=== PATIENT | female | born 1935 | race Caucasian/White ===

== ENCOUNTER → 2017-03-18 | Outpatient (CLI) | payer MEDICARE | LOC: RAD 11:05 | PROVIDERS: ATTEND Orthopaedic Surgery Orthopaedic Surgery of the Spine | DX: M54.5 Low back pain (principal) | CPT/HCPCS: 78315; A9503; Q9969 ==

== ENCOUNTER → 2017-03-25 | Outpatient (CLI) | payer MEDICARE | LOC: RAD 12:18 | PROVIDERS: ATTEND Orthopaedic Surgery Orthopaedic Surgery of the Spine | DX: M54.5 Low back pain (principal); M47.896 Other spondylosis, lumbar region | CPT/HCPCS: 72131 ==

== ENCOUNTER → 2017-06-18 | Day surgery (SDC) | payer MEDICARE ==
[~2017-06-18] MED LIST: BUPIVACAINE HCL 0.5 % INJ/PF 30 ML SDV ONE; LIDOCAINE 1% INJ-PF (10 MG/ML) 30 ML SDV ONE; METHYLPREDNISOLONE ACETATE INJ 40 MG/1 ML ML ONE
--- NOTE | 2017-06-18 13:49 | RADIOLOGY REPORT (SQ) ---
EXAM DESCRIPTION: INJECT/ASPIR HIP/SHLDR/KNEE COMPLETE DATE/TIME: 06/18/2017 1:35 pm REASON FOR STUDY: PAIN IN LEFT HIP (M25.552) M25.552 PAIN IN LEFT HIP FINDINGS: Please see combined report for performance of procedure and radiologic supervision and int erpretation. IMPRESSION: Please see combined report for performance of procedure and radiologic supervision and i nterpretation.
--- NOTE | 2017-06-18 13:51 | RADIOLOGY REPORT (SQ) ---
EXAM DESCRIPTION: FLUORO/NEEDLE PLACEMENT COMPLETED DATE/TIME: 06/18/2017 1:35 pm REASON FOR STUDY: PAIN IN LEFT HIP (M25.552) M25.552 PAIN IN LEFT HIP COMPARISON: None. FLUOROSCOPY TIME: 33 seconds 3 images saved to PACS. LIMITATIONS: None. PROCEDURE: SITE OF INJECTION: Left hip LOCALIZING CONTRAST TYPE AND DOSE: 2 mL Isovue-300 MEDICATION TYPE AND DOSE: 80 mg Depo-Medrol 5 mL Sensorcaine and 7 mL lidocaine Using local anesthesia and sterile technique with fluoroscopic guidance, the needle was advanced into the joint. Iodinated contrast was injected to verify intraarticular placement. This was followed by therapeutic injection of the indicated medications. The needle was removed. There were no immediat e complications. Preprocedure pain level: 10/10. Postprocedure pain level: 2/10. IMPRESSION: THERAPEUTIC INJECTION OF THE left hip JOINT ABOVE. COMMENT: Patient medication list reviewed: Yes. Quality ID [id number]: Final reports for procedures using fluoroscopy that document radiation exposure rozina cecilia, or exposure time and number of fluorographic images (if radiation exposure indices are not avail able) TECHNICAL DOCUMENTATION: JOB ID: [id number] [employer]- All Rights Reserved
--- NOTE | 2017-06-18 13:52 | RADIOLOGY REPORT (SQ) ---
EXAM DESCRIPTION: HIP UNILATERAL-1 VIEW COMPLETE DATE/TIME: 06/18/2017 1:36 pm REASON FOR STUDY: PAIN IN LEFT HIP (M25.552) M25.552 PAIN IN LEFT HIP FINDINGS: Please see combined report for performance of procedure and radiologic supervision and int erpretation. IMPRESSION: Please see combined report for performance of procedure and radiologic supervision and i nterpretation.
== END ==
LOC: RAD 12:31
PROVIDERS: ATTEND Physician Assistant
PROC: 3E0U33Z Introduction of Anti-inflammatory into Joints, Percutaneous Approach (ICD-10-PCS; principal; 2017-06-18)
DX: M25.552 Pain in left hip (principal)
CPT/HCPCS: 73501; 20610; 77002; J3490; J1020

== ENCOUNTER 2017-08-24 07:04 | Emergency (ER) | payer MEDICARE ==
--- NOTE | 2017-08-24 07:33 | ER Document Report ---
ED Wound - General Mode of Arrival: Ambulatory Information source: Patient TRAVEL OUTSIDE OF THE [place] IN LAST 30 DAYS: No - HPI Patient complains to provider of: Other - see narrative Occurred: Other - x2 days Severity: None Sensations intact: Yes Distal pulses present: Yes - General Chief Complaint: Laceration Stated Complaint: LEFT ARM LACERATION Time Seen by Provider: 08/24/17 07:22 Notes: Patient is an 82-year-old female who presents to the emergency department today secondary to a "blood blister busting" 2 days ago with continued bleeding since onset. Patient is on Coumadin for atrial fibrillation. Patient's bleeding times were last checked last week. at bedside states these times are usually in the "2.5 range" but last week it was a "little high". states that he stopped her Coumadin last night. Patient denies any bony pain. Patient has full range of motion of left upper extremity. (MARC MAYA) - Related Data Allergies/Adverse Reactions: codeine [Codeine] Adverse Reaction (Severe, Verified 11/13/16 12:52) Hyperactivity Past Medical History - General Information source: Patient, [facility] Records - Social History Smoking Status: Current Every Day Smoker Cigarette use (# per day): Yes Frequency of alcohol use: None Drug Abuse: None Lives with: Spouse/Significant other Family History: Reviewed & Not Pertinent Patient has suicidal ideation: No Patient has homicidal ideation: No - Past Medical History Cardiac Medical History: Reports: Hx Atrial Fibrillation, Hx Coronary Artery Disease, Hx Heart Attack - Silent, Hx Hypercholesterolemia, Hx Hypertension Pulmonary Medical History: Reports: Hx Bronchitis, Hx COPD Neurological Medical History: Reports: Hx Cerebrovascular Accident - With open heart surgery. Endocrine Medical History: Reports: Hx Diabetes Mellitus Type 2 GI Medical History: Reports: Hx Diverticulitis, Hx Ulcer - Diverticulitis Musculoskeltal Medical History: Reports Hx Arthritis, Reports Hx Gout Psychiatric Medical History: Reports: Hx Anxiety, Hx Depression Past Surgical History: Reports: Hx Abdominal Surgery, Hx Cardiac Surgery - Bypass, pacer, Hx Colostomy - reversed, Hx Coronary Artery Bypass Graft, Hx Hysterectomy, Hx Open Heart Surgery, Hx Orthopedic Surgery - Colby rods in back, Hx Pacemaker - Medtronic - Immunizations Hx Diphtheria, Pertussis, Tetanus Vaccination: Yes Hx Pneumococcal Vaccination: 08/30/14 Review of Systems - Review of Systems Constitutional: No symptoms reported EENT: No symptoms reported Cardiovascular: No symptoms reported Respiratory: No symptoms reported Gastrointestinal: No symptoms reported Genitourinary: No symptoms reported Female Genitourinary: No symptoms reported Musculoskeletal: No symptoms reported Skin: See HPI, Other - wound to left forearm with bleeding Hematologic/Lymphatic: No symptoms reported Neurological/Psychological: No symptoms reported -: Yes All other systems reviewed and negative Physical Exam - Vital signs Vitals: Temp Pulse Resp BP Pulse Ox 97.9 F 71 16 101/66 99 08/24/17 07:10 08/24/17 07:10 08/24/17 07:10 08/24/17 07:10 08/24/17 07:10 - Notes Notes: PHYSICAL EXAM GENERAL: Alert, interacts well. No acute distress. HEAD: Normocephalic, atraumatic. EYES: Pupils equal, round, and reactive to light. Extraocular movements intact. ENT: Oral mucosa moist, tongue midline. NECK: Full range of motion. Supple. Trachea midline. LUNGS: No respiratory distress. ABDOMEN: Non-distended. EXTREMITIES: Moves all 4 extremities spontaneously. No cyanosis. See skin exam. Patient able to move left shoulder, elbow, and wrist without any pain or difficulty. No bony tenderness. NEUROLOGICAL: Alert and oriented x3. Normal speech. PSYCH: Normal affect, normal mood. SKIN: Warm, dry, normal turgor. No rashes. Skin tear over left forearm just distal to the elbow measuring 3.5 cm long. Small amount of venous oozing, no arterial hemorrhage. No sign of infection. Area is not tender with palpation. (MARC MAYA) Course - Re-evaluation Re-evalutation: 08/24/17 10:35 Skin care continued to ooze blood despite the application of cocaine and the injection of lidocaine with epinephrine, patient was then cauterized using silver nitrate sticks and pressure dressing was applied, Steri-Strips were also applied. INR was checked and found to be 7.67. We were unable to verify this with a repeat as the blood kept clotting surprisingly. Patient's clinical presentation is consistent with supratherapeutic INR. Patient is given vitamin K by mouth and asked to stop taking Coumadin, be rechecked by her primary care physician Adán Lester MD in 2 days. 08/24/17 14:23 (SHIRLEY HUTSON) - Vital Signs Vital signs: Temp Pulse Resp BP Pulse Ox 97.4 F 70 16 98/41 L 98 08/24/17 11:16 08/24/17 11:16 08/24/17 11:16 08/24/17 11:16 08/24/17 11:16 - Laboratory Laboratory results interpreted by me: 08/24/17 07:35 PT 67.4 H* INR 7.67 H* Discharge - Discharge Clinical Impression: Supratherapeutic INR, Skin hemorrhage Skin tear of left forearm without complication Qualifiers: Encounter type: initial encounter Qualified Code(s): S51.812A - Laceration without foreign body of left forearm, initial encounter Condition: Stable Disposition: HOME, SELF-CARE Additional Instructions: Please leave the pressure dressing on your arm for the next 24 hours unless you develop numbness in your hand or arm. Then you may remove it. Please leave the Steri-Strips (tape on your skin) in place until they fall off on their own. Your Coumadin level was too high today. It was 7.67, we have given you vitamin K 5 mg by mouth. Please stop taking your Coumadin and do not take it again until your Coumadin level has been rechecked by her primary care physician. Referrals: DIONI BOWIE, [Primary Care Provider] - Follow up in 3-5 days Scribe Attestation: 08/24/17 14:23 I personally performed the services described in the documentation, reviewed and edited the documentation which was dictated to the scribe in my presence, and it accurately records my words and actions. (SHIRLEY HUTSON) Scribe Documentation - Scribe Written by Jinny:: Jinny Redmond, 08/24/2017 0814 acting as scribe for :: Wendie
[2017-08-24] MEDS ORDERED: COCAINE HCL 4% TOPICAL SOLN 4 ML TP ONE (07:35)
[2017-08-24] MEDS ORDERED: LIDOCAINE 1.5%/EPINEPHRINE INJ-PF 30 ML SDV INJ ONE ×2 (08:43→09:00)
[2017-08-24] MEDS ORDERED: SILVER NITRATE APPLICATOR 1 APPLIC STICK..EA. 10/PACKAGE TOP ONE ×2 (09:51)
[2017-08-24] MEDS ORDERED: PHYTONADIONE 5 MG TABLET PO ONE (10:35)
[2017-08-24 10:43] LABS: PROTHROMBIN TIME 67.4 SEC (11.4-15.4)
[2017-08-24 11:18] VITALS: BP 98/41
== END 2017-08-24 11:18 | disposition home or self-care (01) ==
LOC: ER 07:04
DX: S51.812A Laceration without foreign body of left forearm, initial encounter (principal); R23.3 Spontaneous ecchymoses; Z79.01 Long term (current) use of anticoagulants; X58.XXXA Exposure to other specified factors, initial encounter; F17.210 Nicotine dependence, cigarettes, uncomplicated
CPT/HCPCS: 99283; 36415; 85610; J3490 ×2; A9270

== ENCOUNTER 2017-08-25 14:43 | Inpatient (IN) | payer MEDICARE ==
[2017-08-25] MEDS ORDERED: NORMAL SALINE 1000 ML 1,000 ML IV PRN (15:21)
[2017-08-25] MEDS ORDERED: OXYCODONE-ACETAMINOPHEN 5-325 MG TABLET PO PRN (15:30)
[2017-08-25 16:29] LABS: ABSOLUTE BASOPHILS # (AUTO) 0.1 10^3/uL (0.0-0.2); ABSOLUTE EOSINOPHILS # (AUTO) 0.1 10^3/uL (0.0-0.6); ABSOLUTE LYMPHOCYTES (AUTO) 1.1 10^3/uL (0.5-4.7); ABSOLUTE MONOCYTES (AUTO) 0.7 10^3/uL (0.1-1.4); ABSOLUTE NEUT (AUTO) 7.5 10^3/uL (1.7-8.2); BASOPHILS % (AUTO) 0.6 % (0-2); EOSINOPHILS % (AUTO) 0.8 % (0-6); HEMATOCRIT 27.4 % (36.0-47.0); HEMOGLOBIN 8.6 g/dL (12.0-15.5); HGB HCT DIFFERENCE -1.6; LYMPHOCYTES % (AUTO) 12.2 % (13-45); MEAN CORPUSCULAR HGB CONC 31.4 g/dL (32.0-36.0); MEAN CORPUSCULAR VOLUME 70 fl (80-97); RED BLOOD COUNT 3.91 10^6/uL (3.72-5.28); RED CELL DISTRIBUTION WIDTH 20.9 % (11.5-14.0); SEGMENTED NEUTROPHILS % (AUTO) 79.4 % (42-78); WHITE BLOOD COUNT 9.4 10^3/uL (4.0-10.5)
[2017-08-25 16:43] LABS: ALANINE AMINOTRANSFERASE 96 U/L (9-52); ALBUMIN 3.3 g/dL (3.5-5.0); ALKALINE PHOSPHATASE 121 U/L (38-126); ANION GAP 12 (5-19); ASPARTATE AMINO TRANSFERASE 164 U/L (14-36); BILIRUBIN,DIRECT 0.8 mg/dL (0.0-0.4); BILIRUBIN,TOTAL 1.9 mg/dL (0.2-1.3); BLOOD UREA NITROGEN 26 mg/dL (7-20); CARBON DIOXIDE 27 mmol/L (22-30); CHLORIDE 100 mmol/L (98-107); CREATINE KINASE 65 U/L (30-135); CREATININE RESULT 1.75 mg/dL (0.52-1.25); GLUCOSE 87 mg/dL (75-110); SODIUM 139.2 mmol/L (137-145); TOTAL PROTEIN 6.8 g/dL (6.3-8.2)
[2017-08-25 16:46] LABS: POTASSIUM 2.8 mmol/L (3.6-5.0)
[2017-08-25 16:55] LABS: CREATINE KINASE MB 0.72 ng/mL (<4.55); TROPONIN I 0.039 ng/mL
--- NOTE | 2017-08-25 16:56 | PDOC H&P ---
History of Present Illness Admission Date/PCP: 08/25/17 15:21 CANDY SANDY, Patient complains of: Nausea inability to eat tiredness dry mouth History of Present Illness: CHELLY HOLDEN is a 82 year old female Who comes into the office for a follow-up after the emergency room visit. Her PT/INR was elevated over 7. She has been given vitamin K. Over the past several weeks the patient was not feeling very well. She has been nauseous she has lost weight she has not been eating well. Lab results were reviewed with the patient from last week which showed elevation in her liver enzymes. Her kidney function has gotten progressively worse because she has not been eating with increase in creatinine. She is presently being followed by the cardiology because of her atrial fibrillation and coronary artery disease. She denies any palpitations or chest pain. Past Medical History Cardiac Medical History: Reports: Atrial Fibrillation, Coronary Artery Disease, Myocardial Infarction - Silent, Hyperlipidema, Hypertension Pulmonary Medical History: Reports: Bronchitis, Chronic Obstructive Pulmonary Disease (COPD) Denies: Asthma, Pneumonia Neurological Medical History: Denies: Seizures Endocrine Medical History: Reports: Diabetes Mellitus Type 2, Hypothyroidism GI Medical History: Reports: Diverticulitis Denies: Hepatitis, Hiatal Hernia Musculoskeltal Medical History: Reports: Arthritis, Gout Musculoskeletal History Note: Compression fracture with 2 kyphoplasty's Psychiatric Medical History: Reports: Depression Hematology: Denies: Anemia, Sickle Cell Disease Past Surgical History Past Surgical History: Reports: Colostomy - reversed, Coronary Artery Bypass Graft, Hysterectomy, Orthopedic Surgery - Colby rods in back, Pacemaker - Medtronic Denies: Amputation, Mastectomy Social History Smoking Status: Current Some Day Smoker Frequency of Alcohol Use: None Hx Recreational Drug Use: No Family History Family History: Reviewed & Not Pertinent Parental Family History Reviewed: Yes Children Family History Reviewed: Yes Sibling(s) Family History Reviewed.: Yes Medication/Allergy Allergies/Adverse Reactions: codeine [Codeine] Adverse Reaction (Severe, Verified 11/13/16 12:52) Hyperactivity Review of Systems All systems: as per PMH Constitutional: PRESENT: as per HPI Physical Exam Vital Signs: Temp Pulse Resp BP Pulse Ox 97.6 F 69 18 102/39 L 92 08/25/17 15:42 08/25/17 15:42 08/25/17 15:42 08/25/17 15:42 08/25/17 15:42 Intake & Output 08/24/17 08/25/17 08/26/17 06:59 06:59 06:59 Weight 69 kg General appearance: PRESENT: mild distress Head exam: PRESENT: normocephalic Eye exam: PRESENT: conjunctival injection Mouth exam: PRESENT: dry mucosa Neck exam: ABSENT: carotid bruit Respiratory exam: PRESENT: rhonchi Cardiovascular exam: PRESENT: irregular rhythm, +S1, +S2 Pulses: PRESENT: +1 pedal pulses bilateral GI/Abdominal exam: PRESENT: soft, tenderness. ABSENT: guarding, rebound Extremities exam: PRESENT: tenderness Musculoskeletal exam: PRESENT: tenderness Neurological exam: PRESENT: alert, awake Results Laboratory Results: 08/25/17 16:00 08/25/17 16:00 WBC 9.4 RBC 3.91 Hgb 8.6 L Hct 27.4 L MCV 70 L MCH 22.0 L MCHC 31.4 L RDW 20.9 H Plt Count 144 L Seg Neutrophils % 79.4 H Lymphocytes % 12.2 L Monocytes % 7.0 Eosinophils % 0.8 Basophils % 0.6 Absolute Neutrophils 7.5 Absolute Lymphocytes 1.1 Absolute Monocytes 0.7 Absolute Eosinophils 0.1 Absolute Basophils 0.1 Assessment & Plan - Diagnosis (1) Supratherapeutic INR Is this a current diagnosis for this admission?: Yes Plan: Hold Coumadin until PT/INR therapeutic (2) Dehydration Is this a current diagnosis for this admission?: Yes Plan: IV fluids (3) Hypokalemia Is this a current diagnosis for this admission?: Yes Plan: We will supplement with additional potassium IV (4) Acute renal failure superimposed on stage 3 chronic kidney disease Is this a current diagnosis for this admission?: Yes Plan: We will continue IV hydration and hold diuretics (5) COPD (chronic obstructive pulmonary disease) Is this a current diagnosis for this admission?: Yes Plan: Continue nebulization treatments and oxygen (6) CAD (coronary artery disease) Is this a current diagnosis for this admission?: Yes Plan: Continue current medications (7) Atrial fibrillation Is this a current diagnosis for this admission?: Yes Plan: Continue amiodarone
[2017-08-25] MEDS ORDERED: ISOSORBIDE MONONITRATE 20 MG TABLET PO SCH ×2 (18:00→22:00)
[2017-08-25] MEDS ORDERED: POTASSIUM CHLORIDE 20 MEQ/50 ML RTU IV ONE (18:00)
[2017-08-25] MEDS ORDERED: ONDANSETRON HCL INJ/PF 4 MG/2 ML SDV IV PRN (18:38)
[2017-08-25] MEDS ORDERED: ALPRAZOLAM 0.25 MG TABLET PO PRN ×2 (18:38→22:00)
--- NOTE | 2017-08-25 18:56 | PDOC CONSULTATION ---
Consultation Consult Date: 08/25/17 History of Present Illness Admission Date/PCP: 08/25/17 15:21 CANDY SANDY, History of Present Illness: This is an 82-year-old patient was admitted to the emergency room today with postprandial nausea that has been going on for the last few weeks. This happens after most meals without any abdominal pain or vomiting. She has not been on any new medications though she has been taking Zofran in the last few days. On admission her INR was 7 and her LFTs were slightly abnormal with a total bilirubin of 1.9, AST of 164 and ALT of 96. She has a history of CHF and has been following up with cardiology. She has been on a high dose of diuretics over the last 2 months. Her BNP was 1570 on admission. She had an abdominal ultrasound on 06/22/2016 that showed no gallstones and no hepatic pathology. She had an EGD by Dr. Pierce in September 2013 that was essentially normal and a colonoscopy in March 2015 that showed scattered diverticulosis and a 2 mm sigmoid polyp. Past Medical History Cardiac Medical History: Reports: Atrial Fibrillation, Coronary Artery Disease, Myocardial Infarction - Silent, Hyperlipidema, Hypertension Pulmonary Medical History: Reports: Bronchitis, Chronic Obstructive Pulmonary Disease (COPD) Denies: Asthma, Pneumonia Neurological Medical History: Denies: Seizures Endocrine Medical History: Reports: Diabetes Mellitus Type 2, Hypothyroidism GI Medical History: Reports: Diverticulitis Denies: Hepatitis, Hiatal Hernia Musculoskeltal Medical History: Reports: Arthritis, Gout Psychiatric Medical History: Reports: Depression Hematology: Denies: Anemia, Sickle Cell Disease Past Surgical History Past Surgical History: Reports: Colostomy - reversed, Coronary Artery Bypass Graft, Hysterectomy, Orthopedic Surgery - Colby rods in back, Pacemaker - Medtronic Denies: Amputation, Mastectomy Social History Smoking Status: Current Some Day Smoker Frequency of Alcohol Use: None Hx Recreational Drug Use: No Family History Family History: Reviewed & Not Pertinent Parental Family History Reviewed: No Children Family History Reviewed: NA Sibling(s) Family History Reviewed.: NA Medication/Allergy Home Medications: Alprazolam [Xanax 0.25 mg Tablet] 0.25 mg PO Q8HP PRN 08/25/17 Amiodarone HCl [Cordarone 200 mg Tablet] 200 mg PO BID 08/25/17 Aspirin [Aspirin 81 mg Chewable Tablet] 81 mg PO DAILY 08/25/17 Atorvastatin Calcium [Lipitor 40 mg Tablet] 40 mg PO QHS 08/25/17 Bumetanide [Bumex 1 mg Tablet] 3 mg PO BID 08/25/17 Gabapentin [Neurontin 100 mg Capsule] 300 mg PO TID 08/25/17 Isosorbide Mononitrate [Ismo 20 mg Tablet] 20 mg PO BID 08/25/17 Levothyroxine Sodium [Synthroid] 50 mcg PO QAM 08/25/17 Metoprolol Tartrate [Lopressor 100 mg Tablet] 100 mg PO Q12 08/25/17 Omeprazole 40 mg PO BID 08/25/17 Ondansetron [Zofran Odt 4 mg Tablet] 4 mg SL Q8 08/25/17 Spironolactone [Aldactone] 50 mg PO DAILY 08/25/17 Warfarin Sodium [Coumadin 5 mg Tablet] 2.5 mg PO DAILY 08/25/17 Allergies/Adverse Reactions: codeine [Codeine] Adverse Reaction (Severe, Verified 11/13/16 12:52) Hyperactivity Review of Systems All systems: reviewed and no additional remarkable complaints except as stated Physical Exam Vital Signs: Temp Pulse Resp BP Pulse Ox 97.6 F 69 18 102/39 L 92 08/25/17 15:42 08/25/17 15:42 08/25/17 15:42 08/25/17 15:42 08/25/17 15:42 Intake & Output 08/24/17 08/25/17 08/26/17 06:59 06:59 06:59 Intake Total 0 Balance 0 Weight 69 kg Exam: General: Patient is alert and looks well. HEENT: There is no pallor or jaundice. PERRLA. Oropharynx normal Respiratory: She has kyphosis. No respiratory distress. Chest wall palpitation was unremarkable. Breath sounds were normal Cardiovascular: Heart sounds 1 and 2 normal with no murmurs. Abdominal: Not distended. Soft and nontender. Liver and spleen not palpable. No ascites demonstrated. Bowel sounds active. Rectal examination was deferred. Extremities: Mild bilateral pitting edema Neurological: Alert and oriented x4. Grossly nonfocal. Normal speech Skin: No significant rash Psychological: Normal affect Results Laboratory Results: 08/25/17 16:00 08/25/17 16:00 08/25/17 08/25/17 08/25/17 16:00 16:00 16:00 WBC 9.4 RBC 3.91 Hgb 8.6 L Hct 27.4 L MCV 70 L MCH 22.0 L MCHC 31.4 L RDW 20.9 H Plt Count 144 L Seg Neutrophils % 79.4 H Lymphocytes % 12.2 L Monocytes % 7.0 Eosinophils % 0.8 Basophils % 0.6 Absolute Neutrophils 7.5 Absolute Lymphocytes 1.1 Absolute Monocytes 0.7 Absolute Eosinophils 0.1 Absolute Basophils 0.1 Sodium 139.2 Potassium 2.8 L* Chloride 100 Carbon Dioxide 27 Anion Gap 12 BUN 26 H Creatinine 1.75 H Est GFR ( Amer) 34 L Est GFR (Non-Af Amer) 28 L Glucose 87 Calcium 9.0 Total Bilirubin 1.9 H AST 164 H ALT 96 H Alkaline Phosphatase 121 Total Protein 6.8 Albumin 3.3 L TSH 7.37 H 08/25/17 08/25/17 16:00 16:00 Creatine Kinase 65 CK-MB (CK-2) 0.72 Troponin I 0.039 NT-Pro-B Natriuret Pep 1570 H Assessment & Plan - Diagnosis (1) Nausea Is this a current diagnosis for this admission?: Yes Plan: Differential diagnosis for her postprandial nausea include peptic ulcer disease , gallbladder disease, medication side effects, or CHF. Her ultrasound was unremarkable over a year ago but this will be repeated. I may consider an EGD (2) Abnormal liver enzymes Is this a current diagnosis for this admission?: Yes Plan: Her LFTs were normal in 2016. The current elevation may be from her CHF and hepatic congestion. We shall observe for now and repeat over the next few months. An ultrasound will be scheduled to rule out gallstones and choledocholithiasis (3) Anemia of chronic disease Is this a current diagnosis for this admission?: Yes
[2017-08-25] MEDS ORDERED: AMIODARONE HCL 200 MG TABLET PO SCH (22:00)
[2017-08-25] MEDS ORDERED: GABAPENTIN 100 MG CAPSULE PO SCH (22:00)
[2017-08-25] MEDS ORDERED: METOPROLOL TARTRATE 100 MG TABLET PO SCH ×2 (22:00)
[2017-08-25] MEDS: GABAPENTIN 300 MG CAPSULE PO SCH (22:07)
[2017-08-25] MEDS: ISOSORBIDE MONONITRATE 20 MG TABLET PO SCH (22:07)
[2017-08-26 04:50] LABS: ALANINE AMINOTRANSFERASE 77 U/L (9-52); ALBUMIN 2.5 g/dL (3.5-5.0); ALKALINE PHOSPHATASE 77 U/L (38-126); ANION GAP 6 (5-19); ASPARTATE AMINO TRANSFERASE 123 U/L (14-36); BILIRUBIN,DIRECT 0.7 mg/dL (0.0-0.4); BILIRUBIN,TOTAL 1.5 mg/dL (0.2-1.3); BLOOD UREA NITROGEN 25 mg/dL (7-20); CALCIUM 8.2 mg/dL (8.4-10.2); CARBON DIOXIDE 27 mmol/L (22-30); CHLORIDE 103 mmol/L (98-107); CREATININE RESULT 1.48 mg/dL (0.52-1.25); GLUCOSE 103 mg/dL (75-110); MAGNESIUM 1.8 mg/dL (1.6-2.3); SODIUM 135.8 mmol/L (137-145); TOTAL PROTEIN 5.6 g/dL (6.3-8.2)
[2017-08-26 04:57] LABS: POTASSIUM 2.9 mmol/L (3.6-5.0)
[2017-08-26] MEDS ORDERED: POTASSIUM CHLORIDE 20 MEQ/50 ML RTU IV SCH (05:45)
[2017-08-26] MEDS: MAGNESIUM SULFATE 1 GM/D5W 100 ML IV SCH ×2 (05:56→08:35)
[2017-08-26] MEDS: GABAPENTIN 300 MG CAPSULE PO SCH ×3 (05:58→21:23)
[2017-08-26] MEDS ORDERED: LANSOPRAZOLE 30 MG TAB.RAP.DR PO SCH (06:00)
[2017-08-26 06:34] LABS: ABSOLUTE EOSINOPHILS # (AUTO) 0.1 10^3/uL (0.0-0.6); ABSOLUTE MONOCYTES (AUTO) 0.7 10^3/uL (0.1-1.4); ABSOLUTE NEUT (AUTO) 5.1 10^3/uL (1.7-8.2); BASOPHILS % (AUTO) 0.6 % (0-2); EOSINOPHILS % (AUTO) 1.8 % (0-6); HEMATOCRIT 24.3 % (36.0-47.0); HGB HCT DIFFERENCE -0.3; MEAN CORPUSCULAR HEMOGLOBIN 22.9 pg (27.0-33.4); MEAN CORPUSCULAR HGB CONC 32.9 g/dL (32.0-36.0); MEAN CORPUSCULAR VOLUME 70 fl (80-97); MONOCYTES % (AUTO) 9.5 % (3-13); RED BLOOD COUNT 3.49 10^6/uL (3.72-5.28); RED CELL DISTRIBUTION WIDTH 20.2 % (11.5-14.0); SEGMENTED NEUTROPHILS % (AUTO) 73.1 % (42-78); WHITE BLOOD COUNT 6.9 10^3/uL (4.0-10.5)
[2017-08-26] MEDS ORDERED: LEVOTHYROXINE SODIUM 0.05 MG TABLET PO SCH (08:00)
[2017-08-26] MEDS ORDERED: NORMAL SALINE 1000 ML 500 ML IV ONE (08:30)
[2017-08-26] MEDS: LANSOPRAZOLE 30 MG TAB.RAP.DR PO SCH ×2 (08:31→17:42)
--- NOTE | 2017-08-26 09:14 | RADIOLOGY REPORT (SQ) ---
EXAM DESCRIPTION: U/S ABDOMEN LIMITED W/O DOP COMPLETED DATE/TIME: 08/26/2017 7:32 am REASON FOR STUDY: postprandial nausea COMPARISON: Abdominal ultrasound 06/22/2016 TECHNIQUE: Dynamic and static grayscale images acquired of the abdomen and recorded on PACS. Additio nal selected color Doppler and spectral images recorded. LIMITATIONS: None. FINDINGS: PANCREAS: Midline pancreas unremarkable LIVER: No masses. Echotexture normal. LIVER VASCULATURE: Echogenic material in the main portal vein, worrisome for incompletely occlusive t hrombus. GALLBLADDER: Minimal sludge or stones in the gallbladder. No definite gallbladder wall thickening or pericholecystic fluid. ULTRASOUND-DETECTED CAMPBELL'S SIGN: Negative. INTRAHEPATIC DUCTS AND COMMON DUCT: CBD and intrahepatic ducts normal caliber. No filling defects. INFERIOR VENA CAVA: Normal flow. AORTA: No aneurysm. RIGHT KIDNEY: Normal size. Normal echogenicity. No solid or suspicious masses. No hydronephrosis. No calcifications. PERITONEAL AND RIGHT PLEURAL SPACE: No ascites or effusions. OTHER: No other significant findings. IMPRESSION: Echogenic material in the main portal vein, worrisome for incompletely occlusive thrombu s TECHNICAL DOCUMENTATION: JOB ID: [id number] [employer]- All Rights Reserved
[2017-08-26] MEDS: ASPIRIN 81 MG TABLET, CHEWABLE PO SCH (09:24)
[2017-08-26] MEDS: LEVOTHYROXINE SODIUM 0.05 MG TABLET PO SCH (09:24)
[2017-08-26] MEDS ORDERED: GLUCAGON,HUMAN RECOMB 1 MG INJ SUBCUT PRN (09:33)
[2017-08-26] MEDS ORDERED: DEXTROSE 50%-WATER 25 GM/50 ML DISP.SYRIN IV PRN ×2 (09:33)
[2017-08-26] MEDS ORDERED: DEXTROSE 40% GEL 15 GM TUBE PO PRN ×2 (09:33)
[2017-08-26] MEDS: AMIODARONE HCL 200 MG TABLET PO SCH ×2 (09:37→21:23)
[2017-08-26] MEDS: ISOSORBIDE MONONITRATE 20 MG TABLET PO SCH ×2 (09:39→21:23)
[2017-08-26] MEDS ORDERED: ASPIRIN 81 MG TABLET, CHEWABLE PO SCH (10:00)
[2017-08-26] MEDS ORDERED: FEBUXOSTAT 40 MG TABLET PO SCH (10:00)
[2017-08-26] MEDS ORDERED: LEVOTHYROXINE SODIUM 0.025 MG TABLET PO SCH (10:00)
[2017-08-26] MEDS ORDERED: ISOSORBIDE MONONITRATE 20 MG TABLET PO SCH (10:00)
[2017-08-26] MEDS ORDERED: GABAPENTIN 100 MG CAPSULE PO SCH (10:00)
[2017-08-26] MEDS ORDERED: AMIODARONE HCL 200 MG TABLET PO SCH (10:00)
[2017-08-26 10:11] LABS: PROTHROMBIN TIME 22.4 SEC (11.4-15.4)
--- NOTE | 2017-08-26 10:31 | PDOC PROGRESS REPORT ---
Subjective Progress Note for:: 08/26/17 Subjective:: The patient is a very pleasant 82-year-old female he was sent to the hospital from her primary care physician's office with supra therapeutic INR as well as nausea and postprandial fullness and dyspepsia. She was admitted to the hospital and a consult was placed to the GI service. Yesterday she had an abdominal ultrasound performed which was read this morning. I have spoken to gastroenterology this morning and the tentative plan is for a possible upper endoscopy to be performed this afternoon. When I went to see the patient today she is resting comfortably in the bed. She states that she has had no fever or chills overnight. She has had no chest pain or heart palpitations that she is aware of. She states that when she eats she gets full quite quickly. She states then she just has nausea but does not vomit. She states this makes it quite difficult to eat. She states that she has had some discomfort in her upper abdomen. She states that she has had normal bowel movements. She has not noted any black stools or blood in her stools. She states that she was taking water pills at home a few times a day and used to be urinating quite a bit but recently she has not been urinating much at all. Physical Exam Vital Signs: Temp Pulse Resp BP Pulse Ox 97.9 F 75 18 97/42 L 96 08/26/17 07:29 08/26/17 08:00 08/26/17 08:00 08/26/17 07:29 08/26/17 08:00 Intake & Output 08/25/17 08/26/17 08/27/17 06:59 06:59 06:59 Intake Total 1350 Output Total 100 Balance 1250 Weight 69.1 kg General appearance: PRESENT: no acute distress, well-developed, well-nourished Head exam: PRESENT: atraumatic, normocephalic Mouth exam: PRESENT: dry mucosa, tongue midline Respiratory exam: PRESENT: clear to auscultation marisela. ABSENT: rales, rhonchi, wheezes Cardiovascular exam: PRESENT: RRR. ABSENT: diastolic murmur, rubs, systolic murmur Pulses: PRESENT: normal dorsalis pedis pul GI/Abdominal exam: PRESENT: distended, guarding, hypoactive bowel sounds, tenderness. ABSENT: organolmegaly, rebound, rigid Rectal exam: PRESENT: deferred Extremities exam: PRESENT: full ROM. ABSENT: calf tenderness, clubbing, pedal edema Neurological exam: PRESENT: alert, awake, oriented to person, oriented to place , oriented to time, oriented to situation, CN II-XII grossly intact. ABSENT: motor sensory deficit Psychiatric exam: PRESENT: appropriate affect, normal mood. ABSENT: homicidal ideation, suicidal ideation Skin exam: PRESENT: dry, intact, warm. ABSENT: cyanosis, rash Results Laboratory Results: 08/26/17 05:42 08/26/17 04:23 08/25/17 08/25/17 08/25/17 16:00 16:00 16:00 WBC 9.4 RBC 3.91 Hgb 8.6 L Hct 27.4 L MCV 70 L MCH 22.0 L MCHC 31.4 L RDW 20.9 H Plt Count 144 L Seg Neutrophils % 79.4 H Lymphocytes % 12.2 L Monocytes % 7.0 Eosinophils % 0.8 Basophils % 0.6 Absolute Neutrophils 7.5 Absolute Lymphocytes 1.1 Absolute Monocytes 0.7 Absolute Eosinophils 0.1 Absolute Basophils 0.1 Retic Count (auto) Absolute Retic Sodium 139.2 Potassium 2.8 L* Chloride 100 Carbon Dioxide 27 Anion Gap 12 BUN 26 H Creatinine 1.75 H Est GFR ( Amer) 34 L Est GFR (Non-Af Amer) 28 L Glucose 87 Calcium 9.0 Magnesium Total Bilirubin 1.9 H AST 164 H ALT 96 H Alkaline Phosphatase 121 Total Protein 6.8 Albumin 3.3 L TSH 7.37 H 08/26/17 08/26/17 08/26/17 04:23 04:23 05:42 WBC Cancelled 6.9 RBC Cancelled 3.49 L Hgb Cancelled 8.0 L Hct Cancelled 24.3 L MCV Cancelled 70 L MCH Cancelled 22.9 L MCHC Cancelled 32.9 RDW Cancelled 20.2 H Plt Count Cancelled 101 L Seg Neutrophils % Cancelled 73.1 Lymphocytes % Cancelled 15.0 Monocytes % Cancelled 9.5 Eosinophils % Cancelled 1.8 Basophils % Cancelled 0.6 Absolute Neutrophils Cancelled 5.1 Absolute Lymphocytes Cancelled 1.0 Absolute Monocytes Cancelled 0.7 Absolute Eosinophils Cancelled 0.1 Absolute Basophils Cancelled 0.0 Retic Count (auto) Absolute Retic Sodium 135.8 L Potassium 2.9 L* Chloride 103 Carbon Dioxide 27 Anion Gap 6 BUN 25 H Creatinine 1.48 H Est GFR ( Amer) 41 L Est GFR (Non-Af Amer) 34 L Glucose 103 Calcium 8.2 L Magnesium 1.8 Total Bilirubin 1.5 H AST 123 H ALT 77 H Alkaline Phosphatase 77 Total Protein 5.6 L Albumin 2.5 L [facility] 08/26/17 05:42 WBC RBC Hgb Hct MCV MCH MCHC RDW Plt Count Seg Neutrophils % Lymphocytes % Monocytes % Eosinophils % Basophils % Absolute Neutrophils Absolute Lymphocytes Absolute Monocytes Absolute Eosinophils Absolute Basophils Retic Count (auto) Cancelled Absolute Retic Cancelled Sodium Potassium Chloride Carbon Dioxide Anion Gap BUN Creatinine Est GFR ( Amer) Est GFR (Non-Af Amer) Glucose Calcium Magnesium Total Bilirubin AST ALT Alkaline Phosphatase Total Protein Albumin [facility] 08/25/17 08/25/17 08/25/17 16:00 16:00 21:35 Creatine Kinase 65 CK-MB (CK-2) 0.72 Troponin I 0.039 0.032 NT-Pro-B Natriuret Pep 1570 H 08/26/17 08/26/17 04:23 04:23 Creatine Kinase CK-MB (CK-2) Troponin I 0.031 NT-Pro-B Natriuret Pep 1160 H Impressions: Abdomen Ultrasound 08/26/17 00:00 IMPRESSION: Echogenic material in the main portal vein, worrisome for incompletely occlusive thrombus Assessment & Plan - Diagnosis (1) Acute on chronic renal failure Plan: Secondary to dehydration from poor p.o. intake as well as diuretics. Creatinine is improving with IV fluid hydration. Creatinine is down to 1.48 at this point. The patient actually needs to have a CT scan of the abdomen and pelvis performed with IV contrast. I am going to repeat a chemistry panel this afternoon and if her creatinine has improved enough we will consider getting this scan at that time. (2) Supratherapeutic INR Is this a current diagnosis for this admission?: Yes Plan: The patient had a supra therapeutic INR at the time of admission. No PT and INR was ordered for this morning and I have added this for the labs this afternoon. She takes Coumadin as an outpatient. (3) Portal vein thrombosis Plan: The patient's abdominal ultrasound reveals a partially occluding thrombus in the portal vein. I did speak to gastroenterology about this this morning. We would like to obtain a contrasted CT scan of the abdomen and pelvis for further evaluation. I am going to repeat a chemistry panel to see what her creatinine is this afternoon. This is interesting as the patient has a supratherapeutic INR and is on Coumadin. Will defer to the GI service on further management. (4) Elevated liver function tests Plan: Of undetermined significance at this point. Patient does have known congestive heart failure but does not seem to be decompensated so I do not believe this could be attributed to passive congestion of the liver. The patient actually remains quite dry. Hopefully we can get a CT scan of the abdomen and pelvis this afternoon for further evaluation. Fortunately the GI service is following and we certainly appreciate their input. (5) Hypokalemia Is this a current diagnosis for this admission?: Yes Plan: Her level is still quite low. She will receive potassium riders today and I am going to add potassium to her maintenance IV fluids for now. She will have a repeat chemistry panel this afternoon. (6) Dehydration Is this a current diagnosis for this admission?: Yes Plan: Resolving with IV fluid hydration (7) CAD (coronary artery disease) Is this a current diagnosis for this admission?: Yes Plan: No complaints of chest pain. She will continue aspirin and her beta-soraya. She takes metoprolol tartrate 100 mg twice daily. Patient's blood pressure is quite low today and she actually is received a fluid bolus. I am going to cut her metoprolol back to 25 mg twice daily in the short-term here. Her Lipitor has been held due to her increased liver function test. (8) COPD (chronic obstructive pulmonary disease) Is this a current diagnosis for this admission?: Yes Plan: Fortunately no evidence of exacerbation. (9) Atrial fibrillation Is this a current diagnosis for this admission?: Yes Plan: Continue amiodarone. She is on Coumadin for anticoagulation. She reportedly had a supratherapeutic INR at the time of admission. I am going to check a PT and INR this afternoon. Currently she is in a sinus rhythm and rate controlled. (10) Anemia Plan: The patient has a microcytic anemia. I am going to obtain an anemia panel for further evaluation. She may have an element of iron deficiency and certainly she has an element of chronic disease. There also may be an element of hemodilution that she has been receiving IV fluids as well. She will have a CBC drawn in the morning. (11) Thrombocytopenia Plan: Of undetermined significance but certainly concerning in light of her elevated liver function tests. Hopefully we can get a CT scan of her abdomen and pelvis this afternoon for further evaluation. (12) Hyponatremia Plan: This is quite mild. She will have a CBC drawn in the morning. - Time Time Spent with patient: 35 or more minutes - Inpatient Certification Medical Necessity: Need Close Monitoring Due to Risk of Patient Decompensation - Inpatient hospitalization remains necessary. The patient has acute renal failure requiring parenteral fluids. She has multiple electrolyte abnormalities that we are supplementing. She needs further evaluation from the GI service and we need to look into why she has developed a portal vein thrombus. Timing of disposition will be determined by her clinical course., Need For IV Fluids
[2017-08-26] MEDS: METOPROLOL TARTRATE 25 MG TABLET PO SCH ×2 (10:41→21:23)
[2017-08-26] MEDS: POTASSI CL 20 MEQ/50 ML RIDER 20 MEQ/50 ML RTUPB IV SCH ×2 (10:44→13:26)
--- NOTE | 2017-08-26 12:24 | EKG REPORT ---
SEVERITY:- ABNORMAL ECG - ATRIAL-PACED COMPLEXES RIGHT BUNDLE BRANCH BLOCK ST DEPRESSION, CONSIDER ISCHEMIA, ANT-LAT LDS : Confirmed by: Elina Ordaz MD 26-Aug-2017 12:23:22
[2017-08-26 12:27] LABS: FOLATE > 20.00 ng/mL (>2.76)
[2017-08-26] MEDS: POTASSI CL 20 MEQ/NS 1L 1,000 ML IV SCH (17:13)
[2017-08-26 20:06] LABS: ANION GAP 8 (5-19); BLOOD UREA NITROGEN 20 mg/dL (7-20); CARBON DIOXIDE 22 mmol/L (22-30); CHLORIDE 106 mmol/L (98-107); CREATININE RESULT 1.35 mg/dL (0.52-1.25); GLUCOSE 152 mg/dL (75-110); SODIUM 135.9 mmol/L (137-145)
[2017-08-26 20:18] LABS: POTASSIUM 3.9 mmol/L (3.6-5.0)
[2017-08-27] MEDS: POTASSI CL 20 MEQ/NS 1L 1,000 ML IV SCH (01:41)
[2017-08-27] MEDS: GABAPENTIN 300 MG CAPSULE PO SCH ×3 (05:16→21:13)
[2017-08-27 05:58] LABS: ABSOLUTE BASOPHILS # (AUTO) 0.1 10^3/uL (0.0-0.2); RED BLOOD COUNT 3.54 10^6/uL (3.72-5.28)
[2017-08-27 06:00] LABS: ABSOLUTE EOSINOPHILS # (AUTO) 0.2 10^3/uL (0.0-0.6); ABSOLUTE LYMPHOCYTES (AUTO) 1.4 10^3/uL (0.5-4.7); ABSOLUTE MONOCYTES (AUTO) 0.7 10^3/uL (0.1-1.4); ABSOLUTE NEUT (AUTO) 6.7 10^3/uL (1.7-8.2); BASOPHILS % (AUTO) 0.9 % (0-2); HEMATOCRIT 24.9 % (36.0-47.0); HGB HCT DIFFERENCE -0.9; LYMPHOCYTES % (AUTO) 15.6 % (13-45); MEAN CORPUSCULAR HEMOGLOBIN 22.6 pg (27.0-33.4); MEAN CORPUSCULAR VOLUME 71 fl (80-97); MONOCYTES % (AUTO) 8.1 % (3-13); RED CELL DISTRIBUTION WIDTH 20.6 % (11.5-14.0); SEGMENTED NEUTROPHILS % (AUTO) 73.4 % (42-78); WHITE BLOOD COUNT 9.1 10^3/uL (4.0-10.5)
[2017-08-27 06:21] LABS: ALANINE AMINOTRANSFERASE 79 U/L (9-52); ALBUMIN 2.8 g/dL (3.5-5.0); ALKALINE PHOSPHATASE 90 U/L (38-126); ANION GAP 8 (5-19); ASPARTATE AMINO TRANSFERASE 132 U/L (14-36); BILIRUBIN,DIRECT 0.7 mg/dL (0.0-0.4); BILIRUBIN,TOTAL 1.5 mg/dL (0.2-1.3); BLOOD UREA NITROGEN 20 mg/dL (7-20); CALCIUM 8.3 mg/dL (8.4-10.2); CARBON DIOXIDE 22 mmol/L (22-30); CHLORIDE 109 mmol/L (98-107); CREATININE RESULT 1.41 mg/dL (0.52-1.25); GLUCOSE 120 mg/dL (75-110); MAGNESIUM 2.5 mg/dL (1.6-2.3); POTASSIUM 4.5 mmol/L (3.6-5.0); SODIUM 139.1 mmol/L (137-145)
[2017-08-27] MEDS ORDERED: WARFARIN SODIUM 2.5 MG TABLET PO SCH (07:45)
[2017-08-27] MEDS: METOPROLOL TARTRATE 25 MG TABLET PO SCH ×2 (09:12→21:11)
[2017-08-27] MEDS: LEVOTHYROXINE SODIUM 0.05 MG TABLET PO SCH (09:13)
[2017-08-27] MEDS: ASPIRIN 81 MG TABLET, CHEWABLE PO SCH (09:13)
[2017-08-27] MEDS: ISOSORBIDE MONONITRATE 20 MG TABLET PO SCH ×2 (09:13→19:01)
[2017-08-27] MEDS: AMIODARONE HCL 200 MG TABLET PO SCH ×2 (09:14→21:13)
[2017-08-27] MEDS: LANSOPRAZOLE 30 MG TAB.RAP.DR PO SCH (09:14)
--- NOTE | 2017-08-27 10:11 | Physician Advisory Note ---
Physician Advisor ProgressNote .: [facility] I have reviewed the medical record for this patient. Physician Advisor Statement: Well, you definitely make me work to find stuff to ask for - you're gonna be such a great health coach! Please consider documentin. "chronic Afib" vs "paroxysmal Afib" - not on a blue note, but the coders need this specified, too. 2. "anemia of chronic kidney dz stage 3" (need to say type of chr dz) - "& of nutritional Fe defic [vs chronic blood loss Fe defic from ___} " 3. "acute hyponatremia, mild, likely due to intravascular volume depletion" Thanks! CK (no blue note on this one)
[2017-08-27] MEDS ORDERED: NORMAL SALINE 1000 ML 1,000 ML IV PRN (13:18)
--- NOTE | 2017-08-27 15:51 | RADIOLOGY REPORT (SQ) ---
EXAM DESCRIPTION: PICC INSERTION; U/S GUIDE FOR VASCULAR ACCESS; FLUORO/CV PLACEMENT COMPLETED DATE/TIME: 08/27/2017 3:30 pm REASON FOR STUDY: poor peripheral access, need for IV contrast/fluid; IV ACCESS COMPARISON: None. FLUOROSCOPY TIME: 1 minutes 50 seconds. 1 images saved to PACS. TECHNIQUE: Fluoroscopic and ultrasound guided PICC placement. LIMITATIONS: None. PROCEDURE: After written consent and assessment were obtained, the patient was brought into the fluo roscopy room and place supine on the table. Ultrasound was used on the patient's right arm for PICC access. The right arm was prepped and draped in a sterile fashion along with the ultrasound probe. Th e entry site was anesthetized with 1% lidocaine. A 21 gauge 7 cm needle was advanced through the skin and into the basilic vein under live ultrasound guidance. An ultrasound image was saved to PACS con firming access site. A .018 guide wire was then inserted through the needle and into the venous syst em. The needle was the removed and an 11 blade scalpel was used to make a 1cm skin incision. A 5 fr peel-away sheath was advanced over the wire and into the venous system. A measurement was then made u sing the existing wire and live fluoroscopic guidance. The wire was then removed and the trimmed. The PICC was advanced through the peel-away sheath and into the venous system. The peel-away sheath was removed and the catheter was adhered to the patients arm with a stat lock. The catheter was then aspi rated and flushed and a sterile bandage was placed over the access site. A fluoroscopic spot image w as saved to PACS confirming the catheter tip within the superior vena cava. IMPRESSION: SUCCESSFUL PLACEMENT OF A 5 FR SINGLE LUMEN 37 CM PICC IN THE RIGHT BASILIC VEIN. COMMENT: Patient medication list reviewed: Yes- Quality ID# 130:Eligible professional attests to doc umenting in the medical record they obtained, updated, or reviewed the patient's current medications. . Quality ID 145: Final reports for procedures using fluoroscopy that document radiation exposure rozina cecilia, or exposure time and number of fluorographic images (if radiation exposure indices are not avail able) Quality ID #76: The patient was prepped and draped using maximum sterile barrier technique including cap, mask, sterile gown, sterile gloves, a large sterile sheet, hand hygiene, and 2% Chlorhexidine fo r cutaneous antisepsis. When ultrasound is used, sterile ultrasound techniques are followed requiring sterile gel and sterile probes. TECHNICAL DOCUMENTATION: JOB ID: [id number] [employer]- All Rights Reserved
--- NOTE | 2017-08-27 16:01 | RADIOLOGY REPORT (SQ) ---
EXAM DESCRIPTION: CT ABD/PELVIS WITH IV ONLY COMPLETED DATE/TIME: 08/27/2017 3:47 pm REASON FOR STUDY: nausea, possible portal vein thrombus COMPARISON: None. TECHNIQUE: CT scan of the abdomen and pelvis performed using helical scanning technique with dynamic intravenous contrast injection. No oral contrast. Images reviewed with lung, soft tissue, and bone windows. Reconstructed coronal and sagittal MPR images reviewed. Delayed images for evaluation of the urinary system also acquired. All images stored on PACS. All CT scanners at this facility use dose modulation, iterative reconstruction, and/or weight based d osing when appropriate to reduce radiation dose to as low as reasonably achievable (ALARA). [facility]: Dose Right [facility]: CareDose [facility]: Dose Right [facility]: Teradose 4D [facility]: Kiwi Crate CONTRAST TYPE AND DOSE: contrast/concentration: Isovue 370.00 mg/ml; Total Contrast Delivered: 75.0 ml; Total Saline Delivered: 67.0 ml RENAL FUNCTION: BUN 20 creatinine 1.41. RADIATION DOSE: Up-to-date CT equipment and radiation dose reduction techniques were employed. CTDIv ol: 25.0 - 26.2 mGy. DLP: 2438 mGy-cm.. LIMITATIONS: None. FINDINGS: LOWER CHEST: Bilateral pleural effusions with basilar atelectasis. LIVER: Normal size. No masses. No dilated ducts. Contrast is present in the portal vein, splenic ve in, and superior mesenteric vein. No evidence of thrombosis. SPLEEN: Normal size. No focal lesions. PANCREAS: No masses. No significant calcifications. No adjacent inflammation or peripancreatic fluid collections. Pancreatic duct not dilated. GALLBLADDER: No identified stones by CT criteria. No inflammatory changes to suggest cholecystitis. ADRENAL GLANDS: No significant masses or asymmetry. RIGHT KIDNEY AND URETER: No solid masses. No significant calcifications. No hydronephrosis or hyd roureter. LEFT KIDNEY AND URETER: No solid masses. No significant calcifications. No hydronephrosis or hydr oureter. AORTA AND VESSELS: No aneurysm. No dissection. Extensive arterial calcifications. Renal arteries, S MA, celiac without stenosis. RETROPERITONEUM: No retroperitoneal adenopathy, hemorrhage or masses. BOWEL AND PERITONEAL CAVITY: No masses or inflammatory changes. Moderate ascites. No peritoneal mas ses. APPENDIX: Not visualized. PELVIS: No mass. No free fluid. Normal bladder. ABDOMINAL WALL: No masses. No hernias. BONES: Chronic changes in the spine with old compression deformities and kyphoplasty cement. Hardwar e in the lower thoracic and upper lumbar spine. OTHER: No other significant finding. IMPRESSION: 1. PATENT PORTAL VEIN, SPLENIC VEIN, AND SUPERIOR MESENTERIC VEIN. NO EVIDENCE OF THROMBOSIS. 2. MODERATE ASCITES. 3. BILATERAL PLEURAL EFFUSIONS WITH BASILAR ATELECTASIS. 4. CHRONIC CHANGES IN THE LUMBAR SPINE WITH PRIOR KYPHOPLASTY AND SURGICAL CHANGES WITH HARDWARE. 5. NO OTHER SIGNIFICANT FINDINGS. TECHNICAL DOCUMENTATION: JOB ID: [id number] Quality ID # [id number]: Final reports with documentation of one or more dose reduction techniques (e.g., Au tomated exposure control, adjustment of the mA and/or kV according to patient size, use of iterative reconstruction technique) 2010 [employer]- All Rights Reserved
--- NOTE | 2017-08-27 16:45 | PDOC PROGRESS REPORT ---
Subjective Progress Note for:: 08/27/17 Subjective:: The patient is resting in her bed with her at the bedside. She is going to have an upper endoscopy performed late this afternoon by the GI service. Currently she is n.p.o. but asking for ice chips. She has been having difficulty with her IV access and a PICC line consult has been placed. Overall she states that she has not had anything to eat today but when she does eat she gets quite nauseated and she continues to get full quite quickly. She has had no fever chills overnight. She has not had a bowel movement today. No abdominal pain. No dysuria, frequency or hematuria. Physical Exam Vital Signs: Temp Pulse Resp BP Pulse Ox 97.5 F 70 20 104/46 L 90 L 08/27/17 12:04 08/27/17 14:00 08/27/17 12:04 08/27/17 11:54 08/27/17 12:04 Intake & Output 08/26/17 08/27/17 08/28/17 06:59 06:59 06:59 Intake Total 1350 4073 237 Output Total 100 Balance 1250 4073 237 Weight 69.1 kg 73.3 kg General appearance: PRESENT: no acute distress, well-developed, well-nourished Head exam: PRESENT: atraumatic, normocephalic Mouth exam: PRESENT: moist, tongue midline Neck exam: ABSENT: carotid bruit, JVD, lymphadenopathy, thyromegaly Respiratory exam: PRESENT: clear to auscultation marisela. ABSENT: rales, rhonchi, wheezes Cardiovascular exam: PRESENT: RRR. ABSENT: diastolic murmur, rubs, systolic murmur GI/Abdominal exam: PRESENT: normal bowel sounds, soft, tenderness. ABSENT: distended, guarding, mass, organolmegaly, rebound Rectal exam: PRESENT: deferred Extremities exam: PRESENT: full ROM. ABSENT: calf tenderness, clubbing, pedal edema Neurological exam: PRESENT: alert, awake, oriented to person, oriented to place , oriented to time, oriented to situation, CN II-XII grossly intact. ABSENT: motor sensory deficit Psychiatric exam: PRESENT: appropriate affect, normal mood. ABSENT: homicidal ideation, suicidal ideation Skin exam: PRESENT: dry, intact, warm. ABSENT: cyanosis, rash Results Laboratory Results: 08/27/17 05:46 08/27/17 05:46 08/26/17 08/26/17 08/27/17 10:42 19:40 05:46 WBC 9.1 RBC 3.54 L Hgb 8.0 L Hct 24.9 L MCV 71 L MCH 22.6 L MCHC 32.0 RDW 20.6 H Plt Count 142 L Seg Neutrophils % 73.4 Lymphocytes % 15.6 Monocytes % 8.1 Eosinophils % 2.0 Basophils % 0.9 Absolute Neutrophils 6.7 Absolute Lymphocytes 1.4 Absolute Monocytes 0.7 Absolute Eosinophils 0.2 Absolute Basophils 0.1 Sodium 135.9 L Potassium 3.9 D Chloride 106 Carbon Dioxide 22 Anion Gap 8 BUN 20 Creatinine 1.35 H Est GFR ( Amer) 45 L Est GFR (Non-Af Amer) 37 L Glucose 152 H Calcium 8.0 L Magnesium Transferrin 276 Total Bilirubin AST ALT Alkaline Phosphatase Total Protein Albumin 08/27/17 05:46 WBC RBC Hgb Hct MCV MCH MCHC RDW Plt Count Seg Neutrophils % Lymphocytes % Monocytes % Eosinophils % Basophils % Absolute Neutrophils Absolute Lymphocytes Absolute Monocytes Absolute Eosinophils Absolute Basophils Sodium 139.1 Potassium 4.5 Chloride 109 H Carbon Dioxide 22 Anion Gap 8 BUN 20 Creatinine 1.41 H Est GFR ( Amer) 43 L Est GFR (Non-Af Amer) 36 L Glucose 120 H Calcium 8.3 L Magnesium 2.5 H Transferrin Total Bilirubin 1.5 H AST 132 H ALT 79 H Alkaline Phosphatase 90 Total Protein 6.0 L Albumin 2.8 L 08/25/17 08/25/17 08/25/17 16:00 16:00 21:35 Creatine Kinase 65 CK-MB (CK-2) 0.72 Troponin I 0.039 0.032 NT-Pro-B Natriuret Pep 1570 H 08/26/17 08/26/17 08/27/17 04:23 04:23 05:46 Creatine Kinase CK-MB (CK-2) Troponin I 0.031 NT-Pro-B Natriuret Pep 1160 H 2020 H Impressions: Abdomen Ultrasound 08/26/17 00:00 IMPRESSION: Echogenic material in the main portal vein, worrisome for incompletely occlusive thrombus Guidance Fluoroscopy 08/27/17 00:00 IMPRESSION: SUCCESSFUL PLACEMENT OF A 5 FR SINGLE LUMEN 37 CM PICC IN THE RIGHT BASILIC VEIN. Interventional Vascular Procedure 08/27/17 00:00 IMPRESSION: SUCCESSFUL PLACEMENT OF A 5 FR SINGLE LUMEN 37 CM PICC IN THE RIGHT BASILIC VEIN. PICC Line Insertion 08/27/17 00:00 IMPRESSION: SUCCESSFUL PLACEMENT OF A 5 FR SINGLE LUMEN 37 CM PICC IN THE RIGHT BASILIC VEIN. Abdomen/Pelvis CT 08/27/17 07:40 IMPRESSION: 1. PATENT PORTAL VEIN, SPLENIC VEIN, AND SUPERIOR MESENTERIC VEIN. NO EVIDENCE OF THROMBOSIS. 2. MODERATE ASCITES. 3. BILATERAL PLEURAL EFFUSIONS WITH BASILAR ATELECTASIS. 4. CHRONIC CHANGES IN THE LUMBAR SPINE WITH PRIOR KYPHOPLASTY AND SURGICAL CHANGES WITH HARDWARE. 5. NO OTHER SIGNIFICANT FINDINGS. Assessment & Plan - Diagnosis (1) Acute on chronic renal failure Plan: The patient has chronic renal failure stage III at baseline. Her acute renal failure was likely due to dehydration (2) Supratherapeutic INR Is this a current diagnosis for this admission?: Yes Plan: She will be started back on her Coumadin today. We will check daily PT INRs and adjust accordingly. (3) Portal vein thrombosis Plan: A CT scan has been ordered but not yet performed due to the lack of IV access. We really need a contrasted study and hopefully we can get this performed later on this afternoon for further evaluation. The GI service is following. (4) Elevated liver function tests Plan: Of undetermined significance at this point. I doubt this is due to passive congestion of the liver as the patient does not seem to be acutely volume overloaded. We will get a CT scan of the abdomen and pelvis hopefully late this afternoon. (5) Hypokalemia Is this a current diagnosis for this admission?: Yes Plan: Repleted and resolved (6) Dehydration Is this a current diagnosis for this admission?: Yes Plan: Resolved with IV fluid hydration (7) CAD (coronary artery disease) Is this a current diagnosis for this admission?: Yes Plan: No complaints of chest pain. She will continue aspirin and her beta-soraya. Her metoprolol was cut back yesterday due to her blood pressure being on the low side. Her Lipitor has been held in light of her elevated liver function test. (8) COPD (chronic obstructive pulmonary disease) Is this a current diagnosis for this admission?: Yes Plan: Fortunately no evidence of exacerbation. (9) Atrial fibrillation Is this a current diagnosis for this admission?: Yes Plan: The patient has chronic atrial fibrillation maintained on amiodarone. She has been started back on her Coumadin (10) Anemia Plan: The patient has a microcytic anemia. She has an element of iron deficiency as well as chronic disease. There also is an element of hemodilution. (11) Thrombocytopenia Plan: Of undetermined significance but certainly concerning in light of her elevated liver function tests. Hopefully we can get a CT scan of her abdomen and pelvis this afternoon for further evaluation. (12) Hyponatremia Plan: Likely due to dehydration. Resolved with IV fluids - Time Time Spent with patient: 25-34 minutes - Inpatient Certification Medical Necessity: Need For IV Fluids - Inpatient hospitalization remains necessary. The patient needs further GI workup. She is having an upper endoscopy performed today. She needs a CT scan to further evaluate the possible portal vein thrombosis that she has. Timing of disposition will be determined by her clinical course.
[2017-08-27] MEDS ORDERED: MIDAZOLAM 2 MG/2 ML INJ ONE (16:48)
[2017-08-27] MEDS ORDERED: NALOXONE HCL INJ/PF 0.4 MG/1 ML SDV ONE (16:48)
[2017-08-27] MEDS ORDERED: EPINEPHRINE INJ 1 MG/10 ML DISP.SYRIN ONE (16:49)
[2017-08-27] MEDS ORDERED: FENTANYL CITRATE INJ/PF 100 MCG/2 ML AMPUL ONE (16:49)
[2017-08-27] MEDS ORDERED: GLUCAGON,HUMAN RECOMB 1 MG INJ ONE (16:49)
[2017-08-27] MEDS ORDERED: FLUMAZENIL INJ 0.5 MG/5 ML VIAL ONE (16:49)
[2017-08-27] MEDS: NORMAL SALINE 1000 ML 1,000 ML IV PRN (17:18)
--- NOTE | 2017-08-27 18:48 | Operative Report ---
Operative Report DATE OF SURGERY: 08/27/17 Operative Report: Pre-op diagnosis: Nausea Post-op diagnosis: Mild antral gastritis Surgery: Esophagogastroduodenoscopy with biopsy Medications: Versed 1mg Fentanyl 25mcg IV push Tissue removed: Antral biopsy for pathology Procedure: After informed consent obtained from patient, the throat was sprayed with Hurricane and conscious sedation was achieved. The upper endoscope was inserted into the esophagus under direct vision and advanced into the stomach. The duodenum was entered and examined to the second part. Endoscope was then slowly pulled out of the patient as the mucosa was examined into details. Patient tolerated procedure well. Findings Esophagus: Normal Z-line at: 35 cm Antrum: Mild erythema Body: Mild erythema Fundus: Normal Duodenum first part: Normal Duodenum second part: Normal Plan: Await pathology. Prevacid daily for 6 weeks OPERATION: .
[2017-08-28] MEDS: NORMAL SALINE 1000 ML 1,000 ML IV PRN (02:12)
[2017-08-28] MEDS: LEVOTHYROXINE SODIUM 0.05 MG TABLET PO SCH (06:38)
[2017-08-28] MEDS: GABAPENTIN 300 MG CAPSULE PO SCH ×3 (06:38→21:44)
[2017-08-28 07:03] LABS: PROTHROMBIN TIME 20.6 SEC (11.4-15.4)
[2017-08-28 07:04] LABS: ABSOLUTE BASOPHILS # (AUTO) 0.1 10^3/uL (0.0-0.2); ABSOLUTE EOSINOPHILS # (AUTO) 0.1 10^3/uL (0.0-0.6); ABSOLUTE LYMPHOCYTES (AUTO) 1.7 10^3/uL (0.5-4.7); ABSOLUTE NEUT (AUTO) 8.6 10^3/uL (1.7-8.2); MEAN CORPUSCULAR HEMOGLOBIN 22.1 pg (27.0-33.4); RED BLOOD COUNT 3.22 10^6/uL (3.72-5.28)
[2017-08-28 07:07] LABS: ALANINE AMINOTRANSFERASE 72 U/L (9-52); ALBUMIN 2.4 g/dL (3.5-5.0); ALKALINE PHOSPHATASE 88 U/L (38-126); ANION GAP 6 (5-19); ASPARTATE AMINO TRANSFERASE 120 U/L (14-36); BILIRUBIN,DIRECT 0.7 mg/dL (0.0-0.4); BILIRUBIN,TOTAL 1.5 mg/dL (0.2-1.3); BLOOD UREA NITROGEN 18 mg/dL (7-20); CALCIUM 8.5 mg/dL (8.4-10.2); CARBON DIOXIDE 20 mmol/L (22-30); CHLORIDE 110 mmol/L (98-107); CREATININE RESULT 1.48 mg/dL (0.52-1.25); GLUCOSE 110 mg/dL (75-110); MAGNESIUM 2.3 mg/dL (1.6-2.3); POTASSIUM 4.7 mmol/L (3.6-5.0); SODIUM 135.9 mmol/L (137-145); TOTAL PROTEIN 5.5 g/dL (6.3-8.2)
[2017-08-28 07:13] LABS: BASOPHILS % (AUTO) 0.5 % (0-2); EOSINOPHILS % (AUTO) 0.9 % (0-6); HEMATOCRIT 22.9 % (36.0-47.0); HGB HCT DIFFERENCE -1.6; MEAN CORPUSCULAR HGB CONC 31.1 g/dL (32.0-36.0); MEAN CORPUSCULAR VOLUME 71 fl (80-97); MONOCYTES % (AUTO) 8.4 % (3-13); RED CELL DISTRIBUTION WIDTH 20.8 % (11.5-14.0); SEGMENTED NEUTROPHILS % (AUTO) 75.2 % (42-78); WHITE BLOOD COUNT 11.5 10^3/uL (4.0-10.5)
[2017-08-28 07:16] LABS: HEMOGLOBIN 7.1 g/dL (12.0-15.5)
[2017-08-28 08:27] LABS: HEMATOCRIT 21.5 % (36.0-47.0); HGB HCT DIFFERENCE -1.4; MEAN CORPUSCULAR HEMOGLOBIN 22.4 pg (27.0-33.4); MEAN CORPUSCULAR HGB CONC 31.4 g/dL (32.0-36.0); MEAN CORPUSCULAR VOLUME 71 fl (80-97); RED BLOOD COUNT 3.01 10^6/uL (3.72-5.28); RED CELL DISTRIBUTION WIDTH 21.1 % (11.5-14.0)
[2017-08-28 08:30] LABS: HEMOGLOBIN 6.7 g/dL (12.0-15.5)
[2017-08-28 08:37] LABS: ALANINE AMINOTRANSFERASE 76 U/L (9-52); ALBUMIN 2.3 g/dL (3.5-5.0); ALKALINE PHOSPHATASE 81 U/L (38-126); ANION GAP 6 (5-19); ASPARTATE AMINO TRANSFERASE 112 U/L (14-36); BILIRUBIN,DIRECT 0.7 mg/dL (0.0-0.4); BILIRUBIN,TOTAL 1.4 mg/dL (0.2-1.3); BLOOD UREA NITROGEN 17 mg/dL (7-20); CALCIUM 7.9 mg/dL (8.4-10.2); CARBON DIOXIDE 19 mmol/L (22-30); CHLORIDE 111 mmol/L (98-107); CREATININE RESULT 1.43 mg/dL (0.52-1.25); GLUCOSE 110 mg/dL (75-110); POTASSIUM 4.4 mmol/L (3.6-5.0); SODIUM 136.2 mmol/L (137-145); TOTAL PROTEIN 5.1 g/dL (6.3-8.2)
[2017-08-28] MEDS: ISOSORBIDE MONONITRATE 20 MG TABLET PO SCH ×2 (08:42→16:27)
[2017-08-28] MEDS: LANSOPRAZOLE 30 MG TAB.RAP.DR PO SCH (10:14)
[2017-08-28] MEDS: AMIODARONE HCL 200 MG TABLET PO SCH ×2 (10:14→21:44)
[2017-08-28] MEDS: METOPROLOL TARTRATE 25 MG TABLET PO SCH ×2 (10:14→21:52)
[2017-08-28] MEDS: ASPIRIN 81 MG TABLET, CHEWABLE PO SCH (10:14)
[2017-08-28] MEDS ORDERED: ACETAMINOPHEN 325 MG TABLET PO PRN (10:48)
[2017-08-28] MEDS ORDERED: NORMAL SALINE 250 ML IV PRN ×2 (10:48)
--- NOTE | 2017-08-28 11:21 | PDOC PROGRESS REPORT ---
Subjective Progress Note for:: 08/28/17 Subjective:: The patient is a very pleasant 82-year-old female who was sent to the hospital from her primary care physician's office with a supratherapeutic INR as well as nausea and postprandial fullness and dyspepsia. She was admitted to the hospital and a GI consult was placed. She had an abdominal ultrasound performed which was concerning for a partially occluding thrombus in the portal vein. Yesterday the patient had an upper endoscopy performed. This exam was unremarkable with only some mild gastritis noted. She had a CT scan of the abdomen and pelvis with IV contrast which revealed no evidence of thrombus in the portal vein. In fact the entire scan was unremarkable. This morning the patient has had a precipitous drop in her hemoglobin. A repeat CBC was obtained and her hemoglobin has now dropped down to 6.7. When I went in to see the patient she states she feels profoundly weak and dizzy. She continues to have a little bit of nausea and really has no appetite. She denies fever or chills overnight. She has had no chest pain, shortness of breath or heart palpitations. She really is not having any abdominal pain but continues to have issues with nausea. She has not yet had a bowel movement. She has no dysuria, frequency or hematuria. Physical Exam Vital Signs: Temp Pulse Resp BP Pulse Ox 97.6 F 97 20 95/48 L 96 08/28/17 07:46 08/28/17 07:46 08/28/17 07:46 08/28/17 07:46 08/28/17 07:46 Intake & Output 08/27/17 08/28/17 08/29/17 06:59 06:59 06:59 Intake Total 4073 1287 Output Total 80 Balance 4073 1207 Weight 73.3 kg 76.6 kg General appearance: PRESENT: thin, other - She is quite pale and looks as if she feels quite poorly Head exam: PRESENT: atraumatic, normocephalic Mouth exam: PRESENT: moist, tongue midline Respiratory exam: PRESENT: clear to auscultation marisela. ABSENT: rales, rhonchi, wheezes Cardiovascular exam: PRESENT: RRR. ABSENT: diastolic murmur, rubs, systolic murmur GI/Abdominal exam: PRESENT: hypoactive bowel sounds, soft, tenderness - She is tender in the right upper quadrant. No rebound guarding or rigidity. ABSENT: guarding, rebound Rectal exam: PRESENT: normal inspection, normal rectal tone, other - She had light brown stool in the rectal vault which was sent sampled and sent downstairs for occult blood.. ABSENT: tenderness Extremities exam: PRESENT: full ROM. ABSENT: calf tenderness, clubbing, pedal edema Neurological exam: PRESENT: alert, awake, oriented to person, oriented to place , oriented to time, oriented to situation, CN II-XII grossly intact. ABSENT: motor sensory deficit Psychiatric exam: PRESENT: appropriate affect, normal mood. ABSENT: homicidal ideation, suicidal ideation Skin exam: PRESENT: dry, intact, pallor, warm, other - She is quite pale. ABSENT: cyanosis, rash Results Laboratory Results: 08/28/17 07:58 08/28/17 07:58 08/28/17 08/28/17 08/28/17 06:32 06:32 07:58 WBC 11.5 H RBC 3.22 L Hgb 7.1 L Hct 22.9 L MCV 71 L MCH 22.1 L MCHC 31.1 L RDW 20.8 H Plt Count 157 Seg Neutrophils % 75.2 Lymphocytes % 15.0 Monocytes % 8.4 Eosinophils % 0.9 Basophils % 0.5 Absolute Neutrophils 8.6 H Absolute Lymphocytes 1.7 Absolute Monocytes 1.0 Absolute Eosinophils 0.1 Absolute Basophils 0.1 Sodium 135.9 L 136.2 L Potassium 4.7 4.4 Chloride 110 H 111 H Carbon Dioxide 20 L 19 L Anion Gap 6 6 BUN 18 17 Creatinine 1.48 H 1.43 H Est GFR ( Amer) 41 L 42 L Est GFR (Non-Af Amer) 34 L 35 L Glucose 110 110 Calcium 8.5 7.9 L Magnesium 2.3 Total Bilirubin 1.5 H 1.4 H AST 120 H 112 H ALT 72 H 76 H Alkaline Phosphatase 88 81 Total Protein 5.5 L 5.1 L Albumin 2.4 L 2.3 L 08/28/17 07:58 WBC 9.0 RBC 3.01 L Hgb 6.7 L Hct 21.5 L MCV 71 L MCH 22.4 L MCHC 31.4 L RDW 21.1 H Plt Count 137 L Seg Neutrophils % Lymphocytes % Monocytes % Eosinophils % Basophils % Absolute Neutrophils Absolute Lymphocytes Absolute Monocytes Absolute Eosinophils Absolute Basophils Sodium Potassium Chloride Carbon Dioxide Anion Gap BUN Creatinine Est GFR ( Amer) Est GFR (Non-Af Amer) Glucose Calcium Magnesium Total Bilirubin AST ALT Alkaline Phosphatase Total Protein Albumin 08/25/17 08/25/17 08/25/17 16:00 16:00 21:35 Creatine Kinase 65 CK-MB (CK-2) 0.72 Troponin I 0.039 0.032 NT-Pro-B Natriuret Pep 1570 H 08/26/17 08/26/17 08/27/17 04:23 04:23 05:46 Creatine Kinase CK-MB (CK-2) Troponin I 0.031 NT-Pro-B Natriuret Pep 1160 H 2020 H Impressions: Abdomen Ultrasound 08/26/17 00:00 IMPRESSION: Echogenic material in the main portal vein, worrisome for incompletely occlusive thrombus Guidance Fluoroscopy 08/27/17 00:00 IMPRESSION: SUCCESSFUL PLACEMENT OF A 5 FR SINGLE LUMEN 37 CM PICC IN THE RIGHT BASILIC VEIN. Interventional Vascular Procedure 08/27/17 00:00 IMPRESSION: SUCCESSFUL PLACEMENT OF A 5 FR SINGLE LUMEN 37 CM PICC IN THE RIGHT BASILIC VEIN. PICC Line Insertion 08/27/17 00:00 IMPRESSION: SUCCESSFUL PLACEMENT OF A 5 FR SINGLE LUMEN 37 CM PICC IN THE RIGHT BASILIC VEIN. Abdomen/Pelvis CT 08/27/17 07:40 IMPRESSION: 1. PATENT PORTAL VEIN, SPLENIC VEIN, AND SUPERIOR MESENTERIC VEIN. NO EVIDENCE OF THROMBOSIS. 2. MODERATE ASCITES. 3. BILATERAL PLEURAL EFFUSIONS WITH BASILAR ATELECTASIS. 4. CHRONIC CHANGES IN THE LUMBAR SPINE WITH PRIOR KYPHOPLASTY AND SURGICAL CHANGES WITH HARDWARE. 5. NO OTHER SIGNIFICANT FINDINGS. Assessment & Plan - Diagnosis (1) Acute on chronic renal failure Plan: The patient has chronic renal failure stage III at baseline. Her acute renal failure was likely due to dehydration. Her creatinine improved with IV fluid hydration and is now at its baseline. (2) Anemia Plan: This morning the patient has had a precipitous drop in her hemoglobin and is quite symptomatic. She has a microcytic anemia. Rectal exam and stool sample revealed light brown stool which was sent downstairs for occult blood. She does not appear to be having an active bleed and had a totally normal CT scan of the abdomen and pelvis yesterday. She has had multiple blood draws and is received quite a bit of IV fluids so there could be an element of hemodilution. She has been typed and crossed and she will receive 2 units of packed red blood cells since she is symptomatic and her hemoglobin has drifted down to 6.7. She will have a CBC drawn tomorrow morning. (3) Nausea Plan: The patient continues to have nausea. Portal vein thrombosis is now been ruled out. She does continue to have some mildly elevated liver function tests. CT scan of the abdomen and pelvis yesterday revealed a normal gallbladder with no evidence of stones or pericholecystic fluid. Her abdominal ultrasound obtained previously did show some possible gallbladder sludge or stones. I am going to order a HIDA scan to rule out biliary dyskinesia. (4) Supratherapeutic INR Is this a current diagnosis for this admission?: Yes Plan: She reportedly had a supratherapeutic INR in her physician's office. Her Coumadin was held at the time of admission. Yesterday evening her Coumadin was restarted. In light of her falling hemoglobin I am going to stop this. She had no longer has any evidence of portal vein thrombosis. (6) Hypokalemia Is this a current diagnosis for this admission?: Yes Plan: Repleted and resolved (7) Dehydration Is this a current diagnosis for this admission?: Yes Plan: Resolved with IV fluid hydration (8) CAD (coronary artery disease) Is this a current diagnosis for this admission?: Yes Plan: No complaints of chest pain. The patient's blood pressure is been on the low side. I have cut her beta-soraya back from 100 mg twice daily to 25 mg twice daily. Her Lipitor was held in light of her elevated liver function tests. I am stopping her aspirin today in light of her worsening hemoglobin. (9) COPD (chronic obstructive pulmonary disease) Is this a current diagnosis for this admission?: Yes Plan: Fortunately no evidence of exacerbation. (10) Atrial fibrillation Is this a current diagnosis for this admission?: Yes Plan: The patient has chronic atrial fibrillation maintained on amiodarone. She is in a sinus rhythm and rate controlled. I am stopping her Coumadin in light of her falling hemoglobin. At this point the risks outweigh the benefit (11) Thrombocytopenia Plan: Of undetermined significance. Overall her levels have improved throughout the course of this hospitalization but are still on the low side. (12) Hyponatremia Plan: Likely due to dehydration. Much improved. (13) Portal vein thrombosis Plan: There was concern for a possible portal vein thrombosis on her abdominal ultrasound. She had a CT scan of the abdomen and pelvis with IV contrast yesterday which did not reveal any evidence of thrombosis. This is been ruled out. - Time Time Spent with patient: 35 or more minutes - Inpatient Certification Medical Necessity: Need Close Monitoring Due to Risk of Patient Decompensation - Inpatient hospitalization remains necessary. The patient has a following hemoglobin and is symptomatic requiring transfusion today. She continues to have nausea and difficulty eating. She is going to get a HIDA scan today as well. Timing of disposition will be determined by her clinical course.
--- NOTE | 2017-08-28 15:43 | RADIOLOGY REPORT (SQ) ---
EXAM DESCRIPTION: NM HIDA SCAN WITH CCK COMPLETED DATE/TIME: 08/28/2017 3:34 pm REASON FOR STUDY: nausea, concrns for biliary dyskinesia COMPARISON: CT abdomen pelvis 08/27/2017 abdominal ultrasound 08/26/2017 RADIONUCLIDE AND DOSE: DOSAGE RADIONUCLIDE: 5.4 millicuries Tc99m Mebrofenin. DOSAGE CCK: 1.5 micrograms. DOSAGE MORPHINE: Not required. The route of agent administration: Intravenous TECHNIQUE: Serial imaging right upper quadrant up to 60 minutes following injection of radionuclide. CCK injected after gallbladder visualized. LIMITATIONS: None. FINDINGS: LIVER: Normal visualization INTRAHEPATIC BILE DUCTS: Normal visualization COMMON BILE DUCT: Normal visualization were GALLBLADDER: Normal visualization. Calculated ejection fraction of 23%. Normal range is greater th an 35%. PHYSICAL RESPONSE: Patients presenting complaint was not reproduced. OTHER: No other significant finding. IMPRESSION: No scintigraphic evidence of cystic duct or common duct obstruction Mildly depressed gallbladder ejection fraction. IV CCK did not reproduce the patient's symptoms TECHNICAL DOCUMENTATION: JOB ID: [id number] [employer]- All Rights Reserved
[2017-08-28] MEDS: FUROSEMIDE INJ/PF 20 MG/2 ML SDV IV PRN ×2 (17:05→20:09)
[2017-08-29 00:19] LABS: ABSOLUTE BASOPHILS # (AUTO) 0.1 10^3/uL (0.0-0.2); ABSOLUTE EOSINOPHILS # (AUTO) 0.1 10^3/uL (0.0-0.6); ABSOLUTE MONOCYTES (AUTO) 1.2 10^3/uL (0.1-1.4); ABSOLUTE NEUT (AUTO) 11.7 10^3/uL (1.7-8.2); BASOPHILS % (AUTO) 0.9 % (0-2); EOSINOPHILS % (AUTO) 0.8 % (0-6); HEMATOCRIT 31.3 % (36.0-47.0); LYMPHOCYTES % (AUTO) 6.9 % (13-45); MEAN CORPUSCULAR HEMOGLOBIN 24.4 pg (27.0-33.4); MEAN CORPUSCULAR HGB CONC 32.3 g/dL (32.0-36.0); MONOCYTES % (AUTO) 8.6 % (3-13); RED BLOOD COUNT 4.14 10^6/uL (3.72-5.28); RED CELL DISTRIBUTION WIDTH 22.4 % (11.5-14.0); SEGMENTED NEUTROPHILS % (AUTO) 82.8 % (42-78); WHITE BLOOD COUNT 14.1 10^3/uL (4.0-10.5)
[2017-08-29 00:20] LABS: HEMOGLOBIN 10.1 g/dL (12.0-15.5)
[2017-08-29 00:21] LABS: MEAN CORPUSCULAR VOLUME 76 fl (80-97)
[2017-08-29 04:58] LABS: PROTHROMBIN TIME 21.9 SEC (11.4-15.4)
[2017-08-29 05:10] LABS: ALANINE AMINOTRANSFERASE 80 U/L (9-52); ALBUMIN 2.5 g/dL (3.5-5.0); ALKALINE PHOSPHATASE 90 U/L (38-126); ANION GAP 10 (5-19); ASPARTATE AMINO TRANSFERASE 130 U/L (14-36); BILIRUBIN,DIRECT 1.4 mg/dL (0.0-0.4); BILIRUBIN,TOTAL 3.2 mg/dL (0.2-1.3); BLOOD UREA NITROGEN 20 mg/dL (7-20); CALCIUM 8.6 mg/dL (8.4-10.2); CARBON DIOXIDE 18 mmol/L (22-30); CHLORIDE 110 mmol/L (98-107); CREATININE RESULT 1.77 mg/dL (0.52-1.25); GLUCOSE 134 mg/dL (75-110); MAGNESIUM 2.2 mg/dL (1.6-2.3); POTASSIUM 4.6 mmol/L (3.6-5.0); SODIUM 137.6 mmol/L (137-145); TOTAL PROTEIN 5.6 g/dL (6.3-8.2)
[2017-08-29] MEDS: GABAPENTIN 300 MG CAPSULE PO SCH ×2 (05:36→13:23)
[2017-08-29] MEDS: LEVOTHYROXINE SODIUM 0.05 MG TABLET PO SCH (05:36)
[2017-08-29] MEDS: IPRATROPIUM/ALBUTEROL 0.5-2.5 MG/3 ML AMPUL NEB PRN ×3 (08:48→21:14)
[2017-08-29] MEDS: ISOSORBIDE MONONITRATE 20 MG TABLET PO SCH ×2 (09:34→15:28)
[2017-08-29] MEDS: AMIODARONE HCL 200 MG TABLET PO SCH (09:34)
[2017-08-29] MEDS: METOPROLOL TARTRATE 25 MG TABLET PO SCH (09:34)
[2017-08-29] MEDS: LANSOPRAZOLE 30 MG TAB.RAP.DR PO SCH (09:34)
[2017-08-29] MEDS ORDERED: BUMETANIDE INJ/PF 1 MG/4 ML SDV IV ONE (10:00)
[2017-08-29] MEDS ORDERED: VANCOMYCIN HCL 0 MG in DEXTROSE 5%-WATER 250 ML IV NR (10:00)
--- NOTE | 2017-08-29 10:16 | RADIOLOGY REPORT (SQ) ---
EXAM DESCRIPTION: CHEST SINGLE VIEW COMPLETED DATE/TIME: 08/29/2017 10:06 am REASON FOR STUDY: SOB, wheezing COMPARISON: Two-view chest 06/22/2016 EXAM PARAMETERS: NUMBER OF VIEWS: One view. TECHNIQUE: Single frontal radiographic view of the chest acquired. RADIATION DOSE: NA LIMITATIONS: Portable technique, large patient FINDINGS: LUNGS AND PLEURA: Small bilateral pleural effusions are present. No pneumothorax. There is bibasilar airspace disease likely atelectasis left greater than right. MEDIASTINUM AND HILAR STRUCTURES: No masses. Contour normal. HEART AND VASCULAR STRUCTURES: Stable cardiomegaly. BONES: Colby rods over the lower thoracic spine. HARDWARE: Left-sided dual lead pacemaker. Old sternotomy for CABG. Right PICC line tip superior kaur a cava. OTHER: No other significant finding. IMPRESSION: Small bilateral pleural effusions with bibasilar airspace disease left greater than righ t. TECHNICAL DOCUMENTATION: JOB ID: [id number]
[2017-08-29] MEDS ORDERED: VANCOMYCIN HCL 1,500 MG in DEXTROSE 5%-WATER 250 ML IV ONE (11:00)
[2017-08-29] MEDS ORDERED: PIPERACILLIN SODIUM/TAZOBACTAM 3.375 GM in NORMAL SALINE 100 ML IV SCH (12:00)
[2017-08-29] MEDS: PIPERACILLIN SODIUM/TAZOBACTAM 2.25 GM in NORMAL SALINE 50 ML IV SCH ×2 (12:16→17:31)
[2017-08-29 13:00] LABS: APPEARANCE,URINE CLOUDY; BILIRUBIN,URINE NEGATIVE (NEGATIVE); GLUCOSE, URINE NEGATIVE (NEGATIVE); KETONES,URINE NEGATIVE (NEGATIVE); LEUKOCYTE ESTERASE,URINE MODERATE (NEGATIVE); NITRITE,URINE NEGATIVE (NEGATIVE); PROTEIN,URINE NEGATIVE (NEGATIVE); URINE SPECIFIC GRAVITY 1.025
[2017-08-29] MEDS ORDERED: SUCCINYLCHOLINE CHLORIDE INJ 200 MG/10 ML VIAL ONE (13:25)
--- NOTE | 2017-08-29 13:34 | PDOC PROGRESS REPORT ---
Subjective Progress Note for:: 08/29/17 Subjective:: Patient seen on morning rounds. She is resting in bed sleeping. She awakens to verbal stimuli. She is quite confused. She is noted to have a temperature of 101 by nursing staff. CBC this morning shows a leukocytosis of 14,000. Her is at bedside. She is unaware of who he is. She appears to be slightly tachypneic with audible expiratory wheezing. She did have a low-grade fever overnight. Review of systems are presently unobtainable due to patient's mentation. Physical Exam Vital Signs: Temp Pulse Resp BP Pulse Ox 99.8 F 67 22 H 103/49 L 94 08/29/17 10:50 08/29/17 08:48 08/29/17 08:48 08/29/17 07:50 08/29/17 08:48 Intake & Output 08/28/17 08/29/17 08/30/17 06:59 06:59 06:59 Intake Total 1287 1545 Output Total 80 260 Balance 1207 1285 Weight 76.6 kg 77.9 kg General appearance: PRESENT: mild distress - secondary to confusion, fever and pulmonary congestion, obese, well-nourished Head exam: PRESENT: atraumatic, normocephalic Eye exam: PRESENT: conjunctiva pink, EOMI, PERRLA. ABSENT: scleral icterus Ear exam: PRESENT: normal external ear exam Mouth exam: PRESENT: moist, tongue midline Neck exam: ABSENT: carotid bruit, JVD, lymphadenopathy, thyromegaly Respiratory exam: PRESENT: decreased breath sounds - bilateral bases, tachypnea , wheezes Cardiovascular exam: PRESENT: +S1, +S2, systolic murmur Pulses: PRESENT: normal carotid pulses, normal radial pulses Vascular exam: PRESENT: normal capillary refill GI/Abdominal exam: PRESENT: normal bowel sounds, soft Rectal exam: PRESENT: deferred Extremities exam: PRESENT: full ROM. ABSENT: calf tenderness, clubbing, pedal edema Musculoskeletal exam: PRESENT: full ROM Neurological exam: PRESENT: alert, altered, reflexes normal, CN II-XII grossly intact Psychiatric exam: PRESENT: flat affect Skin exam: PRESENT: dry, intact, warm. ABSENT: cyanosis, rash Results Laboratory Results: 08/29/17 00:09 08/29/17 04:33 08/28/17 08/28/17 08/29/17 10:46 16:00 00:09 WBC 14.1 H RBC 4.14 Hgb 10.1 L D Hct 31.3 L MCV 76 L D MCH 24.4 L MCHC 32.3 RDW 22.4 H Plt Count 176 Seg Neutrophils % 82.8 H Lymphocytes % 6.9 L Monocytes % 8.6 Eosinophils % 0.8 Basophils % 0.9 Absolute Neutrophils 11.7 H Absolute Lymphocytes 1.0 Absolute Monocytes 1.2 Absolute Eosinophils 0.1 Absolute Basophils 0.1 Sodium Potassium Chloride Carbon Dioxide Anion Gap BUN Creatinine Est GFR ( Amer) Est GFR (Non-Af Amer) Glucose Lactic Acid 1.6 Calcium Magnesium Total Bilirubin AST ALT Alkaline Phosphatase Total Protein Albumin Blood Type B POSITIVE Antibody Screen TNP 08/29/17 04:33 WBC RBC Hgb Hct MCV MCH MCHC RDW Plt Count Seg Neutrophils % Lymphocytes % Monocytes % Eosinophils % Basophils % Absolute Neutrophils Absolute Lymphocytes Absolute Monocytes Absolute Eosinophils Absolute Basophils Sodium 137.6 Potassium 4.6 Chloride 110 H Carbon Dioxide 18 L Anion Gap 10 BUN 20 Creatinine 1.77 H Est GFR ( Amer) 33 L Est GFR (Non-Af Amer) 27 L Glucose 134 H Lactic Acid Calcium 8.6 Magnesium 2.2 Total Bilirubin 3.2 H AST 130 H ALT 80 H Alkaline Phosphatase 90 Total Protein 5.6 L Albumin 2.5 L Blood Type Antibody Screen 08/25/17 08/25/17 08/25/17 16:00 16:00 21:35 Creatine Kinase 65 CK-MB (CK-2) 0.72 Troponin I 0.039 0.032 NT-Pro-B Natriuret Pep 1570 H 08/26/17 08/26/17 08/27/17 04:23 04:23 05:46 Creatine Kinase CK-MB (CK-2) Troponin I 0.031 NT-Pro-B Natriuret Pep 1160 H 2020 H Impressions: Abdomen Ultrasound 08/26/17 00:00 IMPRESSION: Echogenic material in the main portal vein, worrisome for incompletely occlusive thrombus Guidance Fluoroscopy 08/27/17 00:00 IMPRESSION: SUCCESSFUL PLACEMENT OF A 5 FR SINGLE LUMEN 37 CM PICC IN THE RIGHT BASILIC VEIN. Interventional Vascular Procedure 08/27/17 00:00 IMPRESSION: SUCCESSFUL PLACEMENT OF A 5 FR SINGLE LUMEN 37 CM PICC IN THE RIGHT BASILIC VEIN. PICC Line Insertion 08/27/17 00:00 IMPRESSION: SUCCESSFUL PLACEMENT OF A 5 FR SINGLE LUMEN 37 CM PICC IN THE RIGHT BASILIC VEIN. Abdomen/Pelvis CT 08/27/17 07:40 IMPRESSION: 1. PATENT PORTAL VEIN, SPLENIC VEIN, AND SUPERIOR MESENTERIC VEIN. NO EVIDENCE OF THROMBOSIS. 2. MODERATE ASCITES. 3. BILATERAL PLEURAL EFFUSIONS WITH BASILAR ATELECTASIS. 4. CHRONIC CHANGES IN THE LUMBAR SPINE WITH PRIOR KYPHOPLASTY AND SURGICAL CHANGES WITH HARDWARE. 5. NO OTHER SIGNIFICANT FINDINGS. Hepatobiliary Scan Nuclear Medicine 08/28/17 00:00 IMPRESSION: No scintigraphic evidence of cystic duct or common duct obstruction Mildly depressed gallbladder ejection fraction. IV CCK did not reproduce the patient's symptoms Chest X-Ray 08/29/17 00:00 IMPRESSION: Small bilateral pleural effusions with bibasilar airspace disease left greater than right. Assessment & Plan - Diagnosis (1) Fever Qualifiers: Fever type: unspecified Qualified Code(s): R50.9 - Fever, unspecified Is this a current diagnosis for this admission?: Yes Plan: Will panculture patient, obtain chest xray and start on empiric antibiotics until source is identified. Lactate yesterday was negative. She is more acidotic today on morning chemistry with mildly worsening BUN/Cr (2) Abnormal liver enzymes Is this a current diagnosis for this admission?: Yes Plan: Most likely secondary to hepatic congestion and chronic combination systolic/ diastolic heart failure. CT shows mild to mod ascites. CTA abdomen and pelvis ruled out portal vein thrombus, ultrasound of abdomen showed no signs of biliary duct obstruction or cholecystitis . Hidascan unremarkable. GI, Dr Ling is consulted and following. (3) Acute renal failure superimposed on stage 3 chronic kidney disease Qualifiers: Acute renal failure type: unspecified Qualified Code(s): N17.9 - Acute kidney failure, unspecified; N18.3 - Chronic kidney disease, stage 3 (moderate) Is this a current diagnosis for this admission?: Yes Plan: Most likely secondary (4) Anemia of chronic disease Is this a current diagnosis for this admission?: Yes Plan: Anemia studies pending. Likely anemia of chronic disease related to kidney disease and may have iron deficiency anemia. She did drop hgb to 6.7 from 8.0 most likely some due to dilution with IV hydration. EGD did show mild gastritis in setting of supratherapeutic INR. Stool was guiac negative. On daily PPI (5) Atrial fibrillation Qualifiers: Atrial fibrillation type: paroxysmal Qualified Code(s): I48.0 - Paroxysmal atrial fibrillation Is this a current diagnosis for this admission?: Yes Plan: Presently atrial paced with underlying atrial fibrillation on amiodarone, metoprolol and coumadin restarted with INR 1.8 (6) COPD (chronic obstructive pulmonary disease) Qualifiers: Emphysema type: unspecified Is this a current diagnosis for this admission?: Yes Plan: Patient with acute worsening shortness of breath with wheezing and hypoxemia this morning. Did not improve with duoneb treatment. Given Bumex 1 mg IV x 1, supplemental oxgyen and continue nebulizer treatments. Stat chest xray showed no acute new findings. Continues to have bilateral pleural effusions, no infiltrates or edema. (7) Dehydration Is this a current diagnosis for this admission?: Yes (8) Metabolic acidosis Is this a current diagnosis for this admission?: Yes Plan: Somewhat worse today, with worsening qiana. She is sorto cultured. Antibiotics initiated due to fever, leucocytosis and confusion (9) Nausea Is this a current diagnosis for this admission?: Yes Plan: No physiologic cause identified. May need to rule out gastroparesis, or medications (10) Hypoxemia Is this a current diagnosis for this admission?: Yes Plan: She is very wheezy and congested this morning. Chest xray shows no infiltrates. Continue nebulizers, supplemental oxygen, (11) Supratherapeutic INR Is this a current diagnosis for this admission?: Yes Plan: INR now 1.8 low dose coumadin reinitiated (12) Anticoagulated on Coumadin Is this a current diagnosis for this admission?: Yes Plan: Low dose coumadin reinitiated for chronic atrial fibrillation (13) CAD (coronary artery disease) Qualifiers: Associated angina: angina presence unspecified Is this a current diagnosis for this admission?: Yes Plan: Continue home medications (14) Hyperlipidemia Qualifiers: Hyperlipidemia type: unspecified Qualified Code(s): E78.5 - Hyperlipidemia , unspecified Is this a current diagnosis for this admission?: Yes (15) Hypothyroid Qualifiers: Hypothyroidism type: unspecified Qualified Code(s): E03.9 - Hypothyroidism , unspecified Is this a current diagnosis for this admission?: Yes Plan: Continue thyroid replacement - Time Time Spent with patient: 25-34 minutes Critical Time spent with patient: 25-34 minutes Medications reviewed and adjusted accordingly: Yes Anticipated discharge: Home with Homehealth
[2017-08-29 15:20] LABS: ARTERIAL BLOOD BASE EXCESS -4.7 mmol/L; ARTERIAL BLOOD O2 SATURATION 92.9 % (94-98)
[2017-08-29] MEDS ORDERED: IPRATROPIUM/ALBUTEROL 0.5-2.5 MG/3 ML AMPUL NEB ONE (16:00)
[2017-08-29] MEDS ORDERED: NORMAL SALINE 10 ML SDV (AFTER EACH USE) IV PRN (17:34)
[2017-08-29] MEDS ORDERED: HALOPERIDOL LACTATE INJ 5 MG/1 ML VIAL IV PRN (18:14)
[2017-08-29] MEDS ORDERED: HALOPERIDOL LACTATE INJ 5 MG/1 ML VIAL ONE (18:15)
[2017-08-29] MEDS ORDERED: NORMAL SALINE 1000 ML 1,000 ML IV ONE (20:11)
[2017-08-29 20:28] LABS: ARTERIAL BLOOD BASE EXCESS -6.7 mmol/L; ARTERIAL BLOOD O2 SATURATION 77.7 % (94-98)
[2017-08-29 20:40] LABS: HEMATOCRIT 30.1 % (36.0-47.0); HEMOGLOBIN 10.1 g/dL (12.0-15.5); HGB HCT DIFFERENCE 0.2; MEAN CORPUSCULAR HGB CONC 33.6 g/dL (32.0-36.0); MEAN CORPUSCULAR VOLUME 75 fl (80-97); RED BLOOD COUNT 4.04 10^6/uL (3.72-5.28); RED CELL DISTRIBUTION WIDTH 23.3 % (11.5-14.0); WHITE BLOOD COUNT 16.3 10^3/uL (4.0-10.5)
[2017-08-29 20:56] LABS: ALANINE AMINOTRANSFERASE 91 U/L (9-52); ALBUMIN 2.5 g/dL (3.5-5.0); ALKALINE PHOSPHATASE 93 U/L (38-126); ANION GAP 11 (5-19); ASPARTATE AMINO TRANSFERASE 156 U/L (14-36); BILIRUBIN,DIRECT 1.2 mg/dL (0.0-0.4); BILIRUBIN,TOTAL 2.1 mg/dL (0.2-1.3); BLOOD UREA NITROGEN 24 mg/dL (7-20); CALCIUM 8.5 mg/dL (8.4-10.2); CARBON DIOXIDE 15 mmol/L (22-30); CHLORIDE 111 mmol/L (98-107); CREATININE RESULT 1.92 mg/dL (0.52-1.25); GLUCOSE 109 mg/dL (75-110); SODIUM 137.2 mmol/L (137-145); TOTAL PROTEIN 5.6 g/dL (6.3-8.2)
[2017-08-29] MEDS ORDERED: PROPOFOL 100 ML IV ONE (20:59)
[2017-08-29] MEDS ORDERED: PHARMACY COMMUNICATION ORDER MC NR (21:00)
[2017-08-29] MEDS ORDERED: ALPRAZOLAM 0.25 MG TABLET NG PRN (21:04)
[2017-08-29] MEDS ORDERED: DEXTROSE 40% GEL 15 GM TUBE NG PRN ×2 (21:05)
[2017-08-29] MEDS ORDERED: ACETAMINOPHEN 325 MG TABLET PO PRN (21:09)
[2017-08-29 21:10] LABS: CREATINE KINASE MB 1.13 ng/mL (<4.55); TROPONIN I 0.078 ng/mL
[2017-08-29] MEDS ORDERED: ACETAMINOPHEN 650 MG SUPP.RECT PR ONE (21:16)
[2017-08-29 21:22] LABS: BAND NEUTROPHILS % (MANUAL) 7 % (3-5); BASOPHILS % (MANUAL) 0 % (0-2); EOSINOPHILS % (MANUAL) 0 % (0-6); LYMPHOCYTES % (MANUAL) 2 % (13-45); TOTAL CELLS COUNTED 100; TOXIC VACUOLATION PRESENT
[2017-08-29] MEDS ORDERED: NOREPINEPHRINE BITARTRATE INJ/PF 4 MG/4 ML SDV IV ONE (21:23)
[2017-08-29 21:25] LABS: ANISOCYTOSIS 3+; BURR CELLS 2+; HYPOCHROMASIA 1+; MICROCYTOSIS 1+; OVALOCYTES 1+; POIKILOCYTOSIS 2+; POLYCHROMASIA 1+; TARGET CELLS 1+; TEAR DROP CELLS 1+
[2017-08-29 21:28] LABS: PLATELET CLUMPS PRESENT
[2017-08-29] MEDS ORDERED: CEFTRIAXONE 1 GM/D5W RTU 1 GM/50 ML RTUPB IV ONE (21:33)
[2017-08-29] MEDS: ALBUMIN HUMAN 50 ML IV SCH ×3 (21:45→23:18)
[2017-08-29] MEDS ORDERED: WARFARIN SODIUM 3 MG TABLET PO SCH (22:00)
[2017-08-29] MEDS ORDERED: WARFARIN SODIUM 3 MG TABLET NG SCH (22:00)
--- NOTE | 2017-08-29 22:01 | RADIOLOGY REPORT (SQ) ---
EXAM DESCRIPTION: CHEST SINGLE VIEW COMPLETED DATE/TIME: 08/29/2017 9:39 pm REASON FOR STUDY: intubation COMPARISON: 08/29/2017 EXAM PARAMETERS: NUMBER OF VIEWS: One view. TECHNIQUE: Single frontal radiographic view of the chest acquired. RADIATION DOSE: NA LIMITATIONS: None. FINDINGS: LUNGS AND PLEURA: Bibasilar airspace opacities are again noted. No pneumothorax. MEDIASTINUM AND HILAR STRUCTURES: No masses. Contour normal. HEART AND VASCULAR STRUCTURES: Stable cardiomegaly. The central pulmonary vasculature appears normal . BONES: No acute findings. HARDWARE: Interval placement of an endotracheal tube, which terminates 4 cm cranial to the deo. A n enteric tube is seen along the expected course of the esophagus, with the tip and proximal port pro jecting subdiaphragmatically. A right upper extremity PICC is stable in position and appearance. A cardiac pacer and mediastinal and spinal surgical changes are unchanged. OTHER: No other significant finding. IMPRESSION: 1. Stable pulmonary exam. 2. Interval placement of an enteric and an endotracheal tube without evidence of complication. Usha bettencourt right upper extremity PICC. TECHNICAL DOCUMENTATION: JOB ID: [id number]
[2017-08-29 22:54] LABS: ARTERIAL BLOOD BASE EXCESS -11.7 mmol/L; ARTERIAL BLOOD O2 SATURATION 88.1 % (94-98)
[2017-08-30] MEDS: GABAPENTIN 300 MG CAPSULE PO SCH ×4 (00:14→22:02)
[2017-08-30] MEDS: AMIODARONE HCL 200 MG TABLET NG SCH ×3 (00:14→22:02)
[2017-08-30] MEDS: NORMAL SALINE 10 ML SDV (SCHEDULED) IV SCH ×3 (00:15→22:04)
[2017-08-30] MEDS: HYDROCORTISONE SOD SUCCINATE INJ/PF 100 MG/2 ML SDV IV SCH ×4 (00:15→22:03)
[2017-08-30] MEDS: DEXTROSE 5%-WATER 250 ML with NOREPINEPHRINE BITARTRATE 4 MG IV PRN ×10 (00:18→18:32)
[2017-08-30] MEDS: METOPROLOL TARTRATE 25 MG TABLET NG SCH ×2 (00:22→10:08)
[2017-08-30] MEDS: ALBUMIN HUMAN 50 ML IV SCH (00:55)
[2017-08-30] MEDS: PIPERACILLIN SODIUM/TAZOBACTAM 2.25 GM in NORMAL SALINE 50 ML IV SCH ×4 (01:39→23:13)
[2017-08-30] MEDS ORDERED: AMPICILLIN SOD/SULBACTAM 1.5 GM VIAL IV PRN (01:49)
[2017-08-30] MEDS ORDERED: NORMAL SALINE 1000 ML 1,000 ML IV ONE ×2 (02:00→02:30)
[2017-08-30] MEDS ORDERED: NOREPINEPHRINE BITARTRATE INJ/PF 4 MG/4 ML SDV IV ONE ×2 (02:10→07:59)
[2017-08-30] MEDS ORDERED: PHENYLEPHRINE HCL INJ/PF 10 MG/1 ML SDV ONE (02:23)
[2017-08-30] MEDS: DEXTROSE 5%-WATER 250 ML with PHENYLEPHRINE HCL 40 MG IV PRN ×6 (03:05→16:26)
[2017-08-30 03:57] LABS: CREATINE KINASE MB 1.63 ng/mL (<4.55); TROPONIN I 0.1 ng/mL
[2017-08-30] MEDS: LEVOTHYROXINE SODIUM 0.05 MG TABLET NG SCH (05:08)
[2017-08-30] MEDS ORDERED: AMPICILLIN SOD/SULBACTAM 1.5 GM VIAL ONE (05:17)
[2017-08-30] MEDS ORDERED: AMPICILLIN SODIUM/SULBACTAM NA 1.5 GM in NORMAL SALINE 50 ML IV SCH (06:00)
[2017-08-30 07:05] LABS: ARTERIAL BLOOD BASE EXCESS -12.5 mmol/L; ARTERIAL BLOOD O2 SATURATION 93.2 % (94-98)
[2017-08-30] MEDS: PROPOFOL 100 ML IV PRN ×4 (07:23→23:12)
[2017-08-30] MEDS ORDERED: NORMAL SALINE 1000 ML 1,000 ML IV PRN (07:55)
[2017-08-30] MEDS ORDERED: ISOSORBIDE MONONITRATE 20 MG TABLET NG SCH (08:00)
[2017-08-30 10:04] LABS: HEMATOCRIT 30.6 % (36.0-47.0); HEMOGLOBIN 9.3 g/dL (12.0-15.5); HGB HCT DIFFERENCE -2.7; MEAN CORPUSCULAR HEMOGLOBIN 24.8 pg (27.0-33.4); MEAN CORPUSCULAR HGB CONC 30.5 g/dL (32.0-36.0); RED BLOOD COUNT 3.76 10^6/uL (3.72-5.28); RED CELL DISTRIBUTION WIDTH 23.2 % (11.5-14.0); WHITE BLOOD COUNT 25.7 10^3/uL (4.0-10.5)
[2017-08-30 10:06] LABS: PROTHROMBIN TIME 29.4 SEC (11.4-15.4)
[2017-08-30] MEDS: CEFTRIAXONE 1 GM/D5W RTU 1 GM/50 ML RTUPB IV SCH (10:09)
[2017-08-30] MEDS: LANSOPRAZOLE 30 MG TAB.RAP.DR NG SCH (10:09)
[2017-08-30] MEDS: VANCOMYCIN HCL 750 MG in DEXTROSE 5%-WATER 250 ML IV SCH (10:10)
[2017-08-30 10:12] LABS: ARTERIAL BLOOD BASE EXCESS -13.5 mmol/L
[2017-08-30 10:17] LABS: ALANINE AMINOTRANSFERASE 116 U/L (9-52); ALBUMIN 2.5 g/dL (3.5-5.0); ALKALINE PHOSPHATASE 68 U/L (38-126); ANION GAP 10 (5-19); ASPARTATE AMINO TRANSFERASE 245 U/L (14-36); BILIRUBIN,DIRECT 1.7 mg/dL (0.0-0.4); BILIRUBIN,TOTAL 2.2 mg/dL (0.2-1.3); BLOOD UREA NITROGEN 22 mg/dL (7-20); CALCIUM 7.6 mg/dL (8.4-10.2); CARBON DIOXIDE 13 mmol/L (22-30); CHLORIDE 103 mmol/L (98-107); CREATININE RESULT 1.61 mg/dL (0.52-1.25); MAGNESIUM 1.9 mg/dL (1.6-2.3); POTASSIUM 4.2 mmol/L (3.6-5.0); SODIUM 126.1 mmol/L (137-145); TOTAL PROTEIN 5.4 g/dL (6.3-8.2)
[2017-08-30 10:21] LABS: BASOPHILS % (MANUAL) 0 % (0-2); EOSINOPHILS % (MANUAL) 0 % (0-6); LYMPHOCYTES % (MANUAL) 5 % (13-45); NUCLEATED RED BLOOD CELLS 1 /100 WBC (0); TOTAL CELLS COUNTED 100
[2017-08-30 10:22] LABS: BAND NEUTROPHILS % (MANUAL) 15 % (3-5)
[2017-08-30 10:23] LABS: ANISOCYTOSIS 2+; POIKILOCYTOSIS 2+
[2017-08-30 10:24] LABS: BURR CELLS SLIGHT; HYPOCHROMASIA SLIGHT; OVALOCYTES 1+; POLYCHROMASIA SLIGHT; TEAR DROP CELLS SLIGHT
[2017-08-30 10:25] LABS: GLUCOSE 433 mg/dL (75-110); MEAN CORPUSCULAR VOLUME 81 fl (80-97)
[2017-08-30] MEDS ORDERED: GLUCAGON,HUMAN RECOMB 1 MG INJ IM PRN (10:26)
[2017-08-30] MEDS ORDERED: DEXTROSE 40% GEL 15 GM TUBE PO PRN ×2 (10:26)
[2017-08-30] MEDS ORDERED: DEXTROSE 50%-WATER 25 GM/50 ML DISP.SYRIN IV PRN ×2 (10:26)
[2017-08-30 10:28] LABS: CREATINE KINASE MB 2.22 ng/mL (<4.55); TROPONIN I 0.071 ng/mL
--- NOTE | 2017-08-30 10:32 | RADIOLOGY REPORT (SQ) ---
EXAM DESCRIPTION: CHEST SINGLE VIEW COMPLETED DATE/TIME: 08/30/2017 9:36 am REASON FOR STUDY: ETT and NG tube COMPARISON: 08/29/2017 NUMBER OF VIEWS: One view. TECHNIQUE: Single frontal radiographic image of the chest acquired. LIMITATIONS: None. FINDINGS: LUNGS AND PLEURA: Diffuse interstitial pattern. Increasing density over lateral to the [facility] heart border allowing for differences in technique. Small pleural effusions. No pneumothorax. MEDIASTINUM AND HEART: Stable heart size and mediastinal structures. SUPPORT DEVICES: Appropriate location without change. BONY STRUCTURES: No acute findings. HARDWARE: CABG. Spinal fusion. OTHER: No other significant finding. IMPRESSION: Edema or sepsis. Rehydration versus progression in the right lung. No pneumothorax.
[2017-08-30] MEDS: INSULIN LISPRO 100 UNIT/ML 3 ML VIAL SUBCUT PRN ×2 (10:53→18:05)
--- NOTE | 2017-08-30 11:18 | PDOC PROGRESS REPORT ---
Subjective Progress Note for:: 08/30/17 Subjective:: Patient deteriorated overnight, with worsening respiratory distress requiring intubation. She also became hypotensive requiring vasopressors to be added. She has 2 out of 2 positive blood cultures for gram-positive cocci. She had been started on antibiotic therapy in the morning because of fever, leukocytosis and confusion. Blood pressure has stabilized now on 10 mics of Levophed and 100 mcg of Elmer-Synephrine. She is presently sedated on propofol. Her daughter and significant other at bedside. Case was discussed with her who was in the waiting room. Review of systems cannot be obtained due to patient's current status. Physical Exam Vital Signs: Temp Pulse Resp BP Pulse Ox 98.2 F 70 24 H 116/45 L 97 08/30/17 06:00 08/29/17 21:39 08/30/17 08:00 08/30/17 05:58 08/30/17 10:41 Intake & Output 08/29/17 08/30/17 08/31/17 06:59 06:59 06:59 Intake Total 1545 4551 Output Total 260 230 40 Balance 1285 4321 -40 Weight 77.9 kg 77.6 kg General appearance: PRESENT: no acute distress, well-developed, well-nourished, other - orally intubated and sedated Head exam: PRESENT: atraumatic, normocephalic Eye exam: PRESENT: conjunctiva pale, PERRLA Ear exam: PRESENT: normal external ear exam Mouth exam: PRESENT: moist, tongue midline Neck exam: ABSENT: carotid bruit, JVD, lymphadenopathy, thyromegaly Respiratory exam: PRESENT: crackles, decreased breath sounds, symmetrical, unlabored, other - mechanically ventilated Cardiovascular exam: PRESENT: +S1, +S2 Pulses: PRESENT: normal carotid pulses, normal radial pulses Vascular exam: PRESENT: normal capillary refill GI/Abdominal exam: PRESENT: hypoactive bowel sounds, soft Rectal exam: PRESENT: deferred Extremities exam: PRESENT: other - edematous weeping arms and sacrum, Musculoskeletal exam: PRESENT: other - sedated and ventilated Neurological exam: PRESENT: other - sedated, intubated on propofol Psychiatric exam: PRESENT: other Skin exam: PRESENT: other - weeping edematous upper extremities Results Laboratory Results: 08/30/17 09:40 08/30/17 09:40 08/29/17 08/29/17 08/29/17 12:35 14:46 14:50 WBC RBC Hgb Hct MCV MCH MCHC RDW Plt Count Seg Neutrophils % Lymphocytes % Monocytes % Eosinophils % Basophils % Absolute Neutrophils Absolute Lymphocytes Absolute Monocytes Absolute Eosinophils Absolute Basophils Carbonic Acid 0.79 L HCO3/H2CO3 Ratio 22:1 ABG pH 7.46 H ABG pCO2 26.2 L ABG pO2 60.8 L ABG HCO3 18.0 L ABG O2 Saturation 92.9 L ABG Base Excess -4.7 FiO2 32% Sodium Potassium Chloride Carbon Dioxide Anion Gap BUN Creatinine Est GFR ( Amer) Est GFR (Non-Af Amer) Glucose Lactic Acid Calcium Magnesium Total Bilirubin AST ALT Alkaline Phosphatase Total Protein Albumin Prealbumin Urine Color ANNIE Urine Appearance CLOUDY Urine pH 5.0 Ur Specific [place] 1.025 Urine Protein NEGATIVE Urine Glucose (UA) NEGATIVE Urine Ketones NEGATIVE Urine Blood SMALL H Urine Nitrite NEGATIVE Ur Leukocyte Esterase MODERATE H Urine WBC (Auto) >182 Urine RBC (Auto) 12 Stool Occult Blood NEGATIVE 08/29/17 08/29/17 08/29/17 20:13 20:30 20:30 WBC 16.3 H RBC 4.04 Hgb 10.1 L Hct 30.1 L MCV 75 L MCH 25.0 L MCHC 33.6 RDW 23.3 H Plt Count 161 Seg Neutrophils % Not Reportable Lymphocytes % Not Reportable Monocytes % Not Reportable Eosinophils % Not Reportable Basophils % Not Reportable Absolute Neutrophils Not Reportable Absolute Lymphocytes Not Reportable Absolute Monocytes Not Reportable Absolute Eosinophils Not Reportable Absolute Basophils Not Reportable Carbonic Acid 0.69 L HCO3/H2CO3 Ratio 22:1 ABG pH 7.45 ABG pCO2 22.9 L ABG pO2 39.0 L* ABG HCO3 15.5 L ABG O2 Saturation 77.7 L ABG Base Excess -6.7 FiO2 40% Sodium 137.2 Potassium 5.0 Chloride 111 H Carbon Dioxide 15 L Anion Gap 11 BUN 24 H Creatinine 1.92 H Est GFR ( Amer) 30 L Est GFR (Non-Af Amer) 25 L Glucose 109 Lactic Acid Calcium 8.5 Magnesium Total Bilirubin 2.1 H AST 156 H ALT 91 H Alkaline Phosphatase 93 Total Protein 5.6 L Albumin 2.5 L Prealbumin Urine Color Urine Appearance Urine pH Ur Specific [place] Urine Protein Urine Glucose (UA) Urine Ketones Urine Blood Urine Nitrite Ur Leukocyte Esterase Urine WBC (Auto) Urine RBC (Auto) Stool Occult Blood 08/29/17 08/29/17 08/30/17 20:30 22:38 06:45 WBC RBC Hgb Hct MCV MCH MCHC RDW Plt Count Seg Neutrophils % Lymphocytes % Monocytes % Eosinophils % Basophils % Absolute Neutrophils Absolute Lymphocytes Absolute Monocytes Absolute Eosinophils Absolute Basophils Carbonic Acid 1.23 1.10 HCO3/H2CO3 Ratio 12:1 13:1 ABG pH 7.20 L* 7.21 L ABG pCO2 41.0 36.5 ABG pO2 65.0 L 78.5 L ABG HCO3 15.7 L 14.4 L ABG O2 Saturation 88.1 L 93.2 L ABG Base Excess -11.7 -12.5 FiO2 100% 95% Sodium Potassium Chloride Carbon Dioxide Anion Gap BUN Creatinine Est GFR ( Amer) Est GFR (Non-Af Amer) Glucose Lactic Acid Calcium Magnesium Total Bilirubin AST ALT Alkaline Phosphatase Total Protein Albumin Prealbumin 12.4 L Urine Color Urine Appearance Urine pH Ur Specific [place] Urine Protein Urine Glucose (UA) Urine Ketones Urine Blood Urine Nitrite Ur Leukocyte Esterase Urine WBC (Auto) Urine RBC (Auto) Stool Occult Blood 08/30/17 08/30/17 08/30/17 09:40 09:40 09:40 WBC 25.7 H RBC 3.76 Hgb 9.3 L Hct 30.6 L MCV 81 D MCH 24.8 L MCHC 30.5 L RDW 23.2 H Plt Count 224 Seg Neutrophils % Not Reportable Lymphocytes % Not Reportable Monocytes % Not Reportable Eosinophils % Not Reportable Basophils % Not Reportable Absolute Neutrophils Not Reportable Absolute Lymphocytes Not Reportable Absolute Monocytes Not Reportable Absolute Eosinophils Not Reportable Absolute Basophils Not Reportable Carbonic Acid HCO3/H2CO3 Ratio ABG pH ABG pCO2 ABG pO2 ABG HCO3 ABG O2 Saturation ABG Base Excess FiO2 Sodium 126.1 L Potassium 4.2 Chloride 103 Carbon Dioxide 13 L Anion Gap 10 BUN 22 H Creatinine 1.61 H Est GFR ( Amer) 37 L Est GFR (Non-Af Amer) 31 L Glucose 433 H* Lactic Acid 2.3 H Calcium 7.6 L Magnesium 1.9 Total Bilirubin 2.2 H AST 245 H ALT 116 H Alkaline Phosphatase 68 Total Protein 5.4 L Albumin 2.5 L Prealbumin Urine Color Urine Appearance Urine pH Ur Specific [place] Urine Protein Urine Glucose (UA) Urine Ketones Urine Blood Urine Nitrite Ur Leukocyte Esterase Urine WBC (Auto) Urine RBC (Auto) Stool Occult Blood 08/30/17 09:50 WBC RBC Hgb Hct MCV MCH MCHC RDW Plt Count Seg Neutrophils % Lymphocytes % Monocytes % Eosinophils % Basophils % Absolute Neutrophils Absolute Lymphocytes Absolute Monocytes Absolute Eosinophils Absolute Basophils Carbonic Acid 1.01 L HCO3/H2CO3 Ratio 13:1 ABG pH 7.21 L ABG pCO2 33.7 L ABG pO2 88.1 ABG HCO3 13.3 L ABG O2 Saturation 95.0 ABG Base Excess -13.5 FiO2 80% Sodium Potassium Chloride Carbon Dioxide Anion Gap BUN Creatinine Est GFR ( Amer) Est GFR (Non-Af Amer) Glucose Lactic Acid Calcium Magnesium Total Bilirubin AST ALT Alkaline Phosphatase Total Protein Albumin Prealbumin Urine Color Urine Appearance Urine pH Ur Specific [place] Urine Protein Urine Glucose (UA) Urine Ketones Urine Blood Urine Nitrite Ur Leukocyte Esterase Urine WBC (Auto) Urine RBC (Auto) Stool Occult Blood 08/25/17 08/25/17 08/25/17 16:00 16:00 21:35 Creatine Kinase 65 CK-MB (CK-2) 0.72 Troponin I 0.039 0.032 NT-Pro-B Natriuret Pep 1570 H 08/26/17 08/26/17 08/27/17 04:23 04:23 05:46 Creatine Kinase CK-MB (CK-2) Troponin I 0.031 NT-Pro-B Natriuret Pep 1160 H 2020 H 08/29/17 08/29/17 08/30/17 20:30 20:30 03:23 Creatine Kinase 94 217 H CK-MB (CK-2) 1.13 Troponin I 0.078 NT-Pro-B Natriuret Pep 08/30/17 08/30/17 08/30/17 03:23 09:40 09:40 Creatine Kinase 216 H CK-MB (CK-2) 1.63 2.22 Troponin I 0.100 0.071 NT-Pro-B Natriuret Pep Impressions: Abdomen Ultrasound 08/26/17 00:00 IMPRESSION: Echogenic material in the main portal vein, worrisome for incompletely occlusive thrombus Guidance Fluoroscopy 08/27/17 00:00 IMPRESSION: SUCCESSFUL PLACEMENT OF A 5 FR SINGLE LUMEN 37 CM PICC IN THE RIGHT BASILIC VEIN. Interventional Vascular Procedure 08/27/17 00:00 IMPRESSION: SUCCESSFUL PLACEMENT OF A 5 FR SINGLE LUMEN 37 CM PICC IN THE RIGHT BASILIC VEIN. PICC Line Insertion 08/27/17 00:00 IMPRESSION: SUCCESSFUL PLACEMENT OF A 5 FR SINGLE LUMEN 37 CM PICC IN THE RIGHT BASILIC VEIN. Abdomen/Pelvis CT 08/27/17 07:40 IMPRESSION: 1. PATENT PORTAL VEIN, SPLENIC VEIN, AND SUPERIOR MESENTERIC VEIN. NO EVIDENCE OF THROMBOSIS. 2. MODERATE ASCITES. 3. BILATERAL PLEURAL EFFUSIONS WITH BASILAR ATELECTASIS. 4. CHRONIC CHANGES IN THE LUMBAR SPINE WITH PRIOR KYPHOPLASTY AND SURGICAL CHANGES WITH HARDWARE. 5. NO OTHER SIGNIFICANT FINDINGS. Hepatobiliary Scan Nuclear Medicine 08/28/17 00:00 IMPRESSION: No scintigraphic evidence of cystic duct or common duct obstruction Mildly depressed gallbladder ejection fraction. IV CCK did not reproduce the patient's symptoms Chest X-Ray 08/30/17 09:15 IMPRESSION: Edema or sepsis. Rehydration versus progression in the right lung. No pneumothorax. Assessment & Plan - Diagnosis (1) Septic shock due to Gram positive bacteria Is this a current diagnosis for this admission?: Yes Plan: 2 out of 2 blood cultures positive for GM +cocci. Started on Zosyn and Vancomycin yesterday. PICC line will be d/c'd with tip cultured. Worsening bandemia on 2 pressors to maintain blood pressure. Discussed patient's critical status with patient's and daughter. Offered option of transfer to a higher level facility. They are declining to do so at this time. They would like to continue present course and maintain full code status for now. (2) Acute respiratory distress syndrome in adult Is this a current diagnosis for this admission?: Yes Plan: Presently intubated and sedated. ABG slighltly improved. Chest xray shows worsening edema of ARDS, with bilateral chronic effusions (3) Abnormal liver enzymes Is this a current diagnosis for this admission?: Yes Plan: Most likely secondary to hepatic congestion and chronic combination systolic/ diastolic heart failure. CT shows mild to mod ascites. CTA abdomen and pelvis ruled out portal vein thrombus, ultrasound of abdomen showed no signs of biliary duct obstruction or cholecystitis . Hidascan unremarkable. GI, Dr Ling is consulted and following. (4) Acute renal failure superimposed on stage 3 chronic kidney disease Qualifiers: Acute renal failure type: unspecified Qualified Code(s): N17.9 - Acute kidney failure, unspecified; N18.3 - Chronic kidney disease, stage 3 (moderate) Is this a current diagnosis for this admission?: Yes Plan: Most likely secondary (5) Anemia of chronic disease Is this a current diagnosis for this admission?: Yes Plan: Anemia studies pending. Likely anemia of chronic disease related to kidney disease and may have iron deficiency anemia. She did drop hgb to 6.7 from 8.0 most likely some due to dilution with IV hydration. EGD did show mild gastritis in setting of supratherapeutic INR. Stool was guiac negative. On daily PPI (6) Atrial fibrillation Qualifiers: Atrial fibrillation type: paroxysmal Qualified Code(s): I48.0 - Paroxysmal atrial fibrillation Is this a current diagnosis for this admission?: Yes Plan: Presently atrial paced with underlying atrial fibrillation on amiodarone, metoprolol and coumadin restarted with INR 1.8 (7) COPD (chronic obstructive pulmonary disease) Qualifiers: Emphysema type: unspecified Is this a current diagnosis for this admission?: Yes Plan: Patient with acute worsening shortness of breath with wheezing and hypoxemia this morning. Did not improve with duoneb treatment. Given Bumex 1 mg IV x 1, supplemental oxgyen and continue nebulizer treatments. Stat chest xray showed no acute new findings. Continues to have bilateral pleural effusions, no infiltrates or edema. (8) Metabolic acidosis Is this a current diagnosis for this admission?: Yes Plan: Secondary to sepsis (9) Nausea Is this a current diagnosis for this admission?: Yes (10) Supratherapeutic INR Is this a current diagnosis for this admission?: Yes (11) CAD (coronary artery disease) Qualifiers: Associated angina: angina presence unspecified Is this a current diagnosis for this admission?: Yes Plan: Continue home medications (12) Hyperlipidemia Qualifiers: Hyperlipidemia type: unspecified Qualified Code(s): E78.5 - Hyperlipidemia , unspecified Is this a current diagnosis for this admission?: Yes (13) Hypothyroid Qualifiers: Hypothyroidism type: unspecified Qualified Code(s): E03.9 - Hypothyroidism , unspecified Is this a current diagnosis for this admission?: Yes Plan: Continue thyroid replacement (14) Chronic combined systolic and diastolic CHF (congestive heart failure) Is this a current diagnosis for this admission?: Yes - Time Time Spent with patient: 35 or more minutes Critical Time spent with patient: 35 or more minutes Medications reviewed and adjusted accordingly: Yes
[2017-08-30 11:34] LABS: ARTERIAL BLOOD BASE EXCESS -11.6 mmol/L
--- NOTE | 2017-08-30 11:41 | RADIOLOGY REPORT (SQ) ---
EXAM DESCRIPTION: CHEST SINGLE VIEW COMPLETED DATE/TIME: 08/30/2017 11:33 am REASON FOR STUDY: Central Line Placement COMPARISON: Earlier the same day. NUMBER OF VIEWS: One view. TECHNIQUE: Single frontal radiographic image of the chest acquired. LIMITATIONS: None. FINDINGS: LUNGS AND PLEURA: Stable appearance. MEDIASTINUM AND HEART: Stable heart size and mediastinal structures. SUPPORT DEVICES: Interval placement of a 2nd right side central line with tip in the SVC. BONY STRUCTURES: No acute findings. HARDWARE: None. OTHER: No other significant finding. IMPRESSION: Good position of support apparatus. No pneumothorax.
[2017-08-30] MEDS ORDERED: NORMAL SALINE 500 ML with ROCURONIUM BROMIDE 500 MG IV PRN ×2 (13:06)
--- NOTE | 2017-08-30 13:20 | PDOC CONSULTATION ---
Consultation Consult Date: 08/30/17 Attending physician:: OLMAN LIND Consult reason:: septic shock History of Present Illness Admission Date/PCP: 08/25/17 15:21 CANDY SANDY, Past Medical History Cardiac Medical History: Reports: Atrial Fibrillation, Coronary Artery Disease, Myocardial Infarction - Silent, Hyperlipidema, Hypertension Pulmonary Medical History: Reports: Bronchitis, Chronic Obstructive Pulmonary Disease (COPD) Denies: Asthma, Pneumonia Neurological Medical History: Denies: Seizures Endocrine Medical History: Reports: Diabetes Mellitus Type 2, Hypothyroidism GI Medical History: Reports: Diverticulitis Denies: Hepatitis, Hiatal Hernia Musculoskeltal Medical History: Reports: Arthritis, Gout Psychiatric Medical History: Reports: Depression Hematology: Denies: Anemia, Sickle Cell Disease Past Surgical History Past Surgical History: Reports: Colostomy - reversed, Coronary Artery Bypass Graft, Hysterectomy, Orthopedic Surgery - Colby rods in back, Pacemaker - [employer] Denies: Amputation, Mastectomy Social History Information Source[facility] Smoking Status: Unknown if Ever Smoked Frequency of Alcohol Use: None Hx Recreational Drug Use: No - Advance Directive Resuscitation Status: Full Code Family History Family History: Reviewed & Not Pertinent Parental Family History Reviewed: No Children Family History Reviewed: No Sibling(s) Family History Reviewed.: No Medication/Allergy Home Medications: Alprazolam [Xanax 0.25 mg Tablet] 0.25 mg PO Q8HP PRN 08/25/17 Amiodarone HCl [Cordarone 200 mg Tablet] 200 mg PO BID 08/25/17 Aspirin [Aspirin 81 mg Chewable Tablet] 81 mg PO DAILY 08/25/17 Atorvastatin Calcium [Lipitor 40 mg Tablet] 40 mg PO QHS 08/25/17 Bumetanide [Bumex 1 mg Tablet] 3 mg PO BID 08/25/17 Gabapentin [Neurontin 100 mg Capsule] 300 mg PO TID 08/25/17 Isosorbide Mononitrate [Ismo 20 mg Tablet] 20 mg PO BID 08/25/17 Levothyroxine Sodium [Synthroid] 50 mcg PO QAM 08/25/17 Metoprolol Tartrate [Lopressor 100 mg Tablet] 100 mg PO Q12 08/25/17 Omeprazole 40 mg PO BID 08/25/17 Ondansetron [Zofran Odt 4 mg Tablet] 4 mg SL Q8 08/25/17 Spironolactone [Aldactone] 50 mg PO DAILY 08/25/17 Warfarin Sodium [Coumadin 5 mg Tablet] 2.5 mg PO DAILY 08/25/17 Allergies/Adverse Reactions: codeine [Codeine] Adverse Reaction (Severe, Verified 11/13/16 12:52) Hyperactivity Review of Systems ROS unobtainable: Due to endotracheal tube Physical Exam Vital Signs: Temp Pulse Resp BP Pulse Ox 98.2 F 70 24 H 116/45 L 97 08/30/17 06:00 08/29/17 21:39 08/30/17 08:00 08/30/17 05:58 08/30/17 10:41 Intake & Output 08/29/17 08/30/17 08/31/17 06:59 06:59 06:59 Intake Total 1545 4551 Output Total 260 230 40 Balance 1285 4321 -40 Weight 77.9 kg 77.6 kg General appearance: PRESENT: no acute distress, disheveled, obese, well- developed Head exam: PRESENT: atraumatic, normocephalic Eye exam: PRESENT: conjunctiva pale Mouth exam: PRESENT: dry mucosa, neck supple, tongue midline - ET 7.5 @22cm Neck exam: ABSENT: carotid bruit, JVD, lymphadenopathy, thyromegaly Respiratory exam: PRESENT: decreased breath sounds, prolonged expiratory phas, rhonchi, symmetrical, unlabored. ABSENT: chest wall tenderness, crackles, rales , retraction, stridor, tachypnea, wheezes Cardiovascular exam: PRESENT: RRR, +S1, +S2. ABSENT: irregular rhythm, tachycardia Pulses: PRESENT: normal radial pulses GI/Abdominal exam: PRESENT: ascites, distended, firm Rectal exam: PRESENT: deferred Gentrourinary exam: PRESENT: indwelling catheter Neurological exam: ABSENT: alert, awake Skin exam: PRESENT: dry, warm Results Laboratory Results: 08/30/17 09:40 08/30/17 09:40 08/29/17 08/29/17 08/29/17 14:46 14:50 20:13 WBC RBC Hgb Hct MCV MCH MCHC RDW Plt Count Seg Neutrophils % Lymphocytes % Monocytes % Eosinophils % Basophils % Absolute Neutrophils Absolute Lymphocytes Absolute Monocytes Absolute Eosinophils Absolute Basophils Carbonic Acid 0.79 L 0.69 L HCO3/H2CO3 Ratio 22:1 22:1 ABG pH 7.46 H 7.45 ABG pCO2 26.2 L 22.9 L ABG pO2 60.8 L 39.0 L* ABG HCO3 18.0 L 15.5 L ABG O2 Saturation 92.9 L 77.7 L ABG Base Excess -4.7 -6.7 FiO2 32% 40% Sodium Potassium Chloride Carbon Dioxide Anion Gap BUN Creatinine Est GFR ( Amer) Est GFR (Non-Af Amer) Glucose Lactic Acid Calcium Magnesium Total Bilirubin AST ALT Alkaline Phosphatase Total Protein Albumin Prealbumin Stool Occult Blood NEGATIVE 08/29/17 08/29/17 08/29/17 20:30 20:30 20:30 WBC 16.3 H RBC 4.04 Hgb 10.1 L Hct 30.1 L MCV 75 L MCH 25.0 L MCHC 33.6 RDW 23.3 H Plt Count 161 Seg Neutrophils % Not Reportable Lymphocytes % Not Reportable Monocytes % Not Reportable Eosinophils % Not Reportable Basophils % Not Reportable Absolute Neutrophils Not Reportable Absolute Lymphocytes Not Reportable Absolute Monocytes Not Reportable Absolute Eosinophils Not Reportable Absolute Basophils Not Reportable Carbonic Acid HCO3/H2CO3 Ratio ABG pH ABG pCO2 ABG pO2 ABG HCO3 ABG O2 Saturation ABG Base Excess FiO2 Sodium 137.2 Potassium 5.0 Chloride 111 H Carbon Dioxide 15 L Anion Gap 11 BUN 24 H Creatinine 1.92 H Est GFR ( Amer) 30 L Est GFR (Non-Af Amer) 25 L Glucose 109 Lactic Acid Calcium 8.5 Magnesium Total Bilirubin 2.1 H AST 156 H ALT 91 H Alkaline Phosphatase 93 Total Protein 5.6 L Albumin 2.5 L Prealbumin 12.4 L Stool Occult Blood 08/29/17 08/30/17 08/30/17 22:38 06:45 09:40 WBC 25.7 H RBC 3.76 Hgb 9.3 L Hct 30.6 L MCV 81 D MCH 24.8 L MCHC 30.5 L RDW 23.2 H Plt Count 224 Seg Neutrophils % Not Reportable Lymphocytes % Not Reportable Monocytes % Not Reportable Eosinophils % Not Reportable Basophils % Not Reportable Absolute Neutrophils Not Reportable Absolute Lymphocytes Not Reportable Absolute Monocytes Not Reportable Absolute Eosinophils Not Reportable Absolute Basophils Not Reportable Carbonic Acid 1.23 1.10 HCO3/H2CO3 Ratio 12:1 13:1 ABG pH 7.20 L* 7.21 L ABG pCO2 41.0 36.5 ABG pO2 65.0 L 78.5 L ABG HCO3 15.7 L 14.4 L ABG O2 Saturation 88.1 L 93.2 L ABG Base Excess -11.7 -12.5 FiO2 100% 95% Sodium Potassium Chloride Carbon Dioxide Anion Gap BUN Creatinine Est GFR ( Amer) Est GFR (Non-Af Amer) Glucose Lactic Acid Calcium Magnesium Total Bilirubin AST ALT Alkaline Phosphatase Total Protein Albumin Prealbumin Stool Occult Blood 08/30/17 08/30/17 08/30/17 09:40 09:40 09:50 WBC RBC Hgb Hct MCV MCH MCHC RDW Plt Count Seg Neutrophils % Lymphocytes % Monocytes % Eosinophils % Basophils % Absolute Neutrophils Absolute Lymphocytes Absolute Monocytes Absolute Eosinophils Absolute Basophils Carbonic Acid 1.01 L HCO3/H2CO3 Ratio 13:1 ABG pH 7.21 L ABG pCO2 33.7 L ABG pO2 88.1 ABG HCO3 13.3 L ABG O2 Saturation 95.0 ABG Base Excess -13.5 FiO2 80% Sodium 126.1 L Potassium 4.2 Chloride 103 Carbon Dioxide 13 L Anion Gap 10 BUN 22 H Creatinine 1.61 H Est GFR ( Amer) 37 L Est GFR (Non-Af Amer) 31 L Glucose 433 H* Lactic Acid 2.3 H Calcium 7.6 L Magnesium 1.9 Total Bilirubin 2.2 H AST 245 H ALT 116 H Alkaline Phosphatase 68 Total Protein 5.4 L Albumin 2.5 L Prealbumin Stool Occult Blood 08/30/17 11:20 WBC RBC Hgb Hct MCV MCH MCHC RDW Plt Count Seg Neutrophils % Lymphocytes % Monocytes % Eosinophils % Basophils % Absolute Neutrophils Absolute Lymphocytes Absolute Monocytes Absolute Eosinophils Absolute Basophils Carbonic Acid 0.93 L HCO3/H2CO3 Ratio 15:1 ABG pH 7.27 L ABG pCO2 31.0 L ABG pO2 101.3 H ABG HCO3 14.0 L ABG O2 Saturation 97.0 ABG Base Excess -11.6 FiO2 100% Sodium Potassium Chloride Carbon Dioxide Anion Gap BUN Creatinine Est GFR ( Amer) Est GFR (Non-Af Amer) Glucose Lactic Acid Calcium Magnesium Total Bilirubin AST ALT Alkaline Phosphatase Total Protein Albumin Prealbumin Stool Occult Blood 08/25/17 08/25/17 08/25/17 16:00 16:00 21:35 Creatine Kinase 65 CK-MB (CK-2) 0.72 Troponin I 0.039 0.032 NT-Pro-B Natriuret Pep 1570 H 08/26/17 08/26/17 08/27/17 04:23 04:23 05:46 Creatine Kinase CK-MB (CK-2) Troponin I 0.031 NT-Pro-B Natriuret Pep 1160 H 2020 H 08/29/17 08/29/17 08/30/17 20:30 20:30 03:23 Creatine Kinase 94 217 H CK-MB (CK-2) 1.13 Troponin I 0.078 NT-Pro-B Natriuret Pep 08/30/17 08/30/17 08/30/17 03:23 09:40 09:40 Creatine Kinase 216 H CK-MB (CK-2) 1.63 2.22 Troponin I 0.100 0.071 NT-Pro-B Natriuret Pep Impressions: Abdomen Ultrasound 08/26/17 00:00 IMPRESSION: Echogenic material in the main portal vein, worrisome for incompletely occlusive thrombus Guidance Fluoroscopy 08/27/17 00:00 IMPRESSION: SUCCESSFUL PLACEMENT OF A 5 FR SINGLE LUMEN 37 CM PICC IN THE RIGHT BASILIC VEIN. Interventional Vascular Procedure 08/27/17 00:00 IMPRESSION: SUCCESSFUL PLACEMENT OF A 5 FR SINGLE LUMEN 37 CM PICC IN THE RIGHT BASILIC VEIN. PICC Line Insertion 08/27/17 00:00 IMPRESSION: SUCCESSFUL PLACEMENT OF A 5 FR SINGLE LUMEN 37 CM PICC IN THE RIGHT BASILIC VEIN. Abdomen/Pelvis CT 08/27/17 07:40 IMPRESSION: 1. PATENT PORTAL VEIN, SPLENIC VEIN, AND SUPERIOR MESENTERIC VEIN. NO EVIDENCE OF THROMBOSIS. 2. MODERATE ASCITES. 3. BILATERAL PLEURAL EFFUSIONS WITH BASILAR ATELECTASIS. 4. CHRONIC CHANGES IN THE LUMBAR SPINE WITH PRIOR KYPHOPLASTY AND SURGICAL CHANGES WITH HARDWARE. 5. NO OTHER SIGNIFICANT FINDINGS. Hepatobiliary Scan Nuclear Medicine 08/28/17 00:00 IMPRESSION: No scintigraphic evidence of cystic duct or common duct obstruction Mildly depressed gallbladder ejection fraction. IV CCK did not reproduce the patient's symptoms Chest X-Ray 08/30/17 11:17 IMPRESSION: Good position of support apparatus. No pneumothorax. Assessment & Plan - Diagnosis (1) Acute respiratory distress syndrome in adult Is this a current diagnosis for this admission?: Yes Plan: 5 different modes time and flow manipulation patient remains very asyncronous with ventilator will initiate NMB anitha (2) COPD (chronic obstructive pulmonary disease) Qualifiers: Emphysema type: unspecified Is this a current diagnosis for this admission?: Yes (3) Full code status Is this a current diagnosis for this admission?: Yes (4) Metabolic acidosis Is this a current diagnosis for this admission?: Yes Plan: trying to compensate with hyperventilation - Time Critical Time spent with patient: 35 or more minutes - 80 min
[2017-08-30] MEDS: IPRATROPIUM/ALBUTEROL 0.5-2.5 MG/3 ML AMPUL NEB PRN (13:42)
[2017-08-30] MEDS ORDERED: INFLUENZA ADLT QUAD (36MOS+) 2017-18 VAC 0.5 ML SYR IM PRN (14:34)
--- NOTE | 2017-08-30 14:52 | OPERATIVE REPORT E ---
Operative Report NAME: CHELLY HOLDEN : 1935 AGE: 82Y DATE OF SURGERY: 08/30/2017 ROOM: [facility] PREOPERATIVE DIAGNOSIS: Poor veins for IV access and also PICC possibly infected and due for removal and culture of the tip. POSTOPERATIVE DIAGNOSIS: Poor veins for IV access and also PICC possibly infected and due for removal and culture of the tip. OPERATION: Placement of right subclavian triple-lumen catheter. SURGEON: RICHARD VANG M.D. ANESTHESIA: Local INDICATION: This is an 82-year-old female who was intubated and with elevated LFTs and noted to be septic and now had a PICC line needed to be removed and the tip to be cultured. Patient needed IV access for poor veins. PROCEDURE: After adequate IV, patient on a respiratory, and the bed placed in Trendelenburg position. The right upper chest and neck prepped and draped in the usual sterile fashion. The patient was given extra sedation and local anesthesia infiltrated in right infraclavicular area and the right subclavian vein punctured and guidewire passed through the needle into the projected superior vena cava and the needle pulled out. Insertion site was then dilated and a triple-lumen catheter inserted through the guidewire up to a distance of 15 cm. The guidewire was removed and the catheter anchored to the skin with 3-0 Silk. All the 3 ports aspirated blood easily and injected saline easily. Sterile Biopatch was placed at the insertion site and a sterile dressing placed. Patient tolerated the procedure well. DICTATING PHYSICIAN: RICHARD VANG M.D. [id number] PHY#: [id number] ID: [id number] JOB#: [id number] ACCT: [id number] cc:RICHARD VANG M.D. >
[2017-08-30 14:57] LABS: ARTERIAL BLOOD BASE EXCESS -12.2 mmol/L
[2017-08-31] MEDS: DEXTROSE 5%-WATER 250 ML with NOREPINEPHRINE BITARTRATE 4 MG IV PRN ×8 (00:31→17:40)
[2017-08-31] MEDS: DEXTROSE 5%-WATER 250 ML with PHENYLEPHRINE HCL 40 MG IV PRN ×2 (00:31)
[2017-08-31] MEDS: PROPOFOL 100 ML IV PRN ×4 (02:25→17:40)
[2017-08-31 05:47] LABS: ARTERIAL BLOOD BASE EXCESS -7.3 mmol/L; ARTERIAL BLOOD O2 SATURATION 93.5 % (94-98)
[2017-08-31 05:49] LABS: HEMATOCRIT 30.9 % (36.0-47.0); HGB HCT DIFFERENCE -0.9; MEAN CORPUSCULAR HEMOGLOBIN 24.3 pg (27.0-33.4); MEAN CORPUSCULAR HGB CONC 32.3 g/dL (32.0-36.0); RED BLOOD COUNT 4.12 10^6/uL (3.72-5.28); RED CELL DISTRIBUTION WIDTH 23.4 % (11.5-14.0); WHITE BLOOD COUNT 20.6 10^3/uL (4.0-10.5)
[2017-08-31] MEDS: HYDROCORTISONE SOD SUCCINATE INJ/PF 100 MG/2 ML SDV IV SCH ×3 (05:59→21:32)
[2017-08-31] MEDS: GABAPENTIN 300 MG CAPSULE PO SCH ×3 (05:59→21:33)
[2017-08-31] MEDS: LEVOTHYROXINE SODIUM 0.05 MG TABLET NG SCH (05:59)
[2017-08-31] MEDS: PIPERACILLIN SODIUM/TAZOBACTAM 2.25 GM in NORMAL SALINE 50 ML IV SCH ×3 (06:00→17:39)
[2017-08-31 06:04] LABS: PROTHROMBIN TIME 37.4 SEC (11.4-15.4)
[2017-08-31 06:05] LABS: PARTIAL THROMBOPLASTIN TIME 54.9 SEC (23.5-35.8)
[2017-08-31 06:17] LABS: ALANINE AMINOTRANSFERASE 150 U/L (9-52); ALBUMIN 2.5 g/dL (3.5-5.0); ALKALINE PHOSPHATASE 73 U/L (38-126); ANION GAP 12 (5-19); ASPARTATE AMINO TRANSFERASE 260 U/L (14-36); BILIRUBIN,DIRECT 1.7 mg/dL (0.0-0.4); BILIRUBIN,TOTAL 2.1 mg/dL (0.2-1.3); BLOOD UREA NITROGEN 23 mg/dL (7-20); CALCIUM 8.7 mg/dL (8.4-10.2); CARBON DIOXIDE 15 mmol/L (22-30); CHLORIDE 107 mmol/L (98-107); CREATININE RESULT 1.39 mg/dL (0.52-1.25); GLUCOSE 153 mg/dL (75-110); POTASSIUM 4.1 mmol/L (3.6-5.0); SODIUM 133.9 mmol/L (137-145); TOTAL PROTEIN 5.4 g/dL (6.3-8.2)
[2017-08-31 06:19] LABS: MEAN CORPUSCULAR VOLUME 75 fl (80-97)
[2017-08-31 06:24] LABS: BAND NEUTROPHILS % (MANUAL) 6 % (3-5); BASOPHILS % (MANUAL) 0 % (0-2); EOSINOPHILS % (MANUAL) 0 % (0-6); LYMPHOCYTES % (MANUAL) 1 % (13-45); NUCLEATED RED BLOOD CELLS 1 /100 WBC (0); TOTAL CELLS COUNTED 100
[2017-08-31 06:26] LABS: TOXIC GRANULATION SLIGHT; TOXIC VACUOLATION PRESENT
[2017-08-31 06:28] LABS: ANISOCYTOSIS 3+; BURR CELLS 2+; MICROCYTOSIS 1+; OVALOCYTES SLIGHT; POIKILOCYTOSIS 2+; POLYCHROMASIA SLIGHT
[2017-08-31 06:29] LABS: PLATELET CLUMPS PRESENT
[2017-08-31 06:30] LABS: HYPOCHROMASIA 1+
--- NOTE | 2017-08-31 06:58 | RADIOLOGY REPORT (SQ) ---
EXAM DESCRIPTION: CHEST SINGLE VIEW COMPLETED DATE/TIME: 08/31/2017 6:43 am REASON FOR STUDY: ETT and NG tube COMPARISON: Chest x-ray 08/30/2017. EXAM PARAMETERS: NUMBER OF VIEWS: One view TECHNIQUE: Single frontal radiograph of the chest. RADIATION DOSE: N/A LIMITATIONS: Patient positioning. FINDINGS: TEMPORARY SUPPORT DEVICES:ETT in expected location. NG tube courses below the left beryl-d iaphragm in to the stomach. Central venous access catheter tip is in expected location. LUNGS AND PLEURA: The patient is rotated. There are small bilateral pleural effusions and bibasilar airspace opacities. No pneumothorax. MEDIASTINUM AND HILAR STRUCTURES: No masses. Contour normal. HEART AND VASCULAR STRUCTURES: The heart is enlarged. There is central vascular congestion. BONES: Orthopedic hardware transfixing the thoracolumbar spine. OTHER: There is a left-sided pacemaker. Sternotomy wires are present. IMPRESSION: Cardiomegaly and central vascular congestion. Small bilateral pleural effusions and bib asilar airspace opacities, may represent atelectasis or pneumonia. TECHNICAL DOCUMENTATION: JOB ID: [id number] [employer]- All Rights Reserved
[2017-08-31 09:22] LABS: AMORPHOUS SEDIMENT,URINE TRACE /HPF; APPEARANCE,URINE SLIGHTLY-CLOUDY; BILIRUBIN,URINE NEGATIVE (NEGATIVE); GLUCOSE, URINE NEGATIVE (NEGATIVE); KETONES,URINE NEGATIVE (NEGATIVE); LEUKOCYTE ESTERASE,URINE NEGATIVE (NEGATIVE); NITRITE,URINE NEGATIVE (NEGATIVE); PROTEIN,URINE NEGATIVE (NEGATIVE); URINE SPECIFIC GRAVITY 1.014; UROBILINOGEN,URINE NEGATIVE mg/dL (<2.0)
[2017-08-31] MEDS: CEFTRIAXONE 1 GM/D5W RTU 1 GM/50 ML RTUPB IV SCH (09:58)
[2017-08-31] MEDS: AMIODARONE HCL 200 MG TABLET NG SCH ×2 (10:02→21:33)
[2017-08-31] MEDS: VANCOMYCIN HCL 750 MG in DEXTROSE 5%-WATER 250 ML IV SCH (10:03)
[2017-08-31] MEDS: LANSOPRAZOLE 30 MG TAB.RAP.DR NG SCH (10:03)
[2017-08-31] MEDS: NORMAL SALINE 10 ML SDV (SCHEDULED) IV SCH ×2 (10:03→21:33)
--- NOTE | 2017-08-31 11:53 | PDOC PROGRESS REPORT ---
Subjective Progress Note for:: 08/31/17 Subjective:: Patient is intubated and sedated. Physical Exam Vital Signs: Temp Pulse Resp BP Pulse Ox 98.1 F 79 24 H 113/39 L 98 08/31/17 10:23 08/31/17 08:57 08/31/17 10:00 08/31/17 10:23 08/31/17 10:23 Intake & Output 08/30/17 08/31/17 09/01/17 06:59 06:59 06:59 Intake Total 4551 3271 Output Total 230 1755 205 Balance 4321 1516 -205 Weight 77.6 kg 81.5 kg General appearance: PRESENT: no acute distress Eye exam: PRESENT: conjunctiva pink. ABSENT: scleral icterus Ear exam: PRESENT: normal external ear exam Mouth exam: PRESENT: moist, tongue midline Neck exam: PRESENT: JVD. ABSENT: tracheal deviation Respiratory exam: PRESENT: rhonchi - Coarse rhonchi bilaterally.. ABSENT: rales , wheezes Cardiovascular exam: PRESENT: RRR, systolic murmur - 3/6 systolic murmur. ABSENT: diastolic murmur, rubs GI/Abdominal exam: PRESENT: normal bowel sounds, soft. ABSENT: distended, guarding, mass, organolmegaly, rebound, tenderness Extremities exam: PRESENT: pedal edema - Trace edema. ABSENT: calf tenderness, clubbing Neurological exam: PRESENT: other - Intubated and sedated. Psychiatric exam: PRESENT: appropriate affect Skin exam: PRESENT: dry, intact, warm. ABSENT: cyanosis, rash Results Laboratory Results: 08/31/17 05:30 08/31/17 05:30 08/30/17 08/30/17 08/31/17 11:20 14:35 05:30 WBC RBC Hgb Hct MCV MCH MCHC RDW Plt Count Seg Neutrophils % Lymphocytes % Monocytes % Eosinophils % Basophils % Absolute Neutrophils Absolute Lymphocytes Absolute Monocytes Absolute Eosinophils Absolute Basophils Carbonic Acid 0.93 L 0.75 L HCO3/H2CO3 Ratio 15:1 16:1 ABG pH 7.27 L 7.32 L ABG pCO2 31.0 L 24.8 L ABG pO2 101.3 H 69.4 L ABG HCO3 14.0 L 12.4 L ABG O2 Saturation 97.0 93.0 L ABG Base Excess -11.6 -12.2 FiO2 100% 65% Sodium 133.9 L Potassium 4.1 Chloride 107 Carbon Dioxide 15 L Anion Gap 12 BUN 23 H Creatinine 1.39 H Est GFR ( Amer) 44 L Est GFR (Non-Af Amer) 36 L Glucose 153 H Calcium 8.7 Magnesium 2.0 Total Bilirubin 2.1 H AST 260 H ALT 150 H Alkaline Phosphatase 73 Total Protein 5.4 L Albumin 2.5 L Urine Color Urine Appearance Urine pH Ur Specific Bern Urine Protein Urine Glucose (UA) Urine Ketones Urine Blood Urine Nitrite Ur Leukocyte Esterase Urine WBC (Auto) Urine RBC (Auto) 08/31/17 08/31/17 08/31/17 05:30 05:30 08:05 WBC 20.6 H RBC 4.12 Hgb 10.0 L Hct 30.9 L MCV 75 L D MCH 24.3 L MCHC 32.3 RDW 23.4 H Plt Count 204 Seg Neutrophils % Not Reportable Lymphocytes % Not Reportable Monocytes % Not Reportable Eosinophils % Not Reportable Basophils % Not Reportable Absolute Neutrophils Not Reportable Absolute Lymphocytes Not Reportable Absolute Monocytes Not Reportable Absolute Eosinophils Not Reportable Absolute Basophils Not Reportable Carbonic Acid 0.90 L HCO3/H2CO3 Ratio 18:1 ABG pH 7.37 ABG pCO2 29.9 L ABG pO2 68.3 L ABG HCO3 16.8 L ABG O2 Saturation 93.5 L ABG Base Excess -7.3 FiO2 65% Sodium Potassium Chloride Carbon Dioxide Anion Gap BUN Creatinine Est GFR ( Amer) Est GFR (Non-Af Amer) Glucose Calcium Magnesium Total Bilirubin AST ALT Alkaline Phosphatase Total Protein Albumin Urine Color YELLOW Urine Appearance SLIGHTLY-CLOUDY Urine pH 5.0 Ur Specific Bern 1.014 Urine Protein NEGATIVE Urine Glucose (UA) NEGATIVE Urine Ketones NEGATIVE Urine Blood SMALL H Urine Nitrite NEGATIVE Ur Leukocyte Esterase NEGATIVE Urine WBC (Auto) 8 Urine RBC (Auto) 6 08/25/17 08/25/17 08/25/17 16:00 16:00 21:35 Creatine Kinase 65 CK-MB (CK-2) 0.72 Troponin I 0.039 0.032 NT-Pro-B Natriuret Pep 1570 H 08/26/17 08/26/17 08/27/17 04:23 04:23 05:46 Creatine Kinase CK-MB (CK-2) Troponin I 0.031 NT-Pro-B Natriuret Pep 1160 H 2020 H 08/29/17 08/29/17 08/30/17 20:30 20:30 03:23 Creatine Kinase 94 217 H CK-MB (CK-2) 1.13 Troponin I 0.078 NT-Pro-B Natriuret Pep 08/30/17 08/30/17 08/30/17 03:23 09:40 09:40 Creatine Kinase 216 H CK-MB (CK-2) 1.63 2.22 Troponin I 0.100 0.071 NT-Pro-B Natriuret Pep 08/31/17 05:30 Creatine Kinase CK-MB (CK-2) Troponin I NT-Pro-B Natriuret Pep 06917 H Impressions: Abdomen Ultrasound 08/26/17 00:00 IMPRESSION: Echogenic material in the main portal vein, worrisome for incompletely occlusive thrombus Guidance Fluoroscopy 08/27/17 00:00 IMPRESSION: SUCCESSFUL PLACEMENT OF A 5 FR SINGLE LUMEN 37 CM PICC IN THE RIGHT BASILIC VEIN. Interventional Vascular Procedure 08/27/17 00:00 IMPRESSION: SUCCESSFUL PLACEMENT OF A 5 FR SINGLE LUMEN 37 CM PICC IN THE RIGHT BASILIC VEIN. PICC Line Insertion 08/27/17 00:00 IMPRESSION: SUCCESSFUL PLACEMENT OF A 5 FR SINGLE LUMEN 37 CM PICC IN THE RIGHT BASILIC VEIN. Abdomen/Pelvis CT 08/27/17 07:40 IMPRESSION: 1. PATENT PORTAL VEIN, SPLENIC VEIN, AND SUPERIOR MESENTERIC VEIN. NO EVIDENCE OF THROMBOSIS. 2. MODERATE ASCITES. 3. BILATERAL PLEURAL EFFUSIONS WITH BASILAR ATELECTASIS. 4. CHRONIC CHANGES IN THE LUMBAR SPINE WITH PRIOR KYPHOPLASTY AND SURGICAL CHANGES WITH HARDWARE. 5. NO OTHER SIGNIFICANT FINDINGS. Hepatobiliary Scan Nuclear Medicine 08/28/17 00:00 IMPRESSION: No scintigraphic evidence of cystic duct or common duct obstruction Mildly depressed gallbladder ejection fraction. IV CCK did not reproduce the patient's symptoms Chest X-Ray 08/31/17 06:10 IMPRESSION: Cardiomegaly and central vascular congestion. Small bilateral pleural effusions and bibasilar airspace opacities, may represent atelectasis or pneumonia. Assessment & Plan - Diagnosis (1) Septic shock due to Gram positive bacteria Is this a current diagnosis for this admission?: Yes Plan: Patient is growing gram-positive cocci from 2 blood cultures. Currently on vancomycin, Rocephin and Zosyn. The PICC line was removed. It is possible that that is the source for the infection. She also does have some questionable pneumonia on chest x-ray. Given her ascites that is also a possible source. Will do a paracentesis today to evaluate for possible bacterial peritonitis. (2) Acute respiratory distress syndrome in adult Is this a current diagnosis for this admission?: Yes Plan: Patient currently is on the ventilator. Pulmonary medicine is following. (3) Acute on chronic renal failure Is this a current diagnosis for this admission?: Yes Plan: The patient's CVP was 23 yesterday. It has decreased down to 20 and she is making some urine. We will continue to hold fluids for now. (4) Anemia Is this a current diagnosis for this admission?: Yes (5) Chronic combined systolic and diastolic CHF (congestive heart failure) Is this a current diagnosis for this admission?: Yes Plan: Patient is slightly volume overloaded with the CVP elevated. We will run at a higher CVP given her hypotension and sepsis. Will hold off giving any more IV fluids until her CVP drops lower. (6) Atrial fibrillation Qualifiers: Atrial fibrillation type: paroxysmal Qualified Code(s): I48.0 - Paroxysmal atrial fibrillation Is this a current diagnosis for this admission?: Yes Plan: Patient is rate controlled currently. (7) COPD (chronic obstructive pulmonary disease) Qualifiers: Emphysema type: unspecified Is this a current diagnosis for this admission?: Yes Plan: Continue with albuterol as needed. (8) Metabolic acidosis Is this a current diagnosis for this admission?: Yes Plan: Secondary to renal failure. (9) Thrombocytopenia Is this a current diagnosis for this admission?: Yes Plan: Resolved (10) Supratherapeutic INR Is this a current diagnosis for this admission?: Yes Plan: Patient had been on Coumadin. Will continue to monitor. (11) CAD (coronary artery disease) Qualifiers: Associated angina: angina presence unspecified Is this a current diagnosis for this admission?: Yes (12) Hyperlipidemia Qualifiers: Hyperlipidemia type: unspecified Qualified Code(s): E78.5 - Hyperlipidemia , unspecified Is this a current diagnosis for this admission?: Yes (13) Hypothyroid Qualifiers: Hypothyroidism type: unspecified Qualified Code(s): E03.9 - Hypothyroidism , unspecified Is this a current diagnosis for this admission?: Yes - Time Time Spent with patient: 25-34 minutes - Inpatient Certification Medical Necessity: Need Close Monitoring Due to Risk of Patient Decompensation, Need for IV Antibiotics
--- NOTE | 2017-08-31 13:48 | PDOC PROGRESS REPORT ---
Subjective Progress Note for:: 08/31/17 Subjective:: Intubated and sedated Physical Exam Vital Signs: Temp Pulse Resp BP Pulse Ox 97.0 F 70 24 H 105/40 L 97 08/31/17 06:23 08/30/17 20:40 08/30/17 18:00 08/31/17 06:23 08/31/17 06:23 Intake & Output 08/30/17 08/31/17 09/01/17 06:59 06:59 06:59 Intake Total 4551 3271 Output Total 230 1755 Balance 4321 1516 Weight 77.6 kg 81.5 kg General appearance: PRESENT: no acute distress, disheveled, obese, well- developed Head exam: PRESENT: atraumatic, normocephalic Eye exam: PRESENT: conjunctiva pale Mouth exam: PRESENT: dry mucosa, neck supple, tongue midline, other - Endotracheal tube in place Neck exam: ABSENT: carotid bruit, JVD, lymphadenopathy, thyromegaly Respiratory exam: PRESENT: decreased breath sounds, prolonged expiratory phas, rhonchi, symmetrical, unlabored. ABSENT: crackles, rales, retraction, stridor, tachypnea, wheezes Cardiovascular exam: PRESENT: RRR, +S1, +S2 Pulses: PRESENT: normal radial pulses GI/Abdominal exam: PRESENT: ascites, distended, firm. ABSENT: tenderness Rectal exam: PRESENT: deferred Gentrourinary exam: PRESENT: indwelling catheter Extremities exam: PRESENT: +1 edema Neurological exam: ABSENT: alert, awake Skin exam: PRESENT: dry, warm Results Laboratory Results: 08/31/17 05:30 08/31/17 05:30 08/30/17 08/30/17 08/30/17 09:40 09:40 09:40 WBC 25.7 H RBC 3.76 Hgb 9.3 L Hct 30.6 L MCV 81 D MCH 24.8 L MCHC 30.5 L RDW 23.2 H Plt Count 224 Seg Neutrophils % Not Reportable Lymphocytes % Not Reportable Monocytes % Not Reportable Eosinophils % Not Reportable Basophils % Not Reportable Absolute Neutrophils Not Reportable Absolute Lymphocytes Not Reportable Absolute Monocytes Not Reportable Absolute Eosinophils Not Reportable Absolute Basophils Not Reportable Carbonic Acid HCO3/H2CO3 Ratio ABG pH ABG pCO2 ABG pO2 ABG HCO3 ABG O2 Saturation ABG Base Excess FiO2 Sodium 126.1 L Potassium 4.2 Chloride 103 Carbon Dioxide 13 L Anion Gap 10 BUN 22 H Creatinine 1.61 H Est GFR ( Amer) 37 L Est GFR (Non-Af Amer) 31 L Glucose 433 H* Lactic Acid 2.3 H Calcium 7.6 L Magnesium 1.9 Total Bilirubin 2.2 H AST 245 H ALT 116 H Alkaline Phosphatase 68 Total Protein 5.4 L Albumin 2.5 L 08/30/17 08/30/17 08/30/17 09:50 11:20 14:35 WBC RBC Hgb Hct MCV MCH MCHC RDW Plt Count Seg Neutrophils % Lymphocytes % Monocytes % Eosinophils % Basophils % Absolute Neutrophils Absolute Lymphocytes Absolute Monocytes Absolute Eosinophils Absolute Basophils Carbonic Acid 1.01 L 0.93 L 0.75 L HCO3/H2CO3 Ratio 13:1 15:1 16:1 ABG pH 7.21 L 7.27 L 7.32 L ABG pCO2 33.7 L 31.0 L 24.8 L ABG pO2 88.1 101.3 H 69.4 L ABG HCO3 13.3 L 14.0 L 12.4 L ABG O2 Saturation 95.0 97.0 93.0 L ABG Base Excess -13.5 -11.6 -12.2 FiO2 80% 100% 65% Sodium Potassium Chloride Carbon Dioxide Anion Gap BUN Creatinine Est GFR ( Amer) Est GFR (Non-Af Amer) Glucose Lactic Acid Calcium Magnesium Total Bilirubin AST ALT Alkaline Phosphatase Total Protein Albumin 08/31/17 08/31/17 08/31/17 05:30 05:30 05:30 WBC 20.6 H RBC 4.12 Hgb 10.0 L Hct 30.9 L MCV 75 L D MCH 24.3 L MCHC 32.3 RDW 23.4 H Plt Count 204 Seg Neutrophils % Not Reportable Lymphocytes % Not Reportable Monocytes % Not Reportable Eosinophils % Not Reportable Basophils % Not Reportable Absolute Neutrophils Not Reportable Absolute Lymphocytes Not Reportable Absolute Monocytes Not Reportable Absolute Eosinophils Not Reportable Absolute Basophils Not Reportable Carbonic Acid 0.90 L HCO3/H2CO3 Ratio 18:1 ABG pH 7.37 ABG pCO2 29.9 L ABG pO2 68.3 L ABG HCO3 16.8 L ABG O2 Saturation 93.5 L ABG Base Excess -7.3 FiO2 65% Sodium 133.9 L Potassium 4.1 Chloride 107 Carbon Dioxide 15 L Anion Gap 12 BUN 23 H Creatinine 1.39 H Est GFR ( Amer) 44 L Est GFR (Non-Af Amer) 36 L Glucose 153 H Lactic Acid Calcium 8.7 Magnesium 2.0 Total Bilirubin 2.1 H AST 260 H ALT 150 H Alkaline Phosphatase 73 Total Protein 5.4 L Albumin 2.5 L 08/25/17 08/25/17 08/25/17 16:00 16:00 21:35 Creatine Kinase 65 CK-MB (CK-2) 0.72 Troponin I 0.039 0.032 NT-Pro-B Natriuret Pep 1570 H 08/26/17 08/26/17 08/27/17 04:23 04:23 05:46 Creatine Kinase CK-MB (CK-2) Troponin I 0.031 NT-Pro-B Natriuret Pep 1160 H 2020 H 08/29/17 08/29/17 08/30/17 20:30 20:30 03:23 Creatine Kinase 94 217 H CK-MB (CK-2) 1.13 Troponin I 0.078 NT-Pro-B Natriuret Pep 08/30/17 08/30/17 08/30/17 03:23 09:40 09:40 Creatine Kinase 216 H CK-MB (CK-2) 1.63 2.22 Troponin I 0.100 0.071 NT-Pro-B Natriuret Pep 08/31/17 05:30 Creatine Kinase CK-MB (CK-2) Troponin I NT-Pro-B Natriuret Pep 89681 H Impressions: Abdomen Ultrasound 08/26/17 00:00 IMPRESSION: Echogenic material in the main portal vein, worrisome for incompletely occlusive thrombus Guidance Fluoroscopy 08/27/17 00:00 IMPRESSION: SUCCESSFUL PLACEMENT OF A 5 FR SINGLE LUMEN 37 CM PICC IN THE RIGHT BASILIC VEIN. Interventional Vascular Procedure 08/27/17 00:00 IMPRESSION: SUCCESSFUL PLACEMENT OF A 5 FR SINGLE LUMEN 37 CM PICC IN THE RIGHT BASILIC VEIN. PICC Line Insertion 08/27/17 00:00 IMPRESSION: SUCCESSFUL PLACEMENT OF A 5 FR SINGLE LUMEN 37 CM PICC IN THE RIGHT BASILIC VEIN. Abdomen/Pelvis CT 08/27/17 07:40 IMPRESSION: 1. PATENT PORTAL VEIN, SPLENIC VEIN, AND SUPERIOR MESENTERIC VEIN. NO EVIDENCE OF THROMBOSIS. 2. MODERATE ASCITES. 3. BILATERAL PLEURAL EFFUSIONS WITH BASILAR ATELECTASIS. 4. CHRONIC CHANGES IN THE LUMBAR SPINE WITH PRIOR KYPHOPLASTY AND SURGICAL CHANGES WITH HARDWARE. 5. NO OTHER SIGNIFICANT FINDINGS. Hepatobiliary Scan Nuclear Medicine 08/28/17 00:00 IMPRESSION: No scintigraphic evidence of cystic duct or common duct obstruction Mildly depressed gallbladder ejection fraction. IV CCK did not reproduce the patient's symptoms Chest X-Ray 08/31/17 06:10 IMPRESSION: Cardiomegaly and central vascular congestion. Small bilateral pleural effusions and bibasilar airspace opacities, may represent atelectasis or pneumonia. Assessment & Plan - Diagnosis (1) Acute respiratory distress syndrome in adult Is this a current diagnosis for this admission?: Yes Plan: No loss of ground possible small improvement (2) COPD (chronic obstructive pulmonary disease) Qualifiers: Emphysema type: unspecified Is this a current diagnosis for this admission?: Yes (3) Full code status Is this a current diagnosis for this admission?: Yes (4) Metabolic acidosis Is this a current diagnosis for this admission?: Yes Plan: Minimally improved (5) Septic shock due to Gram positive bacteria Is this a current diagnosis for this admission?: Yes Plan: 2/2 blood cultures gram-positive cocci appropriate antibiotics appear to be on board - Time Critical Time spent with patient: 35 or more minutes - 40 minutes
--- NOTE | 2017-08-31 14:13 | XCELERA REPORT ---
[address] [address] Transthoracic Echocardiogram Report Name: CHELLY HOLDEN Age: 82 yrs Gender: Female : 1935 Patient Status: Inpatient Patient Location: ICU^610^A Study Date: 08/31/2017 09:37 AM Height: 63 in Weight: 179 lb BSA: 1.8 m2 Procedure: A two-dimensional transthoracic echocardiogram with color flow and Doppler was performed. Study Quality: Technically suboptimal. Reason For Study: CHF History: CHF. Ordering Physician: MAGGI WOMACK Performed By: Lynda Hudson Interpretation Summary The left ventricle is normal in size. There is normal left ventricular wall thickness. LV EF is Greater than 60% Left ventricular systolic function is normal. Doppler measurements suggest normal left ventricular diastolic function The left ventricular wall motion is normal. The right ventricle is mild to moderately dilated. The right ventricular systolic function is normal. The right atrium is mildly dilated. The left atrium is mildly dilated. There is no evidence of mitral valve prolapse. There is no vegetation seen on the mitral valve. There is no mitral valve stenosis. There is a mild amount of mitral regurgitation There is no aortic valvular vegetation. There is severe aortic stenosis There is a peak gradient of 64 mm of Hg. There is no tricuspid stenosis. There is a moderate to severe amount of tricuspid regurgitation RVSP is 59 to 64 mm of Hg, hence moderate to sevvere pulmonary hypertension. There is no pericardial effusion. Moderate size left pleural effusion. MMode/2D Measurements & Calculations RVDd: 3.8 cm LVIDd: 4.3 cm FS: 33.1 % Ao root diam: 2.5 cm IVSd: 0.95 cm LVIDs: 2.9 cm EDV(Teich): 82.6 ml LVPWd: 0.98 cmESV(Teich): 31.4 ml Ao root area: 4.8 cm2 EF(Teich): 62.0 % LVOT diam: 2.0 cm LVOT area: 3.0 cm2 Doppler Measurements & Calculations MV E max cory: MV dec slope: Ao V2 max: LV V1 max P.9 cm/sec 634.4 cm/sec2 392.4 cm/sec 6.8 mmHg MV A max cory: MV dec time: Ao max PG: LV V1 mean P.6 cm/sec 0.21 sec 62.0 mmHg 3.8 mmHg MV E/A: 3.1 Ao V2 mean: LV V1 max: 269.5 cm/sec 130.2 cm/sec Ao mean PG: LV V1 mean: 34.3 mmHg 89.2 cm/sec Ao V2 VTI: LV V1 VTI: 29.0 cm 71.4 cm TAWANNA(I,D): 1.2 cm2 TAWANNA(V,D): 1.0 cm2 MR max cory: SV(LVOT): 87.9 ml PA V2 max: PI end-d cory: 533.8 cm/sec 100.3 cm/sec 118.2 cm/sec MR max PG: PA max P.0 mmHg 4.0 mmHg TR max ocry: 328.8 cm/sec TR max P.3 mmHg Left Ventricle The left ventricle is normal in size. There is normal left ventricular wall thickness. LV EF is Greater than 60%. Left ventricular systolic function is normal. Doppler measurements suggest normal left ventricular diastolic function. The left ventricular wall motion is normal. There is no thrombus. Right Ventricle The right ventricle is mild to moderately dilated. The right ventricular systolic function is normal. Atria The right atrium is mildly dilated. The left atrium is mildly dilated. Mitral Valve There is no evidence of mitral valve prolapse. There is no vegetation seen on the mitral valve. There is no mitral valve stenosis. There is a mild amount of mitral regurgitation. Aortic Valve There is no aortic valvular vegetation. There is severe aortic stenosis. There is a peak gradient of 64 mm of Hg. There is a trace amount of aortic regurgitation. Tricuspid Valve There is no tricuspid stenosis. There is a moderate to severe amount of tricuspid regurgitation. RVSP is 59 to 64 mm of Hg, hence moderate to sevvere pulmonary hypertension. Pulmonic Valve There is no pulmonic valvular stenosis. There is a trace amount of pulmonic regurgitation. Great Vessels The aortic root is normal size. The inferior vena cava appeared dilated and decreased < 50% with respiration (RAP 15-20 mmHg). Effusions There is no pericardial effusion. Moderate size left pleural effusion. : MAGGI WOMACK > Elina Ordaz
[2017-08-31 16:42] LABS: PATH REVIEW PATHOLOGIST REVIEWED
[2017-09-01] MEDS: INSULIN LISPRO 100 UNIT/ML 3 ML VIAL SUBCUT PRN ×2 (00:01→14:20)
[2017-09-01] MEDS: PIPERACILLIN SODIUM/TAZOBACTAM 2.25 GM in NORMAL SALINE 50 ML IV SCH ×3 (00:01→11:57)
[2017-09-01] MEDS: PROPOFOL 100 ML IV PRN ×6 (03:17→23:17)
[2017-09-01] MEDS: GABAPENTIN 300 MG CAPSULE PO SCH ×3 (05:29→22:26)
[2017-09-01] MEDS: LEVOTHYROXINE SODIUM 0.05 MG TABLET NG SCH (05:29)
[2017-09-01] MEDS: HYDROCORTISONE SOD SUCCINATE INJ/PF 100 MG/2 ML SDV IV SCH ×3 (05:29→22:26)
[2017-09-01] MEDS: DEXTROSE 5%-WATER 250 ML with NOREPINEPHRINE BITARTRATE 4 MG IV PRN ×10 (05:30→23:16)
[2017-09-01 05:50] LABS: ARTERIAL BLOOD BASE EXCESS -5.6 mmol/L; ARTERIAL BLOOD O2 SATURATION 93.4 % (94-98)
[2017-09-01 05:52] LABS: HEMATOCRIT 30.1 % (36.0-47.0); HEMOGLOBIN 9.8 g/dL (12.0-15.5); HGB HCT DIFFERENCE -0.7; MEAN CORPUSCULAR HEMOGLOBIN 24.5 pg (27.0-33.4); MEAN CORPUSCULAR HGB CONC 32.4 g/dL (32.0-36.0); MEAN CORPUSCULAR VOLUME 76 fl (80-97); RED BLOOD COUNT 3.98 10^6/uL (3.72-5.28); WHITE BLOOD COUNT 18.9 10^3/uL (4.0-10.5)
[2017-09-01 06:07] LABS: ALANINE AMINOTRANSFERASE 132 U/L (9-52); ALBUMIN 2.6 g/dL (3.5-5.0); ALKALINE PHOSPHATASE 81 U/L (38-126); ANION GAP 10 (5-19); ASPARTATE AMINO TRANSFERASE 152 U/L (14-36); BILIRUBIN,DIRECT 1.6 mg/dL (0.0-0.4); BILIRUBIN,TOTAL 1.9 mg/dL (0.2-1.3); BLOOD UREA NITROGEN 27 mg/dL (7-20); CALCIUM 8.9 mg/dL (8.4-10.2); CARBON DIOXIDE 16 mmol/L (22-30); CHLORIDE 104 mmol/L (98-107); GLUCOSE 155 mg/dL (75-110); MAGNESIUM 2.1 mg/dL (1.6-2.3); POTASSIUM 4.2 mmol/L (3.6-5.0); SODIUM 129.5 mmol/L (137-145); TOTAL PROTEIN 5.5 g/dL (6.3-8.2)
[2017-09-01 06:19] LABS: PROTHROMBIN TIME 25.6 SEC (11.4-15.4)
[2017-09-01 06:32] LABS: BAND NEUTROPHILS % (MANUAL) 5 % (3-5); BASOPHILS % (MANUAL) 0 % (0-2); EOSINOPHILS % (MANUAL) 0 % (0-6); LYMPHOCYTES % (MANUAL) 3 % (13-45); NUCLEATED RED BLOOD CELLS 1 /100 WBC (0); TOTAL CELLS COUNTED 100
[2017-09-01 06:36] LABS: ANISOCYTOSIS 3+; BURR CELLS 1+; HYPOCHROMASIA 1+; MICROCYTOSIS 1+; OVALOCYTES 1+; POIKILOCYTOSIS 2+; POLYCHROMASIA SLIGHT; TARGET CELLS SLIGHT; TEAR DROP CELLS SLIGHT; TOXIC VACUOLATION PRESENT
[2017-09-01 06:37] LABS: PLATELET CLUMPS PRESENT
[2017-09-01 06:39] LABS: TOXIC GRANULATION SLIGHT
--- NOTE | 2017-09-01 08:25 | PDOC PROGRESS REPORT ---
Subjective Progress Note for:: 09/01/17 Subjective:: Intubated and sedated Physical Exam Vital Signs: Temp Pulse Resp BP Pulse Ox 98.6 F 70 24 H 125/44 L 94 09/01/17 06:25 08/31/17 19:00 08/31/17 18:12 09/01/17 06:25 09/01/17 06:25 Intake & Output 08/31/17 09/01/17 09/02/17 06:59 06:59 06:59 Intake Total 3271 5883 Output Total 1755 1315 Balance 1516 1358 Weight 81.5 kg 84.2 kg General appearance: PRESENT: no acute distress, disheveled, obese Head exam: PRESENT: atraumatic, normocephalic Eye exam: PRESENT: conjunctiva pale Mouth exam: PRESENT: dry mucosa, neck supple, tongue midline, other - ET tube Neck exam: ABSENT: carotid bruit, JVD, lymphadenopathy, thyromegaly Respiratory exam: PRESENT: crackles, decreased breath sounds, prolonged expiratory phas, rhonchi, symmetrical, unlabored. ABSENT: retraction, stridor, tachypnea, wheezes, other Cardiovascular exam: PRESENT: RRR, +S1, +S2 Pulses: PRESENT: normal radial pulses GI/Abdominal exam: PRESENT: normal bowel sounds, soft. ABSENT: distended, guarding, mass, organolmegaly, rebound, tenderness Rectal exam: PRESENT: deferred Gentrourinary exam: PRESENT: indwelling catheter Neurological exam: ABSENT: alert, altered, awake Skin exam: PRESENT: dry, warm Results Laboratory Results: 09/01/17 05:35 09/01/17 05:35 08/31/17 08/31/17 09/01/17 08:05 13:05 05:35 WBC 18.9 H RBC 3.98 Hgb 9.8 L Hct 30.1 L MCV 76 L MCH 24.5 L MCHC 32.4 RDW 24.0 H Plt Count 221 Seg Neutrophils % Not Reportable Lymphocytes % Not Reportable Monocytes % Not Reportable Eosinophils % Not Reportable Basophils % Not Reportable Absolute Neutrophils Not Reportable Absolute Lymphocytes Not Reportable Absolute Monocytes Not Reportable Absolute Eosinophils Not Reportable Absolute Basophils Not Reportable Carbonic Acid HCO3/H2CO3 Ratio ABG pH ABG pCO2 ABG pO2 ABG HCO3 ABG O2 Saturation ABG Base Excess FiO2 Sodium Potassium Chloride Carbon Dioxide Anion Gap BUN Creatinine Est GFR ( Amer) Est GFR (Non-Af Amer) Glucose Calcium Magnesium Total Bilirubin AST ALT Alkaline Phosphatase Total Protein Albumin Urine Color YELLOW Urine Appearance SLIGHTLY-CLOUDY Urine pH 5.0 Ur Specific [place] 1.014 Urine Protein NEGATIVE Urine Glucose (UA) NEGATIVE Urine Ketones NEGATIVE Urine Blood SMALL H Urine Nitrite NEGATIVE Ur Leukocyte Esterase NEGATIVE Urine WBC (Auto) 8 Urine RBC (Auto) 6 Blood Type B POSITIVE 09/01/17 09/01/17 05:35 05:35 WBC RBC Hgb Hct MCV MCH MCHC RDW Plt Count Seg Neutrophils % Lymphocytes % Monocytes % Eosinophils % Basophils % Absolute Neutrophils Absolute Lymphocytes Absolute Monocytes Absolute Eosinophils Absolute Basophils Carbonic Acid 0.95 L HCO3/H2CO3 Ratio 19:1 ABG pH 7.39 ABG pCO2 31.7 L ABG pO2 67.2 L ABG HCO3 18.5 L ABG O2 Saturation 93.4 L ABG Base Excess -5.6 FiO2 50% Sodium 129.5 L Potassium 4.2 Chloride 104 Carbon Dioxide 16 L Anion Gap 10 BUN 27 H Creatinine 1.20 Est GFR ( Amer) 52 L Est GFR (Non-Af Amer) 43 L Glucose 155 H Calcium 8.9 Magnesium 2.1 Total Bilirubin 1.9 H AST 152 H ALT 132 H Alkaline Phosphatase 81 Total Protein 5.5 L Albumin 2.6 L Urine Color Urine Appearance Urine pH Ur Specific [place] Urine Protein Urine Glucose (UA) Urine Ketones Urine Blood Urine Nitrite Ur Leukocyte Esterase Urine WBC (Auto) Urine RBC (Auto) Blood Type 08/29/17 12:35 Catheterized Urine Urine Culture - Final Escherichia Coli 08/25/17 08/25/17 08/25/17 16:00 16:00 21:35 Creatine Kinase 65 CK-MB (CK-2) 0.72 Troponin I 0.039 0.032 NT-Pro-B Natriuret Pep 1570 H 08/26/17 08/26/17 08/27/17 04:23 04:23 05:46 Creatine Kinase CK-MB (CK-2) Troponin I 0.031 NT-Pro-B Natriuret Pep 1160 H 2020 H 08/29/17 08/29/17 08/30/17 20:30 20:30 03:23 Creatine Kinase 94 217 H CK-MB (CK-2) 1.13 Troponin I 0.078 NT-Pro-B Natriuret Pep 08/30/17 08/30/17 08/30/17 03:23 09:40 09:40 Creatine Kinase 216 H CK-MB (CK-2) 1.63 2.22 Troponin I 0.100 0.071 NT-Pro-B Natriuret Pep 08/31/17 05:30 Creatine Kinase CK-MB (CK-2) Troponin I NT-Pro-B Natriuret Pep 23842 H Impressions: Abdomen Ultrasound 08/26/17 00:00 IMPRESSION: Echogenic material in the main portal vein, worrisome for incompletely occlusive thrombus Guidance Fluoroscopy 08/27/17 00:00 IMPRESSION: SUCCESSFUL PLACEMENT OF A 5 FR SINGLE LUMEN 37 CM PICC IN THE RIGHT BASILIC VEIN. Interventional Vascular Procedure 08/27/17 00:00 IMPRESSION: SUCCESSFUL PLACEMENT OF A 5 FR SINGLE LUMEN 37 CM PICC IN THE RIGHT BASILIC VEIN. PICC Line Insertion 08/27/17 00:00 IMPRESSION: SUCCESSFUL PLACEMENT OF A 5 FR SINGLE LUMEN 37 CM PICC IN THE RIGHT BASILIC VEIN. Abdomen/Pelvis CT 08/27/17 07:40 IMPRESSION: 1. PATENT PORTAL VEIN, SPLENIC VEIN, AND SUPERIOR MESENTERIC VEIN. NO EVIDENCE OF THROMBOSIS. 2. MODERATE ASCITES. 3. BILATERAL PLEURAL EFFUSIONS WITH BASILAR ATELECTASIS. 4. CHRONIC CHANGES IN THE LUMBAR SPINE WITH PRIOR KYPHOPLASTY AND SURGICAL CHANGES WITH HARDWARE. 5. NO OTHER SIGNIFICANT FINDINGS. Hepatobiliary Scan Nuclear Medicine 08/28/17 00:00 IMPRESSION: No scintigraphic evidence of cystic duct or common duct obstruction Mildly depressed gallbladder ejection fraction. IV CCK did not reproduce the patient's symptoms Assessment & Plan - Diagnosis (1) Acute respiratory distress syndrome in adult Is this a current diagnosis for this admission?: Yes Plan: No loss of ground possible small improvement (2) COPD (chronic obstructive pulmonary disease) Qualifiers: Emphysema type: unspecified Is this a current diagnosis for this admission?: Yes (3) Full code status Is this a current diagnosis for this admission?: Yes (4) Metabolic acidosis Is this a current diagnosis for this admission?: Yes Plan: Minimally improved (5) Septic shock due to Gram positive bacteria Is this a current diagnosis for this admission?: Yes Plan: 2/2 blood cultures gram-positive cocci appropriate antibiotics appear to be on board - Time Critical Time spent with patient: 25-34 minutes
[2017-09-01] MEDS: IPRATROPIUM/ALBUTEROL 0.5-2.5 MG/3 ML AMPUL NEB PRN ×3 (08:35→23:37)
--- NOTE | 2017-09-01 08:38 | RADIOLOGY REPORT (SQ) ---
EXAM DESCRIPTION: CHEST SINGLE VIEW COMPLETED DATE/TIME: 09/01/2017 6:34 am REASON FOR STUDY: ETT and NG tube COMPARISON: 08/31/2017, 08/30/2017, 08/29/2017, 11/29/2014 chest films EXAM PARAMETERS: NUMBER OF VIEWS: One view. TECHNIQUE: Single frontal radiographic view of the chest acquired. RADIATION DOSE: NA LIMITATIONS: None. FINDINGS: LUNGS AND PLEURA: Pulmonary vascular congestion is present with mild alveolar and intersti tial infiltrates worrisome for edema. Pneumonia or ARDS are also possible. No gross pleural effusions or pneumothorax. Left retrocardiac dense consolidation is present atelectasis versus pneumonia. MEDIASTINUM AND HILAR STRUCTURES: No masses. Contour normal. HEART AND VASCULAR STRUCTURES: Stable moderate to marked cardiomegaly. Post sternotomy. BONES: No acute findings. HARDWARE: Endotracheal tube tip 4.5 cm above the deo. Nasogastric tube tip and side port in the s tomach. Right PICC catheter tip superior vena cava. Left-sided dual lead pacemaker. Colby marla s lower thoracic spine. OTHER: No other significant finding. IMPRESSION: Endotracheal tube tip in good positioning. No change in diffuse bilateral alveolar and interstitial opacities compared to 08/31/2017 0618 hours TECHNICAL DOCUMENTATION: JOB ID: [id number]
--- NOTE | 2017-09-01 08:55 | PDOC PROGRESS REPORT ---
Subjective Progress Note for:: 09/01/17 Subjective:: The patient is seen in the ICU. She is still intubated and sedated Physical Exam Vital Signs: Temp Pulse Resp BP Pulse Ox 97.9 F 91 14 120/45 L 99 09/01/17 08:40 09/01/17 08:35 09/01/17 08:35 09/01/17 08:40 09/01/17 08:40 Intake & Output 08/31/17 09/01/17 09/02/17 06:59 06:59 06:59 Intake Total 3271 2673 Output Total 1755 1315 150 Balance 1516 1358 -150 Weight 81.5 kg 84.2 kg General appearance: PRESENT: severe distress Eye exam: PRESENT: conjunctival injection Respiratory exam: PRESENT: rales, rhonchi Cardiovascular exam: PRESENT: irregular rhythm, +S1, +S2 Murmur grade: 3 Pulses: PRESENT: +1 pedal pulses bilateral GI/Abdominal exam: PRESENT: normal bowel sounds, soft Results Laboratory Results: 09/01/17 05:35 09/01/17 05:35 08/31/17 08/31/17 09/01/17 08:05 13:05 05:35 WBC 18.9 H RBC 3.98 Hgb 9.8 L Hct 30.1 L MCV 76 L MCH 24.5 L MCHC 32.4 RDW 24.0 H Plt Count 221 Seg Neutrophils % Not Reportable Lymphocytes % Not Reportable Monocytes % Not Reportable Eosinophils % Not Reportable Basophils % Not Reportable Absolute Neutrophils Not Reportable Absolute Lymphocytes Not Reportable Absolute Monocytes Not Reportable Absolute Eosinophils Not Reportable Absolute Basophils Not Reportable Carbonic Acid HCO3/H2CO3 Ratio ABG pH ABG pCO2 ABG pO2 ABG HCO3 ABG O2 Saturation ABG Base Excess FiO2 Sodium Potassium Chloride Carbon Dioxide Anion Gap BUN Creatinine Est GFR ( Amer) Est GFR (Non-Af Amer) Glucose Calcium Magnesium Total Bilirubin AST ALT Alkaline Phosphatase Total Protein Albumin Urine Color YELLOW Urine Appearance SLIGHTLY-CLOUDY Urine pH 5.0 Ur Specific [place] 1.014 Urine Protein NEGATIVE Urine Glucose (UA) NEGATIVE Urine Ketones NEGATIVE Urine Blood SMALL H Urine Nitrite NEGATIVE Ur Leukocyte Esterase NEGATIVE Urine WBC (Auto) 8 Urine RBC (Auto) 6 Blood Type B POSITIVE 09/01/17 09/01/17 05:35 05:35 WBC RBC Hgb Hct MCV MCH MCHC RDW Plt Count Seg Neutrophils % Lymphocytes % Monocytes % Eosinophils % Basophils % Absolute Neutrophils Absolute Lymphocytes Absolute Monocytes Absolute Eosinophils Absolute Basophils Carbonic Acid 0.95 L HCO3/H2CO3 Ratio 19:1 ABG pH 7.39 ABG pCO2 31.7 L ABG pO2 67.2 L ABG HCO3 18.5 L ABG O2 Saturation 93.4 L ABG Base Excess -5.6 FiO2 50% Sodium 129.5 L Potassium 4.2 Chloride 104 Carbon Dioxide 16 L Anion Gap 10 BUN 27 H Creatinine 1.20 Est GFR ( Amer) 52 L Est GFR (Non-Af Amer) 43 L Glucose 155 H Calcium 8.9 Magnesium 2.1 Total Bilirubin 1.9 H AST 152 H ALT 132 H Alkaline Phosphatase 81 Total Protein 5.5 L Albumin 2.6 L Urine Color Urine Appearance Urine pH Ur Specific [place] Urine Protein Urine Glucose (UA) Urine Ketones Urine Blood Urine Nitrite Ur Leukocyte Esterase Urine WBC (Auto) Urine RBC (Auto) Blood Type 08/29/17 11:45 Blood Blood Culture - Final Mrsa (Meth Resis Staph Aureus) 08/29/17 10:35 Blood Blood Culture - Final Mrsa (Meth Resis Staph Aureus) 08/29/17 12:35 Catheterized Urine Urine Culture - Final Escherichia Coli 08/25/17 08/25/17 08/25/17 16:00 16:00 21:35 Creatine Kinase 65 CK-MB (CK-2) 0.72 Troponin I 0.039 0.032 NT-Pro-B Natriuret Pep 1570 H 08/26/17 08/26/17 08/27/17 04:23 04:23 05:46 Creatine Kinase CK-MB (CK-2) Troponin I 0.031 NT-Pro-B Natriuret Pep 1160 H 2020 H 08/29/17 08/29/17 08/30/17 20:30 20:30 03:23 Creatine Kinase 94 217 H CK-MB (CK-2) 1.13 Troponin I 0.078 NT-Pro-B Natriuret Pep 08/30/17 08/30/17 08/30/17 03:23 09:40 09:40 Creatine Kinase 216 H CK-MB (CK-2) 1.63 2.22 Troponin I 0.100 0.071 NT-Pro-B Natriuret Pep 08/31/17 05:30 Creatine Kinase CK-MB (CK-2) Troponin I NT-Pro-B Natriuret Pep 13684 H Impressions: Abdomen Ultrasound 08/26/17 00:00 IMPRESSION: Echogenic material in the main portal vein, worrisome for incompletely occlusive thrombus Guidance Fluoroscopy 08/27/17 00:00 IMPRESSION: SUCCESSFUL PLACEMENT OF A 5 FR SINGLE LUMEN 37 CM PICC IN THE RIGHT BASILIC VEIN. Interventional Vascular Procedure 08/27/17 00:00 IMPRESSION: SUCCESSFUL PLACEMENT OF A 5 FR SINGLE LUMEN 37 CM PICC IN THE RIGHT BASILIC VEIN. PICC Line Insertion 08/27/17 00:00 IMPRESSION: SUCCESSFUL PLACEMENT OF A 5 FR SINGLE LUMEN 37 CM PICC IN THE RIGHT BASILIC VEIN. Abdomen/Pelvis CT 08/27/17 07:40 IMPRESSION: 1. PATENT PORTAL VEIN, SPLENIC VEIN, AND SUPERIOR MESENTERIC VEIN. NO EVIDENCE OF THROMBOSIS. 2. MODERATE ASCITES. 3. BILATERAL PLEURAL EFFUSIONS WITH BASILAR ATELECTASIS. 4. CHRONIC CHANGES IN THE LUMBAR SPINE WITH PRIOR KYPHOPLASTY AND SURGICAL CHANGES WITH HARDWARE. 5. NO OTHER SIGNIFICANT FINDINGS. Hepatobiliary Scan Nuclear Medicine 08/28/17 00:00 IMPRESSION: No scintigraphic evidence of cystic duct or common duct obstruction Mildly depressed gallbladder ejection fraction. IV CCK did not reproduce the patient's symptoms Chest X-Ray 09/01/17 09:15 IMPRESSION: Endotracheal tube tip in good positioning. No change in diffuse bilateral alveolar and interstitial opacities compared to 08/31/2017 0618 hours Assessment & Plan - Diagnosis (1) Supratherapeutic INR Is this a current diagnosis for this admission?: Yes (2) Dehydration Is this a current diagnosis for this admission?: Yes (3) Hypokalemia Is this a current diagnosis for this admission?: Yes (4) Acute renal failure superimposed on stage 3 chronic kidney disease Qualifiers: Acute renal failure type: unspecified Qualified Code(s): N17.9 - Acute kidney failure, unspecified; N18.3 - Chronic kidney disease, stage 3 (moderate) Is this a current diagnosis for this admission?: Yes (5) COPD (chronic obstructive pulmonary disease) Qualifiers: Emphysema type: unspecified Is this a current diagnosis for this admission?: Yes Plan: Continue nebulization treatments and oxygen (6) CAD (coronary artery disease) Qualifiers: Associated angina: angina presence unspecified Is this a current diagnosis for this admission?: Yes Plan: Continue current medications (7) Atrial fibrillation Qualifiers: Atrial fibrillation type: paroxysmal Qualified Code(s): I48.0 - Paroxysmal atrial fibrillation Is this a current diagnosis for this admission?: Yes Plan: Continue amiodarone (8) Chronic combined systolic and diastolic CHF (congestive heart failure) Is this a current diagnosis for this admission?: Yes Plan: Continue current medications. Will consult cardiology (9) Septic shock due to Gram positive bacteria Is this a current diagnosis for this admission?: Yes Plan: Continue current antibiotics (10) Sepsis due to methicillin resistant Staphylococcus aureus (MRSA) Is this a current diagnosis for this admission?: Yes Plan: Continue current antibiotics
[2017-09-01] MEDS: CEFTRIAXONE 1 GM/D5W RTU 1 GM/50 ML RTUPB IV SCH (10:07)
[2017-09-01] MEDS: DEXTROSE 5%-WATER 250 ML with PHENYLEPHRINE HCL 40 MG IV PRN ×2 (10:07)
[2017-09-01] MEDS: AMIODARONE HCL 200 MG TABLET NG SCH ×2 (10:08→22:26)
[2017-09-01] MEDS: LANSOPRAZOLE 30 MG TAB.RAP.DR NG SCH (10:08)
[2017-09-01] MEDS: NORMAL SALINE 10 ML SDV (SCHEDULED) IV SCH ×2 (10:09→22:27)
[2017-09-01 11:02] LABS: CREATININE RESULT 1.21 mg/dL (0.52-1.25)
[2017-09-01] MEDS: VANCOMYCIN HCL 750 MG in DEXTROSE 5%-WATER 250 ML IV SCH (11:53)
--- NOTE | 2017-09-01 13:10 | PDOC CONSULTATION ---
Consultation Consult Date: 09/01/17 Attending physician:: CANDY SANDY Consult reason:: Atrial fibrillation History of Present Illness Admission Date/PCP: 08/25/17 15:21 CANDY SANDY, Patient complains of: Intubated and sedated History of Present Illness: This is an 82-year-old patient was admitted through the emergency room, currently intubated and sedated in the unit. Patient noted to be in A. fib. Patient in respiratory failure. 2D echo reviewed had shown moderate to severe aortic stenosis. Patient has gram-positive bacteremia and possibly gram positive sepsis. Currently patient is on 2 vasopressors which include levophed and Elmer-Synephrine. Patient noted to have some inappropriate pacemaker spikes yesterday. Pacemaker was interrogated remotely and was noted to be functioning adequately. I believe patient has MVP pacing function on. Past Medical History Cardiac Medical History: Reports: Atrial Fibrillation, Coronary Artery Disease, Myocardial Infarction - Silent, Hyperlipidema, Hypertension Pulmonary Medical History: Reports: Bronchitis, Chronic Obstructive Pulmonary Disease (COPD) Denies: Asthma, Pneumonia Neurological Medical History: Denies: Seizures Endocrine Medical History: Reports: Diabetes Mellitus Type 2, Hypothyroidism GI Medical History: Reports: Diverticulitis Denies: Hepatitis, Hiatal Hernia Musculoskeltal Medical History: Reports: Arthritis, Gout Psychiatric Medical History: Reports: Depression Hematology: Denies: Anemia, Sickle Cell Disease Past Surgical History Past Surgical History: Reports: Colostomy - reversed, Coronary Artery Bypass Graft, Hysterectomy, Orthopedic Surgery - Colby rods in back, Pacemaker - [employer] Denies: Amputation, Mastectomy Social History Information Source: [facility], [facility] Records Smoking Status: Unknown if Ever Smoked Frequency of Alcohol Use: None Hx Recreational Drug Use: No - Advance Directive Resuscitation Status: Full Code Surrogate healthcare decision maker:: Not identified yet Family History Family History: Reviewed & Not Pertinent Parental Family History Reviewed: No Children Family History Reviewed: No Sibling(s) Family History Reviewed.: No - Not able to review due to patient being intubated and no family members present. Medication/Allergy Home Medications: Alprazolam [Xanax 0.25 mg Tablet] 0.25 mg PO Q8HP PRN 08/25/17 Amiodarone HCl [Cordarone 200 mg Tablet] 200 mg PO BID 08/25/17 Aspirin [Aspirin 81 mg Chewable Tablet] 81 mg PO DAILY 08/25/17 Atorvastatin Calcium [Lipitor 40 mg Tablet] 40 mg PO QHS 08/25/17 Bumetanide [Bumex 1 mg Tablet] 3 mg PO BID 08/25/17 Gabapentin [Neurontin 100 mg Capsule] 300 mg PO TID 08/25/17 Isosorbide Mononitrate [Ismo 20 mg Tablet] 20 mg PO BID 08/25/17 Levothyroxine Sodium [Synthroid] 50 mcg PO QAM 08/25/17 Metoprolol Tartrate [Lopressor 100 mg Tablet] 100 mg PO Q12 08/25/17 Omeprazole 40 mg PO BID 08/25/17 Ondansetron [Zofran Odt 4 mg Tablet] 4 mg SL Q8 08/25/17 Spironolactone [Aldactone] 50 mg PO DAILY 08/25/17 Warfarin Sodium [Coumadin 5 mg Tablet] 2.5 mg PO DAILY 08/25/17 Allergies/Adverse Reactions: codeine [Codeine] Adverse Reaction (Severe, Verified 11/13/16 12:52) Hyperactivity Review of Systems ROS unobtainable: Due to endotracheal tube Physical Exam Vital Signs: Temp Pulse Resp BP Pulse Ox 97.7 F 91 14 116/44 L 99 09/01/17 10:25 09/01/17 08:35 09/01/17 08:35 09/01/17 10:25 09/01/17 10:25 Intake & Output 08/31/17 09/01/17 09/02/17 06:59 06:59 06:59 Intake Total 3271 2673 Output Total 1755 1315 225 Balance 1516 1358 -225 Weight 81.5 kg 84.2 kg Exam: GENERAL: well-nourished and in no acute distress. Patient is intubated and sedated. Orientation cannot be checked HEAD: Atraumatic, normocephalic. EYES: Pupils equal round and reactive to light, extraocular movements could not be checked, sclera anicteric, conjunctiva are normal. ENT: TMs normal, nares patent, oropharynx clear without exudates. Moist mucous membranes. No oral ulcerations or bleeding gums noted NECK: supple without lymphadenopathy or JVD. Trachea is central. No cervical or axillary lymphadenopathy noted. Carotids are 2+ LUNGS: Breath sounds mostly clear to auscultation patient is noted to have bibasal crackles at the extreme bases CHEST: Palpation of the chest wall shows no significant chest wall tenderness or abnormalities. 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 ABDOMEN: Soft, no significant tenderness appreciated, normoactive bowel sounds. No guarding, no rebound. No rigidity noted . No masses appreciated. Ascitis noted. EXTREMITIES: Pedal pulses are 1-2+, no calf tenderness noted, 1+ pedal edema noted. No clubbing or cyanosis. NEUROLOGICAL: The patient cannot participate in the neurological exam but no facial asymmetry noted. Extremities slightly hypotonic PSYCH: This cannot be evaluated. Patient cannot participate. SKIN: No significant ecchymosis, rash, or signs of pruritus noted. MUSCULOSKELETAL EXAM: No significant joint swelling noted. Patient cannot participate in musculoskeletal exam Results Laboratory Results: 09/01/17 05:35 09/01/17 09:45 08/31/17 09/01/17 09/01/17 13:05 05:35 05:35 WBC 18.9 H RBC 3.98 Hgb 9.8 L Hct 30.1 L MCV 76 L MCH 24.5 L MCHC 32.4 RDW 24.0 H Plt Count 221 Seg Neutrophils % Not Reportable Lymphocytes % Not Reportable Monocytes % Not Reportable Eosinophils % Not Reportable Basophils % Not Reportable Absolute Neutrophils Not Reportable Absolute Lymphocytes Not Reportable Absolute Monocytes Not Reportable Absolute Eosinophils Not Reportable Absolute Basophils Not Reportable Carbonic Acid HCO3/H2CO3 Ratio ABG pH ABG pCO2 ABG pO2 ABG HCO3 ABG O2 Saturation ABG Base Excess FiO2 Sodium 129.5 L Potassium 4.2 Chloride 104 Carbon Dioxide 16 L Anion Gap 10 BUN 27 H Creatinine 1.20 Est GFR ( Amer) 52 L Est GFR (Non-Af Amer) 43 L Glucose 155 H Calcium 8.9 Magnesium 2.1 Total Bilirubin 1.9 H AST 152 H ALT 132 H Alkaline Phosphatase 81 Total Protein 5.5 L Albumin 2.6 L Blood Type B POSITIVE 09/01/17 09/01/17 05:35 09:45 WBC RBC Hgb Hct MCV MCH MCHC RDW Plt Count Seg Neutrophils % Lymphocytes % Monocytes % Eosinophils % Basophils % Absolute Neutrophils Absolute Lymphocytes Absolute Monocytes Absolute Eosinophils Absolute Basophils Carbonic Acid 0.95 L HCO3/H2CO3 Ratio 19:1 ABG pH 7.39 ABG pCO2 31.7 L ABG pO2 67.2 L ABG HCO3 18.5 L ABG O2 Saturation 93.4 L ABG Base Excess -5.6 FiO2 50% Sodium Potassium Chloride Carbon Dioxide Anion Gap BUN Creatinine 1.21 Est GFR ( Amer) 51 L Est GFR (Non-Af Amer) 42 L Glucose Calcium Magnesium Total Bilirubin AST ALT Alkaline Phosphatase Total Protein Albumin Blood Type 08/29/17 11:45 Blood Blood Culture - Final Mrsa (Meth Resis Staph Aureus) 08/29/17 10:35 Blood Blood Culture - Final Mrsa (Meth Resis Staph Aureus) 08/29/17 12:35 Catheterized Urine Urine Culture - Final Escherichia Coli 08/25/17 08/25/17 08/25/17 16:00 16:00 21:35 Creatine Kinase 65 CK-MB (CK-2) 0.72 Troponin I 0.039 0.032 NT-Pro-B Natriuret Pep 1570 H 08/26/17 08/26/17 08/27/17 04:23 04:23 05:46 Creatine Kinase CK-MB (CK-2) Troponin I 0.031 NT-Pro-B Natriuret Pep 1160 H 2020 H 08/29/17 08/29/17 08/30/17 20:30 20:30 03:23 Creatine Kinase 94 217 H CK-MB (CK-2) 1.13 Troponin I 0.078 NT-Pro-B Natriuret Pep 08/30/17 08/30/17 08/30/17 03:23 09:40 09:40 Creatine Kinase 216 H CK-MB (CK-2) 1.63 2.22 Troponin I 0.100 0.071 NT-Pro-B Natriuret Pep 08/31/17 05:30 Creatine Kinase CK-MB (CK-2) Troponin I NT-Pro-B Natriuret Pep 00166 H EKG Comments: Atrial paced complexes with right bundle branch block pattern Impressions: Abdomen Ultrasound 08/26/17 00:00 IMPRESSION: Echogenic material in the main portal vein, worrisome for incompletely occlusive thrombus Guidance Fluoroscopy 08/27/17 00:00 IMPRESSION: SUCCESSFUL PLACEMENT OF A 5 FR SINGLE LUMEN 37 CM PICC IN THE RIGHT BASILIC VEIN. Interventional Vascular Procedure 08/27/17 00:00 IMPRESSION: SUCCESSFUL PLACEMENT OF A 5 FR SINGLE LUMEN 37 CM PICC IN THE RIGHT BASILIC VEIN. PICC Line Insertion 08/27/17 00:00 IMPRESSION: SUCCESSFUL PLACEMENT OF A 5 FR SINGLE LUMEN 37 CM PICC IN THE RIGHT BASILIC VEIN. Abdomen/Pelvis CT 08/27/17 07:40 IMPRESSION: 1. PATENT PORTAL VEIN, SPLENIC VEIN, AND SUPERIOR MESENTERIC VEIN. NO EVIDENCE OF THROMBOSIS. 2. MODERATE ASCITES. 3. BILATERAL PLEURAL EFFUSIONS WITH BASILAR ATELECTASIS. 4. CHRONIC CHANGES IN THE LUMBAR SPINE WITH PRIOR KYPHOPLASTY AND SURGICAL CHANGES WITH HARDWARE. 5. NO OTHER SIGNIFICANT FINDINGS. Hepatobiliary Scan Nuclear Medicine 08/28/17 00:00 IMPRESSION: No scintigraphic evidence of cystic duct or common duct obstruction Mildly depressed gallbladder ejection fraction. IV CCK did not reproduce the patient's symptoms Chest X-Ray 09/01/17 09:15 IMPRESSION: Endotracheal tube tip in good positioning. No change in diffuse bilateral alveolar and interstitial opacities compared to 08/31/2017 0618 hours Assessment & Plan - Diagnosis (1) Atrial fibrillation Qualifiers: Atrial fibrillation type: paroxysmal Qualified Code(s): I48.0 - Paroxysmal atrial fibrillation Is this a current diagnosis for this admission?: Yes (2) COPD (chronic obstructive pulmonary disease) Qualifiers: Emphysema type: unspecified Is this a current diagnosis for this admission?: Yes (3) Hypotension Qualifiers: Hypotension type: other hypotension type Qualified Code(s): I95.89 - Other hypotension Is this a current diagnosis for this admission?: Yes (4) CAD (coronary artery disease) Qualifiers: Coronary Disease-Associated Artery/Lesion type: unspecified vessel or lesion type Associated angina: angina presence unspecified Is this a current diagnosis for this admission?: Yes (5) Respiratory failure Qualifiers: Chronicity: unspecified Respiratory failure complication: unspecified whether with hypoxia or hypercapnia Qualified Code(s): J96.90 - Respiratory failure, unspecified, unspecified whether with hypoxia or hypercapnia Is this a current diagnosis for this admission?: Yes (6) CHF (congestive heart failure) Qualifiers: Congestive heart failure type: diastolic Is this a current diagnosis for this admission?: Yes (7) Aortic stenosis Qualifiers: Cardiac valve disease etiology: nonrheumatic Qualified Code(s): I35.0 - Nonrheumatic aortic (valve) stenosis Is this a current diagnosis for this admission?: Yes - Notes Notes: Atrial fibrillation: Paroxysmal. Continue maintenance amiodarone, continue chronic anticoagulation. Telemetry strips reviewed shows adequately controlled heart rate response. COPD: This is being expertly managed by flame degreaser. Hypotension: Possibly related to sepsis. Continue broad-spectrum antibiotic therapy. May consider starting Midodrin therapy in order to wean IV vasopressors. Coronary artery disease: Currently is stable. Recommend medical management at this point. Respiratory failure: Continue with oxygen supplementation and ventilatory support. Regional Construction Manager managing. CHF: Currently stable. No significant volume overload noted at this point. Continue to follow with I&O measurements and daily weighing. Aortic stenosis: My review of echocardiogram shows that it is moderate. May need further evaluation at tertiary care once patient stabilized and if patient considered a candidate for it. Aortic valve area calculated by technologist was 1.2 cm. Peak gradient was 64 but mean gradient was 31 mmHg. - Time Time Spent: 50 to 70 Minutes - CODE STATUS was discussed, patient remains full code. Surrogate decision-maker not identified. Multiple medical problems were addressed. More than 50% of the time spent coordinating care, discussing management plans with involved caregivers. Management plans discussed with involved personnels. Medical decision making was of moderate to high complexity , patient's has multiple comorbidities. Medications reviewed and adjusted accordingly: Yes
--- NOTE | 2017-09-01 14:35 | PDOC PROGRESS REPORT ---
Subjective Progress Note for:: 09/01/17 Subjective:: Intubated and sedated Physical Exam Vital Signs: Temp Pulse Resp BP Pulse Ox 97.7 F 91 14 116/44 L 100 09/01/17 10:25 09/01/17 08:35 09/01/17 08:35 09/01/17 10:25 09/01/17 12:58 Intake & Output 08/31/17 09/01/17 09/02/17 06:59 06:59 06:59 Intake Total 3271 2673 Output Total 1755 1315 225 Balance 1516 1358 -225 Weight 81.5 kg 84.2 kg General appearance: PRESENT: no acute distress, disheveled, well-developed Head exam: PRESENT: atraumatic, normocephalic Eye exam: PRESENT: conjunctiva pale Mouth exam: PRESENT: dry mucosa, neck supple, tongue midline, other - ET tube in place Neck exam: ABSENT: carotid bruit, JVD, lymphadenopathy, thyromegaly Respiratory exam: PRESENT: decreased breath sounds, prolonged expiratory phas, rhonchi, symmetrical, unlabored. ABSENT: retraction, stridor, tachypnea, wheezes Cardiovascular exam: PRESENT: RRR, +S1, +S2. ABSENT: tachycardia Rectal exam: PRESENT: deferred Gentrourinary exam: PRESENT: indwelling catheter Extremities exam: PRESENT: +1 edema Neurological exam: ABSENT: alert, awake Skin exam: PRESENT: dry, warm Results Laboratory Results: 09/01/17 05:35 09/01/17 09:45 08/31/17 09/01/17 09/01/17 13:05 05:35 05:35 WBC 18.9 H RBC 3.98 Hgb 9.8 L Hct 30.1 L MCV 76 L MCH 24.5 L MCHC 32.4 RDW 24.0 H Plt Count 221 Seg Neutrophils % Not Reportable Lymphocytes % Not Reportable Monocytes % Not Reportable Eosinophils % Not Reportable Basophils % Not Reportable Absolute Neutrophils Not Reportable Absolute Lymphocytes Not Reportable Absolute Monocytes Not Reportable Absolute Eosinophils Not Reportable Absolute Basophils Not Reportable Carbonic Acid HCO3/H2CO3 Ratio ABG pH ABG pCO2 ABG pO2 ABG HCO3 ABG O2 Saturation ABG Base Excess FiO2 Sodium 129.5 L Potassium 4.2 Chloride 104 Carbon Dioxide 16 L Anion Gap 10 BUN 27 H Creatinine 1.20 Est GFR ( Amer) 52 L Est GFR (Non-Af Amer) 43 L Glucose 155 H Calcium 8.9 Magnesium 2.1 Total Bilirubin 1.9 H AST 152 H ALT 132 H Alkaline Phosphatase 81 Total Protein 5.5 L Albumin 2.6 L Blood Type B POSITIVE 09/01/17 09/01/17 05:35 09:45 WBC RBC Hgb Hct MCV MCH MCHC RDW Plt Count Seg Neutrophils % Lymphocytes % Monocytes % Eosinophils % Basophils % Absolute Neutrophils Absolute Lymphocytes Absolute Monocytes Absolute Eosinophils Absolute Basophils Carbonic Acid 0.95 L HCO3/H2CO3 Ratio 19:1 ABG pH 7.39 ABG pCO2 31.7 L ABG pO2 67.2 L ABG HCO3 18.5 L ABG O2 Saturation 93.4 L ABG Base Excess -5.6 FiO2 50% Sodium Potassium Chloride Carbon Dioxide Anion Gap BUN Creatinine 1.21 Est GFR ( Amer) 51 L Est GFR (Non-Af Amer) 42 L Glucose Calcium Magnesium Total Bilirubin AST ALT Alkaline Phosphatase Total Protein Albumin Blood Type 08/29/17 11:45 Blood Blood Culture - Final Mrsa (Meth Resis Staph Aureus) 08/29/17 10:35 Blood Blood Culture - Final Mrsa (Meth Resis Staph Aureus) 08/29/17 12:35 Catheterized Urine Urine Culture - Final Escherichia Coli 08/25/17 08/25/17 08/25/17 16:00 16:00 21:35 Creatine Kinase 65 CK-MB (CK-2) 0.72 Troponin I 0.039 0.032 NT-Pro-B Natriuret Pep 1570 H 08/26/17 08/26/17 08/27/17 04:23 04:23 05:46 Creatine Kinase CK-MB (CK-2) Troponin I 0.031 NT-Pro-B Natriuret Pep 1160 H 2020 H 08/29/17 08/29/17 08/30/17 20:30 20:30 03:23 Creatine Kinase 94 217 H CK-MB (CK-2) 1.13 Troponin I 0.078 NT-Pro-B Natriuret Pep 08/30/17 08/30/17 08/30/17 03:23 09:40 09:40 Creatine Kinase 216 H CK-MB (CK-2) 1.63 2.22 Troponin I 0.100 0.071 NT-Pro-B Natriuret Pep 08/31/17 05:30 Creatine Kinase CK-MB (CK-2) Troponin I NT-Pro-B Natriuret Pep 92235 H Impressions: Abdomen Ultrasound 08/26/17 00:00 IMPRESSION: Echogenic material in the main portal vein, worrisome for incompletely occlusive thrombus Guidance Fluoroscopy 08/27/17 00:00 IMPRESSION: SUCCESSFUL PLACEMENT OF A 5 FR SINGLE LUMEN 37 CM PICC IN THE RIGHT BASILIC VEIN. Interventional Vascular Procedure 08/27/17 00:00 IMPRESSION: SUCCESSFUL PLACEMENT OF A 5 FR SINGLE LUMEN 37 CM PICC IN THE RIGHT BASILIC VEIN. PICC Line Insertion 08/27/17 00:00 IMPRESSION: SUCCESSFUL PLACEMENT OF A 5 FR SINGLE LUMEN 37 CM PICC IN THE RIGHT BASILIC VEIN. Abdomen/Pelvis CT 08/27/17 07:40 IMPRESSION: 1. PATENT PORTAL VEIN, SPLENIC VEIN, AND SUPERIOR MESENTERIC VEIN. NO EVIDENCE OF THROMBOSIS. 2. MODERATE ASCITES. 3. BILATERAL PLEURAL EFFUSIONS WITH BASILAR ATELECTASIS. 4. CHRONIC CHANGES IN THE LUMBAR SPINE WITH PRIOR KYPHOPLASTY AND SURGICAL CHANGES WITH HARDWARE. 5. NO OTHER SIGNIFICANT FINDINGS. Hepatobiliary Scan Nuclear Medicine 08/28/17 00:00 IMPRESSION: No scintigraphic evidence of cystic duct or common duct obstruction Mildly depressed gallbladder ejection fraction. IV CCK did not reproduce the patient's symptoms Chest X-Ray 09/01/17 09:15 IMPRESSION: Endotracheal tube tip in good positioning. No change in diffuse bilateral alveolar and interstitial opacities compared to 08/31/2017 0618 hours Assessment & Plan - Diagnosis (1) Acute respiratory distress syndrome in adult Is this a current diagnosis for this admission?: Yes Plan: Improving slight decrease in FiO2 will compensated metabolic acidosis (2) COPD (chronic obstructive pulmonary disease) Qualifiers: Emphysema type: unspecified Is this a current diagnosis for this admission?: Yes Plan: Continue current bronchodilator therapy (3) Full code status Is this a current diagnosis for this admission?: Yes (4) Metabolic acidosis Is this a current diagnosis for this admission?: Yes Plan: persistent but decreasing (5) Septic shock due to Gram positive bacteria Is this a current diagnosis for this admission?: Yes Plan: 08/29/17 12:35 Urine Culture - Final Catheterized Urine Escherichia Coli 08/29/17 11:45 Blood Culture - Final Blood Mrsa (Meth Resis Staph Aureus) 08/29/17 10:35 Blood Culture - Final Blood Mrsa (Meth Resis Staph Aureus) Patient still requiring 2 vasopressor agents CVP 15 - Time Critical Time spent with patient: 35 or more minutes - 50 minutes
[2017-09-01] MEDS: PIPERACILLIN SODIUM/TAZOBACTAM 2.25 GM in NORMAL SALINE 100 ML IV SCH ×2 (17:47→23:17)
[2017-09-02] MEDS: DEXTROSE 5%-WATER 250 ML with NOREPINEPHRINE BITARTRATE 4 MG IV PRN ×8 (03:22→23:46)
[2017-09-02] MEDS: PROPOFOL 100 ML IV PRN (03:22)
[2017-09-02 05:13] LABS: ARTERIAL BLOOD BASE EXCESS -8.9 mmol/L; ARTERIAL BLOOD O2 SATURATION 95.4 % (94-98)
[2017-09-02 05:15] LABS: APPEARANCE,URINE TURBID; BILIRUBIN,URINE NEGATIVE (NEGATIVE); GLUCOSE, URINE NEGATIVE (NEGATIVE); KETONES,URINE NEGATIVE (NEGATIVE); LEUKOCYTE ESTERASE,URINE LARGE (NEGATIVE); NITRITE,URINE NEGATIVE (NEGATIVE); PROTEIN,URINE 30 mg/dL (NEGATIVE); URINE SPECIFIC GRAVITY 1.017; UROBILINOGEN,URINE NEGATIVE mg/dL (<2.0)
[2017-09-02 05:16] LABS: PARTIAL THROMBOPLASTIN TIME 39.9 SEC (23.5-35.8)
[2017-09-02] MEDS: HYDROCORTISONE SOD SUCCINATE INJ/PF 100 MG/2 ML SDV IV SCH (05:17)
[2017-09-02] MEDS: LEVOTHYROXINE SODIUM 0.05 MG TABLET NG SCH (05:17)
[2017-09-02] MEDS: GABAPENTIN 300 MG CAPSULE PO SCH ×3 (05:17→21:46)
[2017-09-02] MEDS: PIPERACILLIN SODIUM/TAZOBACTAM 2.25 GM in NORMAL SALINE 100 ML IV SCH ×2 (05:18→11:15)
[2017-09-02 05:22] LABS: HEMATOCRIT 31.4 % (36.0-47.0); HEMOGLOBIN 10.1 g/dL (12.0-15.5); HGB HCT DIFFERENCE -1.1; MEAN CORPUSCULAR HEMOGLOBIN 24.4 pg (27.0-33.4); MEAN CORPUSCULAR HGB CONC 32.2 g/dL (32.0-36.0); MEAN CORPUSCULAR VOLUME 76 fl (80-97); RED BLOOD COUNT 4.15 10^6/uL (3.72-5.28); RED CELL DISTRIBUTION WIDTH 24.7 % (11.5-14.0); WHITE BLOOD COUNT 21.2 10^3/uL (4.0-10.5)
[2017-09-02 05:24] LABS: ALANINE AMINOTRANSFERASE 112 U/L (9-52); ALBUMIN 2.4 g/dL (3.5-5.0); ALKALINE PHOSPHATASE 76 U/L (38-126); ANION GAP 9 (5-19); ASPARTATE AMINO TRANSFERASE 92 U/L (14-36); BILIRUBIN,DIRECT 1.5 mg/dL (0.0-0.4); BILIRUBIN,TOTAL 1.8 mg/dL (0.2-1.3); BLOOD UREA NITROGEN 30 mg/dL (7-20); CALCIUM 8.8 mg/dL (8.4-10.2); CARBON DIOXIDE 16 mmol/L (22-30); CHLORIDE 102 mmol/L (98-107); CREATININE RESULT 1.17 mg/dL (0.52-1.25); GLUCOSE 174 mg/dL (75-110); MAGNESIUM 2.1 mg/dL (1.6-2.3); PHOSPHORUS 3.7 mg/dL (2.5-4.5); SODIUM 127.4 mmol/L (137-145); TOTAL PROTEIN 5.5 g/dL (6.3-8.2)
[2017-09-02 06:17] LABS: BAND NEUTROPHILS % (MANUAL) 9 % (3-5); BASOPHILS % (MANUAL) 0 % (0-2); EOSINOPHILS % (MANUAL) 1 % (0-6); LYMPHOCYTES % (MANUAL) 1 % (13-45); NUCLEATED RED BLOOD CELLS 1 /100 WBC (0); TOTAL CELLS COUNTED 100
[2017-09-02 06:21] LABS: ANISOCYTOSIS 3+; BURR CELLS 1+; HYPOCHROMASIA SLIGHT; MICROCYTOSIS 1+; OVALOCYTES SLIGHT; POIKILOCYTOSIS 2+; POLYCHROMASIA SLIGHT; TEAR DROP CELLS SLIGHT; TOXIC GRANULATION SLIGHT; TOXIC VACUOLATION PRESENT
--- NOTE | 2017-09-02 07:45 | PDOC PROGRESS REPORT ---
Subjective Progress Note for:: 09/02/17 Subjective:: The patient is intubated and sedated. The blood pressure seemed to be holding relatively well. She has good urine output. Physical Exam Vital Signs: Temp Pulse Resp BP Pulse Ox 97.7 F 80 24 H 125/51 L 98 09/02/17 06:40 09/01/17 23:35 09/01/17 23:35 09/02/17 06:40 09/02/17 06:40 Intake & Output 09/01/17 09/02/17 09/03/17 06:59 06:59 06:59 Intake Total 2673 2457 Output Total 1315 1280 Balance 1358 1177 Weight 84.2 kg 84.9 kg General appearance: PRESENT: severe distress Eye exam: PRESENT: conjunctival injection Neck exam: ABSENT: carotid bruit Respiratory exam: PRESENT: rales, rhonchi Cardiovascular exam: PRESENT: irregular rhythm, +S1, +S2 Murmur grade: 3 Pulses: PRESENT: +1 pedal pulses bilateral GI/Abdominal exam: PRESENT: soft Extremities exam: PRESENT: pedal edema Results Laboratory Results: 09/02/17 04:50 09/02/17 04:50 09/01/17 09/02/17 09/02/17 09:45 04:50 04:50 WBC 21.2 H RBC 4.15 Hgb 10.1 L Hct 31.4 L MCV 76 L MCH 24.4 L MCHC 32.2 RDW 24.7 H Plt Count 221 Seg Neutrophils % Not Reportable Lymphocytes % Not Reportable Monocytes % Not Reportable Eosinophils % Not Reportable Basophils % Not Reportable Absolute Neutrophils Not Reportable Absolute Lymphocytes Not Reportable Absolute Monocytes Not Reportable Absolute Eosinophils Not Reportable Absolute Basophils Not Reportable Carbonic Acid HCO3/H2CO3 Ratio ABG pH ABG pCO2 ABG pO2 ABG HCO3 ABG O2 Saturation ABG Base Excess FiO2 Sodium 127.4 L Potassium 4.0 Chloride 102 Carbon Dioxide 16 L Anion Gap 9 BUN 30 H Creatinine 1.21 1.17 Est GFR ( Amer) 51 L 53 L Est GFR (Non-Af Amer) 42 L 44 L Glucose 174 H Calcium 8.8 Phosphorus 3.7 Magnesium 2.1 Total Bilirubin 1.8 H AST 92 H ALT 112 H Alkaline Phosphatase 76 Total Protein 5.5 L Albumin 2.4 L Urine Color Urine Appearance Urine pH Ur Specific [place] Urine Protein Urine Glucose (UA) Urine Ketones Urine Blood Urine Nitrite Ur Leukocyte Esterase Urine WBC (Auto) Urine RBC (Auto) 09/02/17 09/02/17 04:50 04:55 WBC RBC Hgb Hct MCV MCH MCHC RDW Plt Count Seg Neutrophils % Lymphocytes % Monocytes % Eosinophils % Basophils % Absolute Neutrophils Absolute Lymphocytes Absolute Monocytes Absolute Eosinophils Absolute Basophils Carbonic Acid 0.85 L HCO3/H2CO3 Ratio 18:1 ABG pH 7.35 ABG pCO2 28.2 L ABG pO2 78.7 L ABG HCO3 15.4 L ABG O2 Saturation 95.4 ABG Base Excess -8.9 FiO2 50% Sodium Potassium Chloride Carbon Dioxide Anion Gap BUN Creatinine Est GFR ( Amer) Est GFR (Non-Af Amer) Glucose Calcium Phosphorus Magnesium Total Bilirubin AST ALT Alkaline Phosphatase Total Protein Albumin Urine Color ANNIE Urine Appearance TURBID Urine pH 5.0 Ur Specific [place] 1.017 Urine Protein 30 H Urine Glucose (UA) NEGATIVE Urine Ketones NEGATIVE Urine Blood SMALL H Urine Nitrite NEGATIVE Ur Leukocyte Esterase LARGE H Urine WBC (Auto) >182 Urine RBC (Auto) 14 08/30/17 14:35 Catheter Tip - Picc Line Catheter Tip Culture - Final NO GROWTH 3 DAYS 08/31/17 08:05 Tracheal Aspirate Gram Stain - Final 08/31/17 08:05 Tracheal Aspirate Sputum Culture - Final C.albicans/C.dubliniensis Normal Juliet Absent 08/29/17 11:45 Blood Blood Culture - Final Mrsa (Meth Resis Staph Aureus) 08/29/17 10:35 Blood Blood Culture - Final Mrsa (Meth Resis Staph Aureus) 08/25/17 08/25/17 08/25/17 16:00 16:00 21:35 Creatine Kinase 65 CK-MB (CK-2) 0.72 Troponin I 0.039 0.032 NT-Pro-B Natriuret Pep 1570 H 08/26/17 08/26/17 08/27/17 04:23 04:23 05:46 Creatine Kinase CK-MB (CK-2) Troponin I 0.031 NT-Pro-B Natriuret Pep 1160 H 2020 H 08/29/17 08/29/17 08/30/17 20:30 20:30 03:23 Creatine Kinase 94 217 H CK-MB (CK-2) 1.13 Troponin I 0.078 NT-Pro-B Natriuret Pep 08/30/17 08/30/17 08/30/17 03:23 09:40 09:40 Creatine Kinase 216 H CK-MB (CK-2) 1.63 2.22 Troponin I 0.100 0.071 NT-Pro-B Natriuret Pep 08/31/17 09/02/17 05:30 05:00 Creatine Kinase CK-MB (CK-2) Troponin I NT-Pro-B Natriuret Pep 76624 H 8050 H Impressions: Abdomen Ultrasound 08/26/17 00:00 IMPRESSION: Echogenic material in the main portal vein, worrisome for incompletely occlusive thrombus Guidance Fluoroscopy 08/27/17 00:00 IMPRESSION: SUCCESSFUL PLACEMENT OF A 5 FR SINGLE LUMEN 37 CM PICC IN THE RIGHT BASILIC VEIN. Interventional Vascular Procedure 08/27/17 00:00 IMPRESSION: SUCCESSFUL PLACEMENT OF A 5 FR SINGLE LUMEN 37 CM PICC IN THE RIGHT BASILIC VEIN. PICC Line Insertion 08/27/17 00:00 IMPRESSION: SUCCESSFUL PLACEMENT OF A 5 FR SINGLE LUMEN 37 CM PICC IN THE RIGHT BASILIC VEIN. Abdomen/Pelvis CT 08/27/17 07:40 IMPRESSION: 1. PATENT PORTAL VEIN, SPLENIC VEIN, AND SUPERIOR MESENTERIC VEIN. NO EVIDENCE OF THROMBOSIS. 2. MODERATE ASCITES. 3. BILATERAL PLEURAL EFFUSIONS WITH BASILAR ATELECTASIS. 4. CHRONIC CHANGES IN THE LUMBAR SPINE WITH PRIOR KYPHOPLASTY AND SURGICAL CHANGES WITH HARDWARE. 5. NO OTHER SIGNIFICANT FINDINGS. Hepatobiliary Scan Nuclear Medicine 08/28/17 00:00 IMPRESSION: No scintigraphic evidence of cystic duct or common duct obstruction Mildly depressed gallbladder ejection fraction. IV CCK did not reproduce the patient's symptoms Assessment & Plan - Diagnosis (1) Supratherapeutic INR Is this a current diagnosis for this admission?: Yes (2) Dehydration Is this a current diagnosis for this admission?: Yes (3) Hypokalemia Is this a current diagnosis for this admission?: Yes (4) Acute renal failure superimposed on stage 3 chronic kidney disease Qualifiers: Acute renal failure type: unspecified Qualified Code(s): N17.9 - Acute kidney failure, unspecified; N18.3 - Chronic kidney disease, stage 3 (moderate) Is this a current diagnosis for this admission?: Yes (5) COPD (chronic obstructive pulmonary disease) Qualifiers: Emphysema type: unspecified Is this a current diagnosis for this admission?: Yes Plan: Continue nebulization treatments and oxygen (6) CAD (coronary artery disease) Qualifiers: Coronary Disease-Associated Artery/Lesion type: unspecified vessel or lesion type Associated angina: angina presence unspecified Is this a current diagnosis for this admission?: Yes Plan: Continue current medications (7) Atrial fibrillation Qualifiers: Atrial fibrillation type: paroxysmal Qualified Code(s): I48.0 - Paroxysmal atrial fibrillation Is this a current diagnosis for this admission?: Yes Plan: Continue amiodarone (8) Chronic combined systolic and diastolic CHF (congestive heart failure) Is this a current diagnosis for this admission?: Yes (9) Septic shock due to Gram positive bacteria Is this a current diagnosis for this admission?: Yes Plan: We will attempt to wean off pressors (10) Sepsis due to methicillin resistant Staphylococcus aureus (MRSA) Is this a current diagnosis for this admission?: Yes Plan: Continue current antibiotics
[2017-09-02] MEDS: IPRATROPIUM/ALBUTEROL 0.5-2.5 MG/3 ML AMPUL NEB PRN (08:40)
--- NOTE | 2017-09-02 08:52 | RADIOLOGY REPORT (SQ) ---
EXAM DESCRIPTION: CHEST SINGLE VIEW COMPLETED DATE/TIME: 09/02/2017 6:24 am REASON FOR STUDY: ETT and NG tube COMPARISON: 09/01/2017. NUMBER OF VIEWS: One view. TECHNIQUE: Single frontal radiographic view of the chest acquired. LIMITATIONS: None. FINDINGS: LUNGS AND PLEURA: Slight improvement in interstitial pattern throughout the lungs. Slight worsening in basilar aeration on the right, likely shifting edema or subsegmental atelectasis. Slig ht improvement in aeration may be present in the left lung base. MEDIASTINUM AND HILAR STRUCTURES: Stable contours. HEART AND VASCULAR STRUCTURES: Stable heart size, enlarged. BONES: Osteopenic, limited assessment. No gross fracture. HARDWARE: Endotracheal and nasogastric tubes look appropriate. Pacer in place. Right subclavian lito e with tip to the superior vena cava. No pneumothorax. Lines and tubes look relatively stable braulio red to prior. OTHER: No other significant finding. IMPRESSION: 1. Slightly improved interstitial edema. Shifting basilar infiltrates/ edema. 2. Appro priate lines and tubes. TECHNICAL DOCUMENTATION: JOB ID: [id number]- All Rights Reserved
[2017-09-02] MEDS: VANCOMYCIN HCL 1,000 MG in DEXTROSE 5%-WATER 250 ML IV SCH (09:10)
[2017-09-02] MEDS: AMIODARONE HCL 200 MG TABLET NG SCH ×2 (09:13→21:46)
[2017-09-02] MEDS: LANSOPRAZOLE 30 MG TAB.RAP.DR NG SCH (09:14)
[2017-09-02] MEDS: NORMAL SALINE 10 ML SDV (SCHEDULED) IV SCH ×2 (09:15→21:47)
[2017-09-02] MEDS ORDERED: FUROSEMIDE INJ/PF 20 MG/2 ML SDV IV ONE (09:30)
--- NOTE | 2017-09-02 12:22 | PDOC PROGRESS REPORT ---
Subjective Progress Note for:: 09/02/17 Subjective:: Patient about the same and has made some progress. Patient today taken off Elmer- Synephrine drip. Urine output seems improving. Patient seems to be maintaining sinus with ventricular paced rhythm. Chest x-ray from today reviewed. Patient remains intubated, sedated, patient however looks comfortable and in acute distress. Medications reviewed. Physical Exam Vital Signs: Temp Pulse Resp BP Pulse Ox 97.9 F 84 22 H 118/48 L 97 09/02/17 11:41 09/02/17 09:40 09/02/17 08:40 09/02/17 11:41 09/02/17 11:41 Intake & Output 09/01/17 09/02/17 09/03/17 06:59 06:59 06:59 Intake Total 2673 2457 Output Total 1315 1280 225 Balance 1358 1177 -225 Weight 84.2 kg 84.9 kg Exam: GENERAL: well-nourished and in no acute distress. Patient is intubated and sedated. Orientation cannot be checked HEAD: Atraumatic, normocephalic. EYES: Pupils equal round and reactive to light, extraocular movements could not be checked, sclera anicteric, conjunctiva are normal. ENT: TMs normal, nares patent, oropharynx clear without exudates. Moist mucous membranes. No oral ulcerations or bleeding gums noted NECK: supple without lymphadenopathy or JVD. Trachea is central. No cervical or axillary lymphadenopathy noted. Carotids are 2+ LUNGS: Breath sounds mostly clear to auscultation patient is noted to have bibasal crackles at the extreme bases CHEST: Palpation of the chest wall shows no significant chest wall tenderness or abnormalities. 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 ABDOMEN: Soft, no significant tenderness appreciated, normoactive bowel sounds. No guarding, no rebound. No rigidity noted . No masses appreciated. Ascitis noted. EXTREMITIES: Pedal pulses are 1-2+, no calf tenderness noted, 1+ pedal edema noted. No clubbing or cyanosis. NEUROLOGICAL: The patient cannot participate in the neurological exam but no facial asymmetry noted. Extremities slightly hypotonic PSYCH: This cannot be evaluated. Patient cannot participate. SKIN: No significant ecchymosis, rash, or signs of pruritus noted. MUSCULOSKELETAL EXAM: No significant joint swelling noted. Patient cannot participate in musculoskeletal exam Results Laboratory Results: 09/02/17 04:50 09/02/17 04:50 09/02/17 09/02/17 09/02/17 04:50 04:50 04:50 WBC 21.2 H RBC 4.15 Hgb 10.1 L Hct 31.4 L MCV 76 L MCH 24.4 L MCHC 32.2 RDW 24.7 H Plt Count 221 Seg Neutrophils % Not Reportable Lymphocytes % Not Reportable Monocytes % Not Reportable Eosinophils % Not Reportable Basophils % Not Reportable Absolute Neutrophils Not Reportable Absolute Lymphocytes Not Reportable Absolute Monocytes Not Reportable Absolute Eosinophils Not Reportable Absolute Basophils Not Reportable Carbonic Acid HCO3/H2CO3 Ratio ABG pH ABG pCO2 ABG pO2 ABG HCO3 ABG O2 Saturation ABG Base Excess FiO2 Sodium 127.4 L Potassium 4.0 Chloride 102 Carbon Dioxide 16 L Anion Gap 9 BUN 30 H Creatinine 1.17 Est GFR ( Amer) 53 L Est GFR (Non-Af Amer) 44 L Glucose 174 H Calcium 8.8 Phosphorus 3.7 Magnesium 2.1 Total Bilirubin 1.8 H AST 92 H ALT 112 H Alkaline Phosphatase 76 Total Protein 5.5 L Albumin 2.4 L Urine Color ANNIE Urine Appearance TURBID Urine pH 5.0 Ur Specific [place] 1.017 Urine Protein 30 H Urine Glucose (UA) NEGATIVE Urine Ketones NEGATIVE Urine Blood SMALL H Urine Nitrite NEGATIVE Ur Leukocyte Esterase LARGE H Urine WBC (Auto) >182 Urine RBC (Auto) 14 09/02/17 04:55 WBC RBC Hgb Hct MCV MCH MCHC RDW Plt Count Seg Neutrophils % Lymphocytes % Monocytes % Eosinophils % Basophils % Absolute Neutrophils Absolute Lymphocytes Absolute Monocytes Absolute Eosinophils Absolute Basophils Carbonic Acid 0.85 L HCO3/H2CO3 Ratio 18:1 ABG pH 7.35 ABG pCO2 28.2 L ABG pO2 78.7 L ABG HCO3 15.4 L ABG O2 Saturation 95.4 ABG Base Excess -8.9 FiO2 50% Sodium Potassium Chloride Carbon Dioxide Anion Gap BUN Creatinine Est GFR ( Amer) Est GFR (Non-Af Amer) Glucose Calcium Phosphorus Magnesium Total Bilirubin AST ALT Alkaline Phosphatase Total Protein Albumin Urine Color Urine Appearance Urine pH Ur Specific [place] Urine Protein Urine Glucose (UA) Urine Ketones Urine Blood Urine Nitrite Ur Leukocyte Esterase Urine WBC (Auto) Urine RBC (Auto) 08/29/17 10:35 Blood Blood Culture - Final Mrsa (Meth Resis Staph Aureus) 08/29/17 11:45 Blood Blood Culture - Final Mrsa (Meth Resis Staph Aureus) 08/30/17 14:35 Catheter Tip - Picc Line Catheter Tip Culture - Final NO GROWTH 3 DAYS 08/31/17 08:05 Tracheal Aspirate Gram Stain - Final 08/31/17 08:05 Tracheal Aspirate Sputum Culture - Final C.albicans/C.dubliniensis Normal Juliet Absent 08/25/17 08/25/17 08/25/17 16:00 16:00 21:35 Creatine Kinase 65 CK-MB (CK-2) 0.72 Troponin I 0.039 0.032 NT-Pro-B Natriuret Pep 1570 H 08/26/17 08/26/17 08/27/17 04:23 04:23 05:46 Creatine Kinase CK-MB (CK-2) Troponin I 0.031 NT-Pro-B Natriuret Pep 1160 H 2020 H 08/29/17 08/29/17 08/30/17 20:30 20:30 03:23 Creatine Kinase 94 217 H CK-MB (CK-2) 1.13 Troponin I 0.078 NT-Pro-B Natriuret Pep 08/30/17 08/30/17 08/30/17 03:23 09:40 09:40 Creatine Kinase 216 H CK-MB (CK-2) 1.63 2.22 Troponin I 0.100 0.071 NT-Pro-B Natriuret Pep 08/31/17 09/02/17 05:30 05:00 Creatine Kinase CK-MB (CK-2) Troponin I NT-Pro-B Natriuret Pep 01474 H 8050 H EKG Comments: Sinus with ventricular paced rhythm and intermittent AV paced rhythm Impressions: Abdomen Ultrasound 08/26/17 00:00 IMPRESSION: Echogenic material in the main portal vein, worrisome for incompletely occlusive thrombus Guidance Fluoroscopy 08/27/17 00:00 IMPRESSION: SUCCESSFUL PLACEMENT OF A 5 FR SINGLE LUMEN 37 CM PICC IN THE RIGHT BASILIC VEIN. Interventional Vascular Procedure 08/27/17 00:00 IMPRESSION: SUCCESSFUL PLACEMENT OF A 5 FR SINGLE LUMEN 37 CM PICC IN THE RIGHT BASILIC VEIN. PICC Line Insertion 08/27/17 00:00 IMPRESSION: SUCCESSFUL PLACEMENT OF A 5 FR SINGLE LUMEN 37 CM PICC IN THE RIGHT BASILIC VEIN. Abdomen/Pelvis CT 08/27/17 07:40 IMPRESSION: 1. PATENT PORTAL VEIN, SPLENIC VEIN, AND SUPERIOR MESENTERIC VEIN. NO EVIDENCE OF THROMBOSIS. 2. MODERATE ASCITES. 3. BILATERAL PLEURAL EFFUSIONS WITH BASILAR ATELECTASIS. 4. CHRONIC CHANGES IN THE LUMBAR SPINE WITH PRIOR KYPHOPLASTY AND SURGICAL CHANGES WITH HARDWARE. 5. NO OTHER SIGNIFICANT FINDINGS. Hepatobiliary Scan Nuclear Medicine 08/28/17 00:00 IMPRESSION: No scintigraphic evidence of cystic duct or common duct obstruction Mildly depressed gallbladder ejection fraction. IV CCK did not reproduce the patient's symptoms Chest X-Ray 09/02/17 00:00 IMPRESSION: 1. Slightly improved interstitial edema. Shifting basilar infiltrates/ edema. 2. Appropriate lines and tubes. Assessment & Plan - Diagnosis (1) Atrial fibrillation Qualifiers: Atrial fibrillation type: paroxysmal Qualified Code(s): I48.0 - Paroxysmal atrial fibrillation Is this a current diagnosis for this admission?: Yes (2) COPD (chronic obstructive pulmonary disease) Qualifiers: Emphysema type: unspecified Is this a current diagnosis for this admission?: Yes (3) Hypotension Qualifiers: Hypotension type: other hypotension type Qualified Code(s): I95.89 - Other hypotension Is this a current diagnosis for this admission?: Yes (4) CAD (coronary artery disease) Qualifiers: Coronary Disease-Associated Artery/Lesion type: unspecified vessel or lesion type Associated angina: angina presence unspecified Is this a current diagnosis for this admission?: Yes (5) Respiratory failure Qualifiers: Chronicity: unspecified Respiratory failure complication: unspecified whether with hypoxia or hypercapnia Qualified Code(s): J96.90 - Respiratory failure, unspecified, unspecified whether with hypoxia or hypercapnia Is this a current diagnosis for this admission?: Yes (6) CHF (congestive heart failure) Qualifiers: Congestive heart failure type: diastolic Is this a current diagnosis for this admission?: Yes (7) Aortic stenosis Qualifiers: Cardiac valve disease etiology: nonrheumatic Qualified Code(s): I35.0 - Nonrheumatic aortic (valve) stenosis Is this a current diagnosis for this admission?: Yes - Notes Notes: Atrial fibrillation: Paroxysmal. Continue maintenance amiodarone, continue chronic anticoagulation. Telemetry strips reviewed shows adequately controlled heart rate response. COPD: This is being expertly managed by hammerer helper. Hypotension: Possibly related to sepsis. Continue broad-spectrum antibiotic therapy. May consider starting Midodrin therapy in order to wean IV vasopressors. Currently off Elmer-Synephrine. Patient on Levophed. Coronary artery disease: Currently is stable. Recommend medical management at this point. Respiratory failure: Continue with oxygen supplementation and ventilatory support. Leather Dresser managing. CHF: Currently stable. No significant volume overload noted at this point. Continue to follow with I&O measurements and daily weighing. Aortic stenosis: My review of echocardiogram shows that it is moderate. May need further evaluation as an outpatient once patient stabilized and if patient considered a candidate for it. Aortic valve area calculated by technologist was 1.2 cm. Peak gradient was 64 but mean gradient was 31 mmHg. - Time Time with patient: Greater than 35 minutes - CODE STATUS was discussed, patient remains full code. Surrogate decision-maker unchanged. Multiple medical problems were addressed. More than 50% of the time spent coordinating care, discussing management plans with involved caregivers. Management plans discussed with involved personnels. Medical decision making was of moderate to high complexity, patient's has multiple comorbidities. Medications reviewed and adjusted accordingly: Yes
--- NOTE | 2017-09-02 13:19 | PDOC PROGRESS REPORT ---
Subjective Progress Note for:: 09/02/17 Subjective:: Intubated and sedated but maintaining ventilation on CPAP and pressure support Physical Exam Vital Signs: Temp Pulse Resp BP Pulse Ox 97.9 F 84 22 H 118/48 L 97 09/02/17 11:41 09/02/17 09:40 09/02/17 08:40 09/02/17 11:41 09/02/17 11:41 Intake & Output 09/01/17 09/02/17 09/03/17 06:59 06:59 06:59 Intake Total 2673 2457 Output Total 1315 1280 225 Balance 1358 1177 -225 Weight 84.2 kg 84.9 kg General appearance: PRESENT: no acute distress, disheveled, obese, well- developed Head exam: PRESENT: atraumatic, normocephalic Eye exam: PRESENT: conjunctiva pale Mouth exam: PRESENT: dry mucosa, neck supple, tongue midline, other - ET tube in place Neck exam: ABSENT: carotid bruit, JVD, lymphadenopathy, thyromegaly Respiratory exam: PRESENT: decreased breath sounds, prolonged expiratory phas, rales, rhonchi, symmetrical, unlabored. ABSENT: crackles, retraction, stridor, tachypnea, wheezes Cardiovascular exam: PRESENT: RRR, +S1, +S2 Pulses: PRESENT: normal radial pulses GI/Abdominal exam: PRESENT: normal bowel sounds, soft. ABSENT: distended, guarding, mass, organolmegaly, rebound, tenderness Rectal exam: PRESENT: deferred Gentrourinary exam: PRESENT: indwelling catheter Extremities exam: PRESENT: +2 edema Skin exam: PRESENT: dry, warm Results Laboratory Results: 09/02/17 04:50 09/02/17 04:50 09/02/17 09/02/17 09/02/17 04:50 04:50 04:50 WBC 21.2 H RBC 4.15 Hgb 10.1 L Hct 31.4 L MCV 76 L MCH 24.4 L MCHC 32.2 RDW 24.7 H Plt Count 221 Seg Neutrophils % Not Reportable Lymphocytes % Not Reportable Monocytes % Not Reportable Eosinophils % Not Reportable Basophils % Not Reportable Absolute Neutrophils Not Reportable Absolute Lymphocytes Not Reportable Absolute Monocytes Not Reportable Absolute Eosinophils Not Reportable Absolute Basophils Not Reportable Carbonic Acid HCO3/H2CO3 Ratio ABG pH ABG pCO2 ABG pO2 ABG HCO3 ABG O2 Saturation ABG Base Excess FiO2 Sodium 127.4 L Potassium 4.0 Chloride 102 Carbon Dioxide 16 L Anion Gap 9 BUN 30 H Creatinine 1.17 Est GFR ( Amer) 53 L Est GFR (Non-Af Amer) 44 L Glucose 174 H Calcium 8.8 Phosphorus 3.7 Magnesium 2.1 Total Bilirubin 1.8 H AST 92 H ALT 112 H Alkaline Phosphatase 76 Total Protein 5.5 L Albumin 2.4 L Urine Color ANNIE Urine Appearance TURBID Urine pH 5.0 Ur Specific [place] 1.017 Urine Protein 30 H Urine Glucose (UA) NEGATIVE Urine Ketones NEGATIVE Urine Blood SMALL H Urine Nitrite NEGATIVE Ur Leukocyte Esterase LARGE H Urine WBC (Auto) >182 Urine RBC (Auto) 14 09/02/17 04:55 WBC RBC Hgb Hct MCV MCH MCHC RDW Plt Count Seg Neutrophils % Lymphocytes % Monocytes % Eosinophils % Basophils % Absolute Neutrophils Absolute Lymphocytes Absolute Monocytes Absolute Eosinophils Absolute Basophils Carbonic Acid 0.85 L HCO3/H2CO3 Ratio 18:1 ABG pH 7.35 ABG pCO2 28.2 L ABG pO2 78.7 L ABG HCO3 15.4 L ABG O2 Saturation 95.4 ABG Base Excess -8.9 FiO2 50% Sodium Potassium Chloride Carbon Dioxide Anion Gap BUN Creatinine Est GFR ( Amer) Est GFR (Non-Af Amer) Glucose Calcium Phosphorus Magnesium Total Bilirubin AST ALT Alkaline Phosphatase Total Protein Albumin Urine Color Urine Appearance Urine pH Ur Specific [place] Urine Protein Urine Glucose (UA) Urine Ketones Urine Blood Urine Nitrite Ur Leukocyte Esterase Urine WBC (Auto) Urine RBC (Auto) 08/29/17 10:35 Blood Blood Culture - Final Mrsa (Meth Resis Staph Aureus) 08/29/17 11:45 Blood Blood Culture - Final Mrsa (Meth Resis Staph Aureus) 08/30/17 14:35 Catheter Tip - Picc Line Catheter Tip Culture - Final NO GROWTH 3 DAYS 08/31/17 08:05 Tracheal Aspirate Gram Stain - Final 08/31/17 08:05 Tracheal Aspirate Sputum Culture - Final C.albicans/C.dubliniensis Normal Juliet Absent 08/25/17 08/25/17 08/25/17 16:00 16:00 21:35 Creatine Kinase 65 CK-MB (CK-2) 0.72 Troponin I 0.039 0.032 NT-Pro-B Natriuret Pep 1570 H 08/26/17 08/26/17 08/27/17 04:23 04:23 05:46 Creatine Kinase CK-MB (CK-2) Troponin I 0.031 NT-Pro-B Natriuret Pep 1160 H 2020 H 08/29/17 08/29/17 08/30/17 20:30 20:30 03:23 Creatine Kinase 94 217 H CK-MB (CK-2) 1.13 Troponin I 0.078 NT-Pro-B Natriuret Pep 08/30/17 08/30/17 08/30/17 03:23 09:40 09:40 Creatine Kinase 216 H CK-MB (CK-2) 1.63 2.22 Troponin I 0.100 0.071 NT-Pro-B Natriuret Pep 08/31/17 09/02/17 05:30 05:00 Creatine Kinase CK-MB (CK-2) Troponin I NT-Pro-B Natriuret Pep 64272 H 8050 H Impressions: Abdomen Ultrasound 08/26/17 00:00 IMPRESSION: Echogenic material in the main portal vein, worrisome for incompletely occlusive thrombus Guidance Fluoroscopy 08/27/17 00:00 IMPRESSION: SUCCESSFUL PLACEMENT OF A 5 FR SINGLE LUMEN 37 CM PICC IN THE RIGHT BASILIC VEIN. Interventional Vascular Procedure 08/27/17 00:00 IMPRESSION: SUCCESSFUL PLACEMENT OF A 5 FR SINGLE LUMEN 37 CM PICC IN THE RIGHT BASILIC VEIN. PICC Line Insertion 08/27/17 00:00 IMPRESSION: SUCCESSFUL PLACEMENT OF A 5 FR SINGLE LUMEN 37 CM PICC IN THE RIGHT BASILIC VEIN. Abdomen/Pelvis CT 08/27/17 07:40 IMPRESSION: 1. PATENT PORTAL VEIN, SPLENIC VEIN, AND SUPERIOR MESENTERIC VEIN. NO EVIDENCE OF THROMBOSIS. 2. MODERATE ASCITES. 3. BILATERAL PLEURAL EFFUSIONS WITH BASILAR ATELECTASIS. 4. CHRONIC CHANGES IN THE LUMBAR SPINE WITH PRIOR KYPHOPLASTY AND SURGICAL CHANGES WITH HARDWARE. 5. NO OTHER SIGNIFICANT FINDINGS. Hepatobiliary Scan Nuclear Medicine 08/28/17 00:00 IMPRESSION: No scintigraphic evidence of cystic duct or common duct obstruction Mildly depressed gallbladder ejection fraction. IV CCK did not reproduce the patient's symptoms Chest X-Ray 09/02/17 00:00 IMPRESSION: 1. Slightly improved interstitial edema. Shifting basilar infiltrates/ edema. 2. Appropriate lines and tubes. Assessment & Plan - Diagnosis (1) Acute respiratory distress syndrome in adult Is this a current diagnosis for this admission?: Yes Plan: IPAO2/FIO2 = 160 (2) COPD (chronic obstructive pulmonary disease) Qualifiers: Emphysema type: unspecified Is this a current diagnosis for this admission?: Yes (3) Full code status Is this a current diagnosis for this admission?: Yes (4) Metabolic acidosis Is this a current diagnosis for this admission?: Yes (5) Septic shock due to Gram positive bacteria Is this a current diagnosis for this admission?: Yes - Time Critical Time spent with patient: 35 or more minutes - 45 minutes
[2017-09-02] MEDS: PIPERACILLIN SODIUM/TAZOBACTAM 2.25 GM in NORMAL SALINE 50 ML IV SCH ×2 (18:04→23:45)
[2017-09-02] MEDS: INSULIN LISPRO 100 UNIT/ML 3 ML VIAL SUBCUT PRN (23:46)
[2017-09-03 05:00] LABS: HEMATOCRIT 31.2 % (36.0-47.0); HEMOGLOBIN 9.9 g/dL (12.0-15.5); HGB HCT DIFFERENCE -1.5; MEAN CORPUSCULAR HGB CONC 31.9 g/dL (32.0-36.0); MEAN CORPUSCULAR VOLUME 75 fl (80-97); RED BLOOD COUNT 4.15 10^6/uL (3.72-5.28); RED CELL DISTRIBUTION WIDTH 24.9 % (11.5-14.0); WHITE BLOOD COUNT 21.2 10^3/uL (4.0-10.5)
[2017-09-03 05:03] LABS: ARTERIAL BLOOD BASE EXCESS -5.3 mmol/L; ARTERIAL BLOOD O2 SATURATION 97.3 % (94-98)
[2017-09-03 05:07] LABS: PROTHROMBIN TIME 24.4 SEC (11.4-15.4)
[2017-09-03 05:28] LABS: ALANINE AMINOTRANSFERASE 94 U/L (9-52); ALBUMIN 2.3 g/dL (3.5-5.0); ALKALINE PHOSPHATASE 69 U/L (38-126); ANION GAP 10 (5-19); ASPARTATE AMINO TRANSFERASE 77 U/L (14-36); BILIRUBIN,DIRECT 1.8 mg/dL (0.0-0.4); BILIRUBIN,TOTAL 2.3 mg/dL (0.2-1.3); BLOOD UREA NITROGEN 34 mg/dL (7-20); CALCIUM 8.5 mg/dL (8.4-10.2); CARBON DIOXIDE 16 mmol/L (22-30); CHLORIDE 100 mmol/L (98-107); GLUCOSE 139 mg/dL (75-110); MAGNESIUM 2.2 mg/dL (1.6-2.3); PHOSPHORUS 3.4 mg/dL (2.5-4.5); POTASSIUM 3.6 mmol/L (3.6-5.0); SODIUM 125.6 mmol/L (137-145)
[2017-09-03] MEDS: PIPERACILLIN SODIUM/TAZOBACTAM 2.25 GM in NORMAL SALINE 50 ML IV SCH ×4 (05:30→23:12)
[2017-09-03] MEDS: LEVOTHYROXINE SODIUM 0.05 MG TABLET NG SCH (05:31)
[2017-09-03] MEDS: DEXTROSE 5%-WATER 250 ML with NOREPINEPHRINE BITARTRATE 4 MG IV PRN ×6 (05:31→23:25)
[2017-09-03] MEDS: GABAPENTIN 300 MG CAPSULE PO SCH (05:31)
[2017-09-03 05:42] LABS: BAND NEUTROPHILS % (MANUAL) 2 % (3-5); BASOPHILS % (MANUAL) 0 % (0-2); EOSINOPHILS % (MANUAL) 1 % (0-6); LYMPHOCYTES % (MANUAL) 5 % (13-45); NUCLEATED RED BLOOD CELLS 2 /100 WBC (0); TOTAL CELLS COUNTED 100
[2017-09-03 05:43] LABS: ANISOCYTOSIS 3+; BURR CELLS 2+; MICROCYTOSIS 1+; POIKILOCYTOSIS 2+; SCHISTOCYTES 1+; TOXIC GRANULATION 2+; TOXIC VACUOLATION PRESENT
[2017-09-03] MEDS: PROPOFOL 100 ML IV PRN ×2 (06:07→17:35)
--- NOTE | 2017-09-03 07:00 | RADIOLOGY REPORT (SQ) ---
EXAM DESCRIPTION: CHEST SINGLE VIEW CLINICAL HISTORY: 82 years, Female, sepsis/resp failure COMPARISON: Yesterday's chest radiograph at 0618 hours. NUMBER OF VIEWS: 1 TECHNIQUE: Routine portable AP chest radiograph technique. LIMITATIONS: None. FINDINGS: Lines and tubes remain in unchanged appropriate position. Increasing pulmonary congestion. Small bilateral pleural effusions. No pneumothorax. IMPRESSION: 1. Increasing pulmonary congestion. 2. Lines and tubes remain in appropriate position. 3. No pneumothorax. 2011 [employer]- All Rights Reserved
--- NOTE | 2017-09-03 07:57 | PDOC PROGRESS REPORT ---
Subjective Progress Note for:: 09/03/17 Subjective:: Intubated and sedated Physical Exam Vital Signs: Temp Pulse Resp BP Pulse Ox 97.7 F 83 22 H 113/43 L 100 09/03/17 06:07 09/02/17 22:00 09/02/17 08:40 09/03/17 06:07 09/03/17 06:07 Intake & Output 09/02/17 09/03/17 09/04/17 06:59 06:59 06:59 Intake Total 2457 2168 Output Total 1280 1350 Balance 1177 818 Weight 84.9 kg 86.9 kg General appearance: PRESENT: no acute distress, disheveled, obese, well- developed Head exam: PRESENT: atraumatic, normocephalic Eye exam: PRESENT: conjunctiva pale Mouth exam: PRESENT: dry mucosa, neck supple, tongue midline, other - ET tube Neck exam: PRESENT: carotid bruit Respiratory exam: PRESENT: decreased breath sounds, prolonged expiratory phas, rhonchi, symmetrical, unlabored. ABSENT: crackles, retraction, stridor, tachypnea Cardiovascular exam: PRESENT: RRR, +S1, +S2 Pulses: PRESENT: normal radial pulses GI/Abdominal exam: PRESENT: normal bowel sounds, soft. ABSENT: distended, guarding, mass, organolmegaly, rebound, tenderness Rectal exam: PRESENT: deferred Gentrourinary exam: PRESENT: indwelling catheter Extremities exam: PRESENT: +1 edema Skin exam: PRESENT: dry, warm Results Laboratory Results: 09/03/17 04:40 09/03/17 04:40 09/03/17 09/03/17 09/03/17 04:40 04:40 04:40 WBC 21.2 H RBC 4.15 Hgb 9.9 L Hct 31.2 L MCV 75 L MCH 24.0 L MCHC 31.9 L RDW 24.9 H Plt Count 215 Seg Neutrophils % Not Reportable Lymphocytes % Not Reportable Monocytes % Not Reportable Eosinophils % Not Reportable Basophils % Not Reportable Absolute Neutrophils Not Reportable Absolute Lymphocytes Not Reportable Absolute Monocytes Not Reportable Absolute Eosinophils Not Reportable Absolute Basophils Not Reportable Carbonic Acid HCO3/H2CO3 Ratio ABG pH ABG pCO2 ABG pO2 ABG HCO3 ABG O2 Saturation ABG Base Excess FiO2 Sodium 125.6 L Potassium 3.6 Chloride 100 Carbon Dioxide 16 L Anion Gap 10 BUN 34 H Creatinine 1.30 H Est GFR ( Amer) 47 L Est GFR (Non-Af Amer) 39 L Glucose 139 H Calcium 8.5 Phosphorus 3.4 Magnesium 2.2 Total Bilirubin 2.3 H AST 77 H ALT 94 H Alkaline Phosphatase 69 Total Protein 5.0 L Albumin 2.3 L TSH 0.45 L 09/03/17 04:40 WBC RBC Hgb Hct MCV MCH MCHC RDW Plt Count Seg Neutrophils % Lymphocytes % Monocytes % Eosinophils % Basophils % Absolute Neutrophils Absolute Lymphocytes Absolute Monocytes Absolute Eosinophils Absolute Basophils Carbonic Acid 0.90 L HCO3/H2CO3 Ratio 20:1 ABG pH 7.40 ABG pCO2 29.8 L ABG pO2 93.9 ABG HCO3 18.2 L ABG O2 Saturation 97.3 ABG Base Excess -5.3 FiO2 50% Sodium Potassium Chloride Carbon Dioxide Anion Gap BUN Creatinine Est GFR ( Amer) Est GFR (Non-Af Amer) Glucose Calcium Phosphorus Magnesium Total Bilirubin AST ALT Alkaline Phosphatase Total Protein Albumin TSH 08/29/17 10:35 Blood Blood Culture - Final Mrsa (Meth Resis Staph Aureus) 08/29/17 11:45 Blood Blood Culture - Final Mrsa (Meth Resis Staph Aureus) 08/30/17 14:35 Catheter Tip - Picc Line Catheter Tip Culture - Final NO GROWTH 3 DAYS 08/25/17 08/25/17 08/25/17 16:00 16:00 21:35 Creatine Kinase 65 CK-MB (CK-2) 0.72 Troponin I 0.039 0.032 NT-Pro-B Natriuret Pep 1570 H 08/26/17 08/26/17 08/27/17 04:23 04:23 05:46 Creatine Kinase CK-MB (CK-2) Troponin I 0.031 NT-Pro-B Natriuret Pep 1160 H 2020 H 08/29/17 08/29/17 08/30/17 20:30 20:30 03:23 Creatine Kinase 94 217 H CK-MB (CK-2) 1.13 Troponin I 0.078 NT-Pro-B Natriuret Pep 08/30/17 08/30/17 08/30/17 03:23 09:40 09:40 Creatine Kinase 216 H CK-MB (CK-2) 1.63 2.22 Troponin I 0.100 0.071 NT-Pro-B Natriuret Pep 08/31/17 09/02/17 09/03/17 05:30 05:00 04:40 Creatine Kinase CK-MB (CK-2) Troponin I NT-Pro-B Natriuret Pep 77321 H 8050 H 6870 H Impressions: Abdomen Ultrasound 08/26/17 00:00 IMPRESSION: Echogenic material in the main portal vein, worrisome for incompletely occlusive thrombus Guidance Fluoroscopy 08/27/17 00:00 IMPRESSION: SUCCESSFUL PLACEMENT OF A 5 FR SINGLE LUMEN 37 CM PICC IN THE RIGHT BASILIC VEIN. Interventional Vascular Procedure 08/27/17 00:00 IMPRESSION: SUCCESSFUL PLACEMENT OF A 5 FR SINGLE LUMEN 37 CM PICC IN THE RIGHT BASILIC VEIN. PICC Line Insertion 08/27/17 00:00 IMPRESSION: SUCCESSFUL PLACEMENT OF A 5 FR SINGLE LUMEN 37 CM PICC IN THE RIGHT BASILIC VEIN. Abdomen/Pelvis CT 08/27/17 07:40 IMPRESSION: 1. PATENT PORTAL VEIN, SPLENIC VEIN, AND SUPERIOR MESENTERIC VEIN. NO EVIDENCE OF THROMBOSIS. 2. MODERATE ASCITES. 3. BILATERAL PLEURAL EFFUSIONS WITH BASILAR ATELECTASIS. 4. CHRONIC CHANGES IN THE LUMBAR SPINE WITH PRIOR KYPHOPLASTY AND SURGICAL CHANGES WITH HARDWARE. 5. NO OTHER SIGNIFICANT FINDINGS. Hepatobiliary Scan Nuclear Medicine 08/28/17 00:00 IMPRESSION: No scintigraphic evidence of cystic duct or common duct obstruction Mildly depressed gallbladder ejection fraction. IV CCK did not reproduce the patient's symptoms Chest X-Ray 09/03/17 06:00 IMPRESSION: 1. Increasing pulmonary congestion. 2. Lines and tubes remain in appropriate position. 3. No pneumothorax. 2010 [employer]- All Rights Reserved Assessment & Plan - Diagnosis (1) Acute respiratory distress syndrome in adult Is this a current diagnosis for this admission?: Yes Plan: PAO2/FIO2 = 190 A.L.I. (2) COPD (chronic obstructive pulmonary disease) Qualifiers: Emphysema type: unspecified Is this a current diagnosis for this admission?: Yes Plan: LABA+LAMA+systemic steroids (3) Full code status Is this a current diagnosis for this admission?: Yes (4) Metabolic acidosis Is this a current diagnosis for this admission?: Yes Plan: persistant with good resp comp (5) Septic shock due to Gram positive bacteria Is this a current diagnosis for this admission?: Yes Plan: 08/31/17 08:05 Gram Stain - Final Tracheal Aspirate Sputum Culture - Final C.albicans/C.dubliniensis Normal Juliet Absent 08/29/17 12:35 Urine Culture - Final Catheterized Urine Escherichia Coli 08/29/17 11:45 Blood Culture - Final Blood Mrsa (Meth Resis Staph Aureus) 08/29/17 10:35 Blood Culture - Final Blood Mrsa (Meth Resis Staph Aureus) vasopresor - Time Critical Time spent with patient: 35 or more minutes - 45 min
[2017-09-03] MEDS: IPRATROPIUM/ALBUTEROL 0.5-2.5 MG/3 ML AMPUL NEB PRN (08:09)
[2017-09-03] MEDS ORDERED: NORMAL SALINE 1000 ML 1,000 ML IV PRN (08:26)
--- NOTE | 2017-09-03 08:34 | PDOC PROGRESS REPORT ---
Subjective Progress Note for:: 09/03/17 Subjective:: The patient is still intubated and sedated. Her blood pressure is slightly better controlled. She did not have a tap because of elevated INR. Her I& O's are positive. Physical Exam Vital Signs: Temp Pulse Resp BP Pulse Ox 97.7 F 83 22 H 113/43 L 100 09/03/17 06:07 09/02/17 22:00 09/02/17 08:40 09/03/17 06:07 09/03/17 06:07 Intake & Output 09/02/17 09/03/17 09/04/17 06:59 06:59 06:59 Intake Total 2457 2168 Output Total 1280 1350 100 Balance 1177 818 -100 Weight 84.9 kg 86.9 kg General appearance: PRESENT: mild distress Eye exam: PRESENT: conjunctival injection Neck exam: ABSENT: carotid bruit Respiratory exam: PRESENT: crackles, rales Cardiovascular exam: PRESENT: irregular rhythm, +S1, +S2 Murmur grade: 3 Pulses: PRESENT: +1 pedal pulses bilateral GI/Abdominal exam: PRESENT: normal bowel sounds, soft Extremities exam: PRESENT: pedal edema Results Laboratory Results: 09/03/17 04:40 09/03/17 04:40 09/03/17 09/03/17 09/03/17 04:40 04:40 04:40 WBC 21.2 H RBC 4.15 Hgb 9.9 L Hct 31.2 L MCV 75 L MCH 24.0 L MCHC 31.9 L RDW 24.9 H Plt Count 215 Seg Neutrophils % Not Reportable Lymphocytes % Not Reportable Monocytes % Not Reportable Eosinophils % Not Reportable Basophils % Not Reportable Absolute Neutrophils Not Reportable Absolute Lymphocytes Not Reportable Absolute Monocytes Not Reportable Absolute Eosinophils Not Reportable Absolute Basophils Not Reportable Carbonic Acid HCO3/H2CO3 Ratio ABG pH ABG pCO2 ABG pO2 ABG HCO3 ABG O2 Saturation ABG Base Excess FiO2 Sodium 125.6 L Potassium 3.6 Chloride 100 Carbon Dioxide 16 L Anion Gap 10 BUN 34 H Creatinine 1.30 H Est GFR ( Amer) 47 L Est GFR (Non-Af Amer) 39 L Glucose 139 H Calcium 8.5 Phosphorus 3.4 Magnesium 2.2 Total Bilirubin 2.3 H AST 77 H ALT 94 H Alkaline Phosphatase 69 Total Protein 5.0 L Albumin 2.3 L TSH 0.45 L 09/03/17 04:40 WBC RBC Hgb Hct MCV MCH MCHC RDW Plt Count Seg Neutrophils % Lymphocytes % Monocytes % Eosinophils % Basophils % Absolute Neutrophils Absolute Lymphocytes Absolute Monocytes Absolute Eosinophils Absolute Basophils Carbonic Acid 0.90 L HCO3/H2CO3 Ratio 20:1 ABG pH 7.40 ABG pCO2 29.8 L ABG pO2 93.9 ABG HCO3 18.2 L ABG O2 Saturation 97.3 ABG Base Excess -5.3 FiO2 50% Sodium Potassium Chloride Carbon Dioxide Anion Gap BUN Creatinine Est GFR ( Amer) Est GFR (Non-Af Amer) Glucose Calcium Phosphorus Magnesium Total Bilirubin AST ALT Alkaline Phosphatase Total Protein Albumin TSH 08/29/17 10:35 Blood Blood Culture - Final Mrsa (Meth Resis Staph Aureus) 08/29/17 11:45 Blood Blood Culture - Final Mrsa (Meth Resis Staph Aureus) 08/30/17 14:35 Catheter Tip - Picc Line Catheter Tip Culture - Final NO GROWTH 3 DAYS 08/25/17 08/25/17 08/25/17 16:00 16:00 21:35 Creatine Kinase 65 CK-MB (CK-2) 0.72 Troponin I 0.039 0.032 NT-Pro-B Natriuret Pep 1570 H 08/26/17 08/26/17 08/27/17 04:23 04:23 05:46 Creatine Kinase CK-MB (CK-2) Troponin I 0.031 NT-Pro-B Natriuret Pep 1160 H 2020 H 08/29/17 08/29/17 08/30/17 20:30 20:30 03:23 Creatine Kinase 94 217 H CK-MB (CK-2) 1.13 Troponin I 0.078 NT-Pro-B Natriuret Pep 08/30/17 08/30/17 08/30/17 03:23 09:40 09:40 Creatine Kinase 216 H CK-MB (CK-2) 1.63 2.22 Troponin I 0.100 0.071 NT-Pro-B Natriuret Pep 08/31/17 09/02/17 09/03/17 05:30 05:00 04:40 Creatine Kinase CK-MB (CK-2) Troponin I NT-Pro-B Natriuret Pep 70510 H 8050 H 6870 H Impressions: Abdomen Ultrasound 08/26/17 00:00 IMPRESSION: Echogenic material in the main portal vein, worrisome for incompletely occlusive thrombus Guidance Fluoroscopy 08/27/17 00:00 IMPRESSION: SUCCESSFUL PLACEMENT OF A 5 FR SINGLE LUMEN 37 CM PICC IN THE RIGHT BASILIC VEIN. Interventional Vascular Procedure 08/27/17 00:00 IMPRESSION: SUCCESSFUL PLACEMENT OF A 5 FR SINGLE LUMEN 37 CM PICC IN THE RIGHT BASILIC VEIN. PICC Line Insertion 08/27/17 00:00 IMPRESSION: SUCCESSFUL PLACEMENT OF A 5 FR SINGLE LUMEN 37 CM PICC IN THE RIGHT BASILIC VEIN. Abdomen/Pelvis CT 08/27/17 07:40 IMPRESSION: 1. PATENT PORTAL VEIN, SPLENIC VEIN, AND SUPERIOR MESENTERIC VEIN. NO EVIDENCE OF THROMBOSIS. 2. MODERATE ASCITES. 3. BILATERAL PLEURAL EFFUSIONS WITH BASILAR ATELECTASIS. 4. CHRONIC CHANGES IN THE LUMBAR SPINE WITH PRIOR KYPHOPLASTY AND SURGICAL CHANGES WITH HARDWARE. 5. NO OTHER SIGNIFICANT FINDINGS. Hepatobiliary Scan Nuclear Medicine 08/28/17 00:00 IMPRESSION: No scintigraphic evidence of cystic duct or common duct obstruction Mildly depressed gallbladder ejection fraction. IV CCK did not reproduce the patient's symptoms Chest X-Ray 09/03/17 06:00 IMPRESSION: 1. Increasing pulmonary congestion. 2. Lines and tubes remain in appropriate position. 3. No pneumothorax. 2010 [employer]- All Rights Reserved Assessment & Plan - Diagnosis (1) Dehydration Is this a current diagnosis for this admission?: Yes (2) Hypokalemia Is this a current diagnosis for this admission?: Yes Plan: Improved with supplementation (3) Acute renal failure superimposed on stage 3 chronic kidney disease Qualifiers: Acute renal failure type: unspecified Qualified Code(s): N17.9 - Acute kidney failure, unspecified; N18.3 - Chronic kidney disease, stage 3 (moderate) Is this a current diagnosis for this admission?: Yes (4) COPD (chronic obstructive pulmonary disease) Qualifiers: Emphysema type: unspecified Is this a current diagnosis for this admission?: Yes (5) CAD (coronary artery disease) Qualifiers: Coronary Disease-Associated Artery/Lesion type: unspecified vessel or lesion type Associated angina: angina presence unspecified Is this a current diagnosis for this admission?: Yes (6) Atrial fibrillation Qualifiers: Atrial fibrillation type: paroxysmal Qualified Code(s): I48.0 - Paroxysmal atrial fibrillation Is this a current diagnosis for this admission?: Yes Plan: Continue amiodarone (7) Chronic combined systolic and diastolic CHF (congestive heart failure) Is this a current diagnosis for this admission?: Yes Plan: Continue current medications. Will consult cardiology (8) Septic shock due to Gram positive bacteria Is this a current diagnosis for this admission?: Yes Plan: We will attempt to wean off pressors (9) Sepsis due to methicillin resistant Staphylococcus aureus (MRSA) Is this a current diagnosis for this admission?: Yes Plan: Continue current antibiotics (10) Hyponatremia Is this a current diagnosis for this admission?: Yes Plan: We will restart with normal saline. (11) COPD with acute exacerbation Is this a current diagnosis for this admission?: Yes Plan: Improved with steroids. The steroids have been stopped. We continue with nebulization treatments (12) Acute respiratory failure Is this a current diagnosis for this admission?: Yes Plan: Continue weaning slowly off the ventilator
--- NOTE | 2017-09-03 09:11 | EKG REPORT ---
SEVERITY:- ABNORMAL ECG - ATRIAL FIBRILLATION RBBB AND LAFB : Confirmed by: Elina Ordaz MD 03-Sep-2017 09:11:01
[2017-09-03] MEDS ORDERED: ACETAMINOPHEN SOLN 325 MG/10.15 ML UDCUP NG PRN (10:00)
[2017-09-03] MEDS ORDERED: DEXTROSE 40% GEL 15 GM TUBE NG PRN ×2 (10:00)
[2017-09-03] MEDS ORDERED: DEXTROSE 5% IV ONE (11:00)
[2017-09-03] MEDS ORDERED: WATER IV ONE (11:00)
[2017-09-03] MEDS ORDERED: AMIODARONE HCL IV ONE (11:00)
[2017-09-03] MEDS: VANCOMYCIN HCL 1,000 MG in DEXTROSE 5%-WATER 250 ML IV SCH (11:29)
[2017-09-03] MEDS: FUROSEMIDE INJ/PF 40 MG/4 ML SDV IV SCH (11:30)
[2017-09-03] MEDS: PANTOPRAZOLE SODIUM 40 MG VIAL IV SCH ×2 (11:30→21:07)
[2017-09-03] MEDS: NORMAL SALINE 10 ML SDV (SCHEDULED) IV SCH ×2 (11:44→21:08)
[2017-09-03] MEDS: DEXTROSE 5%-WATER 250 ML with PHENYLEPHRINE HCL 40 MG IV PRN ×2 (12:58)
[2017-09-03] MEDS: ALBUMIN HUMAN 50 ML IV SCH ×2 (15:47→21:06)
[2017-09-03] MEDS: GABAPENTIN 300 MG CAPSULE NG SCH ×2 (15:48→21:07)
--- NOTE | 2017-09-03 16:35 | RADIOLOGY REPORT (SQ) ---
EXAM DESCRIPTION: CHEST SINGLE VIEW COMPLETED DATE/TIME: 09/03/2017 3:42 pm REASON FOR STUDY: verify TLC and ETT placement COMPARISON: 09/03/2017 NUMBER OF VIEWS: One view. TECHNIQUE: Single frontal radiographic image of the chest acquired. LIMITATIONS: None. FINDINGS: LUNGS AND PLEURA: Small pleural effusions and associated airspace disease not significantl y changed. No pneumothorax. MEDIASTINUM AND HEART: Stable heart size and mediastinal structures. SUPPORT DEVICES: Appropriate location without change. BONY STRUCTURES: No acute findings. HARDWARE: None. OTHER: No other significant finding. IMPRESSION: Asymmetric edema or pneumonia. Good position of support apparatus. No pneumothorax.
--- NOTE | 2017-09-03 20:32 | PDOC PROGRESS REPORT ---
Subjective Progress Note for:: 09/03/17 Subjective:: Patient about the same and has made some progress. Patient today off Elmer- Synephrine drip. Currently still on Levophed drip. Urine output seems improving. Patient seems to be maintaining sinus with ventricular paced rhythm. Chest x-ray from today reviewed. Patient remains intubated, sedated, patient however looks comfortable and in acute distress. Patient has moderate abdominal distention. Patient to have paracentesis later on today. Agree with albumin infusion in view of low albumin. Medications reviewed. Physical Exam Vital Signs: Temp Pulse Resp BP Pulse Ox 98.4 F 75 24 H 99/41 L 100 09/03/17 18:31 09/03/17 18:00 09/03/17 18:00 09/03/17 18:31 09/03/17 20:13 Intake & Output 09/02/17 09/03/17 09/04/17 06:59 06:59 06:59 Intake Total 2457 2168 1136 Output Total 1280 1350 455 Balance 1177 818 681 Weight 84.9 kg 86.9 kg Exam: GENERAL: well-nourished and in no acute distress. Patient is intubated and sedated. Orientation cannot be checked HEAD: Atraumatic, normocephalic. EYES: Pupils equal round and reactive to light, extraocular movements could not be checked, sclera anicteric, conjunctiva are normal. ENT: TMs normal, nares patent, oropharynx clear without exudates. Moist mucous membranes. No oral ulcerations or bleeding gums noted NECK: supple without lymphadenopathy or JVD. Trachea is central. No cervical or axillary lymphadenopathy noted. Carotids are 2+ LUNGS: Breath sounds mostly clear to auscultation patient is noted to have bibasal crackles at the extreme bases CHEST: Palpation of the chest wall shows no significant chest wall tenderness or abnormalities. HEART: [place] [employer], No PSH, 2/6 JUAN aortic area, 1/6 sorto systolic murmur mitral area , no rubs or gallops. ABDOMEN: Soft, no significant tenderness appreciated, normoactive bowel sounds. No guarding, no rebound. No rigidity noted . No masses appreciated. Mild abdominal distention secondary to ascites noted. EXTREMITIES: Pedal pulses are 1-2+, no calf tenderness noted, 1+ pedal edema noted. No clubbing or cyanosis. NEUROLOGICAL: The patient cannot participate in the neurological exam but no facial asymmetry noted. Extremities slightly hypotonic PSYCH: This cannot be evaluated. Patient cannot participate. SKIN: No significant ecchymosis, rash, or signs of pruritus noted. MUSCULOSKELETAL EXAM: No significant joint swelling noted. Patient cannot participate in musculoskeletal exam Results Laboratory Results: 09/03/17 04:40 09/03/17 04:40 09/03/17 09/03/17 09/03/17 04:40 04:40 04:40 WBC 21.2 H RBC 4.15 Hgb 9.9 L Hct 31.2 L MCV 75 L MCH 24.0 L MCHC 31.9 L RDW 24.9 H Plt Count 215 Seg Neutrophils % Not Reportable Lymphocytes % Not Reportable Monocytes % Not Reportable Eosinophils % Not Reportable Basophils % Not Reportable Absolute Neutrophils Not Reportable Absolute Lymphocytes Not Reportable Absolute Monocytes Not Reportable Absolute Eosinophils Not Reportable Absolute Basophils Not Reportable Carbonic Acid HCO3/H2CO3 Ratio ABG pH ABG pCO2 ABG pO2 ABG HCO3 ABG O2 Saturation ABG Base Excess FiO2 Sodium 125.6 L Potassium 3.6 Chloride 100 Carbon Dioxide 16 L Anion Gap 10 BUN 34 H Creatinine 1.30 H Est GFR ( Amer) 47 L Est GFR (Non-Af Amer) 39 L Glucose 139 H Calcium 8.5 Phosphorus 3.4 Magnesium 2.2 Total Bilirubin 2.3 H AST 77 H ALT 94 H Alkaline Phosphatase 69 Total Protein 5.0 L Albumin 2.3 L TSH 0.45 L 09/03/17 04:40 WBC RBC Hgb Hct MCV MCH MCHC RDW Plt Count Seg Neutrophils % Lymphocytes % Monocytes % Eosinophils % Basophils % Absolute Neutrophils Absolute Lymphocytes Absolute Monocytes Absolute Eosinophils Absolute Basophils Carbonic Acid 0.90 L HCO3/H2CO3 Ratio 20:1 ABG pH 7.40 ABG pCO2 29.8 L ABG pO2 93.9 ABG HCO3 18.2 L ABG O2 Saturation 97.3 ABG Base Excess -5.3 FiO2 50% Sodium Potassium Chloride Carbon Dioxide Anion Gap BUN Creatinine Est GFR ( Amer) Est GFR (Non-Af Amer) Glucose Calcium Phosphorus Magnesium Total Bilirubin AST ALT Alkaline Phosphatase Total Protein Albumin TSH 08/25/17 08/25/17 08/25/17 16:00 16:00 21:35 Creatine Kinase 65 CK-MB (CK-2) 0.72 Troponin I 0.039 0.032 NT-Pro-B Natriuret Pep 1570 H 08/26/17 08/26/17 08/27/17 04:23 04:23 05:46 Creatine Kinase CK-MB (CK-2) Troponin I 0.031 NT-Pro-B Natriuret Pep 1160 H 2020 H 08/29/17 08/29/17 08/30/17 20:30 20:30 03:23 Creatine Kinase 94 217 H CK-MB (CK-2) 1.13 Troponin I 0.078 NT-Pro-B Natriuret Pep 08/30/17 08/30/17 08/30/17 03:23 09:40 09:40 Creatine Kinase 216 H CK-MB (CK-2) 1.63 2.22 Troponin I 0.100 0.071 NT-Pro-B Natriuret Pep 08/31/17 09/02/17 09/03/17 05:30 05:00 04:40 Creatine Kinase CK-MB (CK-2) Troponin I NT-Pro-B Natriuret Pep 62845 H 8050 H 6870 H EKG Comments: No sustained tachycardia or bradycardia arrhythmias. Impressions: Abdomen Ultrasound 08/26/17 00:00 IMPRESSION: Echogenic material in the main portal vein, worrisome for incompletely occlusive thrombus Guidance Fluoroscopy 08/27/17 00:00 IMPRESSION: SUCCESSFUL PLACEMENT OF A 5 FR SINGLE LUMEN 37 CM PICC IN THE RIGHT BASILIC VEIN. Interventional Vascular Procedure 08/27/17 00:00 IMPRESSION: SUCCESSFUL PLACEMENT OF A 5 FR SINGLE LUMEN 37 CM PICC IN THE RIGHT BASILIC VEIN. PICC Line Insertion 08/27/17 00:00 IMPRESSION: SUCCESSFUL PLACEMENT OF A 5 FR SINGLE LUMEN 37 CM PICC IN THE RIGHT BASILIC VEIN. Abdomen/Pelvis CT 08/27/17 07:40 IMPRESSION: 1. PATENT PORTAL VEIN, SPLENIC VEIN, AND SUPERIOR MESENTERIC VEIN. NO EVIDENCE OF THROMBOSIS. 2. MODERATE ASCITES. 3. BILATERAL PLEURAL EFFUSIONS WITH BASILAR ATELECTASIS. 4. CHRONIC CHANGES IN THE LUMBAR SPINE WITH PRIOR KYPHOPLASTY AND SURGICAL CHANGES WITH HARDWARE. 5. NO OTHER SIGNIFICANT FINDINGS. Hepatobiliary Scan Nuclear Medicine 08/28/17 00:00 IMPRESSION: No scintigraphic evidence of cystic duct or common duct obstruction Mildly depressed gallbladder ejection fraction. IV CCK did not reproduce the patient's symptoms Chest X-Ray 09/03/17 06:00 IMPRESSION: 1. Increasing pulmonary congestion. 2. Lines and tubes remain in appropriate position. 3. No pneumothorax. 2010 [employer]- All Rights Reserved Assessment & Plan - Diagnosis (1) Atrial fibrillation Qualifiers: Atrial fibrillation type: paroxysmal Qualified Code(s): I48.0 - Paroxysmal atrial fibrillation Is this a current diagnosis for this admission?: Yes (2) COPD (chronic obstructive pulmonary disease) Qualifiers: Emphysema type: unspecified Is this a current diagnosis for this admission?: Yes (3) Hypotension Qualifiers: Hypotension type: other hypotension type Qualified Code(s): I95.89 - Other hypotension Is this a current diagnosis for this admission?: Yes (4) CAD (coronary artery disease) Qualifiers: Coronary Disease-Associated Artery/Lesion type: unspecified vessel or lesion type Associated angina: angina presence unspecified Is this a current diagnosis for this admission?: Yes (5) Respiratory failure Qualifiers: Chronicity: unspecified Respiratory failure complication: unspecified whether with hypoxia or hypercapnia Qualified Code(s): J96.90 - Respiratory failure, unspecified, unspecified whether with hypoxia or hypercapnia Is this a current diagnosis for this admission?: Yes (6) CHF (congestive heart failure) Qualifiers: Congestive heart failure type: diastolic Is this a current diagnosis for this admission?: Yes (7) Aortic stenosis Qualifiers: Cardiac valve disease etiology: nonrheumatic Qualified Code(s): I35.0 - Nonrheumatic aortic (valve) stenosis Is this a current diagnosis for this admission?: Yes - Notes Notes: Patient generally stable but has multiple ongoing acute and chronic problems. Patient is felt to have small bowel ileus and currently not being fed by NG tube. Therefore oral medication are not being started. Have replaced p.o. amiodarone with IV amiodarone 100 mg daily to be given over an hour to avoid thrombophlebitis. Will continue to follow patient. Patient remains critically ill. - Time Time with patient: Greater than 35 minutes Medications reviewed and adjusted accordingly: Yes
[2017-09-04 05:27] LABS: ARTERIAL BLOOD BASE EXCESS -6.7 mmol/L; ARTERIAL BLOOD O2 SATURATION 93.3 % (94-98)
[2017-09-04 05:28] LABS: HEMATOCRIT 28.4 % (36.0-47.0); HEMOGLOBIN 9.2 g/dL (12.0-15.5); HGB HCT DIFFERENCE -0.8; MEAN CORPUSCULAR HEMOGLOBIN 24.4 pg (27.0-33.4); MEAN CORPUSCULAR HGB CONC 32.5 g/dL (32.0-36.0); MEAN CORPUSCULAR VOLUME 75 fl (80-97); RED BLOOD COUNT 3.78 10^6/uL (3.72-5.28); RED CELL DISTRIBUTION WIDTH 25.2 % (11.5-14.0); WHITE BLOOD COUNT 18.1 10^3/uL (4.0-10.5)
[2017-09-04 05:33] LABS: PROTHROMBIN TIME 24.8 SEC (11.4-15.4)
[2017-09-04 05:42] LABS: ALANINE AMINOTRANSFERASE 78 U/L (9-52); ALBUMIN 2.3 g/dL (3.5-5.0); ALKALINE PHOSPHATASE 55 U/L (38-126); ANION GAP 11 (5-19); ASPARTATE AMINO TRANSFERASE 70 U/L (14-36); BILIRUBIN,DIRECT 2.5 mg/dL (0.0-0.4); BILIRUBIN,TOTAL 3.2 mg/dL (0.2-1.3); BLOOD UREA NITROGEN 38 mg/dL (7-20); CALCIUM 7.8 mg/dL (8.4-10.2); CARBON DIOXIDE 15 mmol/L (22-30); CHLORIDE 100 mmol/L (98-107); CREATININE RESULT 1.28 mg/dL (0.52-1.25); GLUCOSE 113 mg/dL (75-110); POTASSIUM 3.7 mmol/L (3.6-5.0); SODIUM 125.8 mmol/L (137-145); TOTAL PROTEIN 4.7 g/dL (6.3-8.2)
[2017-09-04 06:03] LABS: BAND NEUTROPHILS % (MANUAL) 2 % (3-5); BASOPHILS % (MANUAL) 0 % (0-2); EOSINOPHILS % (MANUAL) 2 % (0-6); LYMPHOCYTES % (MANUAL) 3 % (13-45); TOTAL CELLS COUNTED 100
[2017-09-04 06:04] LABS: ANISOCYTOSIS 3+; BURR CELLS 1+; MICROCYTOSIS 1+; OVALOCYTES SLIGHT; POIKILOCYTOSIS 1+; POLYCHROMASIA SLIGHT; TOXIC GRANULATION SLIGHT; TOXIC VACUOLATION PRESENT
[2017-09-04] MEDS: DEXTROSE 5%-WATER 250 ML with NOREPINEPHRINE BITARTRATE 4 MG IV PRN ×4 (06:15→22:09)
[2017-09-04] MEDS: LEVOTHYROXINE SODIUM 0.05 MG TABLET NG SCH (06:34)
[2017-09-04] MEDS: PIPERACILLIN SODIUM/TAZOBACTAM 2.25 GM in NORMAL SALINE 50 ML IV SCH ×3 (06:35→17:22)
[2017-09-04] MEDS: GABAPENTIN 300 MG CAPSULE NG SCH ×3 (06:35→22:47)
[2017-09-04] MEDS: PROPOFOL 100 ML IV PRN ×3 (06:36→13:49)
[2017-09-04] MEDS ORDERED: MAGNESIUM CITRATE 296 ML BOTTLE PO ONE (07:13)
[2017-09-04] MEDS ORDERED: DEXTROSE 5%-WATER 1000 ML 1,000 ML with SODIUM BICARBONATE 100 MEQ IV PRN ×2 (07:20)
--- NOTE | 2017-09-04 07:20 | PDOC PROGRESS REPORT ---
Subjective Progress Note for:: 09/04/17 Subjective:: The patient is intubated and sedated. They had to restart the Elmer-Synephrine during the night because of a low blood pressure. She is scheduled for a procedure today and the feeding has been held because of high residuals. Physical Exam Vital Signs: Temp Pulse Resp BP Pulse Ox 99.1 F 81 24 H 127/48 H 95 09/04/17 06:32 09/03/17 21:36 09/03/17 18:00 09/04/17 06:32 09/04/17 06:32 Intake & Output 09/03/17 09/04/17 09/05/17 06:59 06:59 06:59 Intake Total 2168 3243 Output Total 1350 1015 Balance 818 2228 Weight 86.9 kg 88.9 kg General appearance: PRESENT: severe distress Eye exam: PRESENT: conjunctival injection Neck exam: ABSENT: carotid bruit Respiratory exam: PRESENT: crackles, rhonchi Cardiovascular exam: PRESENT: irregular rhythm, +S1, +S2 Murmur grade: 3 GI/Abdominal exam: PRESENT: soft Results Laboratory Results: 09/04/17 05:10 09/04/17 05:10 09/04/17 09/04/17 09/04/17 05:10 05:10 05:10 WBC 18.1 H RBC 3.78 Hgb 9.2 L Hct 28.4 L MCV 75 L MCH 24.4 L MCHC 32.5 RDW 25.2 H Plt Count 165 Seg Neutrophils % Not Reportable Lymphocytes % Not Reportable Monocytes % Not Reportable Eosinophils % Not Reportable Basophils % Not Reportable Absolute Neutrophils Not Reportable Absolute Lymphocytes Not Reportable Absolute Monocytes Not Reportable Absolute Eosinophils Not Reportable Absolute Basophils Not Reportable Carbonic Acid 0.82 L HCO3/H2CO3 Ratio 20:1 ABG pH 7.41 ABG pCO2 27.3 L ABG pO2 65.1 L ABG HCO3 16.8 L ABG O2 Saturation 93.3 L ABG Base Excess -6.7 FiO2 35% Sodium 125.8 L Potassium 3.7 Chloride 100 Carbon Dioxide 15 L Anion Gap 11 BUN 38 H Creatinine 1.28 H Est GFR ( Amer) 48 L Est GFR (Non-Af Amer) 40 L Glucose 113 H Calcium 7.8 L Magnesium 2.0 Total Bilirubin 3.2 H AST 70 H ALT 78 H Alkaline Phosphatase 55 Total Protein 4.7 L Albumin 2.3 L 08/25/17 08/25/17 08/25/17 16:00 16:00 21:35 Creatine Kinase 65 CK-MB (CK-2) 0.72 Troponin I 0.039 0.032 NT-Pro-B Natriuret Pep 1570 H 08/26/17 08/26/17 08/27/17 04:23 04:23 05:46 Creatine Kinase CK-MB (CK-2) Troponin I 0.031 NT-Pro-B Natriuret Pep 1160 H 2020 H 08/29/17 08/29/17 08/30/17 20:30 20:30 03:23 Creatine Kinase 94 217 H CK-MB (CK-2) 1.13 Troponin I 0.078 NT-Pro-B Natriuret Pep 08/30/17 08/30/17 08/30/17 03:23 09:40 09:40 Creatine Kinase 216 H CK-MB (CK-2) 1.63 2.22 Troponin I 0.100 0.071 NT-Pro-B Natriuret Pep 08/31/17 09/02/17 09/03/17 05:30 05:00 04:40 Creatine Kinase CK-MB (CK-2) Troponin I NT-Pro-B Natriuret Pep 41520 H 8050 H 6870 H Impressions: Abdomen Ultrasound 08/26/17 00:00 IMPRESSION: Echogenic material in the main portal vein, worrisome for incompletely occlusive thrombus Guidance Fluoroscopy 08/27/17 00:00 IMPRESSION: SUCCESSFUL PLACEMENT OF A 5 FR SINGLE LUMEN 37 CM PICC IN THE RIGHT BASILIC VEIN. Interventional Vascular Procedure 08/27/17 00:00 IMPRESSION: SUCCESSFUL PLACEMENT OF A 5 FR SINGLE LUMEN 37 CM PICC IN THE RIGHT BASILIC VEIN. PICC Line Insertion 08/27/17 00:00 IMPRESSION: SUCCESSFUL PLACEMENT OF A 5 FR SINGLE LUMEN 37 CM PICC IN THE RIGHT BASILIC VEIN. Abdomen/Pelvis CT 08/27/17 07:40 IMPRESSION: 1. PATENT PORTAL VEIN, SPLENIC VEIN, AND SUPERIOR MESENTERIC VEIN. NO EVIDENCE OF THROMBOSIS. 2. MODERATE ASCITES. 3. BILATERAL PLEURAL EFFUSIONS WITH BASILAR ATELECTASIS. 4. CHRONIC CHANGES IN THE LUMBAR SPINE WITH PRIOR KYPHOPLASTY AND SURGICAL CHANGES WITH HARDWARE. 5. NO OTHER SIGNIFICANT FINDINGS. Hepatobiliary Scan Nuclear Medicine 08/28/17 00:00 IMPRESSION: No scintigraphic evidence of cystic duct or common duct obstruction Mildly depressed gallbladder ejection fraction. IV CCK did not reproduce the patient's symptoms Assessment & Plan - Diagnosis (1) Dehydration Is this a current diagnosis for this admission?: Yes (2) Hypokalemia Is this a current diagnosis for this admission?: Yes (3) Acute renal failure superimposed on stage 3 chronic kidney disease Qualifiers: Acute renal failure type: unspecified Qualified Code(s): N17.9 - Acute kidney failure, unspecified; N18.3 - Chronic kidney disease, stage 3 (moderate) Is this a current diagnosis for this admission?: Yes Plan: Slight improvement in BUN and creatinine but still in metabolic acidosis (4) COPD (chronic obstructive pulmonary disease) Qualifiers: Emphysema type: unspecified Is this a current diagnosis for this admission?: Yes (5) CAD (coronary artery disease) Qualifiers: Coronary Disease-Associated Artery/Lesion type: unspecified vessel or lesion type Associated angina: angina presence unspecified Is this a current diagnosis for this admission?: Yes (6) Atrial fibrillation Qualifiers: Atrial fibrillation type: paroxysmal Qualified Code(s): I48.0 - Paroxysmal atrial fibrillation Is this a current diagnosis for this admission?: Yes Plan: Continue amiodarone (7) Chronic combined systolic and diastolic CHF (congestive heart failure) Is this a current diagnosis for this admission?: Yes (8) Septic shock due to Gram positive bacteria Is this a current diagnosis for this admission?: Yes Plan: We will discuss with cardiology about possibly changing the pressors (9) Sepsis due to methicillin resistant Staphylococcus aureus (MRSA) Is this a current diagnosis for this admission?: Yes Plan: Continue current antibiotics (10) Hyponatremia Is this a current diagnosis for this admission?: Yes Plan: We will continue with IV fluids (11) COPD with acute exacerbation Is this a current diagnosis for this admission?: Yes Plan: Improved with steroids. The steroids have been stopped. We continue with nebulization treatments (12) Acute respiratory failure Is this a current diagnosis for this admission?: Yes Plan: Continue weaning slowly off the ventilator
--- NOTE | 2017-09-04 09:18 | RADIOLOGY REPORT (SQ) ---
EXAM DESCRIPTION: CHEST SINGLE VIEW COMPLETED DATE/TIME: 09/04/2017 6:23 am REASON FOR STUDY: septic shock COMPARISON: 08/30/2017, 09/01/2017, 09/03/2017 chest films EXAM PARAMETERS: NUMBER OF VIEWS: One view. TECHNIQUE: Single frontal radiographic view of the chest acquired. RADIATION DOSE: NA LIMITATIONS: None. FINDINGS: LUNGS AND PLEURA: Continued clearing of the alveolar and interstitial infiltrates compared to 08/30/2017. There is still mild increase in interstitial markings at both bases, likely minimal r esidual interstitial edema. The left trace pleural fluid in the lateral costophrenic sulci. No pneumothorax MEDIASTINUM AND HILAR STRUCTURES: No masses. Contour normal. HEART AND VASCULAR STRUCTURES: Stable moderate cardiomegaly. 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 Left-sided du al lead pacemaker. BONES: Colby rods lower chest upper lumbar spine. Bones osteoporotic HARDWARE: And right central line, endotracheal tube, nasogastric tube in good positioning. OTHER: No other significant finding. IMPRESSION: Tubes and lines in good positioning. Continued clearing of alveolar and interstitial infiltrates compared to 08/30/2017 TECHNICAL DOCUMENTATION: JOB ID: [id number]
[2017-09-04] MEDS: ALBUMIN HUMAN 50 ML IV SCH ×2 (09:23→14:29)
[2017-09-04] MEDS: VANCOMYCIN HCL 1,000 MG in DEXTROSE 5%-WATER 250 ML IV SCH (09:24)
[2017-09-04] MEDS: FUROSEMIDE INJ/PF 40 MG/4 ML SDV IV SCH (09:24)
[2017-09-04] MEDS: AMIODARONE HCL IV SCH (09:26)
[2017-09-04] MEDS: METOCLOPRAMIDE HCL INJ/PF 10 MG/2 ML SDV IV SCH ×2 (09:26→17:22)
[2017-09-04] MEDS: WATER IV SCH (09:26)
[2017-09-04] MEDS: DEXTROSE 5% IV SCH (09:26)
[2017-09-04] MEDS: NORMAL SALINE 10 ML SDV (SCHEDULED) IV SCH ×2 (09:27→22:48)
--- NOTE | 2017-09-04 11:24 | PDOC PROGRESS REPORT ---
Subjective Progress Note for:: 09/04/17 Subjective:: Patient started back on Elmer-Synephrine drip. Currently still on Levophed drip. Urine output seems improving. Chest x-ray from today reviewed. Patient noted to have high gastric residual on NG tube suction. Patient remains intubated, sedated, patient however looks comfortable and in acute distress. Medications reviewed. Physical Exam Vital Signs: Temp Pulse Resp BP Pulse Ox 99.1 F 72 14 127/48 H 99 09/04/17 06:32 09/04/17 08:00 09/04/17 08:00 09/04/17 06:32 09/04/17 08:00 Intake & Output 09/03/17 09/04/17 09/05/17 06:59 06:59 06:59 Intake Total 2168 3243 Output Total 1350 1015 200 Balance 818 2228 -200 Weight 86.9 kg 88.9 kg Exam: GENERAL: well-nourished and in no acute distress. Patient is intubated and sedated. Orientation cannot be checked HEAD: Atraumatic, normocephalic. EYES: Pupils equal round and reactive to light, extraocular movements could not be checked, sclera anicteric, conjunctiva are normal. ENT: TMs normal, nares patent, oropharynx clear without exudates. Moist mucous membranes. No oral ulcerations or bleeding gums noted NECK: supple without lymphadenopathy or JVD. Trachea is central. No cervical or axillary lymphadenopathy noted. Carotids are 2+ LUNGS: Breath sounds mostly clear to auscultation patient is noted to have bibasal crackles at the extreme bases CHEST: Palpation of the chest wall shows no significant chest wall tenderness or abnormalities. HEART: [place] [employer], No PSH, 2/6 JUAN aortic area, 1/6 sorto systolic murmur mitral area , no rubs or gallops. ABDOMEN: Soft, no significant tenderness appreciated, normoactive bowel sounds. No guarding, no rebound. No rigidity noted . No masses appreciated. Ascites noted. EXTREMITIES: Pedal pulses are 1-2+, no calf tenderness noted, 2+ pedal edema noted. No clubbing or cyanosis. Patient also noted to have generalized edema. NEUROLOGICAL: The patient cannot participate in the neurological exam but no facial asymmetry noted. Extremities slightly hypotonic PSYCH: This cannot be evaluated. Patient cannot participate. SKIN: No significant ecchymosis, rash, or signs of pruritus noted. MUSCULOSKELETAL EXAM: No significant joint swelling noted. Patient cannot participate in musculoskeletal exam Results Laboratory Results: 09/04/17 05:10 09/04/17 05:10 09/04/17 09/04/17 09/04/17 05:10 05:10 05:10 WBC 18.1 H RBC 3.78 Hgb 9.2 L Hct 28.4 L MCV 75 L MCH 24.4 L MCHC 32.5 RDW 25.2 H Plt Count 165 Seg Neutrophils % Not Reportable Lymphocytes % Not Reportable Monocytes % Not Reportable Eosinophils % Not Reportable Basophils % Not Reportable Absolute Neutrophils Not Reportable Absolute Lymphocytes Not Reportable Absolute Monocytes Not Reportable Absolute Eosinophils Not Reportable Absolute Basophils Not Reportable Carbonic Acid 0.82 L HCO3/H2CO3 Ratio 20:1 ABG pH 7.41 ABG pCO2 27.3 L ABG pO2 65.1 L ABG HCO3 16.8 L ABG O2 Saturation 93.3 L ABG Base Excess -6.7 FiO2 35% Sodium 125.8 L Potassium 3.7 Chloride 100 Carbon Dioxide 15 L Anion Gap 11 BUN 38 H Creatinine 1.28 H Est GFR ( Amer) 48 L Est GFR (Non-Af Amer) 40 L Glucose 113 H Calcium 7.8 L Magnesium 2.0 Total Bilirubin 3.2 H AST 70 H ALT 78 H Alkaline Phosphatase 55 Total Protein 4.7 L Albumin 2.3 L 08/25/17 08/25/17 08/25/17 16:00 16:00 21:35 Creatine Kinase 65 CK-MB (CK-2) 0.72 Troponin I 0.039 0.032 NT-Pro-B Natriuret Pep 1570 H 08/26/17 08/26/17 08/27/17 04:23 04:23 05:46 Creatine Kinase CK-MB (CK-2) Troponin I 0.031 NT-Pro-B Natriuret Pep 1160 H 2020 H 08/29/17 08/29/17 08/30/17 20:30 20:30 03:23 Creatine Kinase 94 217 H CK-MB (CK-2) 1.13 Troponin I 0.078 NT-Pro-B Natriuret Pep 08/30/17 08/30/17 08/30/17 03:23 09:40 09:40 Creatine Kinase 216 H CK-MB (CK-2) 1.63 2.22 Troponin I 0.100 0.071 NT-Pro-B Natriuret Pep 08/31/17 09/02/17 09/03/17 05:30 05:00 04:40 Creatine Kinase CK-MB (CK-2) Troponin I NT-Pro-B Natriuret Pep 48472 H 8050 H 6870 H Impressions: Abdomen Ultrasound 08/26/17 00:00 IMPRESSION: Echogenic material in the main portal vein, worrisome for incompletely occlusive thrombus Guidance Fluoroscopy 08/27/17 00:00 IMPRESSION: SUCCESSFUL PLACEMENT OF A 5 FR SINGLE LUMEN 37 CM PICC IN THE RIGHT BASILIC VEIN. Interventional Vascular Procedure 08/27/17 00:00 IMPRESSION: SUCCESSFUL PLACEMENT OF A 5 FR SINGLE LUMEN 37 CM PICC IN THE RIGHT BASILIC VEIN. PICC Line Insertion 08/27/17 00:00 IMPRESSION: SUCCESSFUL PLACEMENT OF A 5 FR SINGLE LUMEN 37 CM PICC IN THE RIGHT BASILIC VEIN. Abdomen/Pelvis CT 08/27/17 07:40 IMPRESSION: 1. PATENT PORTAL VEIN, SPLENIC VEIN, AND SUPERIOR MESENTERIC VEIN. NO EVIDENCE OF THROMBOSIS. 2. MODERATE ASCITES. 3. BILATERAL PLEURAL EFFUSIONS WITH BASILAR ATELECTASIS. 4. CHRONIC CHANGES IN THE LUMBAR SPINE WITH PRIOR KYPHOPLASTY AND SURGICAL CHANGES WITH HARDWARE. 5. NO OTHER SIGNIFICANT FINDINGS. Hepatobiliary Scan Nuclear Medicine 08/28/17 00:00 IMPRESSION: No scintigraphic evidence of cystic duct or common duct obstruction Mildly depressed gallbladder ejection fraction. IV CCK did not reproduce the patient's symptoms Chest X-Ray 09/04/17 06:00 IMPRESSION: Tubes and lines in good positioning. Continued clearing of alveolar and interstitial infiltrates compared to 2016 Assessment & Plan - Diagnosis (1) Atrial fibrillation Qualifiers: Atrial fibrillation type: paroxysmal Qualified Code(s): I48.0 - Paroxysmal atrial fibrillation Is this a current diagnosis for this admission?: Yes (2) COPD (chronic obstructive pulmonary disease) Qualifiers: Emphysema type: unspecified Is this a current diagnosis for this admission?: Yes (3) Hypotension Qualifiers: Hypotension type: other hypotension type Qualified Code(s): I95.89 - Other hypotension Is this a current diagnosis for this admission?: Yes (4) CAD (coronary artery disease) Qualifiers: Coronary Disease-Associated Artery/Lesion type: unspecified vessel or lesion type Associated angina: angina presence unspecified Is this a current diagnosis for this admission?: Yes (5) Respiratory failure Qualifiers: Chronicity: unspecified Respiratory failure complication: unspecified whether with hypoxia or hypercapnia Qualified Code(s): J96.90 - Respiratory failure, unspecified, unspecified whether with hypoxia or hypercapnia Is this a current diagnosis for this admission?: Yes (6) CHF (congestive heart failure) Qualifiers: Congestive heart failure type: diastolic Is this a current diagnosis for this admission?: Yes (7) Aortic stenosis Qualifiers: Cardiac valve disease etiology: nonrheumatic Qualified Code(s): I35.0 - Nonrheumatic aortic (valve) stenosis Is this a current diagnosis for this admission?: Yes - Notes Notes: There has been no significant progress. Patient has multiple ongoing medical problems. Patient noted to have worsening liver functions. Patient continues on vasopressor. Have started patient on Midodrin to see if vasopressors can be tapered. Continue other supportive care. Overall prognosis is poor. - Time Time with patient: 15-25 minutes - CODE STATUS was discussed, patient remains full code. Surrogate decision-maker unchanged. Multiple medical problems were addressed. More than 50% of the time spent coordinating care, discussing management plans with involved caregivers. Management plans discussed with involved personnels. Medical decision making was of moderate to high complexity , patient's has multiple comorbidities.
[2017-09-04] MEDS: PANTOPRAZOLE SODIUM 40 MG VIAL IV SCH ×2 (11:38→22:47)
[2017-09-04] MEDS: MIDODRINE HCL 5 MG TABLET NG SCH ×2 (13:49→17:24)
[2017-09-04] MEDS: DEXTROSE 5%-WATER 250 ML with PHENYLEPHRINE HCL 40 MG IV PRN ×2 (13:50)
[2017-09-04] MEDS ORDERED: MIDODRINE HCL 5 MG TABLET NG SCH (14:00)
[2017-09-04] MEDS ORDERED: LIDOCAINE 1% INJ-PF (10 MG/ML) 30 ML SDV ONE (14:27)
--- NOTE | 2017-09-04 15:50 | RADIOLOGY REPORT (SQ) ---
EXAM DESCRIPTION: U/S ABD PARACENTESIS COMPLETED DATE/TIME: 09/04/2017 3:16 pm REASON FOR STUDY: ascites, sepsis COMPARISON None. LIMITATIONS: None. PROCEDURE: After obtaining informed consent, the patient was brought to the ultrasound suite. The p rocedure was performed with the patient on a gurney. Ultrasound was used to identify a prominent poc ket of ascites in the right lower quadrant. An appropriate access site was selected. The patient wa s prepped and draped in usual sterile fashion. The access site was anesthetized with 3.5 mL 1% lido enrique. A [id number] needle was advanced into the fluid. After aspiration of fluid the needle, the catheter was advanced off the needle into the fluid. A total of 1,600 mL of clear straw-colored fluid was removed. The patient tolerated the procedure well left the department in satisfactory condi tion. The fluid was submitted for testing. IMPRESSION: Successful ultrasound-guided diagnostic and therapeutic paracentesis COMMENT: Patient medication list reviewed: Yes- Quality ID# [id number]:Eligible professional attests to doc umenting in the medical record they obtained, updated, or reviewed the patient's current medications. Quality ID #[id number]: The patient was prepped and draped using maximum sterile barrier technique including cap, mask, sterile gown, sterile gloves, a large sterile sheet, hand hygiene, and 2% Chlorhexidine fo r cutaneous antisepsis. When ultrasound is used, sterile ultrasound techniques are followed requiring sterile gel and sterile probes. Quality ID #[id number]: Final reports for procedures using fluoroscopy that document radiation exposure rozina cecilia, or exposure time and number of fluorographic images (if radiation exposure indices are not avail able) TECHNICAL DOCUMENTATION: JOB ID: [id number] [employer]- All Rights Reserved
[2017-09-04 15:59] LABS: FLUID TYPE PERITONEAL
[2017-09-04 16:03] LABS: FLUID APPEARANCE CLEAR
[2017-09-04 16:04] LABS: FLUID RBC SIDE 1 26; FLUID RBC SIDE 2 28
[2017-09-04 16:05] LABS: FLUID RBC DILUENT USED NONE USED; FLUID RBC DILUTION FACTOR 1; TOTAL RBC SQUARES COUNTED FLD 225
[2017-09-04 17:20] LABS: PARTIAL THROMBOPLASTIN TIME 38.8 SEC (23.5-35.8)
[2017-09-04 17:27] LABS: HEMOGLOBIN 9.4 g/dL (12.0-15.5); HGB HCT DIFFERENCE -0.8; MEAN CORPUSCULAR HEMOGLOBIN 24.5 pg (27.0-33.4); MEAN CORPUSCULAR HGB CONC 32.4 g/dL (32.0-36.0); MEAN CORPUSCULAR VOLUME 76 fl (80-97); RED BLOOD COUNT 3.84 10^6/uL (3.72-5.28); RED CELL DISTRIBUTION WIDTH 24.3 % (11.5-14.0); WHITE BLOOD COUNT 19.9 10^3/uL (4.0-10.5)
[2017-09-04 17:51] LABS: BASOPHILS % (MANUAL) 0 % (0-2); EOSINOPHILS % (MANUAL) 0 % (0-6); LYMPHOCYTES % (MANUAL) 2 % (13-45); TOTAL CELLS COUNTED 100
[2017-09-04 17:53] LABS: ANISOCYTOSIS 3+; HYPOCHROMASIA 2+; POIKILOCYTOSIS 1+; TOXIC GRANULATION 2+
[2017-09-04 17:54] LABS: MICROCYTOSIS SLIGHT
[2017-09-04 18:00] LABS: BURR CELLS 1+; OVALOCYTES SLIGHT
[2017-09-04 18:01] LABS: TOXIC VACUOLATION PRESENT
[2017-09-04] MEDS ORDERED: PHYTONADIONE INJ 10 MG/1 ML AMPULE SUBCUT ONE (19:30)
[2017-09-05] MEDS: PIPERACILLIN SODIUM/TAZOBACTAM 2.25 GM in NORMAL SALINE 50 ML IV SCH ×4 (00:28→17:29)
[2017-09-05] MEDS: METOCLOPRAMIDE HCL INJ/PF 10 MG/2 ML SDV IV SCH ×4 (00:29→17:30)
[2017-09-05] MEDS: DEXTROSE 5%-WATER 250 ML with PHENYLEPHRINE HCL 40 MG IV PRN ×4 (03:44→20:27)
[2017-09-05] MEDS: DEXTROSE 5%-WATER 250 ML with NOREPINEPHRINE BITARTRATE 4 MG IV PRN ×6 (03:45→21:52)
[2017-09-05 05:17] LABS: ARTERIAL BLOOD BASE EXCESS -4.6 mmol/L; ARTERIAL BLOOD O2 SATURATION 93.9 % (94-98)
[2017-09-05 05:31] LABS: HEMATOCRIT 26.5 % (36.0-47.0); HEMOGLOBIN 8.5 g/dL (12.0-15.5); MEAN CORPUSCULAR HEMOGLOBIN 24.2 pg (27.0-33.4); MEAN CORPUSCULAR HGB CONC 31.9 g/dL (32.0-36.0); MEAN CORPUSCULAR VOLUME 76 fl (80-97); RED BLOOD COUNT 3.49 10^6/uL (3.72-5.28); RED CELL DISTRIBUTION WIDTH 24.9 % (11.5-14.0); WHITE BLOOD COUNT 16.1 10^3/uL (4.0-10.5)
[2017-09-05 05:37] LABS: ALANINE AMINOTRANSFERASE 76 U/L (9-52); ALBUMIN 2.7 g/dL (3.5-5.0); ALKALINE PHOSPHATASE 73 U/L (38-126); ANION GAP 11 (5-19); ASPARTATE AMINO TRANSFERASE 106 U/L (14-36); BILIRUBIN,DIRECT 3.1 mg/dL (0.0-0.4); BILIRUBIN,TOTAL 4.1 mg/dL (0.2-1.3); BLOOD UREA NITROGEN 34 mg/dL (7-20); CALCIUM 8.3 mg/dL (8.4-10.2); CARBON DIOXIDE 19 mmol/L (22-30); CHLORIDE 98 mmol/L (98-107); CREATININE RESULT 1.28 mg/dL (0.52-1.25); GLUCOSE 124 mg/dL (75-110); MAGNESIUM 2.1 mg/dL (1.6-2.3); PHOSPHORUS 3.6 mg/dL (2.5-4.5); POTASSIUM 3.7 mmol/L (3.6-5.0); SODIUM 127.9 mmol/L (137-145); TOTAL PROTEIN 5.3 g/dL (6.3-8.2)
[2017-09-05 05:44] LABS: PREALBUMIN 13.7 mg/dL (17.6-36.0)
[2017-09-05] MEDS: GABAPENTIN 300 MG CAPSULE NG SCH ×3 (05:57→21:51)
[2017-09-05] MEDS: LEVOTHYROXINE SODIUM 0.05 MG TABLET NG SCH (05:58)
[2017-09-05] MEDS: MIDODRINE HCL 5 MG TABLET NG SCH ×3 (05:58→17:30)
[2017-09-05 06:00] LABS: BAND NEUTROPHILS % (MANUAL) 2 % (3-5); BASOPHILS % (MANUAL) 0 % (0-2); EOSINOPHILS % (MANUAL) 3 % (0-6); LYMPHOCYTES % (MANUAL) 3 % (13-45); TOTAL CELLS COUNTED 100
[2017-09-05 06:02] LABS: HYPOCHROMASIA 2+; MICROCYTOSIS SLIGHT; POLYCHROMASIA SLIGHT; TOXIC GRANULATION SLIGHT
[2017-09-05 06:03] LABS: ANISOCYTOSIS 3+; BURR CELLS 1+; OVALOCYTES 1+; PLATELET CLUMPS PRESENT; POIKILOCYTOSIS 2+; TARGET CELLS SLIGHT
[2017-09-05] MEDS: PROPOFOL 100 ML IV PRN ×2 (06:10→21:52)
--- NOTE | 2017-09-05 07:33 | RADIOLOGY REPORT (SQ) ---
EXAM DESCRIPTION: CHEST SINGLE VIEW CLINICAL HISTORY: 82 years, Female, sepsis COMPARISON: Yesterday's chest radiograph at 0615 hours. NUMBER OF VIEWS: 1 TECHNIQUE: Routine radiographic technique. LIMITATIONS: None. FINDINGS: Lines and tubes remain in unchanged appropriate position. Increasing chamber cardiac enlargement. Increasing pulmonary edema and small bilateral pleural effusions. No pneumothorax. The graft IMPRESSION: Increasing pulmonary edema. Lines and tubes remain in appropriate position. 2011 [employer]- All Rights Reserved
[2017-09-05] MEDS ORDERED: FUROSEMIDE INJ/PF 40 MG/4 ML SDV IV ONE (08:00)
--- NOTE | 2017-09-05 08:06 | PDOC PROGRESS REPORT ---
Subjective Progress Note for:: 09/05/17 Subjective:: Had paracentesis yesterday and 1.6 L of fluid was taken. Patient received 2 units of FFP. Reported coffee-ground material but recent upper endoscopy showed findings of gastritis. Nasogastric tube feeding was held. Residuals were low, however has 2+ L of positive balance. Chest x-ray shows pulmonary edema. Patient remains on vasopressors on levofed and Elmer-Synephrine. Physical Exam Vital Signs: Temp Pulse Resp BP Pulse Ox 99.5 F 71 20 130/42 H 94 09/05/17 06:32 09/05/17 04:40 09/04/17 18:00 09/05/17 06:32 09/05/17 06:32 Intake & Output 09/04/17 09/05/17 09/06/17 06:59 06:59 06:59 Intake Total 3243 3950 Output Total 1015 1880 Balance 2228 2070 Weight 88.9 kg 88.7 kg General appearance: PRESENT: no acute distress, other - Intubated and sedated Head exam: PRESENT: normocephalic Eye exam: PRESENT: conjunctiva pale Mouth exam: PRESENT: moist, neck supple Respiratory exam: PRESENT: crackles - Bilateral, unlabored Cardiovascular exam: PRESENT: irregular rhythm, +S1, +S2, systolic murmur - Left sternal border GI/Abdominal exam: PRESENT: distended - Mildly, hypoactive bowel sounds, soft Extremities exam: PRESENT: +1 edema Neurological exam: PRESENT: altered Skin exam: PRESENT: dry, warm - [id number] Results Laboratory Results: 09/05/17 05:05 09/05/17 05:05 09/04/17 09/04/17 09/04/17 14:44 16:00 17:00 WBC 19.9 H RBC 3.84 Hgb 9.4 L Hct 29.0 L MCV 76 L MCH 24.5 L MCHC 32.4 RDW 24.3 H Plt Count 169 Seg Neutrophils % Not Reportable Lymphocytes % Not Reportable Monocytes % Not Reportable Eosinophils % Not Reportable Basophils % Not Reportable Absolute Neutrophils Not Reportable Absolute Lymphocytes Not Reportable Absolute Monocytes Not Reportable Absolute Eosinophils Not Reportable Absolute Basophils Not Reportable Carbonic Acid HCO3/H2CO3 Ratio ABG pH ABG pCO2 ABG pO2 ABG HCO3 ABG O2 Saturation ABG Base Excess FiO2 Sodium Potassium Chloride Carbon Dioxide Anion Gap BUN Creatinine Est GFR ( Amer) Est GFR (Non-Af Amer) Glucose Calcium Phosphorus Magnesium Total Bilirubin AST ALT Alkaline Phosphatase Total Protein Albumin Prealbumin Fluid Type PERITONEAL Fluid Source ASCITES Fluid Color YELLOW Fluid Appearance CLEAR Fluid Viscosity LIQUID Fluid WBC 33 Fluid RBC 30 Stool Occult Blood POSITIVE Blood Type Antibody Screen 09/04/17 09/05/17 09/05/17 19:16 05:05 05:05 WBC 16.1 H RBC 3.49 L Hgb 8.5 L Hct 26.5 L MCV 76 L MCH 24.2 L MCHC 31.9 L RDW 24.9 H Plt Count 144 L Seg Neutrophils % Not Reportable Lymphocytes % Not Reportable Monocytes % Not Reportable Eosinophils % Not Reportable Basophils % Not Reportable Absolute Neutrophils Not Reportable Absolute Lymphocytes Not Reportable Absolute Monocytes Not Reportable Absolute Eosinophils Not Reportable Absolute Basophils Not Reportable Carbonic Acid 1.04 L HCO3/H2CO3 Ratio 19:1 ABG pH 7.38 ABG pCO2 34.5 L ABG pO2 69.7 L ABG HCO3 20.0 ABG O2 Saturation 93.9 L ABG Base Excess -4.6 FiO2 50% Sodium Potassium Chloride Carbon Dioxide Anion Gap BUN Creatinine Est GFR ( Amer) Est GFR (Non-Af Amer) Glucose Calcium Phosphorus Magnesium Total Bilirubin AST ALT Alkaline Phosphatase Total Protein Albumin Prealbumin Fluid Type Fluid Source Fluid Color Fluid Appearance Fluid Viscosity Fluid WBC Fluid RBC Stool Occult Blood Blood Type B POSITIVE Antibody Screen TNP 09/05/17 05:05 WBC RBC Hgb Hct MCV MCH MCHC RDW Plt Count Seg Neutrophils % Lymphocytes % Monocytes % Eosinophils % Basophils % Absolute Neutrophils Absolute Lymphocytes Absolute Monocytes Absolute Eosinophils Absolute Basophils Carbonic Acid HCO3/H2CO3 Ratio ABG pH ABG pCO2 ABG pO2 ABG HCO3 ABG O2 Saturation ABG Base Excess FiO2 Sodium 127.9 L Potassium 3.7 Chloride 98 Carbon Dioxide 19 L Anion Gap 11 BUN 34 H Creatinine 1.28 H Est GFR ( Amer) 48 L Est GFR (Non-Af Amer) 40 L Glucose 124 H Calcium 8.3 L Phosphorus 3.6 Magnesium 2.1 Total Bilirubin 4.1 H AST 106 H ALT 76 H Alkaline Phosphatase 73 Total Protein 5.3 L Albumin 2.7 L Prealbumin 13.7 L Fluid Type Fluid Source Fluid Color Fluid Appearance Fluid Viscosity Fluid WBC Fluid RBC Stool Occult Blood Blood Type Antibody Screen 09/04/17 14:44 Ascities Fluid Mycobacterium DNA Probe (TORI) - Final Not Reportable 09/04/17 14:44 Ascities Fluid - Final Not Reportable 09/04/17 14:44 Ascities Fluid Specimen Comment (TORI) - Final CREDIT OPERATIONS SPECIALIST 09/04/17 14:44 Ascities Fluid - Final Not Reportable 09/04/17 14:44 Ascities Fluid Nocardia Susceptibility - Final Not Reportable 09/04/17 14:44 Ascities Fluid Nocardia Susceptibility - Final Not Reportable 09/04/17 14:44 Ascities Fluid Nocardia Susceptibility - Final Not Reportable 09/04/17 14:44 Ascities Fluid Nocardia Susceptibility - Final Not Reportable 09/04/17 14:44 Ascities Fluid Microbiology Comment - Final Not Reportable 08/25/17 08/25/17 08/25/17 16:00 16:00 21:35 Creatine Kinase 65 CK-MB (CK-2) 0.72 Troponin I 0.039 0.032 NT-Pro-B Natriuret Pep 1570 H 08/26/17 08/26/17 08/27/17 04:23 04:23 05:46 Creatine Kinase CK-MB (CK-2) Troponin I 0.031 NT-Pro-B Natriuret Pep 1160 H 2020 H 08/29/17 08/29/17 08/30/17 20:30 20:30 03:23 Creatine Kinase 94 217 H CK-MB (CK-2) 1.13 Troponin I 0.078 NT-Pro-B Natriuret Pep 08/30/17 08/30/17 08/30/17 03:23 09:40 09:40 Creatine Kinase 216 H CK-MB (CK-2) 1.63 2.22 Troponin I 0.100 0.071 NT-Pro-B Natriuret Pep 08/31/17 09/02/17 09/03/17 05:30 05:00 04:40 Creatine Kinase CK-MB (CK-2) Troponin I NT-Pro-B Natriuret Pep 07456 H 8050 H 6870 H Impressions: Abdomen Ultrasound 08/26/17 00:00 IMPRESSION: Echogenic material in the main portal vein, worrisome for incompletely occlusive thrombus Guidance Fluoroscopy 08/27/17 00:00 IMPRESSION: SUCCESSFUL PLACEMENT OF A 5 FR SINGLE LUMEN 37 CM PICC IN THE RIGHT BASILIC VEIN. Interventional Vascular Procedure 08/27/17 00:00 IMPRESSION: SUCCESSFUL PLACEMENT OF A 5 FR SINGLE LUMEN 37 CM PICC IN THE RIGHT BASILIC VEIN. PICC Line Insertion 08/27/17 00:00 IMPRESSION: SUCCESSFUL PLACEMENT OF A 5 FR SINGLE LUMEN 37 CM PICC IN THE RIGHT BASILIC VEIN. Abdomen/Pelvis CT 08/27/17 07:40 IMPRESSION: 1. PATENT PORTAL VEIN, SPLENIC VEIN, AND SUPERIOR MESENTERIC VEIN. NO EVIDENCE OF THROMBOSIS. 2. MODERATE ASCITES. 3. BILATERAL PLEURAL EFFUSIONS WITH BASILAR ATELECTASIS. 4. CHRONIC CHANGES IN THE LUMBAR SPINE WITH PRIOR KYPHOPLASTY AND SURGICAL CHANGES WITH HARDWARE. 5. NO OTHER SIGNIFICANT FINDINGS. Hepatobiliary Scan Nuclear Medicine 08/28/17 00:00 IMPRESSION: No scintigraphic evidence of cystic duct or common duct obstruction Mildly depressed gallbladder ejection fraction. IV CCK did not reproduce the patient's symptoms Paracentesis Ultrasound 09/04/17 10:32 IMPRESSION: Successful ultrasound-guided diagnostic and therapeutic paracentesis Chest X-Ray 09/05/17 06:00 IMPRESSION: Increasing pulmonary edema. Lines and tubes remain in appropriate position. 2010 [employer]- All Rights Reserved Assessment & Plan - Diagnosis (1) Acute respiratory failure Qualifiers: Respiratory failure complication: hypoxia Qualified Code(s): J96.01 - Acute respiratory failure with hypoxia Is this a current diagnosis for this admission?: Yes (2) COPD with acute exacerbation Is this a current diagnosis for this admission?: Yes (3) CHF exacerbation Qualifiers: Congestive heart failure type: combined Qualified Code(s): I50.43 - Acute on chronic combined systolic (congestive) and diastolic (congestive) heart failure Is this a current diagnosis for this admission?: Yes (4) Sepsis due to methicillin resistant Staphylococcus aureus (MRSA) Is this a current diagnosis for this admission?: Yes (5) GI bleeding Qualifiers: GI bleed type/associated pathology: unspecified gastrointestinal hemorrhage type Qualified Code(s): K92.2 - Gastrointestinal hemorrhage, unspecified Is this a current diagnosis for this admission?: Yes (6) Coagulopathy Is this a current diagnosis for this admission?: Yes (7) Acute renal failure superimposed on stage 3 chronic kidney disease Qualifiers: Acute renal failure type: unspecified Qualified Code(s): N17.9 - Acute kidney failure, unspecified; N18.3 - Chronic kidney disease, stage 3 (moderate) Is this a current diagnosis for this admission?: Yes (8) Anemia Qualifiers: Anemia type: unspecified type Qualified Code(s): D64.9 - Anemia, unspecified Is this a current diagnosis for this admission?: Yes (9) Dehydration Is this a current diagnosis for this admission?: Yes (10) CAD (coronary artery disease) Qualifiers: Coronary Disease-Associated Artery/Lesion type: unspecified vessel or lesion type Associated angina: angina presence unspecified Is this a current diagnosis for this admission?: Yes (11) Atrial fibrillation Qualifiers: Atrial fibrillation type: paroxysmal Qualified Code(s): I48.0 - Paroxysmal atrial fibrillation Is this a current diagnosis for this admission?: Yes - Time Time Spent with patient: 25-34 minutes - Plan Summary Plan Summary: We will continue proton pump inhibitor. Recheck hematocrit and if it falls below 8 transfuse 2 units of packed RBC. Increase Lasix to every 8 hours. Discontinue sodium bicarbonate drip and continue normal saline at the lower rate. Follow-up chest x-ray in the morning. Continue antibiotics. We will try to resume tube feedings gently.
[2017-09-05] MEDS: NORMAL SALINE 1000 ML 1,000 ML IV PRN (08:42)
[2017-09-05] MEDS: AMIODARONE HCL IV SCH (10:24)
[2017-09-05] MEDS: WATER IV SCH (10:24)
[2017-09-05] MEDS: DEXTROSE 5% IV SCH (10:24)
[2017-09-05] MEDS: VANCOMYCIN HCL 1,000 MG in DEXTROSE 5%-WATER 250 ML IV SCH (10:25)
[2017-09-05] MEDS: NORMAL SALINE 10 ML SDV (SCHEDULED) IV SCH ×2 (10:26→21:51)
[2017-09-05] MEDS: PANTOPRAZOLE SODIUM 40 MG VIAL IV SCH ×2 (10:26→21:51)
[2017-09-05 12:08] LABS: CREATININE RESULT 1.19 mg/dL (0.52-1.25)
--- NOTE | 2017-09-05 12:26 | PDOC PROGRESS REPORT ---
Subjective Progress Note for:: 09/05/17 Subjective:: Patient started back on Elmer-Synephrine drip. Currently still on Levophed drip. Urine output seems improving. Chest x-ray from today reviewed. Patient noted to have high gastric residual on NG tube suction. Patient remains intubated, sedated, patient however looks comfortable and in acute distress. Medications reviewed. Physical Exam Vital Signs: Temp Pulse Resp BP Pulse Ox 99.3 F 82 20 98/38 L 91 L 09/05/17 11:02 09/05/17 10:00 09/05/17 08:00 09/05/17 11:02 09/05/17 11:48 Intake & Output 09/04/17 09/05/17 09/06/17 06:59 06:59 06:59 Intake Total 3243 3950 Output Total 1015 1880 345 Balance 2228 0 -345 Weight 88.9 kg 88.7 kg Exam: GENERAL: well-nourished and in no acute distress. Patient is intubated and sedated. Orientation cannot be checked HEAD: Atraumatic, normocephalic. EYES: Pupils equal round and reactive to light, extraocular movements could not be checked, sclera anicteric, conjunctiva are normal. ENT: TMs normal, nares patent, oropharynx clear without exudates. Moist mucous membranes. No oral ulcerations or bleeding gums noted NECK: supple without lymphadenopathy or JVD. Trachea is central. No cervical or axillary lymphadenopathy noted. Carotids are 2+ LUNGS: Breath sounds mostly clear to auscultation patient is noted to have bibasal crackles at the extreme bases CHEST: Palpation of the chest wall shows no significant chest wall tenderness or abnormalities. HEART: [place] [employer], No PSH, 2/6 JUAN aortic area, 1/6 sorto systolic murmur mitral area , no rubs or gallops. ABDOMEN: Soft, no significant tenderness appreciated, normoactive bowel sounds. No guarding, no rebound. No rigidity noted . No masses appreciated. EXTREMITIES: Pedal pulses are 1-2+, no calf tenderness noted, 1+ pedal edema noted. No clubbing or cyanosis. NEUROLOGICAL: The patient cannot participate in the neurological exam but no facial asymmetry noted. Extremities slightly hypotonic PSYCH: This cannot be evaluated. Patient cannot participate. SKIN: No significant ecchymosis, rash, or signs of pruritus noted. MUSCULOSKELETAL EXAM: No significant joint swelling noted. Patient cannot participate in musculoskeletal exam Results Laboratory Results: 09/05/17 05:05 09/05/17 11:15 09/04/17 09/04/17 09/04/17 14:44 16:00 17:00 WBC 19.9 H RBC 3.84 Hgb 9.4 L Hct 29.0 L MCV 76 L MCH 24.5 L MCHC 32.4 RDW 24.3 H Plt Count 169 Seg Neutrophils % Not Reportable Lymphocytes % Not Reportable Monocytes % Not Reportable Eosinophils % Not Reportable Basophils % Not Reportable Absolute Neutrophils Not Reportable Absolute Lymphocytes Not Reportable Absolute Monocytes Not Reportable Absolute Eosinophils Not Reportable Absolute Basophils Not Reportable Carbonic Acid HCO3/H2CO3 Ratio ABG pH ABG pCO2 ABG pO2 ABG HCO3 ABG O2 Saturation ABG Base Excess FiO2 Sodium Potassium Chloride Carbon Dioxide Anion Gap BUN Creatinine Est GFR ( Amer) Est GFR (Non-Af Amer) Glucose Calcium Phosphorus Magnesium Total Bilirubin AST ALT Alkaline Phosphatase Total Protein Albumin Prealbumin Fluid Type PERITONEAL Fluid Source ASCITES Fluid Color YELLOW Fluid Appearance CLEAR Fluid Viscosity LIQUID Fluid WBC 33 Fluid RBC 30 Stool Occult Blood POSITIVE Blood Type Antibody Screen 09/04/17 09/05/17 09/05/17 19:16 05:05 05:05 WBC 16.1 H RBC 3.49 L Hgb 8.5 L Hct 26.5 L MCV 76 L MCH 24.2 L MCHC 31.9 L RDW 24.9 H Plt Count 144 L Seg Neutrophils % Not Reportable Lymphocytes % Not Reportable Monocytes % Not Reportable Eosinophils % Not Reportable Basophils % Not Reportable Absolute Neutrophils Not Reportable Absolute Lymphocytes Not Reportable Absolute Monocytes Not Reportable Absolute Eosinophils Not Reportable Absolute Basophils Not Reportable Carbonic Acid 1.04 L HCO3/H2CO3 Ratio 19:1 ABG pH 7.38 ABG pCO2 34.5 L ABG pO2 69.7 L ABG HCO3 20.0 ABG O2 Saturation 93.9 L ABG Base Excess -4.6 FiO2 50% Sodium Potassium Chloride Carbon Dioxide Anion Gap BUN Creatinine Est GFR ( Amer) Est GFR (Non-Af Amer) Glucose Calcium Phosphorus Magnesium Total Bilirubin AST ALT Alkaline Phosphatase Total Protein Albumin Prealbumin Fluid Type Fluid Source Fluid Color Fluid Appearance Fluid Viscosity Fluid WBC Fluid RBC Stool Occult Blood Blood Type B POSITIVE Antibody Screen TNP 09/05/17 09/05/17 05:05 11:15 WBC RBC Hgb Hct MCV MCH MCHC RDW Plt Count Seg Neutrophils % Lymphocytes % Monocytes % Eosinophils % Basophils % Absolute Neutrophils Absolute Lymphocytes Absolute Monocytes Absolute Eosinophils Absolute Basophils Carbonic Acid HCO3/H2CO3 Ratio ABG pH ABG pCO2 ABG pO2 ABG HCO3 ABG O2 Saturation ABG Base Excess FiO2 Sodium 127.9 L Potassium 3.7 Chloride 98 Carbon Dioxide 19 L Anion Gap 11 BUN 34 H Creatinine 1.28 H 1.19 Est GFR ( Amer) 48 L 52 L Est GFR (Non-Af Amer) 40 L 43 L Glucose 124 H Calcium 8.3 L Phosphorus 3.6 Magnesium 2.1 Total Bilirubin 4.1 H AST 106 H ALT 76 H Alkaline Phosphatase 73 Total Protein 5.3 L Albumin 2.7 L Prealbumin 13.7 L Fluid Type Fluid Source Fluid Color Fluid Appearance Fluid Viscosity Fluid WBC Fluid RBC Stool Occult Blood Blood Type Antibody Screen 09/04/17 14:44 Ascities Fluid Mycobacterium DNA Probe (TORI) - Final Not Reportable 09/04/17 14:44 Ascities Fluid - Final Not Reportable 09/04/17 14:44 Ascities Fluid Specimen Comment (TORI) - Final [employer] 09/04/17 14:44 Ascities Fluid - Final Not Reportable 09/04/17 14:44 Ascities Fluid Nocardia Susceptibility - Final Not Reportable 09/04/17 14:44 Ascities Fluid Nocardia Susceptibility - Final Not Reportable 09/04/17 14:44 Ascities Fluid Nocardia Susceptibility - Final Not Reportable 09/04/17 14:44 Ascities Fluid Nocardia Susceptibility - Final Not Reportable 09/04/17 14:44 Ascities Fluid Microbiology Comment - Final Not Reportable 08/25/17 08/25/17 08/25/17 16:00 16:00 21:35 Creatine Kinase 65 CK-MB (CK-2) 0.72 Troponin I 0.039 0.032 NT-Pro-B Natriuret Pep 1570 H 08/26/17 08/26/17 08/27/17 04:23 04:23 05:46 Creatine Kinase CK-MB (CK-2) Troponin I 0.031 NT-Pro-B Natriuret Pep 1160 H 2020 H 08/29/17 08/29/17 08/30/17 20:30 20:30 03:23 Creatine Kinase 94 217 H CK-MB (CK-2) 1.13 Troponin I 0.078 NT-Pro-B Natriuret Pep 08/30/17 08/30/17 08/30/17 03:23 09:40 09:40 Creatine Kinase 216 H CK-MB (CK-2) 1.63 2.22 Troponin I 0.100 0.071 NT-Pro-B Natriuret Pep 08/31/17 09/02/17 09/03/17 05:30 05:00 04:40 Creatine Kinase CK-MB (CK-2) Troponin I NT-Pro-B Natriuret Pep 61276 H 8050 H 6870 H EKG Comments: Telemetry strips shows intermittent atrial fibrillation, intermittent paced ventricular beats and intermittent sinus rhythm. Impressions: Abdomen Ultrasound 08/26/17 00:00 IMPRESSION: Echogenic material in the main portal vein, worrisome for incompletely occlusive thrombus Guidance Fluoroscopy 08/27/17 00:00 IMPRESSION: SUCCESSFUL PLACEMENT OF A 5 FR SINGLE LUMEN 37 CM PICC IN THE RIGHT BASILIC VEIN. Interventional Vascular Procedure 08/27/17 00:00 IMPRESSION: SUCCESSFUL PLACEMENT OF A 5 FR SINGLE LUMEN 37 CM PICC IN THE RIGHT BASILIC VEIN. PICC Line Insertion 08/27/17 00:00 IMPRESSION: SUCCESSFUL PLACEMENT OF A 5 FR SINGLE LUMEN 37 CM PICC IN THE RIGHT BASILIC VEIN. Abdomen/Pelvis CT 08/27/17 07:40 IMPRESSION: 1. PATENT PORTAL VEIN, SPLENIC VEIN, AND SUPERIOR MESENTERIC VEIN. NO EVIDENCE OF THROMBOSIS. 2. MODERATE ASCITES. 3. BILATERAL PLEURAL EFFUSIONS WITH BASILAR ATELECTASIS. 4. CHRONIC CHANGES IN THE LUMBAR SPINE WITH PRIOR KYPHOPLASTY AND SURGICAL CHANGES WITH HARDWARE. 5. NO OTHER SIGNIFICANT FINDINGS. Hepatobiliary Scan Nuclear Medicine 08/28/17 00:00 IMPRESSION: No scintigraphic evidence of cystic duct or common duct obstruction Mildly depressed gallbladder ejection fraction. IV CCK did not reproduce the patient's symptoms Paracentesis Ultrasound 09/04/17 10:32 IMPRESSION: Successful ultrasound-guided diagnostic and therapeutic paracentesis Chest X-Ray 09/05/17 06:00 IMPRESSION: Increasing pulmonary edema. Lines and tubes remain in appropriate position. 2010 [employer]- All Rights Reserved Assessment & Plan - Diagnosis (1) Atrial fibrillation Qualifiers: Atrial fibrillation type: paroxysmal Qualified Code(s): I48.0 - Paroxysmal atrial fibrillation Is this a current diagnosis for this admission?: Yes (2) COPD (chronic obstructive pulmonary disease) Qualifiers: Emphysema type: unspecified Is this a current diagnosis for this admission?: Yes (3) Hypotension Qualifiers: Hypotension type: other hypotension type Qualified Code(s): I95.89 - Other hypotension Is this a current diagnosis for this admission?: Yes (4) CAD (coronary artery disease) Qualifiers: Coronary Disease-Associated Artery/Lesion type: unspecified vessel or lesion type Associated angina: angina presence unspecified Is this a current diagnosis for this admission?: Yes (5) Respiratory failure Qualifiers: Chronicity: unspecified Respiratory failure complication: unspecified whether with hypoxia or hypercapnia Qualified Code(s): J96.90 - Respiratory failure, unspecified, unspecified whether with hypoxia or hypercapnia Is this a current diagnosis for this admission?: Yes (6) CHF (congestive heart failure) Qualifiers: Congestive heart failure type: diastolic Is this a current diagnosis for this admission?: Yes (7) Aortic stenosis Qualifiers: Cardiac valve disease etiology: nonrheumatic Qualified Code(s): I35.0 - Nonrheumatic aortic (valve) stenosis Is this a current diagnosis for this admission?: Yes - Notes Notes: Atrial fibrillation: Paroxysmal. Continue maintenance amiodarone, continue chronic anticoagulation. Telemetry strips reviewed shows adequately controlled heart rate response. Intermittent paced rhythm noted. COPD: This is being expertly managed by tank welder. Hypotension: Possibly related to sepsis. Continue broad-spectrum antibiotic therapy. Patient currently on Midodrin therapy in order to wean IV vasopressors. Currently still Elmer-Synephrine. Patient on Levophed. Coronary artery disease: Currently is stable. Recommend medical management at this point. Respiratory failure: Continue with oxygen supplementation and ventilatory support. Separator Inserter managing. CHF: Currently stable. No significant volume overload noted at this point. Continue to follow with I&O measurements and daily weighing. Aortic stenosis: My review of echocardiogram shows that it is moderate. May need further evaluation as an outpatient once patient stabilized and if patient considered a candidate for it. Aortic valve area calculated by technologist was 1.2 cm. Peak gradient was 64 but mean gradient was 31 mmHg. Will continue to follow patient. - Time Time with patient: Greater than 35 minutes - CODE STATUS was discussed, patient remains full code. Surrogate decision-maker unchanged. Multiple medical problems were addressed. More than 50% of the time spent coordinating care, discussing management plans with involved caregivers. Management plans discussed with involved personnels. Medical decision making was of high complexity, patient's has multiple comorbidities. Medications reviewed and adjusted accordingly: Yes
[2017-09-05] MEDS: FUROSEMIDE INJ/PF 40 MG/4 ML SDV IV SCH ×2 (14:11→21:50)
[2017-09-05 17:31] LABS: HEMATOCRIT 28.2 % (36.0-47.0); HEMOGLOBIN 9.1 g/dL (12.0-15.5); HGB HCT DIFFERENCE -0.9; MEAN CORPUSCULAR HEMOGLOBIN 24.4 pg (27.0-33.4); MEAN CORPUSCULAR HGB CONC 32.1 g/dL (32.0-36.0); MEAN CORPUSCULAR VOLUME 76 fl (80-97); RED BLOOD COUNT 3.71 10^6/uL (3.72-5.28)
[2017-09-05] MEDS: NYSTATIN TOPICAL POWDER 15 GM TP SCH (18:40)
[2017-09-06] MEDS: METOCLOPRAMIDE HCL INJ/PF 10 MG/2 ML SDV IV SCH ×4 (00:33→17:01)
[2017-09-06] MEDS: PIPERACILLIN SODIUM/TAZOBACTAM 2.25 GM in NORMAL SALINE 50 ML IV SCH ×4 (00:33→17:39)
[2017-09-06] MEDS: LEVOTHYROXINE SODIUM 0.05 MG TABLET NG SCH (05:37)
[2017-09-06] MEDS: GABAPENTIN 300 MG CAPSULE NG SCH ×3 (05:37→22:30)
[2017-09-06] MEDS: FUROSEMIDE INJ/PF 40 MG/4 ML SDV IV SCH ×3 (05:37→22:29)
[2017-09-06] MEDS: MIDODRINE HCL 5 MG TABLET NG SCH ×3 (05:37→17:01)
[2017-09-06] MEDS: DEXTROSE 5%-WATER 250 ML with PHENYLEPHRINE HCL 40 MG IV PRN ×4 (05:38→17:01)
[2017-09-06] MEDS: DEXTROSE 5%-WATER 250 ML with NOREPINEPHRINE BITARTRATE 4 MG IV PRN ×4 (05:38→22:31)
[2017-09-06 06:03] LABS: ARTERIAL BLOOD BASE EXCESS -6.2 mmol/L
[2017-09-06 06:08] LABS: HEMATOCRIT 30.4 % (36.0-47.0); HEMOGLOBIN 9.7 g/dL (12.0-15.5); HGB HCT DIFFERENCE -1.3; MEAN CORPUSCULAR HEMOGLOBIN 24.4 pg (27.0-33.4); MEAN CORPUSCULAR HGB CONC 31.9 g/dL (32.0-36.0); MEAN CORPUSCULAR VOLUME 76 fl (80-97); RED BLOOD COUNT 3.97 10^6/uL (3.72-5.28); RED CELL DISTRIBUTION WIDTH 25.2 % (11.5-14.0); WHITE BLOOD COUNT 22.2 10^3/uL (4.0-10.5)
[2017-09-06 06:15] LABS: ANION GAP 11 (5-19); BLOOD UREA NITROGEN 31 mg/dL (7-20); CARBON DIOXIDE 20 mmol/L (22-30); CHLORIDE 99 mmol/L (98-107); CREATININE RESULT 0.99 mg/dL (0.52-1.25); GLUCOSE 108 mg/dL (75-110); MAGNESIUM 1.9 mg/dL (1.6-2.3); POTASSIUM 3.6 mmol/L (3.6-5.0); SODIUM 130.4 mmol/L (137-145)
[2017-09-06 06:39] LABS: BAND NEUTROPHILS % (MANUAL) 4 % (3-5); BASOPHILS % (MANUAL) 0 % (0-2); EOSINOPHILS % (MANUAL) 0 % (0-6); LYMPHOCYTES % (MANUAL) 6 % (13-45); TOTAL CELLS COUNTED 100
[2017-09-06 06:42] LABS: ANISOCYTOSIS 3+; BURR CELLS 1+; POIKILOCYTOSIS 1+; POLYCHROMASIA SLIGHT; TARGET CELLS SLIGHT; TOXIC GRANULATION 2+; TOXIC VACUOLATION PRESENT
[2017-09-06 06:43] LABS: OVALOCYTES SLIGHT
--- NOTE | 2017-09-06 08:21 | RADIOLOGY REPORT (SQ) ---
EXAM DESCRIPTION: CHEST SINGLE VIEW COMPLETED DATE/TIME: 09/06/2017 6:30 am REASON FOR STUDY: septic shock COMPARISON: 09/05/2017 NUMBER OF VIEWS: One view. TECHNIQUE: Single frontal radiographic view of the chest acquired. LIMITATIONS: None. FINDINGS: LUNGS AND PLEURA: Stable degree of pulmonary edema with bilateral pleural effusions. MEDIASTINUM AND HILAR STRUCTURES: No masses or contour abnormality. HEART AND VASCULATURE: Cardiac enlargement. Vascular congestion. BONES: No acute findings. HARDWARE: Stable including endotracheal tube, nasogastric tube, and right central venous catheter. OTHER: No other significant finding. IMPRESSION: STABLE LINES/TUBES. STABLE DEGREE OF PULMONARY EDEMA WITH BILATERAL PLEURAL EFFUSIONS. TECHNICAL DOCUMENTATION: JOB ID: [id number] [email or web address] All Rights Reserved
--- NOTE | 2017-09-06 09:21 | PDOC PROGRESS REPORT ---
Subjective Progress Note for:: 09/06/17 Subjective:: Patient has a slightly negative urine output balance. Chest x-ray showed stable congestion. No reported temperature spikes nor diarrhea. Patient had a bowel movement last night as reported. Patient tolerating resumption of tube feedings. Hemoglobin hematocrit seems to be stable. Physical Exam Vital Signs: Temp Pulse Resp BP Pulse Ox 98.8 F 79 14 145/51 H 99 09/06/17 08:27 09/06/17 09:06 09/06/17 08:00 09/06/17 09:03 09/06/17 08:27 Intake & Output 09/05/17 09/06/17 09/07/17 06:59 06:59 06:59 Intake Total 3950 2495 Output Total 1880 2535 380 Balance 2069 - -380 Weight 88.7 kg 88.5 kg General appearance: PRESENT: no acute distress, obese, other - Intubated and sedated Head exam: PRESENT: normocephalic Eye exam: PRESENT: conjunctiva pale Mouth exam: PRESENT: moist, neck supple Neck exam: ABSENT: JVD Respiratory exam: PRESENT: rhonchi - Bilateral occasional Cardiovascular exam: PRESENT: RRR, systolic murmur - Left sternal border GI/Abdominal exam: PRESENT: normal bowel sounds, soft. ABSENT: distended Extremities exam: PRESENT: other - Trace to +1 edema Neurological exam: PRESENT: altered Psychiatric exam: ABSENT: agitated Focused psych exam: ABSENT: restlessness Skin exam: PRESENT: dry, warm. ABSENT: cyanosis Results Laboratory Results: 09/06/17 05:50 09/06/17 05:50 09/05/17 09/05/17 09/06/17 11:15 17:15 05:50 WBC 20.0 H RBC 3.71 L Hgb 9.1 L Hct 28.2 L MCV 76 L MCH 24.4 L MCHC 32.1 RDW 25.0 H Plt Count 168 Seg Neutrophils % Lymphocytes % Monocytes % Eosinophils % Basophils % Absolute Neutrophils Absolute Lymphocytes Absolute Monocytes Absolute Eosinophils Absolute Basophils Carbonic Acid 0.94 L HCO3/H2CO3 Ratio 19:1 ABG pH 7.38 ABG pCO2 31.1 L ABG pO2 81.8 ABG HCO3 18.0 L ABG O2 Saturation 96.0 ABG Base Excess -6.2 FiO2 50% Sodium Potassium Chloride Carbon Dioxide Anion Gap BUN Creatinine 1.19 Est GFR ( Amer) 52 L Est GFR (Non-Af Amer) 43 L Glucose Calcium Magnesium 09/06/17 09/06/17 05:50 05:50 WBC 22.2 H RBC 3.97 Hgb 9.7 L Hct 30.4 L MCV 76 L MCH 24.4 L MCHC 31.9 L RDW 25.2 H Plt Count 185 Seg Neutrophils % Not Reportable Lymphocytes % Not Reportable Monocytes % Not Reportable Eosinophils % Not Reportable Basophils % Not Reportable Absolute Neutrophils Not Reportable Absolute Lymphocytes Not Reportable Absolute Monocytes Not Reportable Absolute Eosinophils Not Reportable Absolute Basophils Not Reportable Carbonic Acid HCO3/H2CO3 Ratio ABG pH ABG pCO2 ABG pO2 ABG HCO3 ABG O2 Saturation ABG Base Excess FiO2 Sodium 130.4 L Potassium 3.6 Chloride 99 Carbon Dioxide 20 L Anion Gap 11 BUN 31 H Creatinine 0.99 Est GFR ( Amer) > 60 Est GFR (Non-Af Amer) 54 L Glucose 108 Calcium 8.0 L Magnesium 1.9 09/04/17 11:58 Tracheal Aspirate Gram Stain - Final 09/04/17 11:58 Tracheal Aspirate Sputum Culture - Final C.albicans/C.dubliniensis Normal Juliet Absent 08/25/17 08/25/17 08/25/17 16:00 16:00 21:35 Creatine Kinase 65 CK-MB (CK-2) 0.72 Troponin I 0.039 0.032 NT-Pro-B Natriuret Pep 1570 H 08/26/17 08/26/17 08/27/17 04:23 04:23 05:46 Creatine Kinase CK-MB (CK-2) Troponin I 0.031 NT-Pro-B Natriuret Pep 1160 H 2020 H 08/29/17 08/29/17 08/30/17 20:30 20:30 03:23 Creatine Kinase 94 217 H CK-MB (CK-2) 1.13 Troponin I 0.078 NT-Pro-B Natriuret Pep 08/30/17 08/30/17 08/30/17 03:23 09:40 09:40 Creatine Kinase 216 H CK-MB (CK-2) 1.63 2.22 Troponin I 0.100 0.071 NT-Pro-B Natriuret Pep 08/31/17 09/02/17 09/03/17 05:30 05:00 04:40 Creatine Kinase CK-MB (CK-2) Troponin I NT-Pro-B Natriuret Pep 49226 H 8050 H 6870 H Impressions: Abdomen Ultrasound 08/26/17 00:00 IMPRESSION: Echogenic material in the main portal vein, worrisome for incompletely occlusive thrombus Guidance Fluoroscopy 08/27/17 00:00 IMPRESSION: SUCCESSFUL PLACEMENT OF A 5 FR SINGLE LUMEN 37 CM PICC IN THE RIGHT BASILIC VEIN. Interventional Vascular Procedure 08/27/17 00:00 IMPRESSION: SUCCESSFUL PLACEMENT OF A 5 FR SINGLE LUMEN 37 CM PICC IN THE RIGHT BASILIC VEIN. PICC Line Insertion 08/27/17 00:00 IMPRESSION: SUCCESSFUL PLACEMENT OF A 5 FR SINGLE LUMEN 37 CM PICC IN THE RIGHT BASILIC VEIN. Abdomen/Pelvis CT 08/27/17 07:40 IMPRESSION: 1. PATENT PORTAL VEIN, SPLENIC VEIN, AND SUPERIOR MESENTERIC VEIN. NO EVIDENCE OF THROMBOSIS. 2. MODERATE ASCITES. 3. BILATERAL PLEURAL EFFUSIONS WITH BASILAR ATELECTASIS. 4. CHRONIC CHANGES IN THE LUMBAR SPINE WITH PRIOR KYPHOPLASTY AND SURGICAL CHANGES WITH HARDWARE. 5. NO OTHER SIGNIFICANT FINDINGS. Hepatobiliary Scan Nuclear Medicine 08/28/17 00:00 IMPRESSION: No scintigraphic evidence of cystic duct or common duct obstruction Mildly depressed gallbladder ejection fraction. IV CCK did not reproduce the patient's symptoms Paracentesis Ultrasound 09/04/17 10:32 IMPRESSION: Successful ultrasound-guided diagnostic and therapeutic paracentesis Chest X-Ray 09/06/17 06:00 IMPRESSION: STABLE LINES/TUBES. STABLE DEGREE OF PULMONARY EDEMA WITH BILATERAL PLEURAL EFFUSIONS. Assessment & Plan - Diagnosis (1) Acute respiratory failure Qualifiers: Respiratory failure complication: hypoxia Qualified Code(s): J96.01 - Acute respiratory failure with hypoxia Is this a current diagnosis for this admission?: Yes (2) COPD with acute exacerbation Is this a current diagnosis for this admission?: Yes (3) CHF exacerbation Qualifiers: Congestive heart failure type: combined Qualified Code(s): I50.43 - Acute on chronic combined systolic (congestive) and diastolic (congestive) heart failure Is this a current diagnosis for this admission?: Yes (4) Sepsis due to methicillin resistant Staphylococcus aureus (MRSA) Is this a current diagnosis for this admission?: Yes (5) GI bleeding Qualifiers: GI bleed type/associated pathology: unspecified gastrointestinal hemorrhage type Qualified Code(s): K92.2 - Gastrointestinal hemorrhage, unspecified Is this a current diagnosis for this admission?: Yes (6) Coagulopathy Is this a current diagnosis for this admission?: Yes (7) Acute renal failure superimposed on stage 3 chronic kidney disease Qualifiers: Acute renal failure type: unspecified Qualified Code(s): N17.9 - Acute kidney failure, unspecified; N18.3 - Chronic kidney disease, stage 3 (moderate) Is this a current diagnosis for this admission?: Yes (8) Anemia Qualifiers: Anemia type: unspecified type Qualified Code(s): D64.9 - Anemia, unspecified Is this a current diagnosis for this admission?: Yes (9) Dehydration Is this a current diagnosis for this admission?: Yes (10) CAD (coronary artery disease) Qualifiers: Coronary Disease-Associated Artery/Lesion type: unspecified vessel or lesion type Associated angina: angina presence unspecified Is this a current diagnosis for this admission?: Yes (11) Atrial fibrillation Qualifiers: Atrial fibrillation type: paroxysmal Qualified Code(s): I48.0 - Paroxysmal atrial fibrillation Is this a current diagnosis for this admission?: Yes - Time Time Spent with patient: 25-34 minutes - Plan Summary Plan Summary: We will keep current dose of Lasix. We will add 3 doses of Zaroxolyn and hopefully pulmonary congestion proves and patient be extubated. Continue antibiotics. Increase tube feedings. Follow-up chest x-ray and routine labs in the morning. Continue supportive care. No drop in hematocrit noted. We will continue to monitor. No bleeding reported as well at this time .
[2017-09-06] MEDS: WATER IV SCH (09:32)
[2017-09-06] MEDS: AMIODARONE HCL IV SCH (09:32)
[2017-09-06] MEDS: VANCOMYCIN HCL 1,000 MG in DEXTROSE 5%-WATER 250 ML IV SCH (09:32)
[2017-09-06] MEDS: DEXTROSE 5% IV SCH (09:32)
[2017-09-06] MEDS: NORMAL SALINE 10 ML SDV (SCHEDULED) IV SCH ×2 (09:33→22:31)
[2017-09-06] MEDS: NORMAL SALINE 1000 ML 1,000 ML IV PRN (10:23)
[2017-09-06] MEDS: NYSTATIN TOPICAL POWDER 15 GM TP SCH ×2 (10:52→17:02)
[2017-09-06] MEDS: METOLAZONE 2.5 MG TABLET NG SCH ×2 (14:34→22:29)
[2017-09-06] MEDS: CEFTAZIDIME PENTAHYDRATE 1 GM in DEXTROSE 5%-WATER 50 ML IV SCH ×2 (15:03→22:30)
--- NOTE | 2017-09-06 18:32 | PDOC PROGRESS REPORT ---
Subjective Progress Note for:: 09/06/17 Subjective:: Patient on Elmer-Synephrine drip. Currently still on Levophed drip. Urine output seems improving. Chest x-ray from today reviewed. Chest x-ray noted to show stable findings. Lab reviewed shows elevated direct bilirubin. Patient also has low albumin. Patient remains intubated, sedated, patient however looks comfortable and in acute distress. Medications reviewed. Physical Exam Vital Signs: Temp Pulse Resp BP Pulse Ox 98.4 F 79 14 115/39 L 97 09/06/17 18:00 09/06/17 09:06 09/06/17 08:00 09/06/17 17:58 09/06/17 18:00 Intake & Output 09/05/17 09/06/17 09/07/17 06:59 06:59 06:59 Intake Total 3950 2495 1702 Output Total 1880 2535 1450 Balance 2070 -40 252 Weight 88.7 kg 88.5 kg Exam: GENERAL: well-nourished and in no acute distress. Patient is intubated and sedated. Orientation cannot be checked HEAD: Atraumatic, normocephalic. EYES: Pupils equal round and reactive to light, extraocular movements could not be checked, sclera anicteric, conjunctiva are normal. ENT: TMs normal, nares patent, oropharynx clear without exudates. Moist mucous membranes. No oral ulcerations or bleeding gums noted NECK: supple without lymphadenopathy or JVD. Trachea is central. No cervical or axillary lymphadenopathy noted. Carotids are 2+ LUNGS: Breath sounds mostly clear to auscultation patient is noted to have bibasal crackles at the extreme bases. Diminished breath sounds noted both bases. CHEST: Palpation of the chest wall shows no significant chest wall tenderness or abnormalities. HEART: [place] [employer], No PSH, 2/6 JUAN aortic area, 1/6 sorto systolic murmur mitral area , no rubs or gallops. ABDOMEN: Soft, no significant tenderness appreciated, normoactive bowel sounds. No guarding, no rebound. No rigidity noted . No masses appreciated. EXTREMITIES: Pedal pulses are 1-2+, no calf tenderness noted, 1-2 + pedal edema noted. Generalized edema also noted. No clubbing or cyanosis. NEUROLOGICAL: The patient cannot participate in the neurological exam but no facial asymmetry noted. Extremities slightly hypotonic PSYCH: This cannot be evaluated. Patient cannot participate. SKIN: No significant ecchymosis, rash, or signs of pruritus noted. MUSCULOSKELETAL EXAM: No significant joint swelling noted. Patient cannot participate in musculoskeletal exam Results Laboratory Results: 09/06/17 05:50 09/06/17 05:50 09/06/17 09/06/17 09/06/17 05:50 05:50 05:50 WBC 22.2 H RBC 3.97 Hgb 9.7 L Hct 30.4 L MCV 76 L MCH 24.4 L MCHC 31.9 L RDW 25.2 H Plt Count 185 Seg Neutrophils % Not Reportable Lymphocytes % Not Reportable Monocytes % Not Reportable Eosinophils % Not Reportable Basophils % Not Reportable Absolute Neutrophils Not Reportable Absolute Lymphocytes Not Reportable Absolute Monocytes Not Reportable Absolute Eosinophils Not Reportable Absolute Basophils Not Reportable Carbonic Acid 0.94 L HCO3/H2CO3 Ratio 19:1 ABG pH 7.38 ABG pCO2 31.1 L ABG pO2 81.8 ABG HCO3 18.0 L ABG O2 Saturation 96.0 ABG Base Excess -6.2 FiO2 50% Sodium 130.4 L Potassium 3.6 Chloride 99 Carbon Dioxide 20 L Anion Gap 11 BUN 31 H Creatinine 0.99 Est GFR ( Amer) > 60 Est GFR (Non-Af Amer) 54 L Glucose 108 Calcium 8.0 L Magnesium 1.9 09/04/17 11:58 Tracheal Aspirate Gram Stain - Final 09/04/17 11:58 Tracheal Aspirate Sputum Culture - Final C.albicans/C.dubliniensis Normal Juliet Absent 08/25/17 08/25/17 08/25/17 16:00 16:00 21:35 Creatine Kinase 65 CK-MB (CK-2) 0.72 Troponin I 0.039 0.032 NT-Pro-B Natriuret Pep 1570 H 08/26/17 08/26/17 08/27/17 04:23 04:23 05:46 Creatine Kinase CK-MB (CK-2) Troponin I 0.031 NT-Pro-B Natriuret Pep 1160 H 2020 H 08/29/17 08/29/17 08/30/17 20:30 20:30 03:23 Creatine Kinase 94 217 H CK-MB (CK-2) 1.13 Troponin I 0.078 NT-Pro-B Natriuret Pep 08/30/17 08/30/17 08/30/17 03:23 09:40 09:40 Creatine Kinase 216 H CK-MB (CK-2) 1.63 2.22 Troponin I 0.100 0.071 NT-Pro-B Natriuret Pep 08/31/17 09/02/17 09/03/17 05:30 05:00 04:40 Creatine Kinase CK-MB (CK-2) Troponin I NT-Pro-B Natriuret Pep 85723 H 8050 H 6870 H EKG Comments: Atrial fibrillation with bundle branch block pattern, intermittent ventricular paced beats noted. Impressions: Abdomen Ultrasound 08/26/17 00:00 IMPRESSION: Echogenic material in the main portal vein, worrisome for incompletely occlusive thrombus Guidance Fluoroscopy 08/27/17 00:00 IMPRESSION: SUCCESSFUL PLACEMENT OF A 5 FR SINGLE LUMEN 37 CM PICC IN THE RIGHT BASILIC VEIN. Interventional Vascular Procedure 08/27/17 00:00 IMPRESSION: SUCCESSFUL PLACEMENT OF A 5 FR SINGLE LUMEN 37 CM PICC IN THE RIGHT BASILIC VEIN. PICC Line Insertion 08/27/17 00:00 IMPRESSION: SUCCESSFUL PLACEMENT OF A 5 FR SINGLE LUMEN 37 CM PICC IN THE RIGHT BASILIC VEIN. Abdomen/Pelvis CT 08/27/17 07:40 IMPRESSION: 1. PATENT PORTAL VEIN, SPLENIC VEIN, AND SUPERIOR MESENTERIC VEIN. NO EVIDENCE OF THROMBOSIS. 2. MODERATE ASCITES. 3. BILATERAL PLEURAL EFFUSIONS WITH BASILAR ATELECTASIS. 4. CHRONIC CHANGES IN THE LUMBAR SPINE WITH PRIOR KYPHOPLASTY AND SURGICAL CHANGES WITH HARDWARE. 5. NO OTHER SIGNIFICANT FINDINGS. Hepatobiliary Scan Nuclear Medicine 08/28/17 00:00 IMPRESSION: No scintigraphic evidence of cystic duct or common duct obstruction Mildly depressed gallbladder ejection fraction. IV CCK did not reproduce the patient's symptoms Paracentesis Ultrasound 09/04/17 10:32 IMPRESSION: Successful ultrasound-guided diagnostic and therapeutic paracentesis Chest X-Ray 09/06/17 06:00 IMPRESSION: STABLE LINES/TUBES. STABLE DEGREE OF PULMONARY EDEMA WITH BILATERAL PLEURAL EFFUSIONS. Assessment & Plan - Diagnosis (1) Atrial fibrillation Qualifiers: Atrial fibrillation type: paroxysmal Qualified Code(s): I48.0 - Paroxysmal atrial fibrillation Is this a current diagnosis for this admission?: Yes (2) COPD (chronic obstructive pulmonary disease) Qualifiers: Emphysema type: unspecified Is this a current diagnosis for this admission?: Yes (3) Hypotension Qualifiers: Hypotension type: other hypotension type Qualified Code(s): I95.89 - Other hypotension Is this a current diagnosis for this admission?: Yes (4) CAD (coronary artery disease) Qualifiers: Coronary Disease-Associated Artery/Lesion type: unspecified vessel or lesion type Associated angina: angina presence unspecified Is this a current diagnosis for this admission?: Yes (5) Respiratory failure Qualifiers: Chronicity: unspecified Respiratory failure complication: unspecified whether with hypoxia or hypercapnia Qualified Code(s): J96.90 - Respiratory failure, unspecified, unspecified whether with hypoxia or hypercapnia Is this a current diagnosis for this admission?: Yes (6) CHF (congestive heart failure) Qualifiers: Congestive heart failure type: diastolic Is this a current diagnosis for this admission?: Yes (7) Aortic stenosis Qualifiers: Cardiac valve disease etiology: nonrheumatic Qualified Code(s): I35.0 - Nonrheumatic aortic (valve) stenosis Is this a current diagnosis for this admission?: Yes (8) Abnormal liver enzymes Is this a current diagnosis for this admission?: Yes - Notes Notes: Atrial fibrillation: Paroxysmal. Continue chronic anticoagulation. Telemetry strips reviewed shows adequately controlled heart rate response. Intermittent paced rhythm noted. COPD: This is being expertly managed by roasterman. Hypotension: Possibly related to sepsis. Continue broad-spectrum antibiotic therapy. Patient currently on Midodrin therapy in order to wean IV vasopressors. Currently still Elmer-Synephrine. Patient on Levophed. Coronary artery disease: Currently is stable. Recommend medical management at this point. Respiratory failure: Continue with oxygen supplementation and ventilatory support. [employer] managing. CHF: Currently stable. No significant volume overload noted at this point. Continue to follow with I&O measurements and daily weighing. Aortic stenosis: Patient does have history of aortic stenosis. Patient's daughter who is an EMT tells me that she was noted to have moderate aortic stenosis by her primary care asset recovery specialist but felt not needing surgery. My review of echocardiogram shows that it is moderate. May need further evaluation as an outpatient once patient stabilized and if patient considered a candidate for it. Aortic valve area calculated by technologist was 1.2 cm. Peak gradient was 64 but mean gradient was 31 mmHg. Abnormal liver functions: Exact etiology not clear, possible CHF related, possible sepsis related, need to be aware of possible amiodarone related but doubt this. Patient has been on chronic amiodarone therapy in the past. Will continue to follow patient. - Time Time with patient: Greater than 35 minutes - Considerable time spent today discussing prognosis with patient's family member which included patient's daughter and . More than 50% of the time spent coordinating care, discussing management plans with involved caregivers. Management plans discussed with involved personnels. Medical decision making was of moderate to high complexity, patient's has multiple comorbidities. Medications reviewed and adjusted accordingly: Yes
[2017-09-06] MEDS: IPRATROPIUM/ALBUTEROL 0.5-2.5 MG/3 ML AMPUL NEB PRN (19:51)
[2017-09-07] MEDS: METOCLOPRAMIDE HCL INJ/PF 10 MG/2 ML SDV IV SCH ×5 (00:57→23:41)
[2017-09-07] MEDS: PIPERACILLIN SODIUM/TAZOBACTAM 2.25 GM in NORMAL SALINE 50 ML IV SCH ×2 (00:57→05:59)
[2017-09-07] MEDS: DEXTROSE 5%-WATER 250 ML with PHENYLEPHRINE HCL 40 MG IV PRN ×8 (02:02→23:42)
[2017-09-07] MEDS: CEFTAZIDIME PENTAHYDRATE 1 GM in DEXTROSE 5%-WATER 50 ML IV SCH (05:56)
[2017-09-07] MEDS: FUROSEMIDE INJ/PF 40 MG/4 ML SDV IV SCH ×3 (05:57→21:28)
[2017-09-07] MEDS: LEVOTHYROXINE SODIUM 0.05 MG TABLET NG SCH (05:58)
[2017-09-07] MEDS: GABAPENTIN 300 MG CAPSULE NG SCH ×3 (05:58→21:29)
[2017-09-07] MEDS: METOLAZONE 2.5 MG TABLET NG SCH (05:59)
[2017-09-07] MEDS: MIDODRINE HCL 5 MG TABLET NG SCH ×3 (05:59→17:48)
[2017-09-07 06:00] LABS: ARTERIAL BLOOD BASE EXCESS -3.4 mmol/L; ARTERIAL BLOOD O2 SATURATION 94.2 % (94-98)
[2017-09-07 06:09] LABS: ANION GAP 10 (5-19); BLOOD UREA NITROGEN 29 mg/dL (7-20); CALCIUM 7.9 mg/dL (8.4-10.2); CARBON DIOXIDE 21 mmol/L (22-30); CHLORIDE 99 mmol/L (98-107); CREATININE RESULT 0.89 mg/dL (0.52-1.25); GLUCOSE 114 mg/dL (75-110); MAGNESIUM 1.8 mg/dL (1.6-2.3); POTASSIUM 3.3 mmol/L (3.6-5.0)
[2017-09-07 06:13] LABS: HEMATOCRIT 31.6 % (36.0-47.0); HEMOGLOBIN 10.1 g/dL (12.0-15.5); HGB HCT DIFFERENCE -1.3; MEAN CORPUSCULAR HEMOGLOBIN 24.4 pg (27.0-33.4); MEAN CORPUSCULAR HGB CONC 31.9 g/dL (32.0-36.0); MEAN CORPUSCULAR VOLUME 77 fl (80-97); RED BLOOD COUNT 4.14 10^6/uL (3.72-5.28); RED CELL DISTRIBUTION WIDTH 25.3 % (11.5-14.0); WHITE BLOOD COUNT 26.4 10^3/uL (4.0-10.5)
[2017-09-07 06:40] LABS: BAND NEUTROPHILS % (MANUAL) 4 % (3-5); BASOPHILS % (MANUAL) 0 % (0-2); EOSINOPHILS % (MANUAL) 0 % (0-6); LYMPHOCYTES % (MANUAL) 3 % (13-45); TOTAL CELLS COUNTED 100
[2017-09-07 06:44] LABS: BURR CELLS 1+; HYPOCHROMASIA 1+; MICROCYTOSIS 1+; POLYCHROMASIA 1+; TOXIC GRANULATION 1+; TOXIC VACUOLATION PRESENT
[2017-09-07 06:45] LABS: ANISOCYTOSIS 3+; OVALOCYTES SLIGHT; POIKILOCYTOSIS 2+; SCHISTOCYTES SLIGHT; TARGET CELLS SLIGHT
--- NOTE | 2017-09-07 06:50 | RADIOLOGY REPORT (SQ) ---
EXAM DESCRIPTION: CHEST SINGLE VIEW CLINICAL HISTORY: 82 years, Female, follow up CHF COMPARISON: Yesterday's chest radiograph at 0608 hours. NUMBER OF VIEWS: 1. TECHNIQUE: Routine radiographic technique. LIMITATIONS: None. FINDINGS: Lines and tubes are in appropriate position. Presyncopal pulmonary congestion and small pleural effusions. No pneumothorax. IMPRESSION: Increasing pulmonary congestion and pleural effusions. Lines and tubes are in unchanged appropriate position. 2011 [employer]- All Rights Reserved
[2017-09-07] MEDS: IPRATROPIUM/ALBUTEROL 0.5-2.5 MG/3 ML AMPUL NEB PRN ×2 (08:44→20:27)
[2017-09-07] MEDS ORDERED: POTASSIUM CHLORIDE 20 MEQ/15 ML UDCUP NG ONE (09:00)
[2017-09-07] MEDS: DEXTROSE 5%-WATER 250 ML with NOREPINEPHRINE BITARTRATE 4 MG IV PRN ×6 (09:11→23:41)
--- NOTE | 2017-09-07 09:22 | PDOC PROGRESS REPORT ---
Subjective Progress Note for:: 09/07/17 Subjective:: Patient remains with positive fluid balance, reportedly not waking up even sedation is off for 24 hours. No reported diarrhea nausea or vomiting. Abdomen remains distended. Patient seems to be tolerating tube feedings. Chest x-ray reportedly showing increasing infiltrates. WBC noted to increase as well. Patient with low-grade fever. Physical Exam Vital Signs: Temp Pulse Resp BP Pulse Ox 100.0 F 83 15 111/41 L 99 09/07/17 07:42 09/07/17 08:44 09/07/17 08:44 09/07/17 07:42 09/07/17 08:44 Intake & Output 09/06/17 09/07/17 09/08/17 06:59 06:59 06:59 Intake Total 2495 3411 Output Total 2535 3125 175 Balance -40 286 -175 Weight 88.5 kg 89.5 kg General appearance: PRESENT: no acute distress, morbidly obese Head exam: PRESENT: normocephalic Eye exam: PRESENT: conjunctiva pale Mouth exam: PRESENT: moist, neck supple Neck exam: ABSENT: JVD Respiratory exam: PRESENT: clear to auscultation marisela - Anteriorly. ABSENT: rhonchi, wheezes Cardiovascular exam: PRESENT: RRR. ABSENT: gallop GI/Abdominal exam: PRESENT: distended, hypoactive bowel sounds, soft Extremities exam: PRESENT: +1 edema Neurological exam: PRESENT: altered Psychiatric exam: ABSENT: agitated Focused psych exam: ABSENT: restlessness Skin exam: PRESENT: cyanosis, dry, warm - [id number] Results Laboratory Results: 09/07/17 05:40 09/07/17 05:40 09/07/17 09/07/17 09/07/17 05:40 05:40 05:40 WBC 26.4 H RBC 4.14 Hgb 10.1 L Hct 31.6 L MCV 77 L MCH 24.4 L MCHC 31.9 L RDW 25.3 H Plt Count 211 Seg Neutrophils % Not Reportable Lymphocytes % Not Reportable Monocytes % Not Reportable Eosinophils % Not Reportable Basophils % Not Reportable Absolute Neutrophils Not Reportable Absolute Lymphocytes Not Reportable Absolute Monocytes Not Reportable Absolute Eosinophils Not Reportable Absolute Basophils Not Reportable Carbonic Acid 0.92 L HCO3/H2CO3 Ratio 21:1 ABG pH 7.43 ABG pCO2 30.5 L ABG pO2 67.3 L ABG HCO3 20.0 ABG O2 Saturation 94.2 ABG Base Excess -3.4 FiO2 40% Sodium 130.0 L Potassium 3.3 L Chloride 99 Carbon Dioxide 21 L Anion Gap 10 BUN 29 H Creatinine 0.89 Est GFR ( Amer) > 60 Est GFR (Non-Af Amer) > 60 Glucose 114 H Calcium 7.9 L Phosphorus 3.0 Magnesium 1.8 09/04/17 14:44 Ascities Fluid AFB Smear Concentration - Final 09/04/17 14:44 Ascities Fluid Acid Fast Bacilli Smear - Final 08/25/17 08/25/17 08/25/17 16:00 16:00 21:35 Creatine Kinase 65 CK-MB (CK-2) 0.72 Troponin I 0.039 0.032 NT-Pro-B Natriuret Pep 1570 H 08/26/17 08/26/17 08/27/17 04:23 04:23 05:46 Creatine Kinase CK-MB (CK-2) Troponin I 0.031 NT-Pro-B Natriuret Pep 1160 H 2020 H 08/29/17 08/29/17 08/30/17 20:30 20:30 03:23 Creatine Kinase 94 217 H CK-MB (CK-2) 1.13 Troponin I 0.078 NT-Pro-B Natriuret Pep 08/30/17 08/30/17 08/30/17 03:23 09:40 09:40 Creatine Kinase 216 H CK-MB (CK-2) 1.63 2.22 Troponin I 0.100 0.071 NT-Pro-B Natriuret Pep 08/31/17 09/02/17 09/03/17 05:30 05:00 04:40 Creatine Kinase CK-MB (CK-2) Troponin I NT-Pro-B Natriuret Pep 21839 H 8050 H 6870 H Impressions: Abdomen Ultrasound 08/26/17 00:00 IMPRESSION: Echogenic material in the main portal vein, worrisome for incompletely occlusive thrombus Guidance Fluoroscopy 08/27/17 00:00 IMPRESSION: SUCCESSFUL PLACEMENT OF A 5 FR SINGLE LUMEN 37 CM PICC IN THE RIGHT BASILIC VEIN. Interventional Vascular Procedure 08/27/17 00:00 IMPRESSION: SUCCESSFUL PLACEMENT OF A 5 FR SINGLE LUMEN 37 CM PICC IN THE RIGHT BASILIC VEIN. PICC Line Insertion 08/27/17 00:00 IMPRESSION: SUCCESSFUL PLACEMENT OF A 5 FR SINGLE LUMEN 37 CM PICC IN THE RIGHT BASILIC VEIN. Abdomen/Pelvis CT 08/27/17 07:40 IMPRESSION: 1. PATENT PORTAL VEIN, SPLENIC VEIN, AND SUPERIOR MESENTERIC VEIN. NO EVIDENCE OF THROMBOSIS. 2. MODERATE ASCITES. 3. BILATERAL PLEURAL EFFUSIONS WITH BASILAR ATELECTASIS. 4. CHRONIC CHANGES IN THE LUMBAR SPINE WITH PRIOR KYPHOPLASTY AND SURGICAL CHANGES WITH HARDWARE. 5. NO OTHER SIGNIFICANT FINDINGS. Hepatobiliary Scan Nuclear Medicine 08/28/17 00:00 IMPRESSION: No scintigraphic evidence of cystic duct or common duct obstruction Mildly depressed gallbladder ejection fraction. IV CCK did not reproduce the patient's symptoms Paracentesis Ultrasound 09/04/17 10:32 IMPRESSION: Successful ultrasound-guided diagnostic and therapeutic paracentesis Chest X-Ray 09/07/17 06:00 IMPRESSION: Increasing pulmonary congestion and pleural effusions. Lines and tubes are in unchanged appropriate position. 2010 [employer]- All Rights Reserved Assessment & Plan - Diagnosis (1) Acute respiratory failure Qualifiers: Respiratory failure complication: hypoxia Qualified Code(s): J96.01 - Acute respiratory failure with hypoxia Is this a current diagnosis for this admission?: Yes (2) COPD with acute exacerbation Is this a current diagnosis for this admission?: Yes (3) CHF exacerbation Qualifiers: Congestive heart failure type: combined Qualified Code(s): I50.43 - Acute on chronic combined systolic (congestive) and diastolic (congestive) heart failure Is this a current diagnosis for this admission?: Yes (4) Sepsis due to methicillin resistant Staphylococcus aureus (MRSA) Is this a current diagnosis for this admission?: Yes (5) GI bleeding Qualifiers: GI bleed type/associated pathology: unspecified gastrointestinal hemorrhage type Qualified Code(s): K92.2 - Gastrointestinal hemorrhage, unspecified Is this a current diagnosis for this admission?: Yes (6) Coagulopathy Is this a current diagnosis for this admission?: Yes (7) Acute renal failure superimposed on stage 3 chronic kidney disease Qualifiers: Acute renal failure type: unspecified Qualified Code(s): N17.9 - Acute kidney failure, unspecified; N18.3 - Chronic kidney disease, stage 3 (moderate) Is this a current diagnosis for this admission?: Yes (8) Anemia Qualifiers: Anemia type: unspecified type Qualified Code(s): D64.9 - Anemia, unspecified Is this a current diagnosis for this admission?: Yes (9) Dehydration Is this a current diagnosis for this admission?: Yes (10) CAD (coronary artery disease) Qualifiers: Coronary Disease-Associated Artery/Lesion type: unspecified vessel or lesion type Associated angina: angina presence unspecified Is this a current diagnosis for this admission?: Yes (11) Atrial fibrillation Qualifiers: Atrial fibrillation type: paroxysmal Qualified Code(s): I48.0 - Paroxysmal atrial fibrillation Is this a current diagnosis for this admission?: Yes - Time Time Spent with patient: 25-34 minutes - Plan Summary Plan Summary: Repeat cultures has been sent. We are going to obtain ammonia level. In the meantime I will change antibiotics to Primaxin. I will add intravenous antifungal and continue the vancomycin for now. If Pseudomonas is a concern ciprofloxacin IV or inhaled tobramycin can be added. In the meantime replace electrolytes, monitor WBC, continue supportive care, continue vasopressors. I will likewise obtain a KUB. In terms of the patient's congestion, chest x-ray still showing increasing infiltrates questionable pneumonic or fluid overload. I will increase Zaroxolyn and continue intravenous Lasix to achieve negative balance. We will do a follow-up chest x-ray in the morning see if the infiltrates will improve if not likely this will be pneumonic.
[2017-09-07] MEDS: POTASSIUM CHLORIDE 20 MEQ/15 ML UDCUP NG SCH (09:25)
[2017-09-07] MEDS: PANTOPRAZOLE SODIUM 40 MG VIAL IV SCH ×2 (09:25→21:27)
[2017-09-07] MEDS ORDERED: TOBRAMYCIN SULFATE INJ 80 MG/2 ML VIAL NEB SCH (09:30)
[2017-09-07] MEDS ORDERED: IMIPENEM/CILASTATIN SODIUM INJ 500 MG VIAL IV SCH (09:30)
[2017-09-07] MEDS: NYSTATIN TOPICAL POWDER 15 GM TP SCH ×2 (09:51→17:49)
[2017-09-07] MEDS: NORMAL SALINE 10 ML SDV (SCHEDULED) IV SCH ×2 (09:52→21:30)
[2017-09-07] MEDS: VANCOMYCIN HCL 1,000 MG in DEXTROSE 5%-WATER 250 ML IV SCH (09:52)
[2017-09-07] MEDS ORDERED: METOLAZONE 5 MG TABLET NG ONE (10:00)
[2017-09-07] MEDS ORDERED: MICAFUNGIN SODIUM INJ/PF 100 MG VIAL IV SCH (10:00)
[2017-09-07] MEDS ORDERED: TOBRAMYCIN SULFATE NEB 40 MG/ML 30 ML NEB PRN (10:00)
[2017-09-07 10:15] LABS: APPEARANCE,URINE SLIGHTLY-CLOUDY; BILIRUBIN,URINE NEGATIVE (NEGATIVE); GLUCOSE, URINE NEGATIVE (NEGATIVE); KETONES,URINE NEGATIVE (NEGATIVE); LEUKOCYTE ESTERASE,URINE MODERATE (NEGATIVE); NITRITE,URINE NEGATIVE (NEGATIVE); PROTEIN,URINE NEGATIVE (NEGATIVE); URINE SPECIFIC GRAVITY 1.006; UROBILINOGEN,URINE NEGATIVE mg/dL (<2.0)
--- NOTE | 2017-09-07 10:16 | RADIOLOGY REPORT (SQ) ---
EXAM DESCRIPTION: KUB/ABDOMEN (SINGLE VIEW) COMPLETED DATE/TIME: 09/07/2017 9:44 am REASON FOR STUDY: Abdominal distention COMPARISON: Paracentesis 09/04/2017 Hepatobiliary scan 08/28/2017 CT abdomen pelvis 08/27/2017 NUMBER OF VIEWS: One view. TECHNIQUE: Supine radiographic image of the abdomen acquired. LIMITATIONS: None. FINDINGS: There is a nasogastric tube decompressing the stomach. Single air-filled nondistended small bowel loop in the mid abdomen. Remainder of the study shows bar gisele any bowel gas. Jimenez catheter drains the bladder. Air bubble in the bladder. BOWEL GAS PATTERN: Nonspecific bowel gas pattern. No dilated loops. CALCIFICATIONS: No suspicious calcifications. SOFT TISSUES: No gross mass or suggestion of organomegaly. HARDWARE: None in the abdomen. BONES: Lower thoracic and upper lumbar Colby rods. Kyphoplasty cement at L3 and L4. Bones oste oporotic OTHER: No other significant finding. IMPRESSION: Nasogastric tube tip and side port in the stomach. Relatively gasless abdomen. No dilated small bowel loops or colon TECHNICAL DOCUMENTATION: JOB ID: [id number]- All Rights Reserved
--- NOTE | 2017-09-07 11:43 | PDOC PROGRESS REPORT ---
Subjective Progress Note for:: 09/07/17 Subjective:: Intubated and sedated Physical Exam Vital Signs: Temp Pulse Resp BP Pulse Ox 100.2 F 85 14 116/43 L 99 09/07/17 06:28 09/07/17 07:36 09/06/17 08:00 09/07/17 06:28 09/07/17 06:28 Intake & Output 09/06/17 09/07/17 09/08/17 06:59 06:59 06:59 Intake Total 2495 3411 Output Total 2535 3125 175 Balance -40 286 -175 Weight 88.5 kg 89.5 kg General appearance: PRESENT: no acute distress, disheveled, obese, well- developed Head exam: PRESENT: atraumatic, normocephalic Eye exam: PRESENT: conjunctiva pale Mouth exam: PRESENT: dry mucosa, neck supple, tongue midline, other - ET tube in place Neck exam: ABSENT: carotid bruit, JVD, lymphadenopathy, thyromegaly Respiratory exam: PRESENT: decreased breath sounds, prolonged expiratory phas, rales, rhonchi, symmetrical, unlabored. ABSENT: retraction, stridor, tachypnea Cardiovascular exam: PRESENT: RRR, +S1, +S2 Pulses: PRESENT: normal radial pulses GI/Abdominal exam: PRESENT: diminished bowel sounds, distended Rectal exam: PRESENT: deferred Gentrourinary exam: PRESENT: indwelling catheter Extremities exam: PRESENT: +1 edema Results Laboratory Results: 09/07/17 05:40 09/07/17 05:40 09/07/17 09/07/17 09/07/17 05:40 05:40 05:40 WBC 26.4 H RBC 4.14 Hgb 10.1 L Hct 31.6 L MCV 77 L MCH 24.4 L MCHC 31.9 L RDW 25.3 H Plt Count 211 Seg Neutrophils % Not Reportable Lymphocytes % Not Reportable Monocytes % Not Reportable Eosinophils % Not Reportable Basophils % Not Reportable Absolute Neutrophils Not Reportable Absolute Lymphocytes Not Reportable Absolute Monocytes Not Reportable Absolute Eosinophils Not Reportable Absolute Basophils Not Reportable Carbonic Acid 0.92 L HCO3/H2CO3 Ratio 21:1 ABG pH 7.43 ABG pCO2 30.5 L ABG pO2 67.3 L ABG HCO3 20.0 ABG O2 Saturation 94.2 ABG Base Excess -3.4 FiO2 40% Sodium 130.0 L Potassium 3.3 L Chloride 99 Carbon Dioxide 21 L Anion Gap 10 BUN 29 H Creatinine 0.89 Est GFR ( Amer) > 60 Est GFR (Non-Af Amer) > 60 Glucose 114 H Calcium 7.9 L Phosphorus 3.0 Magnesium 1.8 09/04/17 14:44 Ascities Fluid AFB Smear Concentration - Final 09/04/17 14:44 Ascities Fluid Acid Fast Bacilli Smear - Final 08/25/17 08/25/17 08/25/17 16:00 16:00 21:35 Creatine Kinase 65 CK-MB (CK-2) 0.72 Troponin I 0.039 0.032 NT-Pro-B Natriuret Pep 1570 H 08/26/17 08/26/17 08/27/17 04:23 04:23 05:46 Creatine Kinase CK-MB (CK-2) Troponin I 0.031 NT-Pro-B Natriuret Pep 1160 H 2020 H 08/29/17 08/29/17 08/30/17 20:30 20:30 03:23 Creatine Kinase 94 217 H CK-MB (CK-2) 1.13 Troponin I 0.078 NT-Pro-B Natriuret Pep 08/30/17 08/30/17 08/30/17 03:23 09:40 09:40 Creatine Kinase 216 H CK-MB (CK-2) 1.63 2.22 Troponin I 0.100 0.071 NT-Pro-B Natriuret Pep 08/31/17 09/02/17 09/03/17 05:30 05:00 04:40 Creatine Kinase CK-MB (CK-2) Troponin I NT-Pro-B Natriuret Pep 73780 H 8050 H 6870 H Impressions: Abdomen Ultrasound 08/26/17 00:00 IMPRESSION: Echogenic material in the main portal vein, worrisome for incompletely occlusive thrombus Guidance Fluoroscopy 08/27/17 00:00 IMPRESSION: SUCCESSFUL PLACEMENT OF A 5 FR SINGLE LUMEN 37 CM PICC IN THE RIGHT BASILIC VEIN. Interventional Vascular Procedure 08/27/17 00:00 IMPRESSION: SUCCESSFUL PLACEMENT OF A 5 FR SINGLE LUMEN 37 CM PICC IN THE RIGHT BASILIC VEIN. PICC Line Insertion 08/27/17 00:00 IMPRESSION: SUCCESSFUL PLACEMENT OF A 5 FR SINGLE LUMEN 37 CM PICC IN THE RIGHT BASILIC VEIN. Abdomen/Pelvis CT 08/27/17 07:40 IMPRESSION: 1. PATENT PORTAL VEIN, SPLENIC VEIN, AND SUPERIOR MESENTERIC VEIN. NO EVIDENCE OF THROMBOSIS. 2. MODERATE ASCITES. 3. BILATERAL PLEURAL EFFUSIONS WITH BASILAR ATELECTASIS. 4. CHRONIC CHANGES IN THE LUMBAR SPINE WITH PRIOR KYPHOPLASTY AND SURGICAL CHANGES WITH HARDWARE. 5. NO OTHER SIGNIFICANT FINDINGS. Hepatobiliary Scan Nuclear Medicine 08/28/17 00:00 IMPRESSION: No scintigraphic evidence of cystic duct or common duct obstruction Mildly depressed gallbladder ejection fraction. IV CCK did not reproduce the patient's symptoms Paracentesis Ultrasound 09/04/17 10:32 IMPRESSION: Successful ultrasound-guided diagnostic and therapeutic paracentesis Chest X-Ray 09/07/17 06:00 IMPRESSION: Increasing pulmonary congestion and pleural effusions. Lines and tubes are in unchanged appropriate position. 2010 [employer]- All Rights Reserved Assessment & Plan - Diagnosis (1) Acute respiratory distress syndrome in adult Is this a current diagnosis for this admission?: Yes Plan: 67/.4= (2) COPD (chronic obstructive pulmonary disease) Qualifiers: Emphysema type: unspecified Is this a current diagnosis for this admission?: Yes (3) Full code status Is this a current diagnosis for this admission?: Yes (4) Metabolic acidosis Is this a current diagnosis for this admission?: Yes Plan: Slightly improved (5) Septic shock due to Gram positive bacteria Is this a current diagnosis for this admission?: Yes Plan: Panculture febrile for the last 24 hours increasing white count Labs- All tests 24 hr 09/06/17 09/07/17 05:50 05:40 WBC 22.2 H 26.4 H Seg Neuts % (Manual) 88 H 90 H Band Neutrophils % 4 4 (6) Aortic stenosis, severe Is this a current diagnosis for this admission?: Yes - Time Critical Time spent with patient: 35 or more minutes - 40 minutes
--- NOTE | 2017-09-07 11:47 | PDOC PROGRESS REPORT ---
Subjective Progress Note for:: 09/06/17 Subjective:: Intubated Not responsive off sedation Physical Exam Vital Signs: Temp Pulse Resp BP Pulse Ox 98.6 F 79 14 120/46 L 97 09/06/17 10:00 09/06/17 09:06 09/06/17 08:00 09/06/17 09:57 09/06/17 10:00 Intake & Output 09/05/17 09/06/17 09/07/17 06:59 06:59 06:59 Intake Total 3950 2495 Output Total 1880 2535 630 Balance 2069 Weight 88.7 kg 88.5 kg General appearance: PRESENT: no acute distress, disheveled, obese, well- developed Head exam: PRESENT: atraumatic, normocephalic Eye exam: PRESENT: conjunctiva pale Mouth exam: PRESENT: dry mucosa, neck supple, tongue midline, other - ET tube Teeth exam: PRESENT: poor dentation Neck exam: ABSENT: carotid bruit, JVD, lymphadenopathy, thyromegaly Respiratory exam: PRESENT: decreased breath sounds, prolonged expiratory phas Cardiovascular exam: PRESENT: RRR, +S1, +S2 Pulses: PRESENT: normal radial pulses GI/Abdominal exam: PRESENT: ascites, distended Rectal exam: PRESENT: deferred Gentrourinary exam: PRESENT: indwelling catheter Extremities exam: PRESENT: +1 edema Neurological exam: ABSENT: alert, awake Skin exam: PRESENT: dry, warm Results Laboratory Results: 09/06/17 05:50 09/06/17 05:50 09/05/17 09/05/17 09/06/17 11:15 17:15 05:50 WBC 20.0 H RBC 3.71 L Hgb 9.1 L Hct 28.2 L MCV 76 L MCH 24.4 L MCHC 32.1 RDW 25.0 H Plt Count 168 Seg Neutrophils % Lymphocytes % Monocytes % Eosinophils % Basophils % Absolute Neutrophils Absolute Lymphocytes Absolute Monocytes Absolute Eosinophils Absolute Basophils Carbonic Acid 0.94 L HCO3/H2CO3 Ratio 19:1 ABG pH 7.38 ABG pCO2 31.1 L ABG pO2 81.8 ABG HCO3 18.0 L ABG O2 Saturation 96.0 ABG Base Excess -6.2 FiO2 50% Sodium Potassium Chloride Carbon Dioxide Anion Gap BUN Creatinine 1.19 Est GFR ( Amer) 52 L Est GFR (Non-Af Amer) 43 L Glucose Calcium Magnesium 09/06/17 09/06/17 05:50 05:50 WBC 22.2 H RBC 3.97 Hgb 9.7 L Hct 30.4 L MCV 76 L MCH 24.4 L MCHC 31.9 L RDW 25.2 H Plt Count 185 Seg Neutrophils % Not Reportable Lymphocytes % Not Reportable Monocytes % Not Reportable Eosinophils % Not Reportable Basophils % Not Reportable Absolute Neutrophils Not Reportable Absolute Lymphocytes Not Reportable Absolute Monocytes Not Reportable Absolute Eosinophils Not Reportable Absolute Basophils Not Reportable Carbonic Acid HCO3/H2CO3 Ratio ABG pH ABG pCO2 ABG pO2 ABG HCO3 ABG O2 Saturation ABG Base Excess FiO2 Sodium 130.4 L Potassium 3.6 Chloride 99 Carbon Dioxide 20 L Anion Gap 11 BUN 31 H Creatinine 0.99 Est GFR ( Amer) > 60 Est GFR (Non-Af Amer) 54 L Glucose 108 Calcium 8.0 L Magnesium 1.9 09/04/17 11:58 Tracheal Aspirate Gram Stain - Final 09/04/17 11:58 Tracheal Aspirate Sputum Culture - Final C.albicans/C.dubliniensis Normal Juliet Absent 08/25/17 08/25/17 08/25/17 16:00 16:00 21:35 Creatine Kinase 65 CK-MB (CK-2) 0.72 Troponin I 0.039 0.032 NT-Pro-B Natriuret Pep 1570 H 08/26/17 08/26/17 08/27/17 04:23 04:23 05:46 Creatine Kinase CK-MB (CK-2) Troponin I 0.031 NT-Pro-B Natriuret Pep 1160 H 2020 H 08/29/17 08/29/17 08/30/17 20:30 20:30 03:23 Creatine Kinase 94 217 H CK-MB (CK-2) 1.13 Troponin I 0.078 NT-Pro-B Natriuret Pep 08/30/17 08/30/17 08/30/17 03:23 09:40 09:40 Creatine Kinase 216 H CK-MB (CK-2) 1.63 2.22 Troponin I 0.100 0.071 NT-Pro-B Natriuret Pep 08/31/17 09/02/17 09/03/17 05:30 05:00 04:40 Creatine Kinase CK-MB (CK-2) Troponin I NT-Pro-B Natriuret Pep 66667 H 8050 H 6870 H Impressions: Abdomen Ultrasound 08/26/17 00:00 IMPRESSION: Echogenic material in the main portal vein, worrisome for incompletely occlusive thrombus Guidance Fluoroscopy 08/27/17 00:00 IMPRESSION: SUCCESSFUL PLACEMENT OF A 5 FR SINGLE LUMEN 37 CM PICC IN THE RIGHT BASILIC VEIN. Interventional Vascular Procedure 08/27/17 00:00 IMPRESSION: SUCCESSFUL PLACEMENT OF A 5 FR SINGLE LUMEN 37 CM PICC IN THE RIGHT BASILIC VEIN. PICC Line Insertion 08/27/17 00:00 IMPRESSION: SUCCESSFUL PLACEMENT OF A 5 FR SINGLE LUMEN 37 CM PICC IN THE RIGHT BASILIC VEIN. Abdomen/Pelvis CT 08/27/17 07:40 IMPRESSION: 1. PATENT PORTAL VEIN, SPLENIC VEIN, AND SUPERIOR MESENTERIC VEIN. NO EVIDENCE OF THROMBOSIS. 2. MODERATE ASCITES. 3. BILATERAL PLEURAL EFFUSIONS WITH BASILAR ATELECTASIS. 4. CHRONIC CHANGES IN THE LUMBAR SPINE WITH PRIOR KYPHOPLASTY AND SURGICAL CHANGES WITH HARDWARE. 5. NO OTHER SIGNIFICANT FINDINGS. Hepatobiliary Scan Nuclear Medicine 08/28/17 00:00 IMPRESSION: No scintigraphic evidence of cystic duct or common duct obstruction Mildly depressed gallbladder ejection fraction. IV CCK did not reproduce the patient's symptoms Paracentesis Ultrasound 09/04/17 10:32 IMPRESSION: Successful ultrasound-guided diagnostic and therapeutic paracentesis Chest X-Ray 09/06/17 06:00 IMPRESSION: STABLE LINES/TUBES. STABLE DEGREE OF PULMONARY EDEMA WITH BILATERAL PLEURAL EFFUSIONS. Assessment & Plan - Diagnosis (1) Acute respiratory distress syndrome in adult Is this a current diagnosis for this admission?: Yes (2) COPD (chronic obstructive pulmonary disease) Qualifiers: Emphysema type: unspecified Is this a current diagnosis for this admission?: Yes (3) Full code status Is this a current diagnosis for this admission?: Yes (4) Metabolic acidosis Is this a current diagnosis for this admission?: Yes (5) Septic shock due to Gram positive bacteria Is this a current diagnosis for this admission?: Yes
--- NOTE | 2017-09-07 11:49 | PDOC PROGRESS REPORT ---
Subjective Progress Note for:: 09/05/17 Subjective:: Intubated and sedated Physical Exam Vital Signs: Temp Pulse Resp BP Pulse Ox 99.3 F 82 20 98/38 L 91 L 09/05/17 11:02 09/05/17 10:00 09/05/17 08:00 09/05/17 11:02 09/05/17 11:02 Intake & Output 09/04/17 09/05/17 09/06/17 06:59 06:59 06:59 Intake Total 3243 3950 Output Total 1015 1880 345 Balance 2228 2070 -345 Weight 88.9 kg 88.7 kg General appearance: PRESENT: no acute distress, disheveled, obese, well- nourished Head exam: PRESENT: atraumatic, normocephalic Eye exam: PRESENT: conjunctiva pale Mouth exam: PRESENT: dry mucosa, neck supple, tongue midline, other - ET tube Neck exam: ABSENT: carotid bruit, JVD, lymphadenopathy, thyromegaly Respiratory exam: PRESENT: decreased breath sounds, prolonged expiratory phas, rales, rhonchi, symmetrical, unlabored. ABSENT: retraction, stridor, tachypnea Cardiovascular exam: PRESENT: RRR, +S1, +S2 Pulses: PRESENT: normal radial pulses GI/Abdominal exam: PRESENT: ascites, distended Rectal exam: PRESENT: deferred Gentrourinary exam: PRESENT: indwelling catheter Extremities exam: PRESENT: +1 edema Neurological exam: ABSENT: alert, awake Skin exam: PRESENT: dry, pallor, warm Results Laboratory Results: 09/05/17 05:05 09/04/17 09/04/17 09/04/17 14:44 16:00 17:00 WBC 19.9 H RBC 3.84 Hgb 9.4 L Hct 29.0 L MCV 76 L MCH 24.5 L MCHC 32.4 RDW 24.3 H Plt Count 169 Seg Neutrophils % Not Reportable Lymphocytes % Not Reportable Monocytes % Not Reportable Eosinophils % Not Reportable Basophils % Not Reportable Absolute Neutrophils Not Reportable Absolute Lymphocytes Not Reportable Absolute Monocytes Not Reportable Absolute Eosinophils Not Reportable Absolute Basophils Not Reportable Carbonic Acid HCO3/H2CO3 Ratio ABG pH ABG pCO2 ABG pO2 ABG HCO3 ABG O2 Saturation ABG Base Excess FiO2 Sodium Potassium Chloride Carbon Dioxide Anion Gap BUN Creatinine Est GFR ( Amer) Est GFR (Non-Af Amer) Glucose Calcium Phosphorus Magnesium Total Bilirubin AST ALT Alkaline Phosphatase Total Protein Albumin Prealbumin Fluid Type PERITONEAL Fluid Source ASCITES Fluid Color YELLOW Fluid Appearance CLEAR Fluid Viscosity LIQUID Fluid WBC 33 Fluid RBC 30 Stool Occult Blood POSITIVE Blood Type Antibody Screen 09/04/17 09/05/17 09/05/17 19:16 05:05 05:05 WBC 16.1 H RBC 3.49 L Hgb 8.5 L Hct 26.5 L MCV 76 L MCH 24.2 L MCHC 31.9 L RDW 24.9 H Plt Count 144 L Seg Neutrophils % Not Reportable Lymphocytes % Not Reportable Monocytes % Not Reportable Eosinophils % Not Reportable Basophils % Not Reportable Absolute Neutrophils Not Reportable Absolute Lymphocytes Not Reportable Absolute Monocytes Not Reportable Absolute Eosinophils Not Reportable Absolute Basophils Not Reportable Carbonic Acid 1.04 L HCO3/H2CO3 Ratio 19:1 ABG pH 7.38 ABG pCO2 34.5 L ABG pO2 69.7 L ABG HCO3 20.0 ABG O2 Saturation 93.9 L ABG Base Excess -4.6 FiO2 50% Sodium Potassium Chloride Carbon Dioxide Anion Gap BUN Creatinine Est GFR ( Amer) Est GFR (Non-Af Amer) Glucose Calcium Phosphorus Magnesium Total Bilirubin AST ALT Alkaline Phosphatase Total Protein Albumin Prealbumin Fluid Type Fluid Source Fluid Color Fluid Appearance Fluid Viscosity Fluid WBC Fluid RBC Stool Occult Blood Blood Type B POSITIVE Antibody Screen TNP 09/05/17 05:05 WBC RBC Hgb Hct MCV MCH MCHC RDW Plt Count Seg Neutrophils % Lymphocytes % Monocytes % Eosinophils % Basophils % Absolute Neutrophils Absolute Lymphocytes Absolute Monocytes Absolute Eosinophils Absolute Basophils Carbonic Acid HCO3/H2CO3 Ratio ABG pH ABG pCO2 ABG pO2 ABG HCO3 ABG O2 Saturation ABG Base Excess FiO2 Sodium 127.9 L Potassium 3.7 Chloride 98 Carbon Dioxide 19 L Anion Gap 11 BUN 34 H Creatinine 1.28 H Est GFR ( Amer) 48 L Est GFR (Non-Af Amer) 40 L Glucose 124 H Calcium 8.3 L Phosphorus 3.6 Magnesium 2.1 Total Bilirubin 4.1 H AST 106 H ALT 76 H Alkaline Phosphatase 73 Total Protein 5.3 L Albumin 2.7 L Prealbumin 13.7 L Fluid Type Fluid Source Fluid Color Fluid Appearance Fluid Viscosity Fluid WBC Fluid RBC Stool Occult Blood Blood Type Antibody Screen 09/04/17 14:44 Ascities Fluid Mycobacterium DNA Probe (TORI) - Final Not Reportable 09/04/17 14:44 Ascities Fluid - Final Not Reportable 09/04/17 14:44 Ascities Fluid Specimen Comment (TORI) - Final [employer] 09/04/17 14:44 Ascities Fluid - Final Not Reportable 09/04/17 14:44 Ascities Fluid Nocardia Susceptibility - Final Not Reportable 09/04/17 14:44 Ascities Fluid Nocardia Susceptibility - Final Not Reportable 09/04/17 14:44 Ascities Fluid Nocardia Susceptibility - Final Not Reportable 09/04/17 14:44 Ascities Fluid Nocardia Susceptibility - Final Not Reportable 09/04/17 14:44 Ascities Fluid Microbiology Comment - Final Not Reportable 08/25/17 08/25/17 08/25/17 16:00 16:00 21:35 Creatine Kinase 65 CK-MB (CK-2) 0.72 Troponin I 0.039 0.032 NT-Pro-B Natriuret Pep 1570 H 08/26/17 08/26/17 08/27/17 04:23 04:23 05:46 Creatine Kinase CK-MB (CK-2) Troponin I 0.031 NT-Pro-B Natriuret Pep 1160 H 2020 H 08/29/17 08/29/17 08/30/17 20:30 20:30 03:23 Creatine Kinase 94 217 H CK-MB (CK-2) 1.13 Troponin I 0.078 NT-Pro-B Natriuret Pep 08/30/17 08/30/17 08/30/17 03:23 09:40 09:40 Creatine Kinase 216 H CK-MB (CK-2) 1.63 2.22 Troponin I 0.100 0.071 NT-Pro-B Natriuret Pep 08/31/17 09/02/17 09/03/17 05:30 05:00 04:40 Creatine Kinase CK-MB (CK-2) Troponin I NT-Pro-B Natriuret Pep 26830 H 8050 H 6870 H Impressions: Abdomen Ultrasound 08/26/17 00:00 IMPRESSION: Echogenic material in the main portal vein, worrisome for incompletely occlusive thrombus Guidance Fluoroscopy 08/27/17 00:00 IMPRESSION: SUCCESSFUL PLACEMENT OF A 5 FR SINGLE LUMEN 37 CM PICC IN THE RIGHT BASILIC VEIN. Interventional Vascular Procedure 08/27/17 00:00 IMPRESSION: SUCCESSFUL PLACEMENT OF A 5 FR SINGLE LUMEN 37 CM PICC IN THE RIGHT BASILIC VEIN. PICC Line Insertion 08/27/17 00:00 IMPRESSION: SUCCESSFUL PLACEMENT OF A 5 FR SINGLE LUMEN 37 CM PICC IN THE RIGHT BASILIC VEIN. Abdomen/Pelvis CT 08/27/17 07:40 IMPRESSION: 1. PATENT PORTAL VEIN, SPLENIC VEIN, AND SUPERIOR MESENTERIC VEIN. NO EVIDENCE OF THROMBOSIS. 2. MODERATE ASCITES. 3. BILATERAL PLEURAL EFFUSIONS WITH BASILAR ATELECTASIS. 4. CHRONIC CHANGES IN THE LUMBAR SPINE WITH PRIOR KYPHOPLASTY AND SURGICAL CHANGES WITH HARDWARE. 5. NO OTHER SIGNIFICANT FINDINGS. Hepatobiliary Scan Nuclear Medicine 08/28/17 00:00 IMPRESSION: No scintigraphic evidence of cystic duct or common duct obstruction Mildly depressed gallbladder ejection fraction. IV CCK did not reproduce the patient's symptoms Paracentesis Ultrasound 09/04/17 10:32 IMPRESSION: Successful ultrasound-guided diagnostic and therapeutic paracentesis Chest X-Ray 09/05/17 06:00 IMPRESSION: Increasing pulmonary edema. Lines and tubes remain in appropriate position. 2011 [employer]- All Rights Reserved Assessment & Plan - Diagnosis (1) Acute respiratory distress syndrome in adult Is this a current diagnosis for this admission?: Yes (2) COPD (chronic obstructive pulmonary disease) Qualifiers: Emphysema type: unspecified Is this a current diagnosis for this admission?: Yes (3) Full code status Is this a current diagnosis for this admission?: Yes (4) Metabolic acidosis Is this a current diagnosis for this admission?: Yes (5) Septic shock due to Gram positive bacteria Is this a current diagnosis for this admission?: Yes - Time Critical Time spent with patient: 35 or more minutes
--- NOTE | 2017-09-07 11:50 | PDOC PROGRESS REPORT ---
Subjective Progress Note for:: 09/04/17 Subjective:: Intubated Physical Exam Vital Signs: Temp Pulse Resp BP Pulse Ox 99.1 F 72 14 127/48 H 98 09/04/17 06:32 09/04/17 08:00 09/04/17 08:00 09/04/17 06:32 09/04/17 11:12 Intake & Output 09/03/17 09/04/17 09/05/17 06:59 06:59 06:59 Intake Total 2168 3243 Output Total 1350 1015 200 Balance 818 2228 -200 Weight 86.9 kg 88.9 kg General appearance: PRESENT: disheveled, obese, well-developed Head exam: PRESENT: atraumatic, normocephalic Eye exam: PRESENT: conjunctiva pale Mouth exam: PRESENT: dry mucosa, neck supple, tongue midline Neck exam: ABSENT: carotid bruit, JVD, lymphadenopathy, thyromegaly Respiratory exam: PRESENT: crackles, decreased breath sounds, prolonged expiratory phas, rhonchi, symmetrical, unlabored. ABSENT: stridor, tachypnea Cardiovascular exam: PRESENT: RRR, +S1, +S2 Pulses: PRESENT: normal radial pulses GI/Abdominal exam: PRESENT: normal bowel sounds, soft. ABSENT: distended, guarding, mass, organolmegaly, rebound, tenderness Rectal exam: PRESENT: deferred Gentrourinary exam: PRESENT: indwelling catheter Extremities exam: PRESENT: +1 edema Neurological exam: ABSENT: alert, awake Skin exam: PRESENT: dry, pallor, warm Results Laboratory Results: 09/04/17 05:10 09/04/17 05:10 09/04/17 09/04/17 09/04/17 05:10 05:10 05:10 WBC 18.1 H RBC 3.78 Hgb 9.2 L Hct 28.4 L MCV 75 L MCH 24.4 L MCHC 32.5 RDW 25.2 H Plt Count 165 Seg Neutrophils % Not Reportable Lymphocytes % Not Reportable Monocytes % Not Reportable Eosinophils % Not Reportable Basophils % Not Reportable Absolute Neutrophils Not Reportable Absolute Lymphocytes Not Reportable Absolute Monocytes Not Reportable Absolute Eosinophils Not Reportable Absolute Basophils Not Reportable Carbonic Acid 0.82 L HCO3/H2CO3 Ratio 20:1 ABG pH 7.41 ABG pCO2 27.3 L ABG pO2 65.1 L ABG HCO3 16.8 L ABG O2 Saturation 93.3 L ABG Base Excess -6.7 FiO2 35% Sodium 125.8 L Potassium 3.7 Chloride 100 Carbon Dioxide 15 L Anion Gap 11 BUN 38 H Creatinine 1.28 H Est GFR ( Amer) 48 L Est GFR (Non-Af Amer) 40 L Glucose 113 H Calcium 7.8 L Magnesium 2.0 Total Bilirubin 3.2 H AST 70 H ALT 78 H Alkaline Phosphatase 55 Total Protein 4.7 L Albumin 2.3 L 08/25/17 08/25/17 08/25/17 16:00 16:00 21:35 Creatine Kinase 65 CK-MB (CK-2) 0.72 Troponin I 0.039 0.032 NT-Pro-B Natriuret Pep 1570 H 08/26/17 08/26/17 08/27/17 04:23 04:23 05:46 Creatine Kinase CK-MB (CK-2) Troponin I 0.031 NT-Pro-B Natriuret Pep 1160 H 2020 H 08/29/17 08/29/17 08/30/17 20:30 20:30 03:23 Creatine Kinase 94 217 H CK-MB (CK-2) 1.13 Troponin I 0.078 NT-Pro-B Natriuret Pep 08/30/17 08/30/17 08/30/17 03:23 09:40 09:40 Creatine Kinase 216 H CK-MB (CK-2) 1.63 2.22 Troponin I 0.100 0.071 NT-Pro-B Natriuret Pep 08/31/17 09/02/17 09/03/17 05:30 05:00 04:40 Creatine Kinase CK-MB (CK-2) Troponin I NT-Pro-B Natriuret Pep 30431 H 8050 H 6870 H Impressions: Abdomen Ultrasound 08/26/17 00:00 IMPRESSION: Echogenic material in the main portal vein, worrisome for incompletely occlusive thrombus Guidance Fluoroscopy 08/27/17 00:00 IMPRESSION: SUCCESSFUL PLACEMENT OF A 5 FR SINGLE LUMEN 37 CM PICC IN THE RIGHT BASILIC VEIN. Interventional Vascular Procedure 08/27/17 00:00 IMPRESSION: SUCCESSFUL PLACEMENT OF A 5 FR SINGLE LUMEN 37 CM PICC IN THE RIGHT BASILIC VEIN. PICC Line Insertion 08/27/17 00:00 IMPRESSION: SUCCESSFUL PLACEMENT OF A 5 FR SINGLE LUMEN 37 CM PICC IN THE RIGHT BASILIC VEIN. Abdomen/Pelvis CT 08/27/17 07:40 IMPRESSION: 1. PATENT PORTAL VEIN, SPLENIC VEIN, AND SUPERIOR MESENTERIC VEIN. NO EVIDENCE OF THROMBOSIS. 2. MODERATE ASCITES. 3. BILATERAL PLEURAL EFFUSIONS WITH BASILAR ATELECTASIS. 4. CHRONIC CHANGES IN THE LUMBAR SPINE WITH PRIOR KYPHOPLASTY AND SURGICAL CHANGES WITH HARDWARE. 5. NO OTHER SIGNIFICANT FINDINGS. Hepatobiliary Scan Nuclear Medicine 08/28/17 00:00 IMPRESSION: No scintigraphic evidence of cystic duct or common duct obstruction Mildly depressed gallbladder ejection fraction. IV CCK did not reproduce the patient's symptoms Chest X-Ray 09/04/17 06:00 IMPRESSION: Tubes and lines in good positioning. Continued clearing of alveolar and interstitial infiltrates compared to 2016 Assessment & Plan - Diagnosis (1) Acute respiratory distress syndrome in adult Is this a current diagnosis for this admission?: Yes (2) COPD (chronic obstructive pulmonary disease) Qualifiers: Emphysema type: unspecified Is this a current diagnosis for this admission?: Yes (3) Full code status Is this a current diagnosis for this admission?: Yes (4) Metabolic acidosis Is this a current diagnosis for this admission?: Yes (5) Septic shock due to Gram positive bacteria Is this a current diagnosis for this admission?: Yes - Time Critical Time spent with patient: 25-34 minutes
[2017-09-07] MEDS: IMIPENEM/CILASTATIN SODIUM 500 MG in NORMAL SALINE 100 ML IV SCH ×3 (12:12→23:39)
[2017-09-07] MEDS: MICAFUNGIN SODIUM 100 MG in NORMAL SALINE 100 ML IV SCH (12:14)
[2017-09-07] MEDS ORDERED: METOLAZONE 5 MG TABLET NG SCH ×2 (12:30→14:00)
[2017-09-07] MEDS ORDERED: INFLUENZA ADLT QUAD (36MOS+) 2017-18 VAC 0.5 ML SYR IM PRN (14:00)
[2017-09-07] MEDS: METOLAZONE 5 MG TABLET NG SCH (17:48)
--- NOTE | 2017-09-07 17:51 | Progress Note ---
Provider Note Provider Note: After discussion with the family regarding overall condition of the patient including considerations of possible pneumonia on top of heart failure and sepsis, prolonged intubation that will require likely tracheostomy and PEG tube placement within the next 5 days family has opted for do not resuscitation at this time and will decide later whether to withdraw life support. Patient will be made DNR.
--- NOTE | 2017-09-07 20:13 | PDOC PROGRESS REPORT ---
Subjective Progress Note for:: 09/07/17 Subjective:: Patient currently continuing on on Elmer-Synephrine drip. Currently still on Levophed drip. Chest x-ray from today reviewed which show significant pulmonary congestion. Patient's family at bedside. Banzon to talk about CODE STATUS as patient has not made any progress and has additional new problem. Patient remains intubated, sedated, patient however looks comfortable and in acute distress. Medications reviewed. Physical Exam Vital Signs: Temp Pulse Resp BP Pulse Ox 99.0 F 94 19 131/52 H 100 09/07/17 17:58 09/07/17 12:12 09/07/17 17:13 09/07/17 17:58 09/07/17 17:58 Intake & Output 09/06/17 09/07/17 09/08/17 06:59 06:59 06:59 Intake Total 2495 3411 1849 Output Total 2535 3125 1350 Balance -40 286 499 Weight 88.5 kg 89.5 kg Exam: GENERAL: well-nourished and in no acute distress. Patient is intubated and sedated. Orientation cannot be checked HEAD: Atraumatic, normocephalic. EYES: Pupils equal round and reactive to light, extraocular movements could not be checked, sclera anicteric, conjunctiva are normal. ENT: TMs normal, nares patent, oropharynx clear without exudates. Moist mucous membranes. No oral ulcerations or bleeding gums noted NECK: supple without lymphadenopathy or JVD. Trachea is central. No cervical or axillary lymphadenopathy noted. Carotids are 2+ LUNGS: Breath sounds mostly clear to auscultation patient is noted to have bibasal crackles at the extreme bases CHEST: Palpation of the chest wall shows no significant chest wall tenderness or abnormalities. HEART: [place] [employer], No PSH, 2/6 JUAN aortic area, 1/6 sorto systolic murmur mitral area , no rubs or gallops. ABDOMEN: Soft, no significant tenderness appreciated, normoactive bowel sounds. No guarding, no rebound. No rigidity noted . No masses appreciated. EXTREMITIES: Pedal pulses are 1-2+, no calf tenderness noted, 2+ pedal edema noted, generalized edema also noted. No clubbing or cyanosis. NEUROLOGICAL: The patient cannot participate in the neurological exam but no facial asymmetry noted. Extremities slightly hypotonic PSYCH: This cannot be evaluated. Patient cannot participate. SKIN: No significant ecchymosis, rash, or signs of pruritus noted. MUSCULOSKELETAL EXAM: No significant joint swelling noted. Patient cannot participate in musculoskeletal exam Results Laboratory Results: 09/07/17 05:40 09/07/17 05:40 09/07/17 09/07/17 09/07/17 05:40 05:40 05:40 WBC 26.4 H RBC 4.14 Hgb 10.1 L Hct 31.6 L MCV 77 L MCH 24.4 L MCHC 31.9 L RDW 25.3 H Plt Count 211 Seg Neutrophils % Not Reportable Lymphocytes % Not Reportable Monocytes % Not Reportable Eosinophils % Not Reportable Basophils % Not Reportable Absolute Neutrophils Not Reportable Absolute Lymphocytes Not Reportable Absolute Monocytes Not Reportable Absolute Eosinophils Not Reportable Absolute Basophils Not Reportable Carbonic Acid 0.92 L HCO3/H2CO3 Ratio 21:1 ABG pH 7.43 ABG pCO2 30.5 L ABG pO2 67.3 L ABG HCO3 20.0 ABG O2 Saturation 94.2 ABG Base Excess -3.4 FiO2 40% Sodium 130.0 L Potassium 3.3 L Chloride 99 Carbon Dioxide 21 L Anion Gap 10 BUN 29 H Creatinine 0.89 Est GFR ( Amer) > 60 Est GFR (Non-Af Amer) > 60 Glucose 114 H Calcium 7.9 L Phosphorus 3.0 Magnesium 1.8 Ammonia Urine Color Urine Appearance Urine pH Ur Specific [place] Urine Protein Urine Glucose (UA) Urine Ketones Urine Blood Urine Nitrite Ur Leukocyte Esterase Urine WBC (Auto) Urine RBC (Auto) 09/07/17 09/07/17 09:10 10:30 WBC RBC Hgb Hct MCV MCH MCHC RDW Plt Count Seg Neutrophils % Lymphocytes % Monocytes % Eosinophils % Basophils % Absolute Neutrophils Absolute Lymphocytes Absolute Monocytes Absolute Eosinophils Absolute Basophils Carbonic Acid HCO3/H2CO3 Ratio ABG pH ABG pCO2 ABG pO2 ABG HCO3 ABG O2 Saturation ABG Base Excess FiO2 Sodium Potassium Chloride Carbon Dioxide Anion Gap BUN Creatinine Est GFR ( Amer) Est GFR (Non-Af Amer) Glucose Calcium Phosphorus Magnesium Ammonia 8.9 L Urine Color YELLOW Urine Appearance SLIGHTLY-CLOUDY Urine pH 5.0 Ur Specific [place] 1.006 Urine Protein NEGATIVE Urine Glucose (UA) NEGATIVE Urine Ketones NEGATIVE Urine Blood SMALL H Urine Nitrite NEGATIVE Ur Leukocyte Esterase MODERATE H Urine WBC (Auto) 23 Urine RBC (Auto) 9 09/04/17 14:44 Ascities Fluid AFB Smear Concentration - Final 09/04/17 14:44 Ascities Fluid Acid Fast Bacilli Smear - Final 08/25/17 08/25/17 08/25/17 16:00 16:00 21:35 Creatine Kinase 65 CK-MB (CK-2) 0.72 Troponin I 0.039 0.032 NT-Pro-B Natriuret Pep 1570 H 08/26/17 08/26/17 08/27/17 04:23 04:23 05:46 Creatine Kinase CK-MB (CK-2) Troponin I 0.031 NT-Pro-B Natriuret Pep 1160 H 2020 H 08/29/17 08/29/17 08/30/17 20:30 20:30 03:23 Creatine Kinase 94 217 H CK-MB (CK-2) 1.13 Troponin I 0.078 NT-Pro-B Natriuret Pep 08/30/17 08/30/17 08/30/17 03:23 09:40 09:40 Creatine Kinase 216 H CK-MB (CK-2) 1.63 2.22 Troponin I 0.100 0.071 NT-Pro-B Natriuret Pep 08/31/17 09/02/17 09/03/17 05:30 05:00 04:40 Creatine Kinase CK-MB (CK-2) Troponin I NT-Pro-B Natriuret Pep 79228 H 8050 H 6870 H Impressions: Abdomen Ultrasound 08/26/17 00:00 IMPRESSION: Echogenic material in the main portal vein, worrisome for incompletely occlusive thrombus Guidance Fluoroscopy 08/27/17 00:00 IMPRESSION: SUCCESSFUL PLACEMENT OF A 5 FR SINGLE LUMEN 37 CM PICC IN THE RIGHT BASILIC VEIN. Interventional Vascular Procedure 08/27/17 00:00 IMPRESSION: SUCCESSFUL PLACEMENT OF A 5 FR SINGLE LUMEN 37 CM PICC IN THE RIGHT BASILIC VEIN. PICC Line Insertion 08/27/17 00:00 IMPRESSION: SUCCESSFUL PLACEMENT OF A 5 FR SINGLE LUMEN 37 CM PICC IN THE RIGHT BASILIC VEIN. Abdomen/Pelvis CT 08/27/17 07:40 IMPRESSION: 1. PATENT PORTAL VEIN, SPLENIC VEIN, AND SUPERIOR MESENTERIC VEIN. NO EVIDENCE OF THROMBOSIS. 2. MODERATE ASCITES. 3. BILATERAL PLEURAL EFFUSIONS WITH BASILAR ATELECTASIS. 4. CHRONIC CHANGES IN THE LUMBAR SPINE WITH PRIOR KYPHOPLASTY AND SURGICAL CHANGES WITH HARDWARE. 5. NO OTHER SIGNIFICANT FINDINGS. Hepatobiliary Scan Nuclear Medicine 08/28/17 00:00 IMPRESSION: No scintigraphic evidence of cystic duct or common duct obstruction Mildly depressed gallbladder ejection fraction. IV CCK did not reproduce the patient's symptoms Paracentesis Ultrasound 09/04/17 10:32 IMPRESSION: Successful ultrasound-guided diagnostic and therapeutic paracentesis KUB X-Ray 09/07/17 00:00 IMPRESSION: Nasogastric tube tip and side port in the stomach. Relatively gasless abdomen. No dilated small bowel loops or colon Chest X-Ray 09/07/17 06:00 IMPRESSION: Increasing pulmonary congestion and pleural effusions. Lines and tubes are in unchanged appropriate position. 2010 [employer]- All Rights Reserved Assessment & Plan - Diagnosis (1) Atrial fibrillation Qualifiers: Atrial fibrillation type: paroxysmal Qualified Code(s): I48.0 - Paroxysmal atrial fibrillation Is this a current diagnosis for this admission?: Yes (2) COPD (chronic obstructive pulmonary disease) Qualifiers: Emphysema type: unspecified Is this a current diagnosis for this admission?: Yes (3) Hypotension Qualifiers: Hypotension type: other hypotension type Qualified Code(s): I95.89 - Other hypotension Is this a current diagnosis for this admission?: Yes (4) CAD (coronary artery disease) Qualifiers: Coronary Disease-Associated Artery/Lesion type: unspecified vessel or lesion type Associated angina: angina presence unspecified Is this a current diagnosis for this admission?: Yes (5) Respiratory failure Qualifiers: Chronicity: unspecified Respiratory failure complication: unspecified whether with hypoxia or hypercapnia Qualified Code(s): J96.90 - Respiratory failure, unspecified, unspecified whether with hypoxia or hypercapnia Is this a current diagnosis for this admission?: Yes (6) CHF (congestive heart failure) Qualifiers: Congestive heart failure type: diastolic Is this a current diagnosis for this admission?: Yes (7) Aortic stenosis Qualifiers: Cardiac valve disease etiology: nonrheumatic Qualified Code(s): I35.0 - Nonrheumatic aortic (valve) stenosis Is this a current diagnosis for this admission?: Yes (8) Elevated liver function tests Is this a current diagnosis for this admission?: Yes - Notes Notes: Patient has failed to improve. Patient remains on vasopressors. Continue current supportive care. Patient has worsening renal bilirubin. Exact etiology not clear. Patient may have obstructive jaundice. Coronary artery disease: Symptomatically stable. CHF patient continues to be in CHF. Continue IV diuretic therapy. Moderate aortic stenosis: Currently stable. Do not feel patient is likely candidate for any operative intervention. We will continue to follow. Patient remains critically ill with multisystem involvement.
[2017-09-07] MEDS: TOBRAMYCIN SULFATE NEB 40 MG/ML 30 ML NEB SCH (20:27)
[2017-09-08] MEDS: METOLAZONE 5 MG TABLET NG SCH (02:23)
[2017-09-08 05:05] LABS: ARTERIAL BLOOD BASE EXCESS -3.8 mmol/L; ARTERIAL BLOOD O2 SATURATION 93.8 % (94-98)
[2017-09-08 05:08] LABS: HEMATOCRIT 33.8 % (36.0-47.0); HEMOGLOBIN 10.9 g/dL (12.0-15.5); HGB HCT DIFFERENCE -1.1; MEAN CORPUSCULAR HEMOGLOBIN 24.9 pg (27.0-33.4); MEAN CORPUSCULAR HGB CONC 32.4 g/dL (32.0-36.0); MEAN CORPUSCULAR VOLUME 77 fl (80-97); RED BLOOD COUNT 4.39 10^6/uL (3.72-5.28); RED CELL DISTRIBUTION WIDTH 26.2 % (11.5-14.0); WHITE BLOOD COUNT 29.6 10^3/uL (4.0-10.5)
[2017-09-08 05:24] LABS: ALANINE AMINOTRANSFERASE 90 U/L (9-52); ALKALINE PHOSPHATASE 120 U/L (38-126); ANION GAP 10 (5-19); ASPARTATE AMINO TRANSFERASE 160 U/L (14-36); BILIRUBIN,DIRECT 2.6 mg/dL (0.0-0.4); BILIRUBIN,TOTAL 3.4 mg/dL (0.2-1.3); BLOOD UREA NITROGEN 30 mg/dL (7-20); CALCIUM 7.9 mg/dL (8.4-10.2); CARBON DIOXIDE 21 mmol/L (22-30); CHLORIDE 97 mmol/L (98-107); CREATININE RESULT 0.99 mg/dL (0.52-1.25); GLUCOSE 114 mg/dL (75-110); MAGNESIUM 1.8 mg/dL (1.6-2.3); POTASSIUM 3.7 mmol/L (3.6-5.0); TOTAL PROTEIN 4.9 g/dL (6.3-8.2)
[2017-09-08 05:37] LABS: BAND NEUTROPHILS % (MANUAL) 5 % (3-5); BASOPHILS % (MANUAL) 0 % (0-2); EOSINOPHILS % (MANUAL) 1 % (0-6); LYMPHOCYTES % (MANUAL) 3 % (13-45); TOTAL CELLS COUNTED 100
[2017-09-08 05:41] LABS: ANISOCYTOSIS 3+; BURR CELLS 2+; HYPOCHROMASIA 2+; MICROCYTOSIS SLIGHT; OVALOCYTES 1+; POIKILOCYTOSIS 2+; POLYCHROMASIA SLIGHT; TARGET CELLS SLIGHT; TOXIC GRANULATION 1+; TOXIC VACUOLATION PRESENT
[2017-09-08] MEDS: DEXTROSE 5%-WATER 250 ML with NOREPINEPHRINE BITARTRATE 4 MG IV PRN ×6 (05:53→19:53)
[2017-09-08] MEDS: DEXTROSE 5%-WATER 250 ML with PHENYLEPHRINE HCL 40 MG IV PRN ×6 (05:53→19:53)
[2017-09-08] MEDS: MIDODRINE HCL 5 MG TABLET NG SCH ×3 (05:54→18:42)
[2017-09-08] MEDS: IMIPENEM/CILASTATIN SODIUM 500 MG in NORMAL SALINE 100 ML IV SCH ×4 (05:54→23:27)
[2017-09-08] MEDS: METOCLOPRAMIDE HCL INJ/PF 10 MG/2 ML SDV IV SCH ×4 (05:54→23:27)
[2017-09-08] MEDS: FUROSEMIDE INJ/PF 40 MG/4 ML SDV IV SCH ×3 (05:54→21:37)
[2017-09-08] MEDS: LEVOTHYROXINE SODIUM 0.05 MG TABLET NG SCH (05:55)
[2017-09-08] MEDS: GABAPENTIN 300 MG CAPSULE NG SCH ×3 (05:55→21:37)
--- NOTE | 2017-09-08 08:01 | RADIOLOGY REPORT (SQ) ---
EXAM DESCRIPTION: CHEST SINGLE VIEW COMPLETED DATE/TIME: 09/08/2017 6:55 am REASON FOR STUDY: resp failure COMPARISON: Chest films 09/03/2017, 09/05/2017, 09/06/2017, 09/07/2017 EXAM PARAMETERS: NUMBER OF VIEWS: One view. TECHNIQUE: Single frontal radiographic view of the chest acquired. RADIATION DOSE: NA LIMITATIONS: None. FINDINGS: LUNGS AND PLEURA: Increased alveolar and interstitial markings from edema. ARDS or pneumo lolly could not be excluded. This is more prominent than on 09/03/2017. There is loss of the discrete left hemidiaphragm, either due to left basilar atelectasis or trace lef t pleural fluid. No pneumothorax. MEDIASTINUM AND HILAR STRUCTURES: No masses. Contour normal. HEART AND VASCULAR STRUCTURES: Stable cardiomegaly. Old sternotomy for CABG. BONES: Osteoporotic HARDWARE: Endotracheal tube tip midtrachea. Right subclavian triple lumen catheter tip in the superi or vena cava. Nasogastric tube tip and side port in the stomach. OTHER: No other significant finding. IMPRESSION: Persistent alveolar and interstitial infiltrates likely from pulmonary edema. Left retrocardiac atelectasis versus trace pleural effusion TECHNICAL DOCUMENTATION: JOB ID: [id number]
[2017-09-08] MEDS: IPRATROPIUM/ALBUTEROL 0.5-2.5 MG/3 ML AMPUL NEB PRN ×2 (08:07→20:11)
[2017-09-08] MEDS: TOBRAMYCIN SULFATE NEB 40 MG/ML 30 ML NEB SCH ×2 (08:08→20:10)
--- NOTE | 2017-09-08 08:37 | PDOC PROGRESS REPORT ---
Subjective Progress Note for:: 09/08/17 Subjective:: The patient is still intubated and sedated. She is not very responsive to any treatments. She is presently on 2 pressors and antibiotics but unfortunately the white count continues to go up. We will contact the family and discussed the discontinuation of the life support. Physical Exam Vital Signs: Temp Pulse Resp BP Pulse Ox 98.1 F 86 20 113/53 L 100 09/08/17 08:00 09/08/17 08:29 09/08/17 08:00 09/08/17 08:00 09/08/17 08:00 Intake & Output 09/07/17 09/08/17 09/09/17 06:59 06:59 06:59 Intake Total 3411 3477 Output Total 3125 2500 200 Balance 286 977 -200 Weight 89.5 kg 89.1 kg General appearance: PRESENT: severe distress Head exam: PRESENT: normocephalic Eye exam: PRESENT: conjunctival injection Neck exam: ABSENT: carotid bruit Respiratory exam: PRESENT: rales, rhonchi Cardiovascular exam: PRESENT: irregular rhythm, +S1, +S2 Murmur grade: 3 Pulses: PRESENT: +1 pedal pulses bilateral GI/Abdominal exam: PRESENT: firm, tenderness Extremities exam: PRESENT: tenderness Musculoskeletal exam: PRESENT: tenderness Neurological exam: PRESENT: other Results Laboratory Results: 09/08/17 04:55 09/08/17 04:55 09/07/17 09/07/17 09/08/17 09:10 10:30 04:55 WBC RBC Hgb Hct MCV MCH MCHC RDW Plt Count Seg Neutrophils % Lymphocytes % Monocytes % Eosinophils % Basophils % Absolute Neutrophils Absolute Lymphocytes Absolute Monocytes Absolute Eosinophils Absolute Basophils Carbonic Acid 1.04 L HCO3/H2CO3 Ratio 19:1 ABG pH 7.39 ABG pCO2 34.6 L ABG pO2 68.6 L ABG HCO3 20.5 ABG O2 Saturation 93.8 L ABG Base Excess -3.8 FiO2 40% Sodium Potassium Chloride Carbon Dioxide Anion Gap BUN Creatinine Est GFR ( Amer) Est GFR (Non-Af Amer) Glucose Calcium Magnesium Total Bilirubin AST ALT Alkaline Phosphatase Ammonia 8.9 L Total Protein Albumin Urine Color YELLOW Urine Appearance SLIGHTLY-CLOUDY Urine pH 5.0 Ur Specific [place] 1.006 Urine Protein NEGATIVE Urine Glucose (UA) NEGATIVE Urine Ketones NEGATIVE Urine Blood SMALL H Urine Nitrite NEGATIVE Ur Leukocyte Esterase MODERATE H Urine WBC (Auto) 23 Urine RBC (Auto) 9 09/08/17 09/08/17 04:55 04:55 WBC 29.6 H RBC 4.39 Hgb 10.9 L Hct 33.8 L MCV 77 L MCH 24.9 L MCHC 32.4 RDW 26.2 H Plt Count 228 Seg Neutrophils % Not Reportable Lymphocytes % Not Reportable Monocytes % Not Reportable Eosinophils % Not Reportable Basophils % Not Reportable Absolute Neutrophils Not Reportable Absolute Lymphocytes Not Reportable Absolute Monocytes Not Reportable Absolute Eosinophils Not Reportable Absolute Basophils Not Reportable Carbonic Acid HCO3/H2CO3 Ratio ABG pH ABG pCO2 ABG pO2 ABG HCO3 ABG O2 Saturation ABG Base Excess FiO2 Sodium 128.0 L Potassium 3.7 Chloride 97 L Carbon Dioxide 21 L Anion Gap 10 BUN 30 H Creatinine 0.99 Est GFR ( Amer) > 60 Est GFR (Non-Af Amer) 54 L Glucose 114 H Calcium 7.9 L Magnesium 1.8 Total Bilirubin 3.4 H AST 160 H ALT 90 H Alkaline Phosphatase 120 Ammonia Total Protein 4.9 L Albumin 2.0 L Urine Color Urine Appearance Urine pH Ur Specific [place] Urine Protein Urine Glucose (UA) Urine Ketones Urine Blood Urine Nitrite Ur Leukocyte Esterase Urine WBC (Auto) Urine RBC (Auto) 09/04/17 14:44 Ascities Fluid Gram Stain - Final 09/04/17 14:44 Ascities Fluid Body Fluid Culture - Final NO AEROBIC OR ANAEROBIC ORGANISMS RECOVERED 09/04/17 14:44 Ascities Fluid AFB Smear Concentration - Final 09/04/17 14:44 Ascities Fluid Acid Fast Bacilli Smear - Final 08/25/17 08/25/17 08/25/17 16:00 16:00 21:35 Creatine Kinase 65 CK-MB (CK-2) 0.72 Troponin I 0.039 0.032 NT-Pro-B Natriuret Pep 1570 H 08/26/17 08/26/17 08/27/17 04:23 04:23 05:46 Creatine Kinase CK-MB (CK-2) Troponin I 0.031 NT-Pro-B Natriuret Pep 1160 H 2020 H 08/29/17 08/29/17 08/30/17 20:30 20:30 03:23 Creatine Kinase 94 217 H CK-MB (CK-2) 1.13 Troponin I 0.078 NT-Pro-B Natriuret Pep 08/30/17 08/30/17 08/30/17 03:23 09:40 09:40 Creatine Kinase 216 H CK-MB (CK-2) 1.63 2.22 Troponin I 0.100 0.071 NT-Pro-B Natriuret Pep 08/31/17 09/02/17 09/03/17 05:30 05:00 04:40 Creatine Kinase CK-MB (CK-2) Troponin I NT-Pro-B Natriuret Pep 65008 H 8050 H 6870 H Impressions: Abdomen Ultrasound 08/26/17 00:00 IMPRESSION: Echogenic material in the main portal vein, worrisome for incompletely occlusive thrombus Guidance Fluoroscopy 08/27/17 00:00 IMPRESSION: SUCCESSFUL PLACEMENT OF A 5 FR SINGLE LUMEN 37 CM PICC IN THE RIGHT BASILIC VEIN. Interventional Vascular Procedure 08/27/17 00:00 IMPRESSION: SUCCESSFUL PLACEMENT OF A 5 FR SINGLE LUMEN 37 CM PICC IN THE RIGHT BASILIC VEIN. PICC Line Insertion 08/27/17 00:00 IMPRESSION: SUCCESSFUL PLACEMENT OF A 5 FR SINGLE LUMEN 37 CM PICC IN THE RIGHT BASILIC VEIN. Abdomen/Pelvis CT 08/27/17 07:40 IMPRESSION: 1. PATENT PORTAL VEIN, SPLENIC VEIN, AND SUPERIOR MESENTERIC VEIN. NO EVIDENCE OF THROMBOSIS. 2. MODERATE ASCITES. 3. BILATERAL PLEURAL EFFUSIONS WITH BASILAR ATELECTASIS. 4. CHRONIC CHANGES IN THE LUMBAR SPINE WITH PRIOR KYPHOPLASTY AND SURGICAL CHANGES WITH HARDWARE. 5. NO OTHER SIGNIFICANT FINDINGS. Hepatobiliary Scan Nuclear Medicine 08/28/17 00:00 IMPRESSION: No scintigraphic evidence of cystic duct or common duct obstruction Mildly depressed gallbladder ejection fraction. IV CCK did not reproduce the patient's symptoms Paracentesis Ultrasound 09/04/17 10:32 IMPRESSION: Successful ultrasound-guided diagnostic and therapeutic paracentesis KUB X-Ray 09/07/17 00:00 IMPRESSION: Nasogastric tube tip and side port in the stomach. Relatively gasless abdomen. No dilated small bowel loops or colon Chest X-Ray 09/08/17 06:00 IMPRESSION: Persistent alveolar and interstitial infiltrates likely from pulmonary edema. Left retrocardiac atelectasis versus trace pleural effusion Assessment & Plan - Diagnosis (1) Dehydration Is this a current diagnosis for this admission?: Yes (2) Hypokalemia Is this a current diagnosis for this admission?: Yes (3) Acute renal failure superimposed on stage 3 chronic kidney disease Qualifiers: Acute renal failure type: unspecified Qualified Code(s): N17.9 - Acute kidney failure, unspecified; N18.3 - Chronic kidney disease, stage 3 (moderate) Is this a current diagnosis for this admission?: Yes (4) COPD (chronic obstructive pulmonary disease) Qualifiers: Emphysema type: unspecified Is this a current diagnosis for this admission?: Yes (5) CAD (coronary artery disease) Qualifiers: Coronary Disease-Associated Artery/Lesion type: unspecified vessel or lesion type Associated angina: angina presence unspecified Is this a current diagnosis for this admission?: Yes Plan: Continue current medications (6) Atrial fibrillation Qualifiers: Atrial fibrillation type: paroxysmal Qualified Code(s): I48.0 - Paroxysmal atrial fibrillation Is this a current diagnosis for this admission?: Yes Plan: Continue amiodarone (7) Chronic combined systolic and diastolic CHF (congestive heart failure) Is this a current diagnosis for this admission?: Yes Plan: Continue current medications. Will consult cardiology (8) Septic shock due to Gram positive bacteria Is this a current diagnosis for this admission?: Yes Plan: We will discuss with cardiology about possibly changing the pressors (9) Sepsis due to methicillin resistant Staphylococcus aureus (MRSA) Is this a current diagnosis for this admission?: Yes Plan: We will stop the vancomycin and continue with imipenem. (10) Hyponatremia Is this a current diagnosis for this admission?: Yes (11) COPD with acute exacerbation Is this a current diagnosis for this admission?: Yes Plan: Continue current treatment (12) Acute respiratory failure Qualifiers: Respiratory failure complication: hypoxia Qualified Code(s): J96.01 - Acute respiratory failure with hypoxia Is this a current diagnosis for this admission?: Yes Plan: Still intubated. We will continue until the decision is made about life support (13) Abnormal liver enzymes Is this a current diagnosis for this admission?: Yes Plan: Probably related to sepsis and hypoperfusion. We will continue with IV fluids and Levophed and Elmer-Synephrine (14) Do not resuscitate Plan: The family have made the patient DO NOT RESUSCITATE. Will discuss with the family about discontinuing life support. Her prognosis remains poor. Despite all the efforts the patient have not recovered and continues to be hypotensive and septic
[2017-09-08] MEDS: PANTOPRAZOLE SODIUM 40 MG VIAL IV SCH ×2 (09:54→21:37)
[2017-09-08] MEDS: POTASSIUM CHLORIDE 20 MEQ/15 ML UDCUP NG SCH (09:54)
[2017-09-08] MEDS: NORMAL SALINE 10 ML SDV (SCHEDULED) IV SCH ×2 (09:55→21:39)
[2017-09-08] MEDS: NYSTATIN TOPICAL POWDER 15 GM TP SCH ×2 (09:55→18:42)
[2017-09-08] MEDS: MICAFUNGIN SODIUM 100 MG in NORMAL SALINE 100 ML IV SCH (10:17)
--- NOTE | 2017-09-08 13:00 | PDOC PROGRESS REPORT ---
Subjective Progress Note for:: 09/08/17 Subjective:: Intubated Physical Exam Vital Signs: Temp Pulse Resp BP Pulse Ox 98.1 F 86 20 113/53 L 100 09/08/17 08:00 09/08/17 08:29 09/08/17 08:00 09/08/17 08:00 09/08/17 08:00 Intake & Output 09/07/17 09/08/17 09/09/17 06:59 06:59 06:59 Intake Total 3411 3477 Output Total 3125 2500 200 Balance 286 977 -200 Weight 89.5 kg 89.1 kg General appearance: PRESENT: no acute distress, disheveled, obese, well- developed Head exam: PRESENT: atraumatic, normocephalic Eye exam: PRESENT: conjunctiva pale Mouth exam: PRESENT: dry mucosa, neck supple, tongue midline, other - ET tube in place Respiratory exam: PRESENT: decreased breath sounds, prolonged expiratory phas, rales, rhonchi, symmetrical, unlabored. ABSENT: retraction, stridor, tachypnea Cardiovascular exam: PRESENT: RRR, +S1, +S2 Pulses: PRESENT: normal radial pulses GI/Abdominal exam: PRESENT: diminished bowel sounds, distended Rectal exam: PRESENT: deferred Gentrourinary exam: PRESENT: indwelling catheter Extremities exam: PRESENT: +1 edema Neurological exam: ABSENT: alert, awake Skin exam: PRESENT: dry, pallor, warm Results Laboratory Results: 09/08/17 04:55 09/08/17 04:55 09/07/17 09/07/17 09/08/17 09:10 10:30 04:55 WBC RBC Hgb Hct MCV MCH MCHC RDW Plt Count Seg Neutrophils % Lymphocytes % Monocytes % Eosinophils % Basophils % Absolute Neutrophils Absolute Lymphocytes Absolute Monocytes Absolute Eosinophils Absolute Basophils Carbonic Acid 1.04 L HCO3/H2CO3 Ratio 19:1 ABG pH 7.39 ABG pCO2 34.6 L ABG pO2 68.6 L ABG HCO3 20.5 ABG O2 Saturation 93.8 L ABG Base Excess -3.8 FiO2 40% Sodium Potassium Chloride Carbon Dioxide Anion Gap BUN Creatinine Est GFR ( Amer) Est GFR (Non-Af Amer) Glucose Calcium Magnesium Total Bilirubin AST ALT Alkaline Phosphatase Ammonia 8.9 L Total Protein Albumin Urine Color YELLOW Urine Appearance SLIGHTLY-CLOUDY Urine pH 5.0 Ur Specific [place] 1.006 Urine Protein NEGATIVE Urine Glucose (UA) NEGATIVE Urine Ketones NEGATIVE Urine Blood SMALL H Urine Nitrite NEGATIVE Ur Leukocyte Esterase MODERATE H Urine WBC (Auto) 23 Urine RBC (Auto) 9 09/08/17 09/08/17 04:55 04:55 WBC 29.6 H RBC 4.39 Hgb 10.9 L Hct 33.8 L MCV 77 L MCH 24.9 L MCHC 32.4 RDW 26.2 H Plt Count 228 Seg Neutrophils % Not Reportable Lymphocytes % Not Reportable Monocytes % Not Reportable Eosinophils % Not Reportable Basophils % Not Reportable Absolute Neutrophils Not Reportable Absolute Lymphocytes Not Reportable Absolute Monocytes Not Reportable Absolute Eosinophils Not Reportable Absolute Basophils Not Reportable Carbonic Acid HCO3/H2CO3 Ratio ABG pH ABG pCO2 ABG pO2 ABG HCO3 ABG O2 Saturation ABG Base Excess FiO2 Sodium 128.0 L Potassium 3.7 Chloride 97 L Carbon Dioxide 21 L Anion Gap 10 BUN 30 H Creatinine 0.99 Est GFR ( Amer) > 60 Est GFR (Non-Af Amer) 54 L Glucose 114 H Calcium 7.9 L Magnesium 1.8 Total Bilirubin 3.4 H AST 160 H ALT 90 H Alkaline Phosphatase 120 Ammonia Total Protein 4.9 L Albumin 2.0 L Urine Color Urine Appearance Urine pH Ur Specific [place] Urine Protein Urine Glucose (UA) Urine Ketones Urine Blood Urine Nitrite Ur Leukocyte Esterase Urine WBC (Auto) Urine RBC (Auto) 09/04/17 14:44 Ascities Fluid Gram Stain - Final 09/04/17 14:44 Ascities Fluid Body Fluid Culture - Final NO AEROBIC OR ANAEROBIC ORGANISMS RECOVERED 09/04/17 14:44 Ascities Fluid AFB Smear Concentration - Final 09/04/17 14:44 Ascities Fluid Acid Fast Bacilli Smear - Final 08/25/17 08/25/17 08/25/17 16:00 16:00 21:35 Creatine Kinase 65 CK-MB (CK-2) 0.72 Troponin I 0.039 0.032 NT-Pro-B Natriuret Pep 1570 H 08/26/17 08/26/17 08/27/17 04:23 04:23 05:46 Creatine Kinase CK-MB (CK-2) Troponin I 0.031 NT-Pro-B Natriuret Pep 1160 H 2020 H 08/29/17 08/29/17 08/30/17 20:30 20:30 03:23 Creatine Kinase 94 217 H CK-MB (CK-2) 1.13 Troponin I 0.078 NT-Pro-B Natriuret Pep 08/30/17 08/30/17 08/30/17 03:23 09:40 09:40 Creatine Kinase 216 H CK-MB (CK-2) 1.63 2.22 Troponin I 0.100 0.071 NT-Pro-B Natriuret Pep 08/31/17 09/02/17 09/03/17 05:30 05:00 04:40 Creatine Kinase CK-MB (CK-2) Troponin I NT-Pro-B Natriuret Pep 04689 H 8050 H 6870 H Impressions: Abdomen Ultrasound 08/26/17 00:00 IMPRESSION: Echogenic material in the main portal vein, worrisome for incompletely occlusive thrombus Guidance Fluoroscopy 08/27/17 00:00 IMPRESSION: SUCCESSFUL PLACEMENT OF A 5 FR SINGLE LUMEN 37 CM PICC IN THE RIGHT BASILIC VEIN. Interventional Vascular Procedure 08/27/17 00:00 IMPRESSION: SUCCESSFUL PLACEMENT OF A 5 FR SINGLE LUMEN 37 CM PICC IN THE RIGHT BASILIC VEIN. PICC Line Insertion 08/27/17 00:00 IMPRESSION: SUCCESSFUL PLACEMENT OF A 5 FR SINGLE LUMEN 37 CM PICC IN THE RIGHT BASILIC VEIN. Abdomen/Pelvis CT 08/27/17 07:40 IMPRESSION: 1. PATENT PORTAL VEIN, SPLENIC VEIN, AND SUPERIOR MESENTERIC VEIN. NO EVIDENCE OF THROMBOSIS. 2. MODERATE ASCITES. 3. BILATERAL PLEURAL EFFUSIONS WITH BASILAR ATELECTASIS. 4. CHRONIC CHANGES IN THE LUMBAR SPINE WITH PRIOR KYPHOPLASTY AND SURGICAL CHANGES WITH HARDWARE. 5. NO OTHER SIGNIFICANT FINDINGS. Hepatobiliary Scan Nuclear Medicine 08/28/17 00:00 IMPRESSION: No scintigraphic evidence of cystic duct or common duct obstruction Mildly depressed gallbladder ejection fraction. IV CCK did not reproduce the patient's symptoms Paracentesis Ultrasound 09/04/17 10:32 IMPRESSION: Successful ultrasound-guided diagnostic and therapeutic paracentesis KUB X-Ray 09/07/17 00:00 IMPRESSION: Nasogastric tube tip and side port in the stomach. Relatively gasless abdomen. No dilated small bowel loops or colon Chest X-Ray 09/08/17 06:00 IMPRESSION: Persistent alveolar and interstitial infiltrates likely from pulmonary edema. Left retrocardiac atelectasis versus trace pleural effusion Assessment & Plan - Diagnosis (1) Acute respiratory distress syndrome in adult Is this a current diagnosis for this admission?: Yes (2) COPD (chronic obstructive pulmonary disease) Qualifiers: Emphysema type: unspecified Is this a current diagnosis for this admission?: Yes (3) Full code status Is this a current diagnosis for this admission?: No (4) Metabolic acidosis Is this a current diagnosis for this admission?: Yes (5) Septic shock due to Gram positive bacteria Is this a current diagnosis for this admission?: Yes Plan: White count continues to climb left shift and bandemia pancultured from 24 hours no results thus far - Time Critical Time spent with patient: 35 or more minutes - 40 min
[2017-09-08] MEDS: NORMAL SALINE 1000 ML 1,000 ML IV PRN (19:53)
[2017-09-09] MEDS: DEXTROSE 5%-WATER 250 ML with NOREPINEPHRINE BITARTRATE 4 MG IV PRN ×4 (03:30→10:00)
[2017-09-09] MEDS: DEXTROSE 5%-WATER 250 ML with PHENYLEPHRINE HCL 40 MG IV PRN ×4 (03:31→10:00)
[2017-09-09] MEDS: FUROSEMIDE INJ/PF 40 MG/4 ML SDV IV SCH ×2 (05:37→14:00)
[2017-09-09] MEDS: GABAPENTIN 300 MG CAPSULE NG SCH ×2 (05:37→16:01)
[2017-09-09] MEDS: METOCLOPRAMIDE HCL INJ/PF 10 MG/2 ML SDV IV SCH ×3 (05:37→17:49)
[2017-09-09] MEDS: LEVOTHYROXINE SODIUM 0.05 MG TABLET NG SCH (05:38)
[2017-09-09] MEDS: MIDODRINE HCL 5 MG TABLET NG SCH ×3 (05:38→17:49)
[2017-09-09] MEDS: IMIPENEM/CILASTATIN SODIUM 500 MG in NORMAL SALINE 100 ML IV SCH ×3 (05:41→17:49)
[2017-09-09 06:26] LABS: ARTERIAL BLOOD O2 SATURATION 94.1 % (94-98)
[2017-09-09 06:32] LABS: HEMOGLOBIN 10.8 g/dL (12.0-15.5); MEAN CORPUSCULAR HEMOGLOBIN 24.3 pg (27.0-33.4); RED BLOOD COUNT 4.46 10^6/uL (3.72-5.28)
[2017-09-09 06:37] LABS: PARTIAL THROMBOPLASTIN TIME 38.2 SEC (23.5-35.8); PROTHROMBIN TIME 19.2 SEC (11.4-15.4)
[2017-09-09 06:40] LABS: HEMATOCRIT 34.2 % (36.0-47.0); HGB HCT DIFFERENCE -1.8; MEAN CORPUSCULAR HGB CONC 31.6 g/dL (32.0-36.0); MEAN CORPUSCULAR VOLUME 77 fl (80-97); RED CELL DISTRIBUTION WIDTH 26.1 % (11.5-14.0)
[2017-09-09 06:42] LABS: ALANINE AMINOTRANSFERASE 89 U/L (9-52); ALKALINE PHOSPHATASE 136 U/L (38-126); ANION GAP 9 (5-19); ASPARTATE AMINO TRANSFERASE 159 U/L (14-36); BILIRUBIN,DIRECT 2.3 mg/dL (0.0-0.4); BILIRUBIN,TOTAL 3.1 mg/dL (0.2-1.3); BLOOD UREA NITROGEN 32 mg/dL (7-20); CARBON DIOXIDE 21 mmol/L (22-30); CHLORIDE 95 mmol/L (98-107); CREATININE RESULT 1.02 mg/dL (0.52-1.25); GLUCOSE 112 mg/dL (75-110); MAGNESIUM 1.7 mg/dL (1.6-2.3); PHOSPHORUS 3.5 mg/dL (2.5-4.5); POTASSIUM 3.5 mmol/L (3.6-5.0); SODIUM 125.4 mmol/L (137-145)
[2017-09-09 06:56] LABS: ANISOCYTOSIS 3+; BASOPHILS % (MANUAL) 0 % (0-2); BURR CELLS 1+; EOSINOPHILS % (MANUAL) 0 % (0-6); HYPOCHROMASIA SLIGHT; LYMPHOCYTES % (MANUAL) 4 % (13-45); MICROCYTOSIS SLIGHT; POIKILOCYTOSIS 1+; POLYCHROMASIA SLIGHT; TOTAL CELLS COUNTED 100; TOXIC GRANULATION 1+; TOXIC VACUOLATION PRESENT
[2017-09-09 06:57] LABS: OVALOCYTES SLIGHT; TEAR DROP CELLS SLIGHT
[2017-09-09 07:01] LABS: WHITE BLOOD COUNT 32.9 10^3/uL (4.0-10.5)
--- NOTE | 2017-09-09 07:57 | RADIOLOGY REPORT (SQ) ---
EXAM DESCRIPTION: CHEST SINGLE VIEW COMPLETED DATE/TIME: 09/09/2017 6:42 am REASON FOR STUDY: resp failure COMPARISON: 09/08/2017 NUMBER OF VIEWS: One view. TECHNIQUE: Single frontal radiographic image of the chest acquired. LIMITATIONS: None. FINDINGS: LUNGS AND PLEURA: Stable appearance. MEDIASTINUM AND HILAR STRUCTURES: Stable heart size and mediastinal structures. HEART AND VASCULAR STRUCTURES: Stable appearance. SUPPORT DEVICES: Appropriate location without change. BONES: No acute findings. OTHER: No other significant finding. IMPRESSION: STABLE APPEARANCE OF THE CHEST. SUPPORT DEVICES UNCHANGED. TECHNICAL DOCUMENTATION: JOB ID: [id number] [employer]- All Rights Reserved
[2017-09-09] MEDS: IPRATROPIUM/ALBUTEROL 0.5-2.5 MG/3 ML AMPUL NEB PRN (08:43)
[2017-09-09] MEDS: TOBRAMYCIN SULFATE NEB 40 MG/ML 30 ML NEB SCH (08:58)
[2017-09-09] MEDS: PANTOPRAZOLE SODIUM 40 MG VIAL IV SCH (09:45)
[2017-09-09] MEDS: POTASSIUM CHLORIDE 20 MEQ/15 ML UDCUP NG SCH (09:45)
[2017-09-09] MEDS: NYSTATIN TOPICAL POWDER 15 GM TP SCH ×2 (10:00→17:49)
[2017-09-09] MEDS: MICAFUNGIN SODIUM 100 MG in NORMAL SALINE 100 ML IV SCH (10:39)
[2017-09-09] MEDS: NORMAL SALINE 10 ML SDV (SCHEDULED) IV SCH (10:39)
--- NOTE | 2017-09-09 10:42 | PDOC PROGRESS REPORT ---
Subjective Progress Note for:: 09/09/17 Subjective:: Intubated Slightly more arousable Physical Exam Vital Signs: Temp Pulse Resp BP Pulse Ox 99.1 F 103 H 22 H 96/46 L 97 09/09/17 06:14 09/08/17 22:00 09/08/17 20:11 09/09/17 06:14 09/09/17 06:13 Intake & Output 09/08/17 09/09/17 09/10/17 06:59 06:59 06:59 Intake Total 3477 3632 Output Total 2500 2135 Balance 977 1497 Weight 89.1 kg 92.4 kg General appearance: PRESENT: no acute distress, disheveled, obese, well- developed Head exam: PRESENT: atraumatic, normocephalic Eye exam: PRESENT: conjunctiva pale Mouth exam: PRESENT: dry mucosa, neck supple, tongue midline, other - ET tube in place Neck exam: ABSENT: carotid bruit, JVD, lymphadenopathy, thyromegaly Respiratory exam: PRESENT: decreased breath sounds, prolonged expiratory phas, rhonchi, symmetrical, unlabored. ABSENT: retraction, stridor, tachypnea Cardiovascular exam: PRESENT: irregular rhythm Pulses: PRESENT: normal radial pulses GI/Abdominal exam: PRESENT: distended Rectal exam: PRESENT: deferred Gentrourinary exam: PRESENT: indwelling catheter Extremities exam: PRESENT: +1 edema Skin exam: PRESENT: dry, pallor, warm Results Laboratory Results: 09/09/17 06:00 09/09/17 06:00 09/09/17 09/09/17 09/09/17 06:00 06:00 06:00 WBC 32.9 H* RBC 4.46 Hgb 10.8 L Hct 34.2 L MCV 77 L MCH 24.3 L MCHC 31.6 L RDW 26.1 H Plt Count 218 Seg Neutrophils % Not Reportable Lymphocytes % Not Reportable Monocytes % Not Reportable Eosinophils % Not Reportable Basophils % Not Reportable Absolute Neutrophils Not Reportable Absolute Lymphocytes Not Reportable Absolute Monocytes Not Reportable Absolute Eosinophils Not Reportable Absolute Basophils Not Reportable Carbonic Acid 0.97 L HCO3/H2CO3 Ratio 21:1 ABG pH 7.44 ABG pCO2 32.3 L ABG pO2 66.9 L ABG HCO3 21.3 ABG O2 Saturation 94.1 ABG Base Excess -2.0 FiO2 40% Sodium Potassium Chloride Carbon Dioxide Anion Gap BUN Creatinine Est GFR ( Amer) Est GFR (Non-Af Amer) Glucose Calcium Phosphorus Magnesium Total Bilirubin AST ALT Alkaline Phosphatase Ammonia 15.6 Total Protein Albumin 09/09/17 06:00 WBC RBC Hgb Hct MCV MCH MCHC RDW Plt Count Seg Neutrophils % Lymphocytes % Monocytes % Eosinophils % Basophils % Absolute Neutrophils Absolute Lymphocytes Absolute Monocytes Absolute Eosinophils Absolute Basophils Carbonic Acid HCO3/H2CO3 Ratio ABG pH ABG pCO2 ABG pO2 ABG HCO3 ABG O2 Saturation ABG Base Excess FiO2 Sodium 125.4 L Potassium 3.5 L Chloride 95 L Carbon Dioxide 21 L Anion Gap 9 BUN 32 H Creatinine 1.02 Est GFR ( Amer) > 60 Est GFR (Non-Af Amer) 52 L Glucose 112 H Calcium 8.0 L Phosphorus 3.5 Magnesium 1.7 Total Bilirubin 3.1 H AST 159 H ALT 89 H Alkaline Phosphatase 136 H Ammonia Total Protein 5.0 L Albumin 2.0 L 09/07/17 09:10 Catheterized Urine Urine Culture - Final C.albicans/C.dubliniensis 09/04/17 14:44 Ascities Fluid Fungal Smear - Final 09/04/17 14:44 Ascities Fluid Fungal Smear - Final 09/07/17 12:09 Tracheal Aspirate Gram Stain - Final 09/07/17 12:09 Tracheal Aspirate Sputum Culture - Final C.albicans/C.dubliniensis Normal [place] Absent 09/04/17 14:44 Ascities Fluid Gram Stain - Final 09/04/17 14:44 Ascities Fluid Body Fluid Culture - Final NO AEROBIC OR ANAEROBIC ORGANISMS RECOVERED 08/25/17 08/25/17 08/25/17 16:00 16:00 21:35 Creatine Kinase 65 CK-MB (CK-2) 0.72 Troponin I 0.039 0.032 NT-Pro-B Natriuret Pep 1570 H 08/26/17 08/26/17 08/27/17 04:23 04:23 05:46 Creatine Kinase CK-MB (CK-2) Troponin I 0.031 NT-Pro-B Natriuret Pep 1160 H 2020 H 08/29/17 08/29/17 08/30/17 20:30 20:30 03:23 Creatine Kinase 94 217 H CK-MB (CK-2) 1.13 Troponin I 0.078 NT-Pro-B Natriuret Pep 08/30/17 08/30/17 08/30/17 03:23 09:40 09:40 Creatine Kinase 216 H CK-MB (CK-2) 1.63 2.22 Troponin I 0.100 0.071 NT-Pro-B Natriuret Pep 08/31/17 09/02/17 09/03/17 05:30 05:00 04:40 Creatine Kinase CK-MB (CK-2) Troponin I NT-Pro-B Natriuret Pep 84524 H 8050 H 6870 H 09/09/17 06:00 Creatine Kinase CK-MB (CK-2) Troponin I NT-Pro-B Natriuret Pep 5150 H Impressions: Abdomen Ultrasound 08/26/17 00:00 IMPRESSION: Echogenic material in the main portal vein, worrisome for incompletely occlusive thrombus Guidance Fluoroscopy 08/27/17 00:00 IMPRESSION: SUCCESSFUL PLACEMENT OF A 5 FR SINGLE LUMEN 37 CM PICC IN THE RIGHT BASILIC VEIN. Interventional Vascular Procedure 08/27/17 00:00 IMPRESSION: SUCCESSFUL PLACEMENT OF A 5 FR SINGLE LUMEN 37 CM PICC IN THE RIGHT BASILIC VEIN. PICC Line Insertion 08/27/17 00:00 IMPRESSION: SUCCESSFUL PLACEMENT OF A 5 FR SINGLE LUMEN 37 CM PICC IN THE RIGHT BASILIC VEIN. Abdomen/Pelvis CT 08/27/17 07:40 IMPRESSION: 1. PATENT PORTAL VEIN, SPLENIC VEIN, AND SUPERIOR MESENTERIC VEIN. NO EVIDENCE OF THROMBOSIS. 2. MODERATE ASCITES. 3. BILATERAL PLEURAL EFFUSIONS WITH BASILAR ATELECTASIS. 4. CHRONIC CHANGES IN THE LUMBAR SPINE WITH PRIOR KYPHOPLASTY AND SURGICAL CHANGES WITH HARDWARE. 5. NO OTHER SIGNIFICANT FINDINGS. Hepatobiliary Scan Nuclear Medicine 08/28/17 00:00 IMPRESSION: No scintigraphic evidence of cystic duct or common duct obstruction Mildly depressed gallbladder ejection fraction. IV CCK did not reproduce the patient's symptoms Paracentesis Ultrasound 09/04/17 10:32 IMPRESSION: Successful ultrasound-guided diagnostic and therapeutic paracentesis KUB X-Ray 09/07/17 00:00 IMPRESSION: Nasogastric tube tip and side port in the stomach. Relatively gasless abdomen. No dilated small bowel loops or colon Chest X-Ray 09/09/17 06:00 IMPRESSION: STABLE APPEARANCE OF THE CHEST. SUPPORT DEVICES UNCHANGED. Assessment & Plan - Diagnosis (1) Acute respiratory distress syndrome in adult Is this a current diagnosis for this admission?: Yes Plan: Oxygenating well mild metabolic acidosis well compensated (2) COPD (chronic obstructive pulmonary disease) Qualifiers: Emphysema type: unspecified Is this a current diagnosis for this admission?: Yes (3) Full code status Is this a current diagnosis for this admission?: No (4) Metabolic acidosis Is this a current diagnosis for this admission?: Yes Plan: Mild compensated (5) Septic shock due to Gram positive bacteria Is this a current diagnosis for this admission?: Yes Plan: Multiple vasopressors WBC continues increase cultures negative thus far - Time Critical Time spent with patient: 25-34 minutes
--- NOTE | 2017-09-09 12:06 | PDOC PROGRESS REPORT ---
Subjective Progress Note for:: 09/09/17 Subjective:: The patient is still intubated sedated on 2 vasopressors. Long conversation with her and children yesterday in the office in about her current care. They are waiting for her son to arrive from out of town. Discussed the comfort care only since that things and her medical condition remains critical and not improving. The son should be arriving around noon today and then the family will probably make her comfort care and withdraw the support. It is my opinion that once the pressors have been stopped the patient would not survive long. Physical Exam Vital Signs: Temp Pulse Resp BP Pulse Ox 99.0 F 97 15 105/44 L 95 09/09/17 09:00 09/09/17 09:16 09/09/17 08:43 09/09/17 08:59 09/09/17 09:00 Intake & Output 09/08/17 09/09/17 09/10/17 06:59 06:59 06:59 Intake Total 3477 3632 Output Total 2500 2135 125 Balance 977 1497 -125 Weight 89.1 kg 92.4 kg General appearance: PRESENT: other Eye exam: PRESENT: conjunctival injection Additional comments: Intubated Neck exam: ABSENT: carotid bruit Respiratory exam: PRESENT: rales, rhonchi Cardiovascular exam: PRESENT: irregular rhythm, +S1, +S2 Murmur grade: 3 GI/Abdominal exam: PRESENT: distended, hypoactive bowel sounds Extremities exam: PRESENT: other Musculoskeletal exam: PRESENT: other Results Laboratory Results: 09/09/17 06:00 09/09/17 06:00 09/09/17 09/09/17 09/09/17 06:00 06:00 06:00 WBC 32.9 H* RBC 4.46 Hgb 10.8 L Hct 34.2 L MCV 77 L MCH 24.3 L MCHC 31.6 L RDW 26.1 H Plt Count 218 Seg Neutrophils % Not Reportable Lymphocytes % Not Reportable Monocytes % Not Reportable Eosinophils % Not Reportable Basophils % Not Reportable Absolute Neutrophils Not Reportable Absolute Lymphocytes Not Reportable Absolute Monocytes Not Reportable Absolute Eosinophils Not Reportable Absolute Basophils Not Reportable Carbonic Acid 0.97 L HCO3/H2CO3 Ratio 21:1 ABG pH 7.44 ABG pCO2 32.3 L ABG pO2 66.9 L ABG HCO3 21.3 ABG O2 Saturation 94.1 ABG Base Excess -2.0 FiO2 40% Sodium Potassium Chloride Carbon Dioxide Anion Gap BUN Creatinine Est GFR ( Amer) Est GFR (Non-Af Amer) Glucose Calcium Phosphorus Magnesium Total Bilirubin AST ALT Alkaline Phosphatase Ammonia 15.6 Total Protein Albumin 09/09/17 06:00 WBC RBC Hgb Hct MCV MCH MCHC RDW Plt Count Seg Neutrophils % Lymphocytes % Monocytes % Eosinophils % Basophils % Absolute Neutrophils Absolute Lymphocytes Absolute Monocytes Absolute Eosinophils Absolute Basophils Carbonic Acid HCO3/H2CO3 Ratio ABG pH ABG pCO2 ABG pO2 ABG HCO3 ABG O2 Saturation ABG Base Excess FiO2 Sodium 125.4 L Potassium 3.5 L Chloride 95 L Carbon Dioxide 21 L Anion Gap 9 BUN 32 H Creatinine 1.02 Est GFR ( Amer) > 60 Est GFR (Non-Af Amer) 52 L Glucose 112 H Calcium 8.0 L Phosphorus 3.5 Magnesium 1.7 Total Bilirubin 3.1 H AST 159 H ALT 89 H Alkaline Phosphatase 136 H Ammonia Total Protein 5.0 L Albumin 2.0 L 09/07/17 09:10 Catheterized Urine Urine Culture - Final C.albicans/C.dubliniensis 09/04/17 14:44 Ascities Fluid Fungal Smear - Final 09/04/17 14:44 Ascities Fluid Fungal Smear - Final 09/07/17 12:09 Tracheal Aspirate Gram Stain - Final 09/07/17 12:09 Tracheal Aspirate Sputum Culture - Final C.albicans/C.dubliniensis Normal Juliet Absent 09/04/17 14:44 Ascities Fluid Gram Stain - Final 09/04/17 14:44 Ascities Fluid Body Fluid Culture - Final NO AEROBIC OR ANAEROBIC ORGANISMS RECOVERED 08/25/17 08/25/17 08/25/17 16:00 16:00 21:35 Creatine Kinase 65 CK-MB (CK-2) 0.72 Troponin I 0.039 0.032 NT-Pro-B Natriuret Pep 1570 H 08/26/17 08/26/17 08/27/17 04:23 04:23 05:46 Creatine Kinase CK-MB (CK-2) Troponin I 0.031 NT-Pro-B Natriuret Pep 1160 H 2020 H 08/29/17 08/29/17 08/30/17 20:30 20:30 03:23 Creatine Kinase 94 217 H CK-MB (CK-2) 1.13 Troponin I 0.078 NT-Pro-B Natriuret Pep 08/30/17 08/30/17 08/30/17 03:23 09:40 09:40 Creatine Kinase 216 H CK-MB (CK-2) 1.63 2.22 Troponin I 0.100 0.071 NT-Pro-B Natriuret Pep 08/31/17 09/02/17 09/03/17 05:30 05:00 04:40 Creatine Kinase CK-MB (CK-2) Troponin I NT-Pro-B Natriuret Pep 22846 H 8050 H 6870 H 09/09/17 06:00 Creatine Kinase CK-MB (CK-2) Troponin I NT-Pro-B Natriuret Pep 5150 H Impressions: Abdomen Ultrasound 08/26/17 00:00 IMPRESSION: Echogenic material in the main portal vein, worrisome for incompletely occlusive thrombus Guidance Fluoroscopy 08/27/17 00:00 IMPRESSION: SUCCESSFUL PLACEMENT OF A 5 FR SINGLE LUMEN 37 CM PICC IN THE RIGHT BASILIC VEIN. Interventional Vascular Procedure 08/27/17 00:00 IMPRESSION: SUCCESSFUL PLACEMENT OF A 5 FR SINGLE LUMEN 37 CM PICC IN THE RIGHT BASILIC VEIN. PICC Line Insertion 08/27/17 00:00 IMPRESSION: SUCCESSFUL PLACEMENT OF A 5 FR SINGLE LUMEN 37 CM PICC IN THE RIGHT BASILIC VEIN. Abdomen/Pelvis CT 08/27/17 07:40 IMPRESSION: 1. PATENT PORTAL VEIN, SPLENIC VEIN, AND SUPERIOR MESENTERIC VEIN. NO EVIDENCE OF THROMBOSIS. 2. MODERATE ASCITES. 3. BILATERAL PLEURAL EFFUSIONS WITH BASILAR ATELECTASIS. 4. CHRONIC CHANGES IN THE LUMBAR SPINE WITH PRIOR KYPHOPLASTY AND SURGICAL CHANGES WITH HARDWARE. 5. NO OTHER SIGNIFICANT FINDINGS. Hepatobiliary Scan Nuclear Medicine 08/28/17 00:00 IMPRESSION: No scintigraphic evidence of cystic duct or common duct obstruction Mildly depressed gallbladder ejection fraction. IV CCK did not reproduce the patient's symptoms Paracentesis Ultrasound 09/04/17 10:32 IMPRESSION: Successful ultrasound-guided diagnostic and therapeutic paracentesis KUB X-Ray 09/07/17 00:00 IMPRESSION: Nasogastric tube tip and side port in the stomach. Relatively gasless abdomen. No dilated small bowel loops or colon Chest X-Ray 09/09/17 06:00 IMPRESSION: STABLE APPEARANCE OF THE CHEST. SUPPORT DEVICES UNCHANGED. Assessment & Plan - Diagnosis (1) Dehydration Is this a current diagnosis for this admission?: Yes (2) Hypokalemia Is this a current diagnosis for this admission?: Yes (3) Acute renal failure superimposed on stage 3 chronic kidney disease Qualifiers: Acute renal failure type: unspecified Qualified Code(s): N17.9 - Acute kidney failure, unspecified; N18.3 - Chronic kidney disease, stage 3 (moderate) Is this a current diagnosis for this admission?: Yes (4) COPD (chronic obstructive pulmonary disease) Qualifiers: Emphysema type: unspecified Is this a current diagnosis for this admission?: Yes (5) CAD (coronary artery disease) Qualifiers: Coronary Disease-Associated Artery/Lesion type: unspecified vessel or lesion type Associated angina: angina presence unspecified Is this a current diagnosis for this admission?: Yes (6) Atrial fibrillation Qualifiers: Atrial fibrillation type: paroxysmal Qualified Code(s): I48.0 - Paroxysmal atrial fibrillation Is this a current diagnosis for this admission?: Yes Plan: Continue amiodarone (7) Chronic combined systolic and diastolic CHF (congestive heart failure) Is this a current diagnosis for this admission?: Yes Plan: Continue current medications. Will consult cardiology (8) Septic shock due to Gram positive bacteria Is this a current diagnosis for this admission?: Yes Plan: We will discuss with cardiology about possibly changing the pressors (9) Sepsis due to methicillin resistant Staphylococcus aureus (MRSA) Is this a current diagnosis for this admission?: Yes Plan: We will stop the vancomycin and continue with imipenem. (10) Hyponatremia Is this a current diagnosis for this admission?: Yes (11) COPD with acute exacerbation Is this a current diagnosis for this admission?: Yes (12) Acute respiratory failure Qualifiers: Respiratory failure complication: hypoxia Qualified Code(s): J96.01 - Acute respiratory failure with hypoxia Is this a current diagnosis for this admission?: Yes Plan: Still intubated. We will continue until the decision is made about life support (13) Abnormal liver enzymes Is this a current diagnosis for this admission?: Yes (14) Do not resuscitate Plan: The family have made the patient DO NOT RESUSCITATE. Will discuss with the family about discontinuing life support. Her prognosis remains poor. Despite all the efforts the patient have not recovered and continues to be hypotensive and septic - Plan Summary Plan Summary: Because the family has decided for DNR and would like a comfort care once the whole family is around will consider that and will talk to the family about the comfort care and weaning off the pressors.
[2017-09-09 13:34] LABS: PATH REVIEW PATHOLOGIST REVIEWED
[2017-09-09] MEDS ORDERED: DEXAMETHASONE SOD PHOSPHATE INJ 4 MG/1 ML VIAL IV ONE (14:00)
[2017-09-09] MEDS ORDERED: SCOPOLAMINE HYDROBROMIDE 1.5 MG PATCH.TD72 TD SCH (16:00)
[2017-09-09] MEDS: MORPHINE SULFATE 10 MG/ML INJ IV PRN ×2 (17:11→19:30)
[2017-09-09] MEDS: LORAZEPAM INJ 2 MG/1 ML VIAL IV PRN ×2 (18:26→20:43)
[2017-09-09] MEDS ORDERED: SCOPOLAMINE HYDROBROMIDE 1.5 MG PATCH.TD72 TD ONE (19:00)
--- NOTE | 2017-09-09 20:27 | PDOC PROGRESS REPORT ---
Subjective Progress Note for:: 09/09/17 Subjective:: Patient was seen on morning rounds. In the afternoon at around lunchtime I noticed Adán Lester MD talking with the family regarding CODE STATUS. Patient currently continuing on on Elmer-Synephrine drip. Currently still on Levophed drip. Chest x-ray from today reviewed which show significant pulmonary congestion. Patient has been made a DO NOT RESUSCITATE. Adán Lester MD is in constant touch with the patient's family and is directing CODE STATUS etc. Patient's son to come to [facility]. Patient remains intubated, sedated, patient however looks comfortable and in acute distress. Medications reviewed. Lab work shows worsening white cell count. Liver function abnormalities seems to have stabilized. Renal function stable. BNP has come down a little bit. Physical Exam Vital Signs: Temp Pulse Resp BP Pulse Ox 99.1 F 94 14 72/16 L 85 L 09/09/17 20:00 09/09/17 20:02 09/09/17 20:00 09/09/17 19:48 09/09/17 20:00 Intake & Output 09/08/17 09/09/17 09/10/17 06:59 06:59 06:59 Intake Total 3477 3632 1369 Output Total 2500 2135 325 Balance 977 1497 1044 Weight 89.1 kg 92.4 kg Exam: GENERAL: well-nourished and in no acute distress. Patient is intubated and sedated. Orientation cannot be checked HEAD: Atraumatic, normocephalic. EYES: Pupils equal round and reactive to light, extraocular movements could not be checked, sclera anicteric, conjunctiva are normal. ENT: TMs normal, nares patent, oropharynx clear without exudates. Moist mucous membranes. No oral ulcerations or bleeding gums noted NECK: supple without lymphadenopathy or JVD. Trachea is central. No cervical or axillary lymphadenopathy noted. Carotids are 2+ LUNGS: Breath sounds mostly clear to auscultation patient is noted to have bibasal crackles at the extreme bases CHEST: Palpation of the chest wall shows no significant chest wall tenderness or abnormalities. HEART: [place] [employer], No PSH, 2/6 JUAN aortic area, 1/6 sorto systolic murmur mitral area , no rubs or gallops. ABDOMEN: Soft, no significant tenderness appreciated, normoactive bowel sounds. No guarding, no rebound. No rigidity noted . No masses appreciated. EXTREMITIES: Pedal pulses are 1-2+, no calf tenderness noted, 1+ pedal edema noted. No clubbing or cyanosis. NEUROLOGICAL: The patient cannot participate in the neurological exam but no facial asymmetry noted. Extremities slightly hypotonic PSYCH: This cannot be evaluated. Patient cannot participate. SKIN: No significant ecchymosis, rash, or signs of pruritus noted. MUSCULOSKELETAL EXAM: No significant joint swelling noted. Patient cannot participate in musculoskeletal exam Results Laboratory Results: 09/09/17 06:00 09/09/17 06:00 09/09/17 09/09/17 09/09/17 06:00 06:00 06:00 WBC 32.9 H* RBC 4.46 Hgb 10.8 L Hct 34.2 L MCV 77 L MCH 24.3 L MCHC 31.6 L RDW 26.1 H Plt Count 218 Seg Neutrophils % Not Reportable Lymphocytes % Not Reportable Monocytes % Not Reportable Eosinophils % Not Reportable Basophils % Not Reportable Absolute Neutrophils Not Reportable Absolute Lymphocytes Not Reportable Absolute Monocytes Not Reportable Absolute Eosinophils Not Reportable Absolute Basophils Not Reportable Carbonic Acid 0.97 L HCO3/H2CO3 Ratio 21:1 ABG pH 7.44 ABG pCO2 32.3 L ABG pO2 66.9 L ABG HCO3 21.3 ABG O2 Saturation 94.1 ABG Base Excess -2.0 FiO2 40% Sodium Potassium Chloride Carbon Dioxide Anion Gap BUN Creatinine Est GFR ( Amer) Est GFR (Non-Af Amer) Glucose Calcium Phosphorus Magnesium Total Bilirubin AST ALT Alkaline Phosphatase Ammonia 15.6 Total Protein Albumin 09/09/17 06:00 WBC RBC Hgb Hct MCV MCH MCHC RDW Plt Count Seg Neutrophils % Lymphocytes % Monocytes % Eosinophils % Basophils % Absolute Neutrophils Absolute Lymphocytes Absolute Monocytes Absolute Eosinophils Absolute Basophils Carbonic Acid HCO3/H2CO3 Ratio ABG pH ABG pCO2 ABG pO2 ABG HCO3 ABG O2 Saturation ABG Base Excess FiO2 Sodium 125.4 L Potassium 3.5 L Chloride 95 L Carbon Dioxide 21 L Anion Gap 9 BUN 32 H Creatinine 1.02 Est GFR ( Amer) > 60 Est GFR (Non-Af Amer) 52 L Glucose 112 H Calcium 8.0 L Phosphorus 3.5 Magnesium 1.7 Total Bilirubin 3.1 H AST 159 H ALT 89 H Alkaline Phosphatase 136 H Ammonia Total Protein 5.0 L Albumin 2.0 L 08/25/17 08/25/17 08/25/17 16:00 16:00 21:35 Creatine Kinase 65 CK-MB (CK-2) 0.72 Troponin I 0.039 0.032 NT-Pro-B Natriuret Pep 1570 H 08/26/17 08/26/17 08/27/17 04:23 04:23 05:46 Creatine Kinase CK-MB (CK-2) Troponin I 0.031 NT-Pro-B Natriuret Pep 1160 H 2020 H 08/29/17 08/29/17 08/30/17 20:30 20:30 03:23 Creatine Kinase 94 217 H CK-MB (CK-2) 1.13 Troponin I 0.078 NT-Pro-B Natriuret Pep 08/30/17 08/30/17 08/30/17 03:23 09:40 09:40 Creatine Kinase 216 H CK-MB (CK-2) 1.63 2.22 Troponin I 0.100 0.071 NT-Pro-B Natriuret Pep 08/31/17 09/02/17 09/03/17 05:30 05:00 04:40 Creatine Kinase CK-MB (CK-2) Troponin I NT-Pro-B Natriuret Pep 32970 H 8050 H 6870 H 09/09/17 06:00 Creatine Kinase CK-MB (CK-2) Troponin I NT-Pro-B Natriuret Pep 5150 H Impressions: Abdomen Ultrasound 08/26/17 00:00 IMPRESSION: Echogenic material in the main portal vein, worrisome for incompletely occlusive thrombus Guidance Fluoroscopy 08/27/17 00:00 IMPRESSION: SUCCESSFUL PLACEMENT OF A 5 FR SINGLE LUMEN 37 CM PICC IN THE RIGHT BASILIC VEIN. Interventional Vascular Procedure 08/27/17 00:00 IMPRESSION: SUCCESSFUL PLACEMENT OF A 5 FR SINGLE LUMEN 37 CM PICC IN THE RIGHT BASILIC VEIN. PICC Line Insertion 08/27/17 00:00 IMPRESSION: SUCCESSFUL PLACEMENT OF A 5 FR SINGLE LUMEN 37 CM PICC IN THE RIGHT BASILIC VEIN. Abdomen/Pelvis CT 08/27/17 07:40 IMPRESSION: 1. PATENT PORTAL VEIN, SPLENIC VEIN, AND SUPERIOR MESENTERIC VEIN. NO EVIDENCE OF THROMBOSIS. 2. MODERATE ASCITES. 3. BILATERAL PLEURAL EFFUSIONS WITH BASILAR ATELECTASIS. 4. CHRONIC CHANGES IN THE LUMBAR SPINE WITH PRIOR KYPHOPLASTY AND SURGICAL CHANGES WITH HARDWARE. 5. NO OTHER SIGNIFICANT FINDINGS. Hepatobiliary Scan Nuclear Medicine 08/28/17 00:00 IMPRESSION: No scintigraphic evidence of cystic duct or common duct obstruction Mildly depressed gallbladder ejection fraction. IV CCK did not reproduce the patient's symptoms Paracentesis Ultrasound 09/04/17 10:32 IMPRESSION: Successful ultrasound-guided diagnostic and therapeutic paracentesis KUB X-Ray 09/07/17 00:00 IMPRESSION: Nasogastric tube tip and side port in the stomach. Relatively gasless abdomen. No dilated small bowel loops or colon Chest X-Ray 09/09/17 06:00 IMPRESSION: STABLE APPEARANCE OF THE CHEST. SUPPORT DEVICES UNCHANGED. Assessment & Plan - Diagnosis (1) Atrial fibrillation Qualifiers: Atrial fibrillation type: paroxysmal Qualified Code(s): I48.0 - Paroxysmal atrial fibrillation Is this a current diagnosis for this admission?: Yes (2) COPD (chronic obstructive pulmonary disease) Qualifiers: Emphysema type: unspecified Is this a current diagnosis for this admission?: Yes (3) Hypotension Qualifiers: Hypotension type: other hypotension type Qualified Code(s): I95.89 - Other hypotension Is this a current diagnosis for this admission?: Yes (4) CAD (coronary artery disease) Qualifiers: Coronary Disease-Associated Artery/Lesion type: unspecified vessel or lesion type Associated angina: angina presence unspecified Is this a current diagnosis for this admission?: Yes (5) Respiratory failure Qualifiers: Chronicity: unspecified Respiratory failure complication: unspecified whether with hypoxia or hypercapnia Qualified Code(s): J96.90 - Respiratory failure, unspecified, unspecified whether with hypoxia or hypercapnia Is this a current diagnosis for this admission?: Yes (6) CHF (congestive heart failure) Qualifiers: Congestive heart failure type: diastolic Is this a current diagnosis for this admission?: Yes (7) Aortic stenosis Qualifiers: Cardiac valve disease etiology: nonrheumatic Qualified Code(s): I35.0 - Nonrheumatic aortic (valve) stenosis Is this a current diagnosis for this admission?: Yes (8) Elevated liver function tests Is this a current diagnosis for this admission?: Yes - Notes Notes: Patient remains critically ill. I did talk with the family members yesterday indicating that prognosis is on the poor side. Today Adán Lester MD would be talking about comfort care measures. Continue current supportive care. Overall prognosis noted to be on the poor side since patient has not turned around. - Time Time with patient: 15-25 minutes Medications reviewed and adjusted accordingly: Yes
[2017-09-09 22:35] VITALS: BP 69/17
--- NOTE | 2017-09-10 20:12 | PDOC PROGRESS REPORT ---
Subjective Progress Note for:: 09/08/17 Subjective:: Patient currently continuing on on Elmer-Synephrine drip. Currently still on Levophed drip. Chest x-ray from today reviewed which show significant pulmonary congestion. Patient's family at bedside. [place] to talk about CODE STATUS as patient has not made any progress and has additional new problem. Patient remains intubated, sedated, patient however looks comfortable and in acute distress. Medications reviewed. Physical Exam Vital Signs: Temp Pulse Resp BP Pulse Ox 98.8 F 102 H 23 H 113/48 L 97 09/08/17 19:51 09/08/17 18:00 09/08/17 18:00 09/08/17 18:59 09/08/17 19:00 Intake & Output 09/07/17 09/08/17 09/09/17 06:59 06:59 06:59 Intake Total 3411 3477 1900 Output Total 3125 2500 1260 Balance 286 977 640 Weight 89.5 kg 89.1 kg Exam: GENERAL: well-nourished and in no acute distress. Patient is intubated and sedated. Orientation cannot be checked HEAD: Atraumatic, normocephalic. EYES: Pupils equal round and reactive to light, extraocular movements could not be checked, sclera anicteric, conjunctiva are normal. ENT: TMs normal, nares patent, oropharynx clear without exudates. Moist mucous membranes. No oral ulcerations or bleeding gums noted NECK: supple without lymphadenopathy or JVD. Trachea is central. No cervical or axillary lymphadenopathy noted. Carotids are 2+ LUNGS: Breath sounds mostly clear to auscultation patient is noted to have bibasal crackles at the extreme bases CHEST: Palpation of the chest wall shows no significant chest wall tenderness or abnormalities. 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 ABDOMEN: Soft, no significant tenderness appreciated, normoactive bowel sounds. No guarding, no rebound. No rigidity noted . No masses appreciated. EXTREMITIES: Pedal pulses are 1-2+, no calf tenderness noted, 1+ pedal edema noted. No clubbing or cyanosis. NEUROLOGICAL: The patient cannot participate in the neurological exam but no facial asymmetry noted. Extremities slightly hypotonic PSYCH: This cannot be evaluated. Patient cannot participate. SKIN: No significant ecchymosis, rash, or signs of pruritus noted. MUSCULOSKELETAL EXAM: No significant joint swelling noted. Patient cannot participate in musculoskeletal exam Results Laboratory Results: 09/08/17 04:55 09/08/17 04:55 09/08/17 09/08/17 09/08/17 04:55 04:55 04:55 WBC 29.6 H RBC 4.39 Hgb 10.9 L Hct 33.8 L MCV 77 L MCH 24.9 L MCHC 32.4 RDW 26.2 H Plt Count 228 Seg Neutrophils % Not Reportable Lymphocytes % Not Reportable Monocytes % Not Reportable Eosinophils % Not Reportable Basophils % Not Reportable Absolute Neutrophils Not Reportable Absolute Lymphocytes Not Reportable Absolute Monocytes Not Reportable Absolute Eosinophils Not Reportable Absolute Basophils Not Reportable Carbonic Acid 1.04 L HCO3/H2CO3 Ratio 19:1 ABG pH 7.39 ABG pCO2 34.6 L ABG pO2 68.6 L ABG HCO3 20.5 ABG O2 Saturation 93.8 L ABG Base Excess -3.8 FiO2 40% Sodium 128.0 L Potassium 3.7 Chloride 97 L Carbon Dioxide 21 L Anion Gap 10 BUN 30 H Creatinine 0.99 Est GFR ( Amer) > 60 Est GFR (Non-Af Amer) 54 L Glucose 114 H Calcium 7.9 L Magnesium 1.8 Total Bilirubin 3.4 H AST 160 H ALT 90 H Alkaline Phosphatase 120 Total Protein 4.9 L Albumin 2.0 L 09/07/17 09:10 Catheterized Urine Urine Culture - Final C.albicans/C.dubliniensis 09/04/17 14:44 Ascities Fluid Fungal Smear - Final 09/04/17 14:44 Ascities Fluid Fungal Smear - Final 09/07/17 12:09 Tracheal Aspirate Gram Stain - Final 09/07/17 12:09 Tracheal Aspirate Sputum Culture - Final C.albicans/C.dubliniensis Normal Juliet Absent 09/04/17 14:44 Ascities Fluid Gram Stain - Final 09/04/17 14:44 Ascities Fluid Body Fluid Culture - Final NO AEROBIC OR ANAEROBIC ORGANISMS RECOVERED 08/25/17 08/25/17 08/25/17 16:00 16:00 21:35 Creatine Kinase 65 CK-MB (CK-2) 0.72 Troponin I 0.039 0.032 NT-Pro-B Natriuret Pep 1570 H 08/26/17 08/26/17 08/27/17 04:23 04:23 05:46 Creatine Kinase CK-MB (CK-2) Troponin I 0.031 NT-Pro-B Natriuret Pep 1160 H 2020 H 08/29/17 08/29/17 08/30/17 20:30 20:30 03:23 Creatine Kinase 94 217 H CK-MB (CK-2) 1.13 Troponin I 0.078 NT-Pro-B Natriuret Pep 08/30/17 08/30/17 08/30/17 03:23 09:40 09:40 Creatine Kinase 216 H CK-MB (CK-2) 1.63 2.22 Troponin I 0.100 0.071 NT-Pro-B Natriuret Pep 08/31/17 09/02/17 09/03/17 05:30 05:00 04:40 Creatine Kinase CK-MB (CK-2) Troponin I NT-Pro-B Natriuret Pep 41788 H 8050 H 6870 H Impressions: Abdomen Ultrasound 08/26/17 00:00 IMPRESSION: Echogenic material in the main portal vein, worrisome for incompletely occlusive thrombus Guidance Fluoroscopy 08/27/17 00:00 IMPRESSION: SUCCESSFUL PLACEMENT OF A 5 FR SINGLE LUMEN 37 CM PICC IN THE RIGHT BASILIC VEIN. Interventional Vascular Procedure 08/27/17 00:00 IMPRESSION: SUCCESSFUL PLACEMENT OF A 5 FR SINGLE LUMEN 37 CM PICC IN THE RIGHT BASILIC VEIN. PICC Line Insertion 08/27/17 00:00 IMPRESSION: SUCCESSFUL PLACEMENT OF A 5 FR SINGLE LUMEN 37 CM PICC IN THE RIGHT BASILIC VEIN. Abdomen/Pelvis CT 08/27/17 07:40 IMPRESSION: 1. PATENT PORTAL VEIN, SPLENIC VEIN, AND SUPERIOR MESENTERIC VEIN. NO EVIDENCE OF THROMBOSIS. 2. MODERATE ASCITES. 3. BILATERAL PLEURAL EFFUSIONS WITH BASILAR ATELECTASIS. 4. CHRONIC CHANGES IN THE LUMBAR SPINE WITH PRIOR KYPHOPLASTY AND SURGICAL CHANGES WITH HARDWARE. 5. NO OTHER SIGNIFICANT FINDINGS. Hepatobiliary Scan Nuclear Medicine 08/28/17 00:00 IMPRESSION: No scintigraphic evidence of cystic duct or common duct obstruction Mildly depressed gallbladder ejection fraction. IV CCK did not reproduce the patient's symptoms Paracentesis Ultrasound 09/04/17 10:32 IMPRESSION: Successful ultrasound-guided diagnostic and therapeutic paracentesis KUB X-Ray 09/07/17 00:00 IMPRESSION: Nasogastric tube tip and side port in the stomach. Relatively gasless abdomen. No dilated small bowel loops or colon Chest X-Ray 09/08/17 06:00 IMPRESSION: Persistent alveolar and interstitial infiltrates likely from pulmonary edema. Left retrocardiac atelectasis versus trace pleural effusion Assessment & Plan - Diagnosis (1) Atrial fibrillation Qualifiers: Atrial fibrillation type: paroxysmal Qualified Code(s): I48.0 - Paroxysmal atrial fibrillation Is this a current diagnosis for this admission?: Yes (2) COPD (chronic obstructive pulmonary disease) Qualifiers: Emphysema type: unspecified Is this a current diagnosis for this admission?: Yes (3) Hypotension Qualifiers: Hypotension type: other hypotension type Qualified Code(s): I95.89 - Other hypotension Is this a current diagnosis for this admission?: Yes (4) CAD (coronary artery disease) Qualifiers: Coronary Disease-Associated Artery/Lesion type: unspecified vessel or lesion type Associated angina: angina presence unspecified Is this a current diagnosis for this admission?: Yes (5) Respiratory failure Qualifiers: Chronicity: unspecified Respiratory failure complication: unspecified whether with hypoxia or hypercapnia Qualified Code(s): J96.90 - Respiratory failure, unspecified, unspecified whether with hypoxia or hypercapnia Is this a current diagnosis for this admission?: Yes (6) CHF (congestive heart failure) Qualifiers: Congestive heart failure type: diastolic Is this a current diagnosis for this admission?: Yes (7) Aortic stenosis Qualifiers: Cardiac valve disease etiology: nonrheumatic Qualified Code(s): I35.0 - Nonrheumatic aortic (valve) stenosis Is this a current diagnosis for this admission?: Yes (8) Elevated liver function tests Is this a current diagnosis for this admission?: Yes - Notes Notes: Patient remains critically ill on dual pressors. Patient has not made much progress. White cell count keeps going up. 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 At this point, will just continue supportive care. Overall prognosis on the poor side. Discussed with patient's daughter. Discussed with nurse. Will continue to follow patient. Currently patient is maintaining a stable rhythm. Blood pressure noted to be stable but needing vasopressors. - Time Time with patient: 15-25 minutes Medications reviewed and adjusted accordingly: Yes
[2017-09-12] MEDS ORDERED: SCOPOLAMINE HYDROBROMIDE 1.5 MG PATCH.TD72 TD SCH (19:00)
--- NOTE | 2017-09-17 16:47 | Death Summary ---
Summary Date : 09/09/17 Autopsy: No Resuscitation Status: Do Not Resuscitate - Final Diagnosis (1) Dehydration Is this a current diagnosis for this admission?: Yes (2) Hypokalemia Is this a current diagnosis for this admission?: Yes (3) Acute renal failure superimposed on stage 3 chronic kidney disease Is this a current diagnosis for this admission?: Yes (4) COPD (chronic obstructive pulmonary disease) Is this a current diagnosis for this admission?: Yes (5) CAD (coronary artery disease) Is this a current diagnosis for this admission?: Yes (6) Atrial fibrillation Is this a current diagnosis for this admission?: Yes (7) Chronic combined systolic and diastolic CHF (congestive heart failure) Is this a current diagnosis for this admission?: Yes (8) Septic shock due to Gram positive bacteria Is this a current diagnosis for this admission?: Yes (9) Sepsis due to methicillin resistant Staphylococcus aureus (MRSA) Is this a current diagnosis for this admission?: Yes (10) Hyponatremia Is this a current diagnosis for this admission?: Yes (11) COPD with acute exacerbation Is this a current diagnosis for this admission?: Yes (12) Acute respiratory failure Is this a current diagnosis for this admission?: Yes (13) Abnormal liver enzymes Is this a current diagnosis for this admission?: Yes Hospital Course:: After several days of antibiotics intubation and vasopressors there was no improvement in patient's status. Case was discussed with the family who have agreed to place patient on the DNR status and after several days they have opted to have comfort care. After the patient was extubated and the vasopressors were slowly weaned off the patient continued to remain unresponsive in respiratory distress with severe hypotension and after 2 hours have . The family at the bedside
== END 2017-09-09 22:31 | DRG 640 ==
LOC: UNDOADMIN 14:43 → 3W 14:43 → ICU 08-29 20:25
PROVIDERS: ADMIT Family Medicine; ATTEND Internal Medicine
PROC: B548ZZA Ultrasonography of Superior Vena Cava, Guidance (ICD-10-PCS; 2017-08-27)
PROC: B518ZZA Fluoroscopy of Superior Vena Cava, Guidance (ICD-10-PCS; 2017-08-27)
PROC: 0DD78ZX Extraction of Stomach, Pylorus, Via Natural or Artificial Opening Endoscopic, Diagnostic (ICD-10-PCS; 2017-08-27)
PROC: 02HV33Z Insertion of Infusion Device into Superior Vena Cava, Percutaneous Approach (ICD-10-PCS; principal; 2017-08-27 18:00)
PROC: 30233N1 Transfusion of Nonautologous Red Blood Cells into Peripheral Vein, Percutaneous Approach (ICD-10-PCS; 2017-08-28)
PROC: 0BH17EZ Insertion of Endotracheal Airway into Trachea, Via Natural or Artificial Opening (ICD-10-PCS; 2017-08-29)
PROC: 5A1955Z Respiratory Ventilation, Greater than 96 Consecutive Hours (ICD-10-PCS; 2017-08-29)
PROC: 3E033XZ Introduction of Vasopressor into Peripheral Vein, Percutaneous Approach (ICD-10-PCS; 2017-08-30)
PROC: 02HV33Z Insertion of Infusion Device into Superior Vena Cava, Percutaneous Approach (ICD-10-PCS; 2017-08-30)
PROC: 30233K1 Transfusion of Nonautologous Frozen Plasma into Peripheral Vein, Percutaneous Approach (ICD-10-PCS; 2017-08-31)
PROC: 0W9G3ZZ Drainage of Peritoneal Cavity, Percutaneous Approach (ICD-10-PCS; 2017-09-04)
PROC: BW40ZZZ Ultrasonography of Abdomen (ICD-10-PCS; 2017-09-04)
DX: E86.0 Dehydration (principal); A41.02 Sepsis due to Methicillin resistant Staphylococcus aureus; R65.21 Severe sepsis with septic shock; J96.01 Acute respiratory failure with hypoxia; I50.43 Acute on chronic combined systolic (congestive) and diastolic (congestive) heart failure; N17.9 Acute kidney failure, unspecified; R18.8 Other ascites; K57.92 Diverticulitis of intestine, part unspecified, without perforation or abscess without bleeding; I13.0 Hypertensive heart and chronic kidney disease with heart failure and stage 1 through stage 4 chronic kidney disease, or unspecified chronic kidney disease; J80 Acute respiratory distress syndrome; R71.0 Precipitous drop in hematocrit; J44.1 Chronic obstructive pulmonary disease with (acute) exacerbation; K92.2 Gastrointestinal hemorrhage, unspecified; Z66 Do not resuscitate; R79.1 Abnormal coagulation profile; E11.22 Type 2 diabetes mellitus with diabetic chronic kidney disease; N18.3 Chronic kidney disease, stage 3 (moderate); I48.0 Paroxysmal atrial fibrillation; I25.10 Atherosclerotic heart disease of native coronary artery without angina pectoris; E78.5 Hyperlipidemia, unspecified; E03.9 Hypothyroidism, unspecified; E87.6 Hypokalemia; E87.2 Acidosis; I35.0 Nonrheumatic aortic (valve) stenosis; K29.70 Gastritis, unspecified, without bleeding; E87.1 Hypo-osmolality and hyponatremia; D69.6 Thrombocytopenia, unspecified; D63.1 Anemia in chronic kidney disease; B95.62 Methicillin resistant Staphylococcus aureus infection as the cause of diseases classified elsewhere; B96.20 Unspecified Escherichia coli [E. coli] as the cause of diseases classified elsewhere; R94.5 Abnormal results of liver function studies; R63.4 Abnormal weight loss; M19.90 Unspecified osteoarthritis, unspecified site; M10.9 Gout, unspecified; F17.210 Nicotine dependence, cigarettes, uncomplicated; I25.2 Old myocardial infarction; Z68.36 Body mass index [BMI] 36.0-36.9, adult; Z95.1 Presence of aortocoronary bypass graft; Z95.0 Presence of cardiac pacemaker; Z79.01 Long term (current) use of anticoagulants; Z79.82 Long term (current) use of aspirin; Z79.899 Other long term (current) drug therapy
CPT/HCPCS: 31500; 36415; 36430; 36569; 36600; 43239; 49083; 71010; 74000; 74177; 76705; 76937; 77001; 78227; 80048; 80053; 80076; 80202; 81001; 82140; 82271; 82272; 82550; 82553; 82565; 82607; 82728; 82746; 82803; 82962; 83540; 83550; 83605; 83735; 83880; 84100; 84134; 84443; 84466; 84484; 85025; 85027; 85045; 85362; 85379; 85384; 85610; 85730; 86850; 86900; 86901; 86920; 87015; 87040; 87070; 87075; 87077; 87086; 87088; 87101; 87116; 87186; 87205; 87206; 88305; 88342; 89050; 93005; 93010; 93306; 94002; 94003; 94640; 94660; A9537; C1769; J0171; J0282; J0295; J0330; J0696; J0713; J0743; J1100; J1610; J1630; J1642; J1720; J1815; J1940; J2060; J2248; J2250; J2270; J2310; J2370; J2543; J2704; J2765; J2805; J3010; J3370; J3430; J3475; J3480; J3490; J7030; J7060; J7620; J7685; P9016; P9017; P9047; Q9969; S0164